=== PATIENT | female | born 1960 | race Caucasian/White ===

== ENCOUNTER 2016-03-05 06:55 | Inpatient (IN) | payer OTHER ==
[2016-03-05] VITALS (31 sets, daily range): BP systolic 61–123; BP diastolic 41–71; BMI 26.0
[~2016-03-05] VITALS: Ht 167.6 cm; Wt 90.5 kg
--- NOTE | ~2016-03-05 | HEMODYNAMI ---
PATIENT:SARAH GARY MEDICAL RECORD: [id number] : 56 LOCATION:[facility] D230 ADMISSION DATE: 03/05/16 Generatedon:03/24/201610:00 Patient name: SARAH GARY Patient #: [id number] SSN: : 1960 Date of study: 03/24/2016 Page: Of Hemodynamic Procedure Report Patient Data Patient Demographics Procedure consent was obtained First Name: SARAH Gender: Female Last Name: COOKIE : 1960 [facility] Initial: L Age: 56 year(s) Patient #: [id number] Race: Unknown Additional ID: [id number] Contact details Address: [address] [place] [address] State: [place] City: [facility] Zip code: [address] Admission Admission Data Admission Date: 03/05/2016 Admission Time: 6:55 Room #: D2309 Height (in.): 66 BSA: 1.96 (m2) Height (cm.): 167.64 BMI: 30.83 (kg/m2) Weight (lbs.): 191 Weight (kg.): 86.64 Procedure Procedure Types Cath Procedure Peripheral Cath Diagnostic Procedure Cath Peripheral Abscess Abscess Drain Injection Procedure Description Procedure Date Procedure Date: 03/24/2016 Procedure Start Time: 9:40 Procedure Staff Name Function Diallo Avila MD Performing Physician Yaya Castro RT Scrub Carissa Chapman RN Nurse Jessy Jeronimo RT Cage Loader Jessy Jeronimo RT Monitor Procedure Data Cath Procedure Fluoroscopy Diagnostic fluoroscopy Total fluoroscopy Time: 0.6 time: 0.6 min min Diagnostic fluoroscopy Total fluoroscopy dose: dose: 13.67 mGy 13.67 mGy Contrast Material Contrast Material Type Amount (ml) Isovue 300 5 Procedure Medications Medication Administration Route Dosage Lidocaine 1% added to field 20 Heparin Flush Bag added to field 1 bags (1000units/500ml NS) Fentanyl I.V. 50 mcg Fentanyl I.V. 50 mcg Fentanyl I.V. 50 mcg Hemodynamics Rest BSA: 1.96 (m2) O2 Consumption: Estimated: 208.78 (ml/min) O2 Consumption indexed : Estimated:106.52 (ml/min/m) Heart Rate: 100 (bpm) Snapshots Pre Cath Intra NCS Post Cath Vital Signs Time Heart Resp SPO2 NIBP (mmHg) Rhythm Pain Sedation Rate (ipm) (%) Status Level (bpm) 9:36:00 96 19 98 162/88(123) NSR 0 (11) 10(A) , No pain 9:40:13 95 16 98 154/84(123) NSR 0 (11) 10(A) , No pain 9:44:42 94 16 98 156/71(124) NSR 0 (11) 10(A) , No pain 9:48:56 94 16 98 146/82(113) NSR 0 (11) 10(A) , No pain 9:53:12 93 16 97 146/77(119) NSR 0 (11) 10(A) , No pain 9:57:28 89 17 98 148/82(114) NSR 0 (11) 10(A) , No pain Medications Time Medication Route Dose Verified Delivered Reason Notes Effec tiveness by by 9:38:37 Lidocaine 1% added 20ml Carissa Carissa used for to vial Ari Ari procedure field RN RN 9:38:45 Heparin Flush added 1 Carissa Carissa used for Bag to bags Ari Ari procedure (1000units/500ml field RN RN NS) 9:39:54 Fentanyl I.V. 50 Carissa Carissa for mcg Ari Ari sedation RN RN 9:45:36 Fentanyl I.V. 50 Carissa Carissa for mcg Ari Ari sedation RN RN 9:50:29 Fentanyl I.V. 50 Carissa Carissa for mcg Ari Ari sedation RN bottle labeler Log Time Note 8:41:19 Patient Height : 66 inches 8:41:24 Patient Weight : 191 lbs 8:41:59 Use device set IR Diagnostic 8:42:01 Sterile Angiographic Pack opened to sterile field. 8:42:02 Bag Decanter opened to sterile field. 9:25:08 Time tracking: Regular hours 9:25:50 Plan of Care:Hemodynamics will remain stable., Cardiac rhythm will remain stable., Comfort level will be maintained., Respiratory function will remain adequate., Patient/ family verbilizes understanding of procedure., Procedure tolerated without complication., Recovers from procedure without complications.. 9:26:09 Signed procedure consent form obtained from spouse. 9:28:14 Patient received from ICU to CCL 3 On ventilator. Tansferred to table i n Supine position. 9:28:19 ECG and BP/O2 sat monitors applied to patient. 9:28:20 Vital chart was started 9:28:21 Baseline sample Acquired. 9:28:23 Full Disclosure recording started 9:28:24 - 9:28:28 H&P Date Dictated: 03/24/2016 Within 30 days and on chart.. 9:28:35 Family unavailable. 9:28:39 Patient NPO since Breakfast. 9:29:24 ----Pre-sedation anethsthesia assessment.---- 9:29:29 Previous problem with sedation/anesthesia? No ? 9:30:22 Snore? No 9:30:25 Deviated septum? No 9:30:27 Opens mouth fully? Yes 9:30:28 Sticks out tongue? Yes 9:30:49 patient is on ventilator 9:30:59 IV patent on arrival in left forearm with 0.9% NaCl at O. 9:31:13 Right abdomen area was prepped with chlora-prep and draped in sterile fashion 9:31:15 Alarms reviewed by R. N. 9:31:15 Sharps counted by scrub and verified by R.N. 9:31:16 - 9:35:17 STOPCOCK 3-WAY LARGE BORE opened to sterile field. 9:35:33 YUCH needle opened to sterile field. 9:38:37 Lidocaine 1% 20ml vial added to field was given by Carissa Chapman RN; used for procedure; 9:38:45 Heparin Flush Bag (1000units/500ml NS) 1 bags added to field was given by Carissa Chapman RN; used for procedure; 9:38:49 Physician arrived 9:38:49 Physician arrived 9:39:05 --------ALL STOP TIME OUT------ 9:39:10 Final Timeout: patient, procedure, and site verified with staff and physician. All members of the team are in agreement. 9:39:16 Right abdomen site verified by team. 9:39:22 Physical assessment completed. ASA score P 3 - A patient with severe systemic disease as per Diallo Avila MD. 9:39:28 Sedation plan: IV Moderate Sedation Fentanyl 9:39:54 Fentanyl 50 mcg I.V. was given by Carissa Chapman RN; for sedation; 9:40:02 Procedure started. 9:40:09 Local anesthetic to Abdominal area with Lidocaine 1% by Diallo Avila MD.INITIAL ACCESS ONLY 9:45:36 Fentanyl 50 mcg I.V. was given by Carissa Chapman RN; for sedation; 9:50:29 Fentanyl 50 mcg I.V. was given by Carissa Chapman RN; for sedation; 9:51:07 drain checked and pulled 9:51:28 Procedure ended.(Physican Out) 9:51:35 Fluoroscopy time 00.60 minutes. 9:54:33 Fluoroscopy dose: 13.67 mGy 9:54:33 Flurop Dose total: 13.67 9:56:32 Contrast amount:Isovue 300 5ml. 9:59:46 Procedure and supply charges have been captured, reviewed, submitted an d are correct. 9:59:47 End room use (Document Last) 10:00:02 Vital chart was stopped Device Usage Item Name Manufacture Quantity Catalog Hospital Part Current Minimal Lot# / Number Charge Number Stock Stock Serial# Code Sterile Cardinal 1 [id number] 5 Angiographic Health Pack Bag Decanter Microtek 1 [id number] 5 [employer] STOPCOCK [employer] Medical 1 [id number] 5 3-WAY LARGE BORE YUCH needle [place] [address] [id number] 5 Signature Audit [place] Stage Time Signature Unsigned Intra-Procedure 03/24/2016 Jessy Jeronimo 9:59:59 AM RT(R) Signatures Monitor : Jessy Jeronimo RT Signature : Date : Time : [facility] [address] [place] [place] [address]
[~2016-03-05 06:55] MED LIST: BREO ELLIPTA 11 EACH INH; DUTOPROL 50-121 EACH PO; LASIX40 MG PO; METOPROLOL TART50 MG PO; PROTONIX40 MG PO; PULMICORT180 MCG/AE INH; SINGULAIR10 MG PO; VENTOLIN HFA18 GM INH
[2016-03-05 08:25] LABS: HEMATOCRIT 45.4 % (36.0-48.0); HEMOGLOBIN 15.8 g/dL (12-16); MCH 33.2 pg (26.0-34.0); MCHC 34.8 g/dL (31.0-37.0); MCV 95.4 fL (80.0-100.0); MEAN PLATELET VOLUME 10.4 fL (7.4-10.4); RBC 4.76 10x6/uL (4.00-5.40); RDW 12.9 % (11.5-14.5); WBC 8.6 10x3/uL (4.8-10.8)
[2016-03-05 08:34] LABS: CALC OSMOLALITY 270 mosm/kg (275-300); CALCIUM 9.1 mg/dL (8.5-10.1); CARBON DIOXIDE 28.6 mmol/L (21.0-32.0); CHLORIDE - SERUM 99 mmol/L (98-107); CREATININE - SERUM 0.8 mg/dL (0.6-1.3); GLUCOSE 110 mg/dL (74-106); POTASSIUM - SERUM 4.1 mmol/L (3.5-5.1); SODIUM 135 mmol/L (136-145); UREA NITROGEN 12 mg/dL (7-18); eGFR NON AFRICAN AMERICAN 78 mL/min (90-120)
--- NOTE | 2016-03-05 13:23 | NUR ---
[address] SOLANO PLACED ART LINE AND ABGS DRAWN
--- NOTE | 2016-03-05 16:50 | NUR ---
DR SANDOVAL CALLED AND CONSULTED.
[2016-03-05 17:21] LABS: BASOPHILS 0 % (0.0-2.0); EOSINOPHILS 0.1 % (0-7); IMMATURE GRANULOCYTES 1.1 % (0-5); LYMPHOCYTES 7.9 % (15-50); MCH 32.4 pg (26.0-34.0); MCHC 33.5 g/dL (31.0-37.0); MCV 96.7 fL (80.0-100.0); MEAN PLATELET VOLUME 10.3 fL (7.4-10.4); MONOCYTES 7.2 % (2-11); NEUTROPHILS 83.7 % (40-80); PLATELET COUNT 150 10x3/uL (130-400); RDW 13.2 % (11.5-14.5)
[2016-03-05 17:24] LABS: RBC 3.64 10x6/uL (4.00-5.40); WBC 12.2 10x3/uL (4.8-10.8)
[2016-03-05 17:25] LABS: HEMATOCRIT 35.2 % (36.0-48.0); HEMOGLOBIN 11.8 g/dL (12-16)
[2016-03-05 17:57] LABS: ALBUMIN 1.8 g/dL (3.4-5.0); ALKALINE PHOSPHATASE 51 U/L (46-116); ALT (SGPT) 193 U/L (10-68); BILIRUBIN - TOTAL 0.48 mg/dL (0.2-1.3); CALC OSMOLALITY 276 mosm/kg (275-300); CALCIUM 7.3 mg/dL (8.5-10.1); CARBON DIOXIDE 27.3 mmol/L (21.0-32.0); CHLORIDE - SERUM 105 mmol/L (98-107); POTASSIUM - SERUM 3.7 mmol/L (3.5-5.1); PROTEIN - SERUM 4.4 g/dL (6.4-8.2); SODIUM 136 mmol/L (136-145); UREA NITROGEN 12 mg/dL (7-18); eGFR NON AFRICAN AMERICAN 60 mL/min (90-120)
[2016-03-05 18:06] LABS: GLUCOSE 187 mg/dL (74-106)
[2016-03-05 18:13] LABS: CKMB 4.4 U/L (0.0-3.6); CREATINE KINASE 101 UL (21-215)
[2016-03-05 18:16] LABS: TROPONIN-I 1.248 ng/mL (0.000-0.060)
--- NOTE | 2016-03-05 18:54 | NUR ---
PATIENT ARRIVED TO THE FLOOR VIA BED AT 1618 SHE WAS BAGGED BY CELL OPERATION SUPERVISOR UNTIL VENT SET UP BY THEO. SETTINGS A/C 14, TV 500, PEEP 5, 100%. PER DR THOMPSON, PATIENT WILL REMAIN ON VENT AT LEAST THROUGHT THE NIGHT. CXR OBTAINED. SEDATION ORDERS OBTAINED AND STARTED. TEMP 97.5, B/P 95/62 HR 96 RR 14 SATS 100%. REPORT RECEIVED FROM 4 DIFFERENT CELL OPERATION SUPERVISOR'S AND AGAIN FROM BIANCA HERNANDEZ AT BEDSIDE. CHECKED TO ENSURE ANA LAURA DRAIN COMPRESSED. CHECKED ALL LINES ON WOUND VAC. PORTABLE WOUND VAC SYSTEM PLACED ON TOP OF BEDSIDE TABLE. B/P OF PATIENT STARTED FALLING 58/43. PER DR THOMPSON, FLUID BOLUSES STARTED TO BOTH IV'S, ONE TO LEFT HAND WAS GIVEN UNDER PRESSURE BAG AND THE ONE TO RIGHT HAND AT 999 VIA PUMP. BLOOD PRESSURE SLOWLY CAME UP WITH BOLUSES. CENTRAL LINE WAS PLACED TO LEFT SUBCLAVICULAR AREA BY DR THOMPSON AFTER BLOOD PRESSURE STABLE (APPROX 1505) SPOUSE SIGNED CONSENTS. OG TUBE WAS DROPPED BY MARY SHETTY RN AFTER CENTRAL LINE PLACED PRIOR TO CHEST X-RAY. A CVP LINE WAS PLACE AROUND 1800 WITH IT RUNNING 10-12. AROUND THE SAME TIME, LEVOPHED DRIP WAS STARTED SECONDARY TO SBP FALLING AGAIN INTO 70'S WITH MAP 53. TITRATED DRIP WAS LEFT AT 2.5 MCG. PATIENTS PROPOFOL WAS ALSO DC'D AND CHANGED TO VERSAID, TITRATE STOPPED AT THIS TIME ON 3 MG AND FENTYLE DRIP, TITRATE STOPPED AT 300 MCG. PATIENT IS CURRENTLLY RESTING COMFORTABLY. WILL CONTINUE TO MONITOR.
--- NOTE | 2016-03-05 19:14 | NUR ---
REPORT RECIEVED. ASSESSMENT COMPLETE PER FLOW SHEET. REFER FOR COMPLETE FINDINGS. ART PATENT BP 87/52 LEVOPHED AT 4MCG/MIN. INSPIRATORY WHEEZING HEARD BILAT ALL LOBES. ABD DRSG PATENT TO WOUND VAC. R ANA LAURA X1 NOTED 20 CC BLOODY DRAINAGE NOTED. VSS WILL CONTINUE TO MONITOR.
--- NOTE | 2016-03-05 21:45 | NUR ---
PT FAMIYL AT BED SIDE. GIVEN UPDATE. VSS NO NEW CHANGES WILL CONTINUE TO MONITOR.
--- NOTE | 2016-03-05 23:21 | NUR ---
REASSESSMENT COMPLETE PER FLOW SHEET. REPOSITIONED UP IN BED. VSS. DENIES FURTHER NEEDS. WILL CONTINUE TO MONITOR.
[2016-03-06] VITALS (90 sets, daily range): BP systolic 73–145; BP diastolic 51–88; Ht 167.6 cm; Wt 90.5 kg
[2016-03-06 00:06] LABS: HEMATOCRIT 38.2 % (36.0-48.0); HEMOGLOBIN 12.9 g/dL (12-16)
[2016-03-06 00:27] LABS: CREATINE KINASE 177 UL (21-215)
[2016-03-06 00:29] LABS: TROPONIN-I 1.178 ng/mL (0.000-0.060)
--- NOTE | 2016-03-06 01:12 | NUR ---
ASSISTED ONTO BEDPAN NO BM NOTED. PT STATES PASSING GAS.
--- NOTE | 2016-03-06 01:20 | NUR ---
COMPLETE BB LINEN CHANGE ADM. VSS WILL CONTINUE TO MONITOR.
--- NOTE | 2016-03-06 03:16 | NUR ---
REASSESSMENT COMPELTEPER FLOW SHEET VSS NO NEW CHNAGES AT THIS TIME. WILLCONTINUE TO MONITOR.
[2016-03-06 04:45] LABS: HEMATOCRIT 37.6 % (36.0-48.0); HEMOGLOBIN 12.5 g/dL (12-16); MCH 32.5 pg (26.0-34.0); MCHC 33.2 g/dL (31.0-37.0); MCV 97.7 fL (80.0-100.0); MEAN PLATELET VOLUME 11.4 fL (7.4-10.4); PLATELET COUNT 209 10x3/uL (130-400); RBC 3.85 10x6/uL (4.00-5.40); RDW 13.3 % (11.5-14.5); WBC 22.7 10x3/uL (4.8-10.8)
[2016-03-06 05:00] LABS: CALCIUM 7.5 mg/dL (8.5-10.1); CARBON DIOXIDE 24.4 mmol/L (21.0-32.0); CHLORIDE - SERUM 104 mmol/L (98-107); CKMB 6.6 U/L (0.0-3.6); CREATININE - SERUM 1.1 mg/dL (0.6-1.3); MAGNESIUM - SERUM 1.4 mg/dL (1.8-2.4); SODIUM 139 mmol/L (136-145); UREA NITROGEN 14 mg/dL (7-18); eGFR NON AFRICAN AMERICAN 54 mL/min (90-120)
[2016-03-06 05:05] LABS: CALC OSMOLALITY 286 mosm/kg (275-300); CREATINE KINASE 242 UL (21-215); GLUCOSE 241 mg/dL (74-106); POTASSIUM - SERUM 4.5 mmol/L (3.5-5.1); TROPONIN-I 0.834 ng/mL (0.000-0.060)
[2016-03-06 05:16] LABS: LYMPHOCYTES 7 % (15-50); MONOCYTES 1 % (2-11); NEUTROPHILS 72 % (40-80); PLATELET ESTIMATE NORMAL
--- NOTE | 2016-03-06 07:00 | NUR ---
REPORT RECEIVED. ASSESSMENT COMPLETED. LEVOPHED INCREASED SECONDARY TO 69/59 B/P. WILL MONITOR.
--- NOTE | 2016-03-06 07:56 | OP ---
PATIENT NAME: SARAH GARY MEDICAL RECORD: [id number] :56 LOCATION:.[facility] D.2309 ADMISSION DATE:03/05/16 SURGEON: BRICE BEASLEY MD DATE OF OPERATION: 03/05/2016 SURGEON: Brice Beasley MD PREOPERATIVE DIAGNOSIS: 1. The patient with history of perforated diverticulitis with Chris's procedure. 2. Postoperative incisional hernia. 3. Chronic obstructive pulmonary disease. 4. History of post-procedural respiratory failure. 5. Nicotine dependence. POSTOPERATIVE DIAGNOSIS: 1. The patient with history of perforated diverticulitis with Chirs's procedure. 2. Postoperative incisional hernia. 3. Chronic obstructive pulmonary disease. 4. History of post-procedural respiratory failure. 5. Nicotine dependence. 6. CO2 embolus. SURGEON: Dr. Brice Beasley. PROCEDURES: 1. Diagnostic laparoscopy. 2. Exploratory laparotomy with takedown of colostomy with colorectal anastomosis. 3. Lysis of adhesions. 4. Incisional hernia repair with 6 x 8 inch Phasix mesh. SPECIMENS: Case was contaminated. ESTIMATED BLOOD LOSS: 500 cc. COMPLICATIONS: CO2 embolus with subsequent respiratory arrest requiring CPR. OPERATIVE COURSE: After consent was obtained, the patient was taken to the operating room and placed in the supine position on the operating table. Next, general anesthesia was given via endotracheal intubation. After a timeout was performed confirming the correct patient and procedure, Ioban dressing was placed. Local anesthetic was injected into the right upper quadrant. Using a stab incision, made with 11-blade scalpel. Using a 5-mm bladeless optical trocar, the abdomen was entered under direct laparoscopic vision. Adequate pneumoperitoneum was achieved. Shortly thereafter, the patient had a dramatic drop in blood pressure as well as a loss of end-tidal CO2. The abdomen was desufflated. Pneumoperitoneum was halted. Shortly thereafter, the patient lost pulses and CPR ensued for approximately 1 minute. The patient was placed in the steep Trendelenburg position. At this time, we diagnosed the patient with a CO2 embolus. ACLS was initiated. The patient had spontaneous return of pulses within 2 minutes and arterial line was placed. At this time, the patient was hemodynamically stable with a blood pressure of 120s/60s, heart rate around 100 and adequate end-tidal CO2 of 35 time. The patient had resumed normal OPERATIVE REPORT [id number] SARAH GARY hemodynamic parameters. It was decided at this time to proceed with the operation. A midline abdominal incision was made and Chaz retractor was placed. Lysis of adhesions was performed. The small bowel was retracted towards the left upper quadrant. The pelvis was exposed. The marking suture from the rectum was identified. The rectum was dissected and freed. The colostomy was taken down to the skin level. The skin was excised along the colostomy with Harmonic scalpel. Dissection was performed using electrocautery and sharp Metzenbaum scissor. Dissection until the colostomy was freed. Before placing it into the abdomen, the 29-mm EEA anvil was placed and the colostomy single firing of the EMILY linear cutting stapler with the setting of 5 green load was then taken across the colostomy. Colostomy specimen was sent for pathology. Using cautery, a small colotomy was made at the staple line. The anvil was delivered through the colotomy and the colon and anvil were placed to the colostomy opening and into the abdomen to the pelvis. At this time, the rectum was irrigated. Rectal sizers were placed, a 23, 25 and 29. At this time, the 29-mm EEA stapler was passed through the rectum. The spike was delivered into the rectum. A colorectal anastomosis was then performed using a 29-mm EEA stapler. There were 2 complete donuts. The donuts were sent with the colostomy specimen for permanent pathology. The staple line was then reinforced with a 2.0 Stratafix suture imbricating the staple line. Lesia was placed into the posterior along the presacral fascia for advanced hemostasis. The anastomosis was reinforced with Tisseel. At this time, the hernia sac was excised in its entirety. The subcutaneous tissue was dissected off the external oblique fascia circumferentially allowing for 5 cm of overlap in all directions. The fascia was reapproximated using #1 looped PDS. A 6 x 8 inches Phasix mesh was placed over the incisional hernia. It was secured to the external oblique fascia using 3-0 Vicryl suture. Prior to closure of the abdomen, a ANA LAURA drain was placed in the pelvis at the colorectal anastomosis. The skin was loosely reapproximated with anju. The colostomy site was closed with an 0 Prolene suture. The colostomy site was again loosely approximated with anju. A Prevena incisional VAC system was placed. At the end of the case, all needle counts were correct. The patient was transferred to the ICU in stable condition. TRANSINT:[id number] Voice Confirmation ID: [id number] DOCUMENT ID: [id number] BRICE BEASLEY MD at 0756 CC: [id number] DICTATION DATE: 03/05/16 162 VEHICLE MAINTENANCE TECHNICIAN: 03/05/162038 ADM IN [place] [id number] [place] [address]
--- NOTE | 2016-03-06 08:23 | NUR ---
DR THOMPSON HERE. 500 ML BOLUS OF NORMAL SALINE GIVEN PER HIS VERBAL ORDER.
--- NOTE | 2016-03-06 09:50 | NUR ---
DR MARCH WITH ANESTHESIA HERE. WORKED ON A LINE, WAS ABLE TO GET IT TO DRAW. YAMILETH AND NIBP STILL NOT MATCHING UP, BUT WAVEFORM IS A BIT BETTER.
--- NOTE | 2016-03-06 10:30 | NUR ---
DR SANDOVAL HERE SEEING PATIENT. ADJUSTMENTS MADE ON THE VENT. PEEP NOW 8, OXYGEN NOW 50%.
--- NOTE | 2016-03-06 11:37 | NUR ---
PATIENT IS ON THE VENT AND NOT ABLE TO RESPOND TO QUESTIONS. THERE HAS NOT BEEN ANY FAMILY HER TO INTERVIEW. CM TO FOLLOW.
--- NOTE | 2016-03-06 12:12 | NUR ---
SPOUSE HERE, PASSWORD SET UP. QUESTIONS ANSWERED. HE WAS GIVEN THE NUMBER TO THE NURSES STATION SO HE CAN CALL AND CHECK ON HER WHEN HE IS UNABLE TO MAKE VISITATIONS.
--- NOTE | 2016-03-06 12:53 | NUR ---
PATIENTS B/P FELL TO 70/51 (58). DR THOMPSON HERE. ORDERED FLUID BOLUS. SATS ALSO DECREASED TO 88% ON 40% OXYGEN. PATIENT WAS GIVEN 2 MIN AT 100% AND HER OXYGEN INCERASED TO 60% AFTER UNABLE TO COME UP ON 50%. SATS HOLDING AT 95% AT THIS TIME.
--- NOTE | 2016-03-06 14:23 | NUR ---
DR SOLANO HERE WITH ANESTHESIA TO TRY TO OPEN UP THE PATIENTS ART LINE.
--- NOTE | 2016-03-06 14:33 | NUR ---
LEVOPHED DRIP DECREASED TO 28 MCG. CVP RESET TO SEE IF TRUE READING. RESET READING WAS 12, PREVIOUSALLY READING 15. WILL CONTINUE TO MONITOR.
--- NOTE | 2016-03-06 14:40 | NUR ---
DR SOLANO REPLACED THE ARTLINE TO RIGHT WRIST WITH A LONGER LINE. RECEIVING GOOD READINGS WITH GREAT WAVEFORM. PER THEO WITH RESPIRATORY, ROBERTO GREAT FOR ABG'S THAT WERE REQUESTED BY DR SOLANO.
--- NOTE | 2016-03-06 15:25 | NUR ---
Is the patient Alert and Oriented? No 0 * How many steps to enter\exit or inside your home? 1 0 * PCP DR. RAMIREZ 0 * [facility] [address] [place] [facility] * Preadmission Environment Home with Family 0 * ADLs Independent 0 * Equipment Nebulizer 0 * Other Equipment DOES NOT KNOW WHO PROVIDES NEBS 0 * List name and contact numbers for known caregivers / representatives who currently or will assist patient after discharge: SPOUSE: RAMON PROCTOR [phone] 0 * Community resources currently utilized None 0 * Additional services required to return to the preadmission environment? No 0 * Can the patient safely return to the preadmission environment? Yes 0 * Has this patient been hospitalized within the prior 30 days at any hospital? No PATIENT IS ON THE VENT AND SEDATED. HER SPOUSE, RAMON PROCTOR, IS AT THE BEDSIDE AND ANSWERS MY QUESTIONS. HE STATES THEY WERE LAST THURSDAY. HE STATES THAT PATIENT WAS LIVING AT HOME PRIOR TO COMING TO THE HOSPITAL. HER PCP IS DR. RAMIREZ. SHE GETS HER MEDS FROM [facility] [address] [facility]. PATIENT HAS A NEBULIZER SHE SOMETIMES USES BUT HE DOES NOT KNOW WHO PROVIDES IT. HE STATES HE HAS NEVER HAD HOME HEALTH CARE. THERE IS ONLY 1 STEP TO ENTER THEIR HOME. DISCHARGE NEEDS ARE UNKNOWN AT THIS TIME. CM TO FOLLOW.
--- NOTE | 2016-03-06 15:41 | NUR ---
LEVOPHED DECREASED TO 24 MCG. MAP REMAINS IN 70'S. CVP READING 24. ZEROED FOR THE 3RD TIME. READING AFTER ZEROING IS 22. WILL MONITOR.
--- NOTE | 2016-03-06 17:18 | NUR ---
DR THOMPSON HERE. DISCUSSED THE PATIENTS PROGRESS THROUGHT THE DAY. VERSAID DECREASED TO 2.5 AT THIS TIME. IV FLUIDS DECREASED TO 55 ML/HR. PER DR THOMPSON, HE DOES NOT WANT THE PATIENT GETTING MORE THAN 200 ML/HR AT ANY TIME. WILL CONTINUE TO MONITOR.
--- NOTE | 2016-03-06 17:23 | NUR ---
CVP ZEROED FOR THE 4TH TIME TODAY. CURRENT READING IS 6.
--- NOTE | 2016-03-06 17:48 | NUR ---
LEVOPHED DRIP DECREASED TO 25 MCG. SBP 116, MAP 77. CVP READING 18. ZEROED IT AGAIN. READING 11 AFTER ZEROING. WILL CONTINUE TO MONITOR.
--- NOTE | 2016-03-06 18:14 | NUR ---
SPOKE WITH SPOUSE AND EXPLAINED THAT DR THOMPSON SAID HE WOULD LIKE TO BE CALLED TOMORROW WHEN HE WAS HERE SO THAT HE COULD COME OVER AND TALK TO HIM. HE STATED HE WOULD BE SURE THAT HE WOULD BE ABLE TO STAY.
--- NOTE | 2016-03-06 19:33 | NUR ---
REPORT RECIEVED ASSESSMENT COMPLETE PER FLOW SHEET. VSS. REPOSTIIONED ON R SIDE. ORAL ENDOTRACH CARE ADM. WILL CONTINUE TO MONITOR.
--- NOTE | 2016-03-06 21:28 | NUR ---
FAMILY GIVEN UPDATE VIA T. NO NEW CHANGES AT THIS TIME.
--- NOTE | 2016-03-06 23:28 | NUR ---
REASSESSMENT COMPLETEP ER FLOW SHEET. VSS.NO NEW CHANGES AT THIS TIME. WILL CONTINUE TO MONITOR.
[2016-03-07] VITALS (95 sets, daily range): BP systolic 80–145; BP diastolic 47–78
--- NOTE | 2016-03-07 01:30 | NUR ---
REPOSITIONED FOR COMFORT, WILL CON'T TO MONITOR
--- NOTE | 2016-03-07 03:21 | NUR ---
REASSESSMENT COMPLETE PER LFOW SHEET. VSS NO ENW CHANGES AT THIS TIME. WILL CONTINUE TO MONITOR.
[2016-03-07 04:29] LABS: BASOPHILS 0.2 % (0.0-2.0); EOSINOPHILS 0.8 % (0-7); HEMATOCRIT 30.4 % (36.0-48.0); IMMATURE GRANULOCYTES 0.2 % (0-5); MCH 32.5 pg (26.0-34.0); MCHC 32.2 g/dL (31.0-37.0); MEAN PLATELET VOLUME 10.5 fL (7.4-10.4); MONOCYTES 7.4 % (2-11); NEUTROPHILS 85.4 % (40-80); RDW 13.8 % (11.5-14.5)
[2016-03-07 04:36] LABS: ANION GAP 10.4 mmol/L (8-16); CALCIUM 7.4 mg/dL (8.5-10.1); CARBON DIOXIDE 26.2 mmol/L (21.0-32.0); CREATININE - SERUM 0.9 mg/dL (0.6-1.3); HEMOGLOBIN 9.8 g/dL (12-16); MCV 100.7 fL (80.0-100.0); PLATELET COUNT 150 10x3/uL (130-400); POTASSIUM - SERUM 4.6 mmol/L (3.5-5.1); RBC 3.02 10x6/uL (4.00-5.40); WBC 14.6 10x3/uL (4.8-10.8)
--- NOTE | 2016-03-07 05:20 | NUR ---
A LINE ALARMING BAD WAVEFORM ZEROED REPOSITIONED WITH GOOD WAVE FORM BP 106/64
--- NOTE | 2016-03-07 07:00 | NUR ---
ASSUMED CARE OF PT. SHIFT ASSESSMENT COMPLETE. SEE FLOWSHEET FOR FINDINGS. PT IS SEDATED AND VENTILATED. SOFT WRIST RESTRAINTS IN PLACE. MARK CATHETER WITH CONCENTRATED URINE. ART LINE AND CVP LINES ZERO'D. WOUND VAC FUNCTIONING PROPERLY. WITH NO LEAKS.
--- NOTE | 2016-03-07 10:30 | NUR ---
AT BEDSIDE TO SPEAK WITH DR THOMPSON. DONNA PAGED TO LET KNOW HE IS HERE.
--- NOTE | 2016-03-07 15:08 | NUR ---
DR THOMPSON IN TO SEE PATIENT. 100ML OUT OF ANA LAURA DRAIN. ASKED FOR MAINTENANCE FLUIDS TO BE TURNED DOWN TO 75ML/HR. WANTS FENTANYL DOWN TO 200MCG/HR.
--- NOTE | 2016-03-07 16:01 | NUR ---
WOUND CARE CONSULT: WOUND VAC DRESSING CHANGE WOUND TYPE: SURGICAL WOUND LOCATION: LEFT ABDOMEN WOUND AGE IN MONTHS: DAYS DEBRIDEMENT ATTEMPTED IN LAST 10 DAYS? DATE/TYPE: SERIAL DEBRIDEMENTS REQUIRED? UNKNOWN MEASUREMENT DATE: 03/07/16 2CM X 3CM X 5CM FULL THICKNESS? YES MUSCLE, TENDON OR BONE EXPOSED? NO UNDERMINING?NO TUNNELING/SINUS?NO APPEARANCE OF WOUND BED : RED EXUDATE (AMOUNT, COLOR, ODOR): SMALL BLOODY NO ODOR FOAM TYPE: BLACK # OF PIECES USED: 2 PIECES EDUCATION: PURPOSE OF VAC AND PREVENA TO PREVENA DRESSING IS INTACT TO RIGHT ABDOMEN
--- NOTE | 2016-03-07 17:00 | NUR ---
PT SEDATED. NO DISTRESS NOTED. REPOSITIONED. BED LOW. SIDE RAILS X2
--- NOTE | 2016-03-07 20:00 | NUR ---
2000: Pt opens eyes to verbal and nods head to questions, but quickly returns to resting with eyes closed. Continue to titrate levophed gtt to keep pt MAP >60 as per MD orders.
--- NOTE | 2016-03-07 20:45 | NUR ---
2044: Pt ABD with large midline wound vac dressing in place to 125 mmHg sx with small amount of drainage. (Dried in container with solidifier <30cc) RLQ with ANA LAURA drain with bulb sx intact. LLQ with approx 5-6cm wound vac dressing to 125 mmHg sx as above. Pt with no BS. OGT to LIS with green liquid return.
--- NOTE | 2016-03-07 21:00 | NUR ---
2100: Pt family here. Update provided.
[2016-03-08] VITALS (91 sets, daily range): BP systolic 96–152; BP diastolic 43–70
--- NOTE | 2016-03-08 | NUR ---
0000: No change in pt RESP/CV/NV status. Pt remains with levophed gtt titrate to keep MAP>60.
--- NOTE | 2016-03-08 02:30 | NUR ---
0230: Pt repositioned for comfort at this time. Oral care done per RT. Hedrick care done per RN. Pt remains on Vent with RR16x. Pt opens eyes briefly to verbal. ST on CM 100-110 bpm with SBP >100 and MAP >60 mmHG. Continue to titrate Levophed down. No change in pt ABD wound/dressings or drainage.
[2016-03-08 03:54] LABS: BASOPHILS 0.3 % (0.0-2.0); EOSINOPHILS 2.5 % (0-7); HEMATOCRIT 25.5 % (36.0-48.0); HEMOGLOBIN 8.1 g/dL (12-16); IMMATURE GRANULOCYTES 0.2 % (0-5); LYMPHOCYTES 7.3 % (15-50); MCH 32.5 pg (26.0-34.0); MCHC 31.8 g/dL (31.0-37.0); MCV 102.4 fL (80.0-100.0); MEAN PLATELET VOLUME 9.7 fL (7.4-10.4); NEUTROPHILS 83.7 % (40-80); PLATELET COUNT 139 10x3/uL (130-400); RBC 2.49 10x6/uL (4.00-5.40); RDW 14.2 % (11.5-14.5); WBC 11.5 10x3/uL (4.8-10.8)
[2016-03-08 04:02] LABS: CALC OSMOLALITY 292 mosm/kg (275-300); CALCIUM 7.6 mg/dL (8.5-10.1); CARBON DIOXIDE 26.7 mmol/L (21.0-32.0); CHLORIDE - SERUM 114 mmol/L (98-107); CREATININE - SERUM 0.7 mg/dL (0.6-1.3); GLUCOSE 136 mg/dL (74-106); MAGNESIUM - SERUM 2.3 mg/dL (1.8-2.4); PHOSPHOROUS 1.9 mg/dL (2.5-4.9); POTASSIUM - SERUM 4.2 mmol/L (3.5-5.1); SODIUM 146 mmol/L (136-145); UREA NITROGEN 13 mg/dL (7-18); eGFR NON AFRICAN AMERICAN > 90 mL/min (90-120)
--- NOTE | 2016-03-08 06:00 | NUR ---
0600: Labs returned and results called to Dr. Beasley at this time. New orders rec'd and enterred.
[2016-03-08 10:15] LABS: LDL-HDL RATIO 3.1 ratio (1.5-3.5)
--- NOTE | 2016-03-08 10:54 | NUR ---
Nutrition Consult: Consult received to start TPN. Chart reviewed. Pt continues sedated and intubated. Wound vac in place. OGT to LIS. Per MD IV fluids not to exceed 150 ml/hr. Meds noted: Lasix, Levo, Versed, Zofran, D5LR @ 75 ml/hr Labs noted Will put order in to start TPN @ 40 ml/hr. Will decrease IV fluids to 20 ml/hr. Thank you for the consult. RD will continue to monitor pt progress.
[2016-03-08 14:15] LABS: HEMATOCRIT 31.8 % (36.0-48.0)
--- NOTE | 2016-03-08 18:14 | NUR ---
0715-DR THOMPSON AT BEDSIDE-STATUS REPORT GIVEN-INFORMED OF TEMP 101.2-ORDERS RECIEVED AND NOTED-URINE CULTURE RQDI-DEKT-VCFCAGE-BENADRYL-12.5MG IVP GIVEN-NOTED ST 112-R RADIAL YAMILETH WITH GOOD IHOF-KFAM-VPEQY-- 0830-VERSED STOPPED FOR CPAP TRIAL-FENTANYL DECREASED TO 25MCG-LEVOPHED DECREASED TO 2 MCG-WOUND VAC INTACT- 1030-PRBC INFUSED-LASIX IV GIVEN ORDERED-FENTANYL INCREASED TO 100MCG-FORM PT AGITATION AND NODDED YES WHEN ASKED IF IN PAIN-VERSED REMAINS OFF-HR 124 ST-VENT CHANGE SIMV AT 6-PRBC STARTED 1200-LEVOPHED OFF-DIETITION AT BEDSIDE- 1330-TPN STARTED AT 40ML/H-NOTED HR 136-ST -VERSED CONT STARTED AT 1MG/H-FENTANYL INCREASED TO 150MCG FOR POSSIBLE PAIN- 1345-PRBC INFUSED 1410-STAT HEMOGRAM DRAWN-ST 136-ON MONITOR 1450-DR THOMPSON NOTIFIED OF CONT HR -H AND H RESULTS-VERSED TITRATED TO 2MG/H-LEVOPHED REMAINS OFF-
--- NOTE | 2016-03-08 18:25 | NUR ---
1515- AT BEDSIDE AND STATUS REPORT GIVEN 1815- AT [facility]-HR 122 SR -REMAINS OFF LEVOPHED-FENT AT 150MCG-D5LR 20KCL AT 20M/H- VERSED AT 2MG/H-INFORMED PLAN TO LEAVE ON SEDATION AND PAIN MEDICINE OVERNIGHT AND TURN OFF IN EARLY HOURS TO ATTEMPT CPAP TRIAL
--- NOTE | 2016-03-08 20:30 | NUR ---
2030: Dr. Beasley called and updated provided.
[2016-03-09] VITALS (65 sets, daily range): BP systolic 100–171; BP diastolic 43–74
--- NOTE | 2016-03-09 | NUR ---
0000: Complete bath and linen change done. SCDs removed at this time. Removed bracelets from arm related to tightness/swelling. Oral care done. OGT position confirmed with 30 cc air bolus and returned to LIS with green liquid return. All IV lines including CVP changed at this time. CVP leveled and transduced to CM with reading 14-15 mmHG. Versed gtt stopped at this time and Fentanyl increased to 200 mcg/hr. NS TKVO also DC'D at this time. No change in RESP/NV/CV status. Remains ST 100's on CM with SBP 100's with Levophed off. No change in UOP remains >30 cc/hr.
[2016-03-09 04:13] LABS: BASOPHILS 0.2 % (0.0-2.0); EOSINOPHILS 5.9 % (0-7); HEMATOCRIT 30.5 % (36.0-48.0); HEMOGLOBIN 9.5 g/dL (12-16); IMMATURE GRANULOCYTES 0.5 % (0-5); LYMPHOCYTES 6.8 % (15-50); MCH 31.1 pg (26.0-34.0); MCHC 31.1 g/dL (31.0-37.0); MEAN PLATELET VOLUME 10.1 fL (7.4-10.4); MONOCYTES 6.4 % (2-11); NEUTROPHILS 80.2 % (40-80); PLATELET COUNT 136 10x3/uL (130-400); RDW 17.8 % (11.5-14.5); WBC 11.1 10x3/uL (4.8-10.8)
[2016-03-09 04:27] LABS: RBC 3.05 10x6/uL (4.00-5.40)
[2016-03-09 04:37] LABS: CALC OSMOLALITY 293 mosm/kg (275-300); CALCIUM 7.9 mg/dL (8.5-10.1); CARBON DIOXIDE 26.5 mmol/L (21.0-32.0); CHLORIDE - SERUM 115 mmol/L (98-107); CREATININE - SERUM 0.6 mg/dL (0.6-1.3); GLUCOSE 137 mg/dL (74-106); MAGNESIUM - SERUM 2.4 mg/dL (1.8-2.4); PHOSPHOROUS 2.3 mg/dL (2.5-4.9); POTASSIUM - SERUM 4.1 mmol/L (3.5-5.1); SODIUM 147 mmol/L (136-145); UREA NITROGEN 12 mg/dL (7-18); eGFR NON AFRICAN AMERICAN > 90 mL/min (90-120)
--- NOTE | 2016-03-09 04:43 | NUR ---
0440: Pt repositioned for comfort at this time.
--- NOTE | 2016-03-09 19:00 | NUR ---
RECEIVED PATIENT IN BED WITH EYES CLOSED ON VENT, ASSESSMENT COMPLETE PER FLOWSHEET. UNABLE TO ASSESS LOC DUE TO SEDATION, PATIENT OPENS EYES TO VOICE AND MOVES EXTREMITIES. EYES PERRLA @ 3MM WITH BRISK RESPONSE, SCLERA IS WHITE. OGT/ETT 7.0 @ 23CM MILINE LIPLINE, ORAL MUCOSA IS DRY AND INTACT. NG TUBE CONNECTED TO LIS, WITH THICK WHITE SECRETIONS NOTED. S1/S2 NOTED WITH PATIENT SINUS TACH ON TELEMETRY, REGULAR AND RYTHMIC. RHONCHI NOTED THROUGHOUT UPPER LOBES WITH SLIGHTLY DIMINISHED LOWER LOBES. INCISION X2 ABDOMEN, MIDLINE & R ABD WITH WOUND VAC ATTATCHED AND SCANT DRAINAGE NOTED. ANA LAURA DRAIN LOWER ABDOMEN WITH 11ML SEROUS DRAINAGE NOTED, EMPTIED AND COMPRESSED. MARK SECURED IN PLACE VIA STATLOCK, ROB URINE NOTED IN COLLECTION BAG. WEAKNESS NOTED ALL EXTREMITIES, ALL PULSES PALPABLE. A-LINE NOTED R RADIAL, ZEROED WITH GOOD WAVEFORM. CVL NOTED L SUBCLAVIAN, PATENT WITH FLUIDS INFUSING. ORAL CARE/SUCTIONING PROVIDED, PATIENT REPOSITIONED FOR COMFORT. ALL VSS AND WILL CONTNUE TO MONITOR.
--- NOTE | 2016-03-09 19:35 | NUR ---
1430-DR THOMPSON NOTIFIED OF ORAL TEMP 103.4-ORDER RECIEVED AND NOTED 1700-DR SANDOVAL IN UNIT AND MADE AWARE OF SAME-NO CHANGE IN ANTIBIOTIC
--- NOTE | 2016-03-09 21:00 | NUR ---
PATIENT RESTING IN BED WITH EYES CLOSED ON VENT, AT BEDSIDE. FAMILY STATES "NO QUESTIONS" AT THIS TIME, "JUST CAME TO SEE HER". INFORMED TO CONTACT US AT ANY TIME IF QUESTIONS ARISE, STATED UNDERSTANDING. ALL VSS AND WILL CONTINUE TO MONITOR.
--- NOTE | 2016-03-09 23:00 | NUR ---
REASSESSMENT COMPLETE PER FLOWSHEET, PATIENT RESTING IN BED WITH EYES CLOSED ON VENT. ALL VSS WITH NO BLEEDING OR DRAINAGE NOTED FROM INCISION SITES. BOWEL SOUNDS ABSENT X4, ABDOMEN IS SOFT AND ROUND. PATIENT IS SIUNS TACH ON TELEMETRY, RYTHMIC AND REGULAR. VENT SETTINGS REMAIN UNCHANGED FROM PREVIOUS ASSESSMENT, OXYGEN SAT 99%. PATIENT OPENS EYES SPONTANEOUSLY AND MOVES EXTREMITIES SLOWLY. PATIENT DENIES PAIN OR OTHER NEEDS AT THIS TIME, WILL CONTINUE TO MONITOR.
[2016-03-10] VITALS (25 sets, daily range): BP systolic 101–174; BP diastolic 42–95
--- NOTE | 2016-03-10 01:00 | NUR ---
PATIENT RESTING IN BED WITH EYES CLOSED ON VENT, SETTINGS UNCHANGED. ORAL CARE/REPOSITIONED FOR COMFORT, BED BATH/LINEN CHANGE PERFORMED. NO OTHER NEEDS AT THIS TIME, ALL VSS AND WILL CONTINUE TO MONITOR.
--- NOTE | 2016-03-10 03:00 | NUR ---
REASSESSMENT COMPLETE PER FLOWSHEET, PATIENT RESTING IN BED WITH EYES CLOSED ON VENT. VENT SETTINGS UNCHANGED FROM PREVIOUS ASSESSMENT, PATIENT O2 SAT IS 99% ON 40% VENT. NO ERYTHEMA OR SWELLING NOTED AT INCISION SITES, NO DRAINAGE IN HEMOVAC CANISTER FROM LAST ASSESSMENT. S1/S2 NOTED WITH PATIENT SINUS TACH ON TELEMETRY. NO FURTHER NEEDS AT THIS TIME, ALL VSS AND WILL CONTINUE TO MONITOR.
--- NOTE | 2016-03-10 05:00 | NUR ---
SEDATION TURNED OFF FOR CPAP TRIAL IN AM. PATIENT RESTING ON VENT WITH EYES CLOSED. ALL VSS AND WILL CONTINUE TO MONITOR.
[2016-03-10 05:20] LABS: BASOPHILS 0.2 % (0.0-2.0); EOSINOPHILS 7.5 % (0-7); HEMATOCRIT 28.8 % (36.0-48.0); HEMOGLOBIN 8.9 g/dL (12-16); IMMATURE GRANULOCYTES 0.9 % (0-5); LYMPHOCYTES 8.5 % (15-50); MCH 31.4 pg (26.0-34.0); MCHC 30.9 g/dL (31.0-37.0); MCV 101.8 fL (80.0-100.0); MEAN PLATELET VOLUME 10.5 fL (7.4-10.4); MONOCYTES 8.2 % (2-11); NEUTROPHILS 74.7 % (40-80); PLATELET COUNT 159 10x3/uL (130-400); RBC 2.83 10x6/uL (4.00-5.40); RDW 16.5 % (11.5-14.5); WBC 10.1 10x3/uL (4.8-10.8)
[2016-03-10 05:33] LABS: CALC OSMOLALITY 297 mosm/kg (275-300); CALCIUM 8.3 mg/dL (8.5-10.1); CARBON DIOXIDE 28.7 mmol/L (21.0-32.0); CREATININE - SERUM 0.6 mg/dL (0.6-1.3); GLUCOSE 154 mg/dL (74-106); MAGNESIUM - SERUM 2.4 mg/dL (1.8-2.4); PHOSPHOROUS 2.7 mg/dL (2.5-4.9); POTASSIUM - SERUM 3.8 mmol/L (3.5-5.1); SODIUM 149 mmol/L (136-145); UREA NITROGEN 11 mg/dL (7-18); eGFR NON AFRICAN AMERICAN > 90 mL/min (90-120)
[2016-03-10 05:46] LABS: CHLORIDE - SERUM 116 mmol/L (98-107)
--- NOTE | 2016-03-10 09:05 | NUR ---
PT SEDATED AND VENTILATED. TURNED DIPRIVAN DOWN TO 10MCG/HR FOR RESPIRATORY TO ATTEMPT CPAP TRIAL AGAIN THIS MORNING.
--- NOTE | 2016-03-10 09:28 | NUR ---
CALLED. PASSWORD PROVIDED. UPDATE GIVEN. PT IS ON CPAP TRIAL AT THIS MOMENT AND DOING WELL.
--- NOTE | 2016-03-10 10:12 | NUR ---
NUTRITION MONITORING & EVAL CHART REVIEWED. RENEWED TPN, AM LABS PREVIOUSLY ORDERED. RD FOLLOWING
--- NOTE | 2016-03-10 11:10 | NUR ---
WOUND CARE NURSE IN ROOM TO CHANGE OUT WOUND VAC DRESSING.
--- NOTE | 2016-03-10 11:16 | NUR ---
WENT TO TAKE VITALS FOR PRE-ADMIN OF BLOOD. PT HAS TEMPERATURE OF 101.5 BLOOD RETURNED TO BLOOD BANK AND DR DONNA CHI.
--- NOTE | 2016-03-10 11:39 | NUR ---
WOUND VAC DRESSING CHANGE WOUND TYPE:SURGICAL WOUND LOCATION: LEFT ABDOMEN WOUND AGE IN MONTHS: WEEK DEBRIDEMENT ATTEMPTED IN LAST 10 DAYS? DATE/TYPE: SERIAL DEBRIDEMENTS REQUIRED? MEASUREMENT DATE: 03/10/16 1CM X 3.5CM X 3CM X 3CM @ 3 OCLOCK FULL THICKNESS? YES MUSCLE, TENDON OR BONE EXPOSED? NO UNDERMINING? NO TUNNELING/SINUS? YES SEE ABOVE APPEARANCE OF WOUND BED : RED/BEEFY EXUDATE (AMOUNT, COLOR, ODOR): MODERATE/SANGUINOUS/NO ODOR FOAM TYPE: BLACK # OF PIECES USED: 1 PIECE IN WOUND BED/1 ON TOP (2TOTAL)
--- NOTE | 2016-03-10 12:52 | NUR ---
SPOKE WITH DR THOMPSON WHILE HE WAS ON THE UNIT. ASKED FOR MOTRIN TO BE GIVEN AND THEN 25MG OF BENADRYL FOR PRE-MED. THEN WANTS THE UNIT OF PRBC ADMINISTERED.
--- NOTE | 2016-03-10 14:30 | NUR ---
PRBC RUNNING. PT TEMPERATURE NOW 100.0 DEGREES. WILL CONTINUE TO MONITOR
--- NOTE | 2016-03-10 17:30 | NUR ---
PT PRBC HAVE BEEN COMPLETED. PT TEMP NOW 98.7.
--- NOTE | 2016-03-10 18:27 | NUR ---
/SIGNIFICANT OTHER AT BEDSIDE AT THIS TIME. FENTANYL REPLACED AND PIPERCILLIN STARTED AT 4HR ADMINISTRATION.
--- NOTE | 2016-03-10 20:34 | NUR ---
RECEIVED PATIENT IN BED WITH EYES CLOSED ON VENT, AT BEDSIDE. PATIENT HAD LIQUID BM IN BED AT SHIFT CHANGE, MARLEY RN ASSITED IN BED BATH/LINEN CHANGE. ASSESSMENT COMPLETED PER FLOWSHEET. PATIENT SEDATED ON VENT, OPENS EYES SPONTANEOUSLY AND RESPONDS TO COMMANDS. EYES PERRLA AT 3MM WITH BRISK RESPONSE, SCLERA IS WHITE. ETT 7.0 @ 23CM NOTED LIPLINE R, OGT SECURED IN PLACE. VENT R-10, V-600, 40%, PEEP-8, SUPP-10 WITH BREATHING RYTHMIC AND REGULAR. S1/S2 NOTED WITH PATIENT SINUS TACH ON TELEMETRY. ABDOMEN IS DISTENDED AND SOFT, MIDLINE/L MID/R UPPER INCISIONS NOTED WITH HEMOVAC AND ANA LAURA DRAIN. SCANT DRAINAGE, NO SWELLING OR ERYTHEMA NOTED. MARK SECURED IN PLACE WITH DARK URINE NOTED WITH SEDIMENT PRESENT IN COLLECTION BAG. FULL ROM ALL EXTREMITIES WITH WEAKNESS NOTED ALL EXTREMITIES. CVL NOTED L SUBCLAVIAN, PATENT WITH FLUIDS INFUSING. 20G PIV R WRIST, PATENT WITH FLUIDS INFUSING. ORAL CARE/SUCTIONING PROVIDED, PATIENT REPOSITIONED FOR COMFORT. ALL VSS AND WILL CONTINUE TO MONITOR.
--- NOTE | 2016-03-10 23:00 | NUR ---
REASSESSMENT COMPLETE PER FLOWSHEET, PATIENT RESTING IN BED WITH EYES CLOSED ON VENT. PATIENT TEMP INCREASED TO 101.5, ACETAMINOPHEN GIVEN TO REDUCE FEVER WITH MOTRIN PRN IN 3 HRS. LUNG SOUNDS ARE DIMINISHED ALL LOBES, VENT SETTINGS ARE UNCHANGED. ORAL CARE/SUCTIONING PROVIDED, PATIENT REPOSITIONED FOR COMFORT. ALL VSS AND WILL CONTINUE TO MONITOR.
[2016-03-11] VITALS (24 sets, daily range): BP systolic 85–170; BP diastolic 40–57
--- NOTE | 2016-03-11 01:00 | NUR ---
RECHECKED PATIENT TEMPERATURE, 100.3 AXILLARY. PATIENT SKIN FEELS COOLER TO TOUCH, WILL CONTINUE WITH MOTRIN @ 0300. SUCTIONING AND ORAL CARE PROVIDED, PATIENT REPOSITIONED FOR COMFORT. ALL VSS AND WILL CONTINUE TO MONITOR.
--- NOTE | 2016-03-11 03:00 | NUR ---
REASSESSMENT COMPLETE PER FLOWSHEET, PATIENT RESTING IN BED WITH EYES CLOSED ON VENT. PEEP DECREASED TO 7.0, NO OTHER CHANGES IN VENT SETTINGS. IV LINES AND TUBING CHANGED, ORAL CARE/SUCTIONING PROVIDED. PATIENT REPOSITIONED FOR COMFORT, NO OTHER NEEDS AT THIS TIME. ALL VSS AND WILL CONTINUE TO MONITOR.
[2016-03-11 04:32] LABS: BASOPHILS 0.3 % (0.0-2.0); EOSINOPHILS 7.1 % (0-7); HEMOGLOBIN 9.6 g/dL (12-16); IMMATURE GRANULOCYTES 2.3 % (0-5); LYMPHOCYTES 9.6 % (15-50); MCH 30.5 pg (26.0-34.0); MEAN PLATELET VOLUME 10.4 fL (7.4-10.4); MONOCYTES 6.9 % (2-11); NEUTROPHILS 73.8 % (40-80); PLATELET COUNT 180 10x3/uL (130-400); RBC 3.15 10x6/uL (4.00-5.40); RDW 17.1 % (11.5-14.5); WBC 11.7 10x3/uL (4.8-10.8)
[2016-03-11 04:35] LABS: MCV 98.4 fL (80.0-100.0)
[2016-03-11 04:55] LABS: CALC OSMOLALITY 293 mosm/kg (275-300); CALCIUM 8.4 mg/dL (8.5-10.1); CARBON DIOXIDE 24.9 mmol/L (21.0-32.0); CHLORIDE - SERUM 114 mmol/L (98-107); CREATININE - SERUM 0.6 mg/dL (0.6-1.3); GLUCOSE 156 mg/dL (74-106); MAGNESIUM - SERUM 2.4 mg/dL (1.8-2.4); PHOSPHOROUS 2.9 mg/dL (2.5-4.9); POTASSIUM - SERUM 3.7 mmol/L (3.5-5.1); SODIUM 147 mmol/L (136-145); UREA NITROGEN 9 mg/dL (7-18); eGFR NON AFRICAN AMERICAN > 90 mL/min (90-120)
--- NOTE | 2016-03-11 06:00 | NUR ---
PATIENT FOR VISITATION, REQUESTED UPDATE ON CURRENT CONDITION. DISCUSSED WITH , NO FURTHER QUESTIONS. LEFT STATING HE WOULD "RETURN LATER", ORAL CARE/SUCTIONING PROVIDED. ALL VSS AND WILL CONTINUE TO MONITOR.
--- NOTE | 2016-03-11 07:20 | NUR ---
MORNING ASSESSMENT COMPLETE. SEE FLOWSHEET FOR FINDINGS. DIPRIVAN BEING TURNED DOWN TO PREPARE FOR CPAP TRIAL. PT EYES OPEN. EXHIBITS RASH ON BILATERAL ARMS AND TRUNK. PT IS PASSING GAS. FOLLOWS COMMANDS.
--- NOTE | 2016-03-11 08:32 | NUR ---
DR THOMPSON HAS BEEN IN TO SEE PT. LET HIM KNOW SHE HAS BEEN PASSING GAS THIS MORNING AND HAD A LARGE BOWEL MOVEMENT AT SHIFT CHANGE LAST NIGHT. WANTS ANA LAURA DRAIN D/C'D. IF PT IS NOT EXTUBATED TODAY WANTS PULMOCARE TUBE FEEDINGS STARTED AT 30ML/HR. GET WITH DIETARY TO ADJUST TPN ACCORDINGLY. IF IS EXTUBATED, WANTS TO START ON CLEAR LIQUID DIET. DR THOMPSON WAS ALSO ALERTED TO THE RASH THE PATIENT HAS DEVELOPED AND RETURNED ELEVATED TEMPERATURE
--- NOTE | 2016-03-11 09:03 | NUR ---
PT HAS HAD BOWEL MOVEMENT. CLEANED UP AND REPOSITIONED TO THE LEFT. CPAP STILL IN USE.
--- NOTE | 2016-03-11 11:04 | NUR ---
DR BAGLEY WANTS TO PERFORM BRONCHOSCOPY TODAY. CALLED NUMBER LISTED FOR SPOUSE AND LEFT MESSAGE TO RETURN A CALL TO THE ICU.
--- NOTE | 2016-03-11 11:29 | NUR ---
SPOKE WITH RAMON PROCTOR. EXPLAINED BRONCHOSCOPY. GIVES CONSENT FOR PROCEDURE. VERIFIED BY BIANCA GARCIA.
--- NOTE | 2016-03-11 12:28 | NUR ---
CAME TO SEE PT WHILE IN [facility]. ASKED HIM TO WAIT IN WAITING ROOM. JUST BROUGHT HIM BACK TO SEE PT. LET HIM KNOW THAT MUCUS PLUGS WERE REMOVED. PT BACK ON SEDATION AND RESTING. VITALS ARE STABLE. WILL RETRY CPAP TRIALS TOMORROW. WILL START SLOW TUBE FEEDINGS TODAY.
--- NOTE | 2016-03-11 12:34 | NUR ---
NUTRITION MONITORING & EVAL PER CONSULT PULMOCARE TUBE FEEDS STARTED AT 10 CC/HR WITH GOAL RATE 45 CC/HR. WILL TAPER AND DC TPN WHEN TUBE FEEDS REACH 30 CC/HR. RD FOLLOWING
--- NOTE | 2016-03-11 18:30 | NUR ---
DR THOMPSON ASKED FOR TUBE FEEDINGS TO BE INCREASED Q4 HOURS INSTEAD OF Q8
--- NOTE | 2016-03-11 18:41 | NUR ---
AT BEDSIDE. WAS ABLE TO SPEAK TO BOTH DR CISNEROS AND DR THOMPSON THIS EVENING. PT IS RUNNING 102.2 TEMP AND HAS BEEN GIVEN MOTRIN. WILL CONTINUE TO MONITOR.
--- NOTE | 2016-03-11 19:00 | NUR ---
REPORT RECIEVED, INITIAL ASSESSMENT COMPLETE, PLEASE SEE FLOW SHEETS FOR DETAILS. ORAL CARE AND TURNING PROVIDED. PT AWAKE AND RESPONDING APPROPRIATELY TO YES AND NO QUESTIONS. VISUALIZED ABD WOUND VAC, DRESSING CDI. ART LINE IN RIGHT RADIAL. DENIES PAIN/NEEDS AT THIS TIME. VSS, WILL CONTINUE TO MONITOR.
--- NOTE | 2016-03-11 21:00 | NUR ---
ORAL CARE AND TURNING PROVIDED. GAVE TYLENOL FOR FEVER. PT DENIES PAIN/ NEEDS AT THIS TIME. VSS, WILL CONTINUE TO MONITOR.
--- NOTE | 2016-03-11 21:24 | NUR ---
INCREASED TUBE FEED TO 20ML/HR.
--- NOTE | 2016-03-11 21:26 | NUR ---
PT SBP 83-93, MAP BELOW 60 LAST HOUR, PAGED DR MARTINES - BULK FILLER FOR DR THOMPSON.
--- NOTE | 2016-03-11 21:45 | NUR ---
NO RETURN CALL FROM [facility], PAGED DR BAGLEY.
--- NOTE | 2016-03-11 21:48 | NUR ---
SPOKE WITH DR BAGLEY, NEW ORDERS RECIEVED. GIVE 500 BOLUS NS, INCREASE BASIC INFUSION NS TO 60 (KEEP FLUIDS AT A TOTAL OF 100ML/HR) AND ORDER TRIPONIN AND LACTIC ACID FOR MORNING LABS.
--- NOTE | 2016-03-11 22:22 | NUR ---
BOLUS FINNISHED, REPOSITIONED PT IN BED, ZEROD ART LINE, BP IMPROVED, WILL CONTINUE TO MONITOR.
--- NOTE | 2016-03-11 23:00 | NUR ---
REASSESSMENT COMPLETE, PLEASE SEE FLOW SHEETS FOR DETAILS. ORAL CARE AND TURNING PROVIDED. WILL CONTINUE TO MONITOR.
--- NOTE | 2016-03-11 23:25 | NUR ---
SPOKE WITH DR MARTINES AND RECIVED NEW ORDERS.
[2016-03-12] VITALS (25 sets, daily range): BP systolic 91–164; BP diastolic 43–90
--- NOTE | 2016-03-12 00:09 | NUR ---
1000 BOLUS NS STARTED.
--- NOTE | 2016-03-12 01:00 | NUR ---
ORAL CARE AND TURNING PROVIDED. AFEBRILE AT THIS TIME, VSS, WILL CONTINUE TO MONITOR.
--- NOTE | 2016-03-12 01:00 | NUR ---
STERILE CVL DRESSING CHANGE PERFORMED. DATED AND INITIALED.
--- NOTE | 2016-03-12 02:50 | NUR ---
BLOOD STARTED. PRBC UNIT 1 OF 2. SEE ADMINISTRATION SHEET FOR VITALS.
--- NOTE | 2016-03-12 03:00 | NUR ---
REASSESSMENT COMPLETE, PLEASE SEE FLOW SHEETS FOR DETAILS. ORAL CARE AND TURNING PROVIDED. BM CLEANED UP, FULL BED BATH AND LINEN CHANGE PROVIDED. MARK CARE PROVIDED. BED LOW AND LOCKED. VSS, WILL CONTINUE TO MONITOR.
[2016-03-12 04:31] LABS: BASOPHILS 0.8 % (0.0-2.0); EOSINOPHILS 6.9 % (0-7); HEMATOCRIT 31.3 % (36.0-48.0); HEMOGLOBIN 9.7 g/dL (12-16); IMMATURE GRANULOCYTES 3.7 % (0-5); LYMPHOCYTES 10.3 % (15-50); MCH 30.2 pg (26.0-34.0); MCV 97.5 fL (80.0-100.0); MEAN PLATELET VOLUME 10.5 fL (7.4-10.4); NEUTROPHILS 72.3 % (40-80); PLATELET COUNT 202 10x3/uL (130-400); RBC 3.21 10x6/uL (4.00-5.40); RDW 16.4 % (11.5-14.5); WBC 10.7 10x3/uL (4.8-10.8)
--- NOTE | 2016-03-12 05:00 | NUR ---
UNIT 1 PRBC COMPLETE.
--- NOTE | 2016-03-12 05:00 | NUR ---
ORAL CARE AND TURNING PROVIDED. STERILE CVL DRESSING CHANGE TO RIGHT RADIAL LINE AND TO LEFT SUBCLAVIAN CVL. VSS AT THIS TIME, WILL CONTINUE TO MONITOR.
--- NOTE | 2016-03-12 05:15 | NUR ---
UNIT 2 PRBC STARTED.
[2016-03-12 06:16] LABS: ALKALINE PHOSPHATASE 56 U/L (46-116); ALT (SGPT) 46 U/L (10-68); BILIRUBIN - TOTAL 0.89 mg/dL (0.2-1.3); CALC OSMOLALITY 291 mosm/kg (275-300); CALCIUM 7.8 mg/dL (8.5-10.1); CARBON DIOXIDE 22.8 mmol/L (21.0-32.0); CHLORIDE - SERUM 112 mmol/L (98-107); CREATININE - SERUM 0.7 mg/dL (0.6-1.3); GLUCOSE 178 mg/dL (74-106); MAGNESIUM - SERUM 2.3 mg/dL (1.8-2.4); PHOSPHOROUS 3.4 mg/dL (2.5-4.9); POTASSIUM - SERUM 3.6 mmol/L (3.5-5.1); PROTEIN - SERUM 5.8 g/dL (6.4-8.2); SODIUM 145 mmol/L (136-145); TROPONIN-I < 0.017 ng/mL (0.000-0.060); UREA NITROGEN 10 mg/dL (7-18); eGFR NON AFRICAN AMERICAN > 90 mL/min (90-120)
--- NOTE | 2016-03-12 09:25 | NUR ---
NUTRITION MONITORING & EVAL CHART REVIEWED, NURSING REPORTS PULMOCARE NOW @ 30 CC/HR, TPN DECREASED TO 10 CC/HR. WILL NOT RENEW TPN PT TOLERATING CURRENT TUBE FEEDS. RECOMMEND GOAL RATE 45 CC/HR. RD FOLLOWING
--- NOTE | 2016-03-12 10:57 | NUR ---
WOUND CARE NURSE IN TO CHANGE WOUND VAC
--- NOTE | 2016-03-12 11:25 | NUR ---
WOUND VAC DRESSING CHANGE WOUND TYPE: surgical WOUND LOCATION: left abd WOUND AGE IN MONTHS: week DEBRIDEMENT ATTEMPTED IN LAST 10 DAYS? DATE/TYPE: SERIAL DEBRIDEMENTS REQUIRED? MEASUREMENT DATE: 03/12/16 1cm x 2.5cm x 3.3cm x 3.8cm from 12 to 12 oclock FULL THICKNESS? yes MUSCLE, TENDON OR BONE EXPOSED? no UNDERMINING? yes TUNNELING/SINUS? no APPEARANCE OF WOUND BED : red/beefy EXUDATE (AMOUNT, COLOR, ODOR): mod/sanguinous/no odor FOAM TYPE: black # OF PIECES USED: 2 pieces (1 in wound/1for track pad) EDUCATION: pt sedated
--- NOTE | 2016-03-12 11:26 | NUR ---
DR BAGLEY HAS BEEN IN TO SEE PATIENT. ASKED FOR NO MORE CPAP TRIALS TODAY. KEEP SEDATION AT LEVEL ENOUGH TO KEEP PATIENT SLEEPY
[2016-03-12 14:24] LABS: FUNGUS STAIN Final report (())
[2016-03-12 15:23] LABS: AFB SPECIMEN PROCESSING Concentration (())
--- NOTE | 2016-03-12 17:13 | NUR ---
TUBE FEEDINGS NOW AT 45ML/HR. ONCE CURRENT BAG OF D5W FINISHES, DR THOMPSON WANTS 1/2NS RUNNING AT KVO CARRIER FLUID. TOTAL OF ALL FLUIDS ADMINISTERED SHOULD NOT EXCEED 100ML/HR.
--- NOTE | 2016-03-12 17:51 | NUR ---
XRAY OF ABDOMEN PERFORMED. DR THOMPSON REMOVED WOUND VAC FROM MIDLINE INCISION. WANTS COVERED WITH GAUZE FOR DRAINAGE. LEFT INCISION STILL HAS WOUND VAC ATTACHED.
--- NOTE | 2016-03-12 18:05 | NUR ---
AT BEDSIDE. UPDATED ABOUT TUBE FEEDING AND IV FLUIDS.
--- NOTE | 2016-03-12 19:00 | NUR ---
RECEIVED PATIENT IN BED RESTING WITH EYES CLOSED ON VENT, ASSESSMENT COMPLETED PER FLOWSHEET. PATIENT SEDATED ON VENT, EYES OPEN SPONTANEOUSLY WITH WEAK MOVEMENTS OF EXTREMITIES. EYES PERRLA @ 3MM WITH BRISK RESPONSE, SCLERA IS WHITE WITH CLEAR DRAINAGE NOTED. ETT 7.0 @ 23CM, OGT TUBE SECURED WITH PULMOCARE INFUSING AT 45ML/HR. VENT SETTINGS A/C R-20, V-500, O2-40%, P-5, OXYGEN SAT 98%. S1/S2 NOTED WITH PATIENT NSR ON TELEMETRY, RATE RYTHMIC AND REGULAR. BREATHING IS SHALLOW AND IRREGULAR ON VENT, WHEEZE NOTED INSPIRATORY/EXPIRATORY BILATERAL UPPER WITH DIMINISHED LOWER. ABDOMEN IS DISTENDED AND SOFT, INCISION MIDLINE/R LOWER DRESSING CDI WITH L UPPER CONNECTED TO HEMOVAC. MARK SECURED IN PLACE WITH CLEAR YELLOW URINE NOTED IN COLLECTION BAG. ALL PULSES PALPABLE, SLIGHT WEAKNESS NOTED ALL EXTREMITIES. WRIST RESTRAINTS IN USE, A-LINE NOTED R RADIAL ZEROED WITH WRIST PROTECTOR IN USE. CVL NOTED L SUBCLAVIAN, PATENT WITH FLUIDS INFUSING. PATIENT AT BEDSIDE, UPFDATED ON STATUS STATES NO FURTHER QUESTIONS. ORAL CARE PROVIDED, PATIENT REPSITIONED FOR COMFORT. ALL VSS AND WILL CONTINUE TO MONITOR.
--- NOTE | 2016-03-12 21:00 | NUR ---
DR DONNA SCHWARTZD IN ON PATIENT, VERIFIED CURRENT TREATMENT GOALS AND CONTINUING PLAN OF CARE. ORAL CARE/SUCTIONING PROVIDED, REPOSITIONED FOR COMFORT. ALL VSS AND WILL CONTINUE TO MONITOR.
--- NOTE | 2016-03-12 23:00 | NUR ---
REASSESSMENT COMPLETE PER FLOWSHEET, PATIENT RESTING IN BED WITH EYES CLOSED ON VENT. SETTINGS UNCHANGED FROM PREVIOUS ASSESSMENT, OXYGEN SAT 98%. BED BATH/LINEN CHANGE PERFORMED, PATIENT HAD LIQUID BM IN BED. ORAL CARE/SUCTIONING PROVIDED, THICK WHITE SECRETIONS WITH PINK TINGE NOTED. REPOSITIONED FOR COMFORT, PROPOFOL DECREASED TO 35MCG/KG AND WILL TITRATE DOWN TOLERATED. ALL VSS AND WILL CONTINUE TO MONITOR.
[2016-03-13] VITALS (24 sets, daily range): BP systolic 75–123; BP diastolic 48–96
--- NOTE | 2016-03-13 03:03 | NUR ---
REASSESSMENT COMPLETE, PATIENT RESTING IN BED WITH EYES CLOSED ON VENT. VENT SETTINGS ARE UNCHANGED FROM PREVIOUS ASSESSMENT, OXYGEN SAT 98% ON 40% A/C. ABDOMINAL INCISION DRESSINGS CDI, NO DRAINAGE OR SWELLING NOTED AT SITE. ORAL CARE/SUCTIONING PROVIDED, PATIENT REPOSITIONED FOR COMFORT. PROPOFOL DECREASED TO 30MCG/KG, PATIENT RESTING COMFORTABLY WITH VSS. NO FURTHER NEEDS AT THIS TIME, WILL CONTINUE TO MONITOR.
[2016-03-13 04:43] LABS: BASOPHILS 1.4 % (0.0-2.0); EOSINOPHILS 5.8 % (0-7); HEMATOCRIT 33.8 % (36.0-48.0); HEMOGLOBIN 10.8 g/dL (12-16); IMMATURE GRANULOCYTES 5.6 % (0-5); LYMPHOCYTES 13.9 % (15-50); MCH 30.5 pg (26.0-34.0); MEAN PLATELET VOLUME 11.3 fL (7.4-10.4); MONOCYTES 5.4 % (2-11); NEUTROPHILS 67.9 % (40-80); RBC 3.54 10x6/uL (4.00-5.40); RDW 16.8 % (11.5-14.5)
[2016-03-13 04:44] LABS: MCV 95.5 fL (80.0-100.0); PLATELET COUNT 249 10x3/uL (130-400)
[2016-03-13 04:59] LABS: ALBUMIN 2.7 g/dL (3.4-5.0); ALKALINE PHOSPHATASE 94 U/L (46-116); BILIRUBIN - TOTAL 0.98 mg/dL (0.2-1.3); CALCIUM 8.1 mg/dL (8.5-10.1); CARBON DIOXIDE 24.3 mmol/L (21.0-32.0); CHLORIDE - SERUM 111 mmol/L (98-107); CREATININE - SERUM 0.8 mg/dL (0.6-1.3); MAGNESIUM - SERUM 2.1 mg/dL (1.8-2.4); PHOSPHOROUS 2.9 mg/dL (2.5-4.9); POTASSIUM - SERUM 3.8 mmol/L (3.5-5.1); PROTEIN - SERUM 5.8 g/dL (6.4-8.2); SODIUM 143 mmol/L (136-145); eGFR NON AFRICAN AMERICAN 78 mL/min (90-120)
--- NOTE | 2016-03-13 05:00 | NUR ---
PATIENT RESTING INBED WITH EYES CLOSED ON VENT. ORAL CARE/SUCTIONING PROVIDED, THICK WHITE SECRETIONS REMOVED. PATIENT REPOSITIONED FOR COMFORT, ALL VSS AND WILL CONTINUE TO MONITOR.
[2016-03-13 05:05] LABS: ALT (SGPT) 58 U/L (10-68); CALC OSMOLALITY 285 mosm/kg (275-300); GLUCOSE 116 mg/dL (74-106); TROPONIN-I < 0.017 ng/mL (0.000-0.060); UREA NITROGEN 13 mg/dL (7-18)
--- NOTE | 2016-03-13 09:34 | NUR ---
NUTRITION MONITORING & EVAL CHART REVIEWED. PT REMAINS IN ISOLATION. ON VENT. TOLERATING PULMOCARE AT GOAL RATE 45 CC/HR. TPN AND LIPIDS DC'D. RD FOLLOWING
--- NOTE | 2016-03-13 13:31 | NUR ---
0900- PT INC OF BOWEL, LOOSE GREEN STOOL. CLEANED AND TURNED. VSS. REC'D ORDERD TO HOLD VANCOMYCIN AND REDRAW LEVEL.
--- NOTE | 2016-03-13 19:00 | NUR ---
REPORT RECEIVED. ASSUMED PATIENT CARE. ASSESSMENT COMPLETED PER FLOW SHEETS. PT SEDATED ON VENT OPENS EYES WITH VOICES. SR ON CM WITH HR TO 94. LUNG SOUDS CRACKLES TO ULB WITH DIMINISHED TO LLB, O2 SAT 96% ON FIO2 AT 40% ABD MIDLINE INSICION INTACT, DRESSING CLEAN AND DRY. LEFT UQ WOUND VAC INTACT TO SUCTION. MARK INTACT TO GRAVITY WITH CLEAR/ YELLOW DRAINAGE TO BAG. PPP. SCD'S OFF FOR SKIN INTEGRITY. WILL CONT TO MONITOR.
--- NOTE | 2016-03-13 21:00 | NUR ---
NO VISITORS AT THIS TIME. P[T INCONTINENT OF STOOL, STANLEY AND MARK CARE PROVIDED. LINEN CHANGED. SKIN CARE PROVIDED. REPOSITONED FOR COMFORT. PILLOWS IN USE FOR SUPPORT. HOB UP, SIDE RAILS UP. WILL CONT TO MONITOR.
--- NOTE | 2016-03-13 23:00 | NUR ---
REASSESSMENT COMPLETED PER FLOW SHEETS. NO ACUTE CHANGES NOTED ON PT'S CONDITION. VSS. WILL CONT TO MONITOR.
[2016-03-14] VITALS (25 sets, daily range): BP systolic 102–139; BP diastolic 53–78
--- NOTE | 2016-03-14 01:00 | NUR ---
PT SEDATED ON VENT WITHOUT DISTRESS NOTED. VSS. REPOSITONED AND MOUTH CARE PROVIDED. PILLOWS FOR SUPPORT. CPOC.
--- NOTE | 2016-03-14 03:00 | NUR ---
REASSESSMENT COMPLETED. SEE FLOW SHEETS FOR ALL FINDINGS. PT SEDATED ON VENT OPENS EYES WITH VOICES. NO SIGNS OF DISTRESS NOTED. VSS, MOUTH CARE PROVIDED PER VAP. REPOSITIONED FOR COMFORT. PILLOWS IN USE FOR SUPPORT. CPOC.
[2016-03-14 03:18] LABS: BASOPHILS 0.6 % (0.0-2.0); EOSINOPHILS 4.8 % (0-7); HEMATOCRIT 32.5 % (36.0-48.0); HEMOGLOBIN 10.4 g/dL (12-16); IMMATURE GRANULOCYTES 6.9 % (0-5); LYMPHOCYTES 13.1 % (15-50); MCH 30.7 pg (26.0-34.0); MCV 95.9 fL (80.0-100.0); MONOCYTES 4.9 % (2-11); NEUTROPHILS 69.7 % (40-80); PLATELET COUNT 269 10x3/uL (130-400); RBC 3.39 10x6/uL (4.00-5.40); RDW 16.4 % (11.5-14.5); WBC 15.4 10x3/uL (4.8-10.8)
[2016-03-14 03:30] LABS: ALBUMIN 2.4 g/dL (3.4-5.0); ALKALINE PHOSPHATASE 111 U/L (46-116); ALT (SGPT) 60 U/L (10-68); BILIRUBIN - TOTAL 0.93 mg/dL (0.2-1.3); CALC OSMOLALITY 286 mosm/kg (275-300); CALCIUM 8.4 mg/dL (8.5-10.1); CARBON DIOXIDE 23.3 mmol/L (21.0-32.0); CHLORIDE - SERUM 109 mmol/L (98-107); CREATININE - SERUM 0.8 mg/dL (0.6-1.3); GLUCOSE 122 mg/dL (74-106); MAGNESIUM - SERUM 2.1 mg/dL (1.8-2.4); PHOSPHOROUS 3.3 mg/dL (2.5-4.9); POTASSIUM - SERUM 3.7 mmol/L (3.5-5.1); PROTEIN - SERUM 6.4 g/dL (6.4-8.2); SODIUM 143 mmol/L (136-145); UREA NITROGEN 15 mg/dL (7-18); eGFR NON AFRICAN AMERICAN 78 mL/min (90-120)
--- NOTE | 2016-03-14 10:28 | NUR ---
WOUND VAC DRESSING CHANGE WOUND TYPE:SURGICAL WOUND LOCATION: LEFT ABD WOUND AGE IN MONTHSWEEK: DEBRIDEMENT ATTEMPTED IN LAST 10 DAYS? DATE/TYPE: SERIAL DEBRIDEMENTS REQUIRED? MEASUREMENT DATE: 03/14/16 1CM X 2.5CM X 2.8CM X 3CM FROM 12-12 OCLOCK FULL THICKNESS? YES MUSCLE, TENDON OR BONE EXPOSED? NO UNDERMINING? YES TUNNELING/SINUS? NO APPEARANCE OF WOUND BED : RED/BEEFY EXUDATE (AMOUNT, COLOR, ODOR): BLOODY/MOD/NO ODOR NOTED FOAM TYPE: BLACK # OF PIECES USED:1 INSIDE WOUND BED/1 OUTSIDE 2 TOTAL PIECES OF BLACK FOAM EDUCATION: SEDATED -125MMHG MOD/CONT
--- NOTE | 2016-03-14 11:51 | NUR ---
[facility]ONCH AT BEDSIDE PER DR. BAGLEY.
--- NOTE | 2016-03-14 14:41 | NUR ---
COMPLETE BED BATH INCLUDING SHAMPOO CAP AND PARTIAL LINEN CHANGE DONE.
--- NOTE | 2016-03-14 15:25 | NUR ---
UPDATE GIVEN TO PT'S . NO CURRENT QUESTIONS.
--- NOTE | 2016-03-14 19:00 | NUR ---
Assessment complete. See flowsheet. Pt sedated to grey 2 with Propofol sedation infusing @ 50mcg/kg/min with Fentanyl @ 100mcg/hr. Pt does not open eyes or follow commands. Pt does not move extremities to stimulation. 7.0FR OET tube secure 23cm @ lip to ventilator set SIMV Rate 15 TV 500 FiO2 @ 40% PEEP 8 PS 20. Lung sounds present coarse crackles to all alvarado. Pt OET inline suctioned with thin, clear sputum retrieved and cough triggered. HR SR with S1S2 auscultated. All peripheral pulses +2 with capillary refill <3 seconds. Right radial YAMILETH site CDI NO s/s infection showing good waveform with appropriate dichrotic notch. Left TLSC CVL site CDI no s/s infection with 1/2NS @ 10cc/hr KVO rate with Propofol and fentanyl sedation. OGT secure with TF Pulmocare infusing @ 45cc/hr. Gastric residual check yields 0CC content. BS present to all quadrants. Midline abdominal incision dressing CDI. Wound vac secure to umbilical incision site set 125mmHg suction with small amt bloody exudate retrieved and no leak noted. Hedrick catheter secure retrieving clear/yellow urine. SCDs secure bilaterally. Pt incontinent of small, green liquid BM approx 100cc. Incontinence care completed. Pt pulled up in bed and positioned to left side with HOB @ 30 degrees. Arms and heels bridged. Bilat soft wrist restraints resecured after ROM completed to all extremities. CPOC.
--- NOTE | 2016-03-14 21:00 | NUR ---
Pt repositioned to right side. HOB @ 30 degrees. Oral care completed with mouth moistuizer applied. CPOC.
--- NOTE | 2016-03-14 23:00 | NUR ---
Reassessment complete. See flowsheet. Pt remains sedated to grey 2 with NO IVF changes to note. OET tube remains secure to ventilator with no setting changes to note from previous assessment. Lung sounds continue to present coarse crackles to all alvarado. Pt OET inline suctioned with strong, productive cough triggered and thick, white sputum retrieved. Oral care completed with mouth moisturizer applied. HR SR with S1S2 auscultated. YAMILETH site CDI and continues to show good waveform with appropriate dichrotic notch. All peripheral pulses remain +2 with capillary refill <3 seconds. CVL site CDI with NO IVF changes. BS hypoactive to all quadrants. OGT secure to TF Pulmocare @ 45cc/hr with no residual aspirated. Hedrick secure. Pt repositioned to back with HOB @ 30 degrees. Arms and heels bridged. Incision sites to abdomen CDI with dressings secure. Wound vac site unchanged with no leak noted. Bilat soft wrist restraints secure. No s/s pain or distress. Linens clean and dry. No other changes to note from previous assessment. CPOC.
[2016-03-15] VITALS (24 sets, daily range): BP systolic 102–150; BP diastolic 55–81
--- NOTE | 2016-03-15 01:00 | NUR ---
Pt repositioned to left side. HOB @ 30 degrees. Oral care completed per Nirali TAVARES.
--- NOTE | 2016-03-15 03:00 | NUR ---
Reassessment complete. See flowsheet. Pt remains sedated to grey 2 with Propofol sedation infusing. NO IVF changes to note. CVL site CDI. OET tube remains secure to vent with NO SETTING CHANGES TO NOTE. Lung sounds continue to present coarse crackles to all alvarado. Pt lavaged and OET inline suctioned with copius, thick, yellow secretions retrieved and strong productive cough triggered. HR SR. YAMILETH site unchanged. Pt incontinent of small, green liquid BM approx 200cc. Incontinence care completed. Pt pulled up in bed and positioned to back with HOB @ 30 degrees for AM CXR. Arms and heels rebridged. Bilat soft wrist restraints secured. no other changes to note. CPOC.
--- NOTE | 2016-03-15 03:32 | NUR ---
Ventilator settings changed to A/C Rate 18 TV 500 FiO2 40% PEEP 8 per Nirali RT after ABG results this AM.
[2016-03-15 04:50] LABS: BASOPHILS 0.6 % (0.0-2.0); EOSINOPHILS 4.3 % (0-7); HEMATOCRIT 33.9 % (36.0-48.0); HEMOGLOBIN 10.6 g/dL (12-16); IMMATURE GRANULOCYTES 5.9 % (0-5); MCH 30.6 pg (26.0-34.0); MCHC 31.3 g/dL (31.0-37.0); MEAN PLATELET VOLUME 12.3 fL (7.4-10.4); MONOCYTES 5.3 % (2-11); NEUTROPHILS 69.9 % (40-80); PLATELET COUNT 295 10x3/uL (130-400); RBC 3.46 10x6/uL (4.00-5.40); RDW 16.5 % (11.5-14.5); WBC 16.7 10x3/uL (4.8-10.8)
--- NOTE | 2016-03-15 05:00 | NUR ---
Pt repositioned to right side. HOB @ 30 degrees. Oral care completed. VSS. NO s/s pain or distress. CPOC.
[2016-03-15 05:04] LABS: CALC OSMOLALITY 284 mosm/kg (275-300); CALCIUM 8.6 mg/dL (8.5-10.1); CARBON DIOXIDE 24.5 mmol/L (21.0-32.0); CHLORIDE - SERUM 109 mmol/L (98-107); CREATININE - SERUM 0.8 mg/dL (0.6-1.3); GLUCOSE 118 mg/dL (74-106); MAGNESIUM - SERUM 2.3 mg/dL (1.8-2.4); SODIUM 142 mmol/L (136-145); UREA NITROGEN 16 mg/dL (7-18); VANCOMYCIN - TROUGH 24.4 ug/mL (10.0-20.0); eGFR NON AFRICAN AMERICAN 78 mL/min (90-120)
[2016-03-15 05:10] LABS: PHOSPHOROUS 4.2 mg/dL (2.5-4.9); POTASSIUM - SERUM 4.5 mmol/L (3.5-5.1)
--- NOTE | 2016-03-15 19:00 | NUR ---
Assessment complete. See flowsheet. Pt sedated to grey 2 with Propofol sedation infusing @ 50mcg/kg/min and Fentanyl infusing @ 100mg/hr (2cc/hr). Pt does open eyes to stimulation and grimaces to ROM but does not follow any commands or attempt to track with eyes. Pupils size 3 bilaterally ERRL. Pt with 7.0FR OET tube secure 23cm @ lip to ventilator set A/C Rate 20 TV 500 FiO2 @ 45% PEEP 8.0. Lung sounds present rhonchi to all alvarado. Pt OET inline suctioned with cough triggered and yellow sputum retrieved. Oral care complete with mouth moisturizer applied. Pt HR ST 106BPM with S1S2 auscultated. All peripheral pulses +2 with capillary refill <3 seconds. Left TLSC CVL site CDI no s/s infection with 1/2NS infusing @ 10cc/hr with previously mentioned sedation. OGt secure to TF Pulmocare infusing @ 45cc/hr. Gastric residual check yields 0cc aspirated. BS present to all quadrants. Hedrick catheter secure retrieving clear/yellow urine. SCDs secure bilaterally. Incision to abdomen CDI with dressing secure. Wound vac secure to abdominal umbilical incision to 125mmHg suction with no exudate at this time. Pt pulled up in bed and repositioned to left side. HOB @ 30 degrees. Pt incontinent of liquid, brown stool. Bed bath with gown and linen changes completed. Rectal tube placed and secured and retrieving liquid stools. Bilat soft wrist restraints secure. No s/s pain or distress. CPOC.
--- NOTE | 2016-03-15 21:00 | NUR ---
Pt repositioned to right side. HOB @ 30 degrees. Oral care completed.
--- NOTE | 2016-03-15 23:00 | NUR ---
Reassessment complete. See flowsheet. Pt remains sedated to grey 2 with Propofol and Fentanyl sedation. NO neuro changes to note. OET tube remains secure to ventilator with no setting changes to note. Lung sounds continue to present rhonchi to all alvarado. Oral care completed. OET inline suction completed with yellow sputum retrieved. HR SR with S1S2 auscultated. CVl site CDI with NO IVF Changes to note. All peripheral pulses remain +2 with capillary refill <3 seconds. YAMILETH site to right radial CDI with good waveform; appropriate dichrotic notch. OGT secure to Pulmocare @ 45cc/hr. Gastric residual check yields -CC content aspirated. BS +. Rectal tube secure retrieving liquid, brown stools. Hedrick secure. Pt pulled up in bed and positioned to back with HOB @ 30 degrees. Arms and heels bridged. Bilat soft wrist restraints secure. CPOC.
[2016-03-16] VITALS (24 sets, daily range): BP systolic 99–150; BP diastolic 50–66
--- NOTE | 2016-03-16 01:00 | NUR ---
Pt pulled up in bed and repositioned to left side. HOB @ 30 degrees. Oral care completed per Nirali RT. VSS. Arms and heels bridged. CPOC.
[2016-03-16 03:39] LABS: BASOPHILS 0.3 % (0.0-2.0); EOSINOPHILS 4.5 % (0-7); HEMATOCRIT 31.2 % (36.0-48.0); HEMOGLOBIN 9.8 g/dL (12-16); IMMATURE GRANULOCYTES 5.7 % (0-5); LYMPHOCYTES 9.7 % (15-50); MCH 30.5 pg (26.0-34.0); MCHC 31.4 g/dL (31.0-37.0); MCV 97.2 fL (80.0-100.0); MEAN PLATELET VOLUME 11.2 fL (7.4-10.4); NEUTROPHILS 73.8 % (40-80); PLATELET COUNT 308 10x3/uL (130-400); RBC 3.21 10x6/uL (4.00-5.40); RDW 15.9 % (11.5-14.5); WBC 14.5 10x3/uL (4.8-10.8)
[2016-03-16 04:02] LABS: ALBUMIN 2.4 g/dL (3.4-5.0); ANION GAP 13.8 mmol/L (8-16); BILIRUBIN - TOTAL 0.9 mg/dL (0.2-1.3); CALCIUM 8.3 mg/dL (8.5-10.1); CARBON DIOXIDE 23.4 mmol/L (21.0-32.0); CREATININE - SERUM 0.9 mg/dL (0.6-1.3); MAGNESIUM - SERUM 2.2 mg/dL (1.8-2.4); PHOSPHOROUS 4.6 mg/dL (2.5-4.9); POTASSIUM - SERUM 4.2 mmol/L (3.5-5.1); PROTEIN - SERUM 7.2 g/dL (6.4-8.2); THYROID STIMULATING HORMONE 4.8 uIU/mL (0.36-3.74)
--- NOTE | 2016-03-16 05:00 | NUR ---
Pt repositioned to right side. HOB @ 30 degrees. Oral care completed. VSS.
--- NOTE | 2016-03-16 19:00 | NUR ---
REPORT RECIEVED, INITIAL ASSESSMENT COMPLETE, PLEASE SEE FLOW SHEETS FOR DETAILS. ORAL CARE AND TURNING PROVIDED. RECTAL TUBE IN PLACE AND DRAINING WELL. SCD'S ON AND RUNNING, TAKEN OF AND SKIN INSPECTED AND WNL. PT SEDATED BUT RESPONDS TO YES AND NO QUESTIONS. DENIES PAIN. CRACKLES AUSCULTATED THROUGHOUT LUNG JOHNSON. BOWEL SOUNDS VERY HYPOACTIVE X4. TUBE FEED INFUSING AT ORDERED RATE. RASH ON TRUNK AND EXTREMEMTIES X4. BACK RED WITH SOME EXCORIATION PRESENT. BUTTOCKS RED. VSS AT THIS TIME, WILL CONTINUE TO MONITOR.
--- NOTE | 2016-03-16 20:59 | NUR ---
ORAL CARE AND TURNING PROVIDED. BED LOW AND LOCKED, DENIES PAIN AT THIS TIME. VSS, WILL CONTINUE TO MONITOR.
--- NOTE | 2016-03-16 22:50 | NUR ---
REASSESSMENT COMPLETE, PLEASE SEE FLOW SHEETS FOR DETAILS. ORAL CARE AND TURNING PROVIDED. VSS AT THIS TIME, WILL CONTINUE TO MONITOR.
[2016-03-17] VITALS (24 sets, daily range): BP systolic 100–161; BP diastolic 50–109
--- NOTE | 2016-03-17 01:00 | NUR ---
ORAL CARE AND TURNING PROVIDED. BED LOW AND LOCKED. VSS AT THIS TIME, WILL CONTINUE TO MONITOR.
--- NOTE | 2016-03-17 03:00 | NUR ---
REASSESSMENT COMPLETE, PLEASE SEE FLOW SHEETS FOR DETAILS. ORAL CARE AND TURNING PROVIDED. DID NOT WAKE UP TO STIMULI FROM ORAL CARE OR TURNING, THOUGH DID GRIMMACE IN RESPONSE TO STIMULI. VSS AT THIS TIME, BED LOW AND LOCKED, WILL CONTINUE TO MONITOR.
[2016-03-17 03:41] LABS: BASOPHILS 0.4 % (0.0-2.0); EOSINOPHILS 3.9 % (0-7); HEMOGLOBIN 9.6 g/dL (12-16); IMMATURE GRANULOCYTES 3.9 % (0-5); LYMPHOCYTES 7.7 % (15-50); MCH 30.5 pg (26.0-34.0); MCV 98.4 fL (80.0-100.0); MEAN PLATELET VOLUME 11.1 fL (7.4-10.4); MONOCYTES 6.4 % (2-11); NEUTROPHILS 77.7 % (40-80); PLATELET COUNT 315 10x3/uL (130-400); RBC 3.15 10x6/uL (4.00-5.40); RDW 15.8 % (11.5-14.5); WBC 15.8 10x3/uL (4.8-10.8)
[2016-03-17 04:04] LABS: ALBUMIN 2.4 g/dL (3.4-5.0); ANION GAP 13.6 mmol/L (8-16); BILIRUBIN - TOTAL 0.8 mg/dL (0.2-1.3); CALCIUM 8.3 mg/dL (8.5-10.1); CARBON DIOXIDE 22.9 mmol/L (21.0-32.0); CREATININE - SERUM 0.9 mg/dL (0.6-1.3); MAGNESIUM - SERUM 2.4 mg/dL (1.8-2.4); PHOSPHOROUS 4.9 mg/dL (2.5-4.9); POTASSIUM - SERUM 4.5 mmol/L (3.5-5.1); PROTEIN - SERUM 7.4 g/dL (6.4-8.2)
--- NOTE | 2016-03-17 05:00 | NUR ---
NO S&S OF ACUTE DISTRESS NOTED, VSS AT THIS TIME, WILL CONTINUE TO MONITOR.
--- NOTE | 2016-03-17 05:16 | NUR ---
ORAL CARE AND TURNING PROVIDED. UPON GIVING ORAL SUCTIONING, NOTICED TUBE FEED IN MOUTH, CHECKED FOR A RESIDUAL FROM OGT, SCANT AMOUNT RETURNED SO TUBE FEEDING HELD.
--- NOTE | 2016-03-17 08:00 | NUR ---
SHIFT ASSESSMENT VIA FLOWSHEET, SEE FOR DETAILS.
--- NOTE | 2016-03-17 09:01 | NUR ---
NUTRITION MONITORING & EVAL CHART REVIEWED. PT REMAINS ON VENT. PULMOCARE CURRENTLY OFF AWAITING VERIFICATION OF APPROPRIATE FEEDING TUBE PLACEMENT. RD FOLLOWING
--- NOTE | 2016-03-17 09:45 | NUR ---
SPOKE WITH PT'S VIA PHONE, PASSWORD VERIFIED AND UPDATE PROVIDED. OBSENT CONTAINED FOR TRACH AND BRONCH, APPROVAL VERIFIED BY SECOND NURSE, KIRAN MORALES RN.
--- NOTE | 2016-03-17 10:16 | NUR ---
WOUND CARE: WOUND VAC DRESSING CHANGE WOUND TYPE: SURGICAL WOUND LOCATION: LEFT ABD WOUND AGE IN MONTHS:WEEKS DEBRIDEMENT ATTEMPTED IN LAST 10 DAYS? DATE/TYPE: SERIAL DEBRIDEMENTS REQUIRED? UNKNOWN MEASUREMENT DATE: 03/17/16 1.4CM X 4.5CM X 2.5CM X 3.5CM FROM 12-12 OCLOCK ON INNER ASPECT OF INCISION A STAPLE HAS COME OUT WHICH MADE WOUND WIDER FULL THICKNESS? YES MUSCLE, TENDON OR BONE EXPOSED? NO UNDERMINING? YES TUNNELING/SINUS? NO APPEARANCE OF WOUND BED : RED/BEEFY EXUDATE (AMOUNT, COLOR, ODOR): SANGUINOUS, MODERATE, NO ODOR FOAM TYPE: BLACK # OF PIECES USED: 2 TOTAL PIECES (1 IN WOUND BED, 1 FOR TRAC PAD) EDUCATION:N/A PT SEDATED
--- NOTE | 2016-03-17 10:32 | NUR ---
RECTAL TUBE D/C'D PER DR THOMPSON.
--- NOTE | 2016-03-17 11:45 | NUR ---
PT BATHED WITH CHLORHEXIDINE WIPES AND PRE OP MEDS GIVEN. BM, STANLEY CARE PROVIDED. MARK CARE PER PROTOCOL.
--- NOTE | 2016-03-17 16:35 | NUR ---
PT TO OR
--- NOTE | 2016-03-17 17:25 | NUR ---
PT RETURNED FROM OR VIA BED, AIR OVERLAY IN PLACE, ICU MONITORS CONNECTED. RT AT BEDSIDE FOR VENT CONNECTION.
--- NOTE | 2016-03-17 18:15 | NUR ---
PT AT BEDSIDE, UPDATE PROVIDED. CONFIRMS HE WAS UPDATED BY DR THOMPSON FOLLOWING PT'S PROCEDURE.
--- NOTE | 2016-03-17 19:00 | NUR ---
RECEIVED PATIENT IN BED WITH EYES CLOSED, ASSESSMENT COMPLETED PER FLOWSHEET. PATIENT HAS TRACH SECURED IN PLACE ON SEDATION, UNABLE TO ASSESS LOC. EYES PERRLA @ 3MM WITH BRISK RESPONSE, CLEAR DRAINAGE NOTED BILATERALLY. NG TUBE PRESENT, TUBE FEEDING CURRENTLY HELD TO RESTART IN AM. ORAL MUCOSA IS DRY AND INTACT, TONGUE IS MIDLINE. TRACH 7.0 @ 23CM SECURED IN PLACE, SUCTIONING PERFORMED WITH DELILAH RT PRESENT. S1/S2 NOTED WITH PATIENT SINUS TACHYCARDIA ON TELEMETRY, RATE IS RHYTHMIC AND ELEVATED. CRACKLES NOTED BILATERAL UPPER WITH DIMINISHED LOWER, VENT SETTINGS SIMV R-16 V-500 P-8 PS-15 40%. ABDOMEN IS DISTENDED AND FIRM, BOWEL SOUNDS HYPOACTIVE X4. MIDLINE INCISION/L LOWER WITH NO SWELLING OR DRAINAGE NOTED, PREVIOUS OSOTOMY SITE HAS WOUND VAC ATTATCHED WITH SLIGHT SEROUS DRAINAGE NOTED IN CANNISTER. MARK SECURED IN PLACE WITH ROB CONCENTRATED URINE NOTED IN COLLECTION. PASSIVE ROM PERFORMED ALL EXTREMITIES, WEAKNESS NOTED IN ALL EXTREMITIES. ALL PULSES PALPABLE, CAP REFILL <3 SEC. L SUBCLAVIAN CVL NOTED, PATENT AND SEE FLOW SHEET FOR FLUIDS. ALL VSS WITH NO FURTHER NEEDS AT THIS TIME, WILL CONTINUE TO MONITOR.
--- NOTE | 2016-03-17 23:00 | NUR ---
REASSESSMENT COMPLETE PER FLOWSHEET, PATIENT RESTING IN BED WITH EYES CLOSED ON VENT. SETTINGS UNCHANGED FROM PREVIOUS ASSESSMENT, OXYGEN SAT 98%. CRACKLES NOTED BILATERAL UPPER WITH DIMINISHED LOWER. TRACH SECURED IN PLACE, DRESSING AROUND TRACH IS CDI. PATIENT REPOSITIONED FOR COMFORT, ORAL CARE PROVIDED FOR DRY MOUTH. NO FURTHER NEEDS AT THIS TIME, WILL CONTINUE TO MONITOR.
[2016-03-18] VITALS (24 sets, daily range): BP systolic 92–147; BP diastolic 64–91
--- NOTE | 2016-03-18 01:00 | NUR ---
PATIENT RESTING IN BED WITH EYES CLOSED ON VENT, SETTINGS UNCHANGED. PATIENT OPENS EYES SPONTANEOUSLY AND CAN RESPOND TO DIRECTIONS, DENIES PAIN OR OTHER NEEDS AT THIS TIME. ALL VSS AND WILL CONTINUE TO MONITOR.
--- NOTE | 2016-03-18 03:00 | NUR ---
REASSESSMENT COMPLETE PER FLOWSHEET, PATIENT RESTING IN BED WITH EYES OPEN ON VENT. SETTINGS UNCHANGED FROM PREVIOUS ASSESSMENT, OXYGEN SAT 97% ON VENT @ 40%. PROPOFOL TUBING CHANGED, PATIENT REPOSITIONED FOR COMFORT. UNABLE TO ASSESS PAIN DUE TO SEDATION, [employer] INSURANCE CLAIM EXAMINER PROVIDING CONTINUOUS MEDICATION. NO FURTHER NEEDS AT THIS TIME, ALL VSS AND WILL CONTINUE TO MONITOR.
[2016-03-18 03:44] LABS: BASOPHILS 0.2 % (0.0-2.0); EOSINOPHILS 1.7 % (0-7); HEMATOCRIT 30.5 % (36.0-48.0); HEMOGLOBIN 9.4 g/dL (12-16); IMMATURE GRANULOCYTES 3.1 % (0-5); LYMPHOCYTES 8.5 % (15-50); MCH 30.1 pg (26.0-34.0); MCHC 30.8 g/dL (31.0-37.0); MCV 97.8 fL (80.0-100.0); MEAN PLATELET VOLUME 10.4 fL (7.4-10.4); MONOCYTES 8.8 % (2-11); NEUTROPHILS 77.7 % (40-80); PLATELET COUNT 322 10x3/uL (130-400); RBC 3.12 10x6/uL (4.00-5.40); RDW 15.5 % (11.5-14.5); WBC 13.1 10x3/uL (4.8-10.8)
[2016-03-18 03:58] LABS: ALBUMIN 2.5 g/dL (3.4-5.0); ANION GAP 14.2 mmol/L (8-16); BILIRUBIN - TOTAL 0.9 mg/dL (0.2-1.3); CALCIUM 8.3 mg/dL (8.5-10.1); CARBON DIOXIDE 22.1 mmol/L (21.0-32.0); CREATININE - SERUM 1.1 mg/dL (0.6-1.3); MAGNESIUM - SERUM 2.1 mg/dL (1.8-2.4); POTASSIUM - SERUM 4.3 mmol/L (3.5-5.1); PROTEIN - SERUM 7.6 g/dL (6.4-8.2)
--- NOTE | 2016-03-18 05:00 | NUR ---
PATIENT RESTING IN BED WITH EYES CLOSED. CRACKLES NOTED BILATERAL UPPER WITH DIMINISHED LOWER, OXYGEN SAT IS 97% ON 40% O2. ORAL CARE/ REPOSITIONING PROVIDED FOR COMFORT, NO FURTHER NEEDS AT THIS TIME. ALL VSS AND WILL CONTINUE TO MONITOR.
--- NOTE | 2016-03-18 07:20 | NUR ---
REPORT RECEIVED. PATIENT IN SEMIFOWLERS POSITION WITH EYES OPEN. FOLLOWS NURSE THROUGHTOUT ROOM. ASSESSMENT COMPLETED AT THIS TIME. SHAKES HEAD NO TO PAIN.
--- NOTE | 2016-03-18 08:03 | OP ---
PATIENT NAME: SARAH GARY MEDICAL RECORD: [id number] :56 LOCATION:[facility] D.[id number] ADMISSION DATE:03/05/16 SURGEON: BRICE BEASLEY MD DATE OF OPERATION: 03/17/2016 SURGEON: Brice Beasley MD. PREOPERATIVE DIAGNOSIS: Vent-dependent respiratory failure. POSTOPERATIVE DIAGNOSIS: Vent-dependent respiratory failure. PROCEDURE PERFORMED: 1. Percutaneous tracheostomy. 2. Bronchoscopy. ANESTHESIA: General. COMPLICATIONS: None. SPECIMENS: None. Case was contaminated. ESTIMATED BLOOD LOSS: 5 cc. OPERATIVE COURSE: After consent was obtained, the patient was taken to the operating room and placed in supine position on the operating table. A timeout was taken to confirm the correct patient, procedure and neck was prepped and draped in typical sterile fashion. Local anesthetic was injected in the anterior neck. Previous tracheotomy scar was excised. Once the tracheotomy scar was excised, the bronchoscope was inserted. The ET tube was pulled back under direct bronchoscopic vision. The needle and Angiocath were passed by palpation into the trachea. The Angiocath and needle were identified with bronchoscope, the needle was removed. The wire was placed through the Angiocath. The Angiocath was removed. The dilators were then passed over the wire in a standard Seldinger fashion. A 7 Shiley and tracheostomy tube was then slid over the wire and the standard Seldinger fashion under direct bronchoscopic vision with the [address], the ventilator circuit was switched over and there was adequate end tidal CO2. The balloon was inflated. The tracheostomy was secured to the skin using 2-0 Prolene suture. The ET tube was removed. At the end of the case, the patient was transferred back to the ICU on the ventilator in stable condition. At the end of the case, all needle and instrument counts were correct. No complications occurred. TRANSINT:[id number] Voice Confirmation ID: [id number] DOCUMENT ID: [id number] BRICE BEASLEY MD at 0803 CC: [id number] DICTATION DATE: 03/17/16 171 JUNIOR SYSTEMS ANALYST: 03/17/16 2111 [place] [address]
--- NOTE | 2016-03-18 09:29 | NUR ---
NUTRITION MONITORING & EVAL S/P TRACH PLACEMENT. PULMOCARE AT 30 CC/HR VIA NG TUBE WITH GOAL RATE 45 CC/HR. RD FOLLOWING
--- NOTE | 2016-03-18 09:57 | NUR ---
PER DR WAN ORDERS, THIS MORNING THE PATIENTS TUBE FEEDING WAS RESTARTED AT 30CC/HR. GOAL WILL TO HAVE INCREASED BY 10CC EVERY 4 HOURS UNTIL GOAL RATE OF 45CC REACHED. 1/2 NS WAS ALSO INCREASED TO 25CC/HR. DR THOMPSON WANTS TOTAL VOLUME OF ALL FLUIDS TO NOT EXCEED 75 CC/HR. PATIENT HAS BEEN BATHED, COMPLETE LINEN CHANGE, AND REPOSITIONED FOR COMFORT WITH LISBET FROM RESPIRATORY AT BEDSIDE TO SECURE TRACH WITH MOVEMENTS. PATIENT SHOOK HEAD YES TO COMFORT PRIOR TO THIS NURSE LEAVING THE ROOM. ALL WAS STARTED JUST A COUPLE MINUTES PRIOR TO 0800.
--- NOTE | 2016-03-18 10:29 | NUR ---
DR SANDOVAL HERE, PER HIS VERBAL ORDER, PROPOFOL COMPLETELY TURNED OFF. THIS WAS EXPLAINED TO THE PATIENT. HE ALSO CHANGED SETTINGS ON THE VENT. THIS WAS RELAYED TO LISBET IN RESPIRATORY.
--- NOTE | 2016-03-18 12:03 | NUR ---
SPOKE WITH DR SANDOVAL ABOUT PATIENT EXPRESSING NOT WANTING TO BE AWAKE. HE SAID TO GO AHEAD AND PUT HER BACK ON [facility] SEDATION. WILL RESTART PROPOFOL AT 10 MCG.
--- NOTE | 2016-03-18 13:52 | NUR ---
PATIENT WITH A RESIDUAL OF 20. FEEDINGS INCREASED TO 40 ML/HR.
--- NOTE | 2016-03-18 14:23 | NUR ---
PATIENTS RR INCREASING. HANGING AROUND 27 TO 32. HAVE TRIED TO ENCOURAGE HER TO SLOW DOWN HER RESPIRATIONS SOME. PATIENT SEEMED TO BECOME MORE WORKED UP WHILE TRYING TO CALM HER. PROPOFOL INCREASED TO 15 MCG/KG/MIN. WILL CONTINUE TO MONITOR. HAVE DISCUSSED WITH DR SANDOVAL.
--- NOTE | 2016-03-18 15:11 | NUR ---
RECEIVED ORDER FOR LTACH EVAL. I HAVE CONTACTED STERLING AND SHE WILL COME BY TOMORROW TO TELEVISION ANNOUNCER CLINICAL INFORMATION. PATIENT IS STILL ON FRESH TRACH PRECAUTIONS AND IS NOT READY YET BY DR. SANDOVAL ASKED THAT WE GET THE EVAL AND START THE PROCESS. CM TO FOLLOW.
--- NOTE | 2016-03-18 15:40 | NUR ---
CONTRAST GIVEN PER NGT ORDERED FOR CT OF CHEST AND ABD.
--- NOTE | 2016-03-18 17:31 | NUR ---
BACK FROM CT. PATIENT CLEANED AND REPOSITIONED FOR COMFORT.
--- NOTE | 2016-03-18 18:51 | NUR ---
PATIENTS WOUND VAC CONTINOUSLY ALARMING OBSTRUCTED. BROKE DOWN WOUND VAC DRESSING TO TOP SPONGE. REPLACED EVERYTHING EXCEPT THE INNER SPONGE. HOOKED UP AND FLOWING WITHOUT DIFFICULTY. PATIENT TOLERATED WELL.
--- NOTE | 2016-03-18 19:15 | NUR ---
ASSESSMENT COMPLETE PER FLOWSHEET, PATIENT RESTING IN BED WITH EYES CLOSED ON VENT. PATIENT IS UNABLE TO SPEAK BUT NODS HEAD APPROPRIATELY, APPEARS AWARE OF PLACE AND SITUATION. EYES PERRLA @ 3MM WITH BRISK RESPONSE, SCLERA IS WHITE. ORAL/NASAL MUCOSA APPEARS DRY, MOISTURIZER PROVIDED FOR COMFORT. NG TUBE PRESENT WITH PULMOCARE INFUSING @ 40ML/HR WITH GOAL OF 45ML/HR. RESIDUAL CHECKED AND 16ML ASPIRATED AND RETURNED. PER DR THOMPSON, CONTINUE TUBE FEEDINGS UNLESS RESIDUAL >300ML. 7.0 TRACH PRESENT, COLLAR AND TUBE SECURED AND STABLE. VENT SETTINGS R-10, V-600, 40%, P-8, PS-15. PER DR SANDOVAL, MAINTAIN RESPIRATIONS <30/MIN. S1/S2 NOTED WITH PATIENT NSR ON TELEMETRY, RATE IS RHYTHMIC AND REGULAR. CRACKLES NOTED BILATERAL UPPER WITH DIMINISHED LOWER, OXYGEN SAT 98%. ABDOMEN IS DISTENDED AND FIRM, BOWEL SOUNDS HYPOACTIVE X4. MIDLINE INCISION CLOSED WITH 10 ALICIA, WOUND CDI WITH SCABBING PRESENT. L UPPER ABDOMEN WOUND VAC PRESENT OVER OLD OSTOMY SITE, SCANT SEROUS DRAINAGE NOTED. MARK SECURED IN PLACE WITH CONCENTRATED URINE NOTED AND YELLOW SEDIMENT PRESENT IN COLLECTION BAG. CVL NOTED L SUBCLAVIAN, PATENT WITH FLUIDS INFUSING. A-LINE NOTED IN R RADIAL, ZEROED WITH GOOD WAVEFORM ON MONITOR. FEED PUMP AND AIR OVERLAY IN USE, PATIENT REPOSITIONED FOR COMFORT. DENIES PAIN OR OTHER NEEDS AT THIS TIME, ALL VSS AND WILL CONTNINUE TO MONITOR.
--- NOTE | 2016-03-18 19:50 | NUR ---
SPOKE TO DR THOMPSON, PATIENT TO BE PLACED NPO AT MIDNIGHT FOR IR PROCEDURE. PATIENT FLUID INTAKE NOT TO EXCEED 75ML/HR COMBINED, ORDERS READ BACK AND VERIFIED.
--- NOTE | 2016-03-18 20:45 | NUR ---
SPOKE TO [facility] REGARDING PROCEDURE IN AM, VERIFIED REQUIREMENTS. CT GUIDED NEEDLE BIOPSY PROTOCOL VIEWED AND PRINTED TO BE COMPLETED PRIOR TO PROCEDURE.
--- NOTE | 2016-03-18 23:00 | NUR ---
REASSESSMENT COMPLETE PER FLOWSHEET, PATIENT RESTING IN BED WITH EYES CLOSED ON VENT. SETTINGS UNCHANGED FROM PREVIOUS ASSESSMENT, PATIENT OXYGEN SAT 95%. ABDOMINAL INCISION APPROXIMATED WELL, 10 ALICIA PRESENT WITH SOME SCABBING NOTED. WOUND VAC DRESSING CDI WITH SCANT SEROUS DRAINAGE NOTED IN CANNISTER. TRACH COLLAR/TUBE SECURED AND STABLE, NO ERYTHEMA NOTED AROUND SUTURES. PATIENT DENIES PAIN OR OTHER NEEDS AT THIS TIME, ALL VSS AND WILL CONTINUE TO MONITOR.
[2016-03-19] VITALS (27 sets, daily range): BP systolic 114–168; BP diastolic 62–95
--- NOTE | 2016-03-19 00:30 | NUR ---
PATIENT WAS INCONTINENT OF BOWEL, LIQUID BROWN STOOL NOTED ON COLLECTION PAD AND SHEET. FULL BED BATH/LINEN CHANGE PERFORMED, PATIENT REPOSITIONED FOR COMFORT. CVL DRESSING CHANGE PERFORMED, NO DIFFICULTIES. PATIENT B/P SLIGHTLY ELEVATED AFTER ACTIVITY, ALL VSS AND WILL CONTINUE TO MONITOR.
--- NOTE | 2016-03-19 01:00 | NUR ---
PATIENT RESTING IN BED WITH EYES CLOSED. PATIENT REPOSITIONED FOR COMFORT WITH AMRIK RT PRESENT, ORAL CARE SUCTIONING PROVIDED. ALL VSS AND WILL CONTINUE TO MONITOR.
--- NOTE | 2016-03-19 03:00 | NUR ---
REASSESSMENT COMPLETE PER FLOWSHEET, PATIENT RESTING IN BED WITH EYES CLOSED ON VENT. RADIOLOGY AT BEDSIDE FOR CXR, PATIENT TOLERATED WELL. CRACKLES NOTED BILATERAL UPPER WITH DIMINISHED LOWER, VENT SETTINGS UNCHANGED FROM PREVIOUS. INCISION IS CDI WITH 10 ALICIA AND SCABBING NOTED, EDGES ARE WELL APPROXIMATED. NO FURTHER NEEDS AT THIS TIME, PATIENT DENIES PAIN. ALL VSS AND WILL CONTINUE TO MONITOR.
--- NOTE | 2016-03-19 05:00 | NUR ---
PATIENT REPOSITIONED FOR COMFORT WITH AMRIK RT PRESENT, ORAL CARE/SUCTIONING PROVIDED. CONSENT FORMS PREPARED FOR TO SIGN, WILL PRESENT TO HIM AT NEXT OPPORTUNITY. NO FURTHER NEEDS AT THIS TIME, ALL VSS AND WILL CONTINUE TO MONITOR.
[2016-03-19 05:27] LABS: APTT 33.7 SECONDS (22.8-39.4); INR 1.34 (0.85-1.17); PROTIME 16.5 SECONDS (11.6-15.0)
[2016-03-19 05:28] LABS: BASOPHILS 0.5 % (0.0-2.0); EOSINOPHILS 3.3 % (0-7); HEMATOCRIT 30.3 % (36.0-48.0); HEMOGLOBIN 9.4 g/dL (12-16); IMMATURE GRANULOCYTES 3.2 % (0-5); LYMPHOCYTES 10.2 % (15-50); MCH 30.3 pg (26.0-34.0); MCV 97.7 fL (80.0-100.0); MEAN PLATELET VOLUME 11.7 fL (7.4-10.4); MONOCYTES 9.9 % (2-11); NEUTROPHILS 72.9 % (40-80); PLATELET COUNT 317 10x3/uL (130-400); RDW 15.5 % (11.5-14.5); WBC 10.8 10x3/uL (4.8-10.8)
[2016-03-19 05:39] LABS: ALBUMIN 2.3 g/dL (3.4-5.0); ALKALINE PHOSPHATASE 124 U/L (46-116); ALT (SGPT) 35 U/L (10-68); BILIRUBIN - TOTAL 0.64 mg/dL (0.2-1.3); CALC OSMOLALITY 279 mosm/kg (275-300); CALCIUM 8.2 mg/dL (8.5-10.1); CARBON DIOXIDE 24.3 mmol/L (21.0-32.0); CHLORIDE - SERUM 107 mmol/L (98-107); GLUCOSE 103 mg/dL (74-106); POTASSIUM - SERUM 4.1 mmol/L (3.5-5.1); PROTEIN - SERUM 7.2 g/dL (6.4-8.2); SODIUM 140 mmol/L (136-145); UREA NITROGEN 16 mg/dL (7-18); eGFR NON AFRICAN AMERICAN 78 mL/min (90-120)
[2016-03-19 05:53] LABS: CREATININE - SERUM 0.8 mg/dL (0.6-1.3)
--- NOTE | 2016-03-19 08:14 | NUR ---
REPORT WAS RECEIVED AT 0700. ASSESSMENT COMPLETED AND PATIENT CLEANED AND REPOSITIONED FOR COMFORT.
--- NOTE | 2016-03-19 10:07 | NUR ---
THI WITH WOUND CARE HERE, CHANGED WOUND VAC DRESSING, AND NOTICED HER NGT LAYING ON THE FLOOR WHEN SHE FINISHED. DROPPED A 16FR SALEM SUMP TO RIGHT NARE WITH MINIMAL DIFFICULTY. TUBE SECURED WITH STAT LOCK. CLAMPED AT THIS TIME SECONDARY TO SCHEDULED PROCEDURE IN [facility]ION[facility] RADIOLOGY.
--- NOTE | 2016-03-19 10:24 | NUR ---
WOUND VAC DRESSING CHANGE WOUND TYPE:SURGICAL WOUND LOCATION:LEFT ABD WOUND AGE IN MONTHS: WEEKS DEBRIDEMENT ATTEMPTED IN LAST 10 DAYS? DATE/TYPE:NO SERIAL DEBRIDEMENTS REQUIRED? UNKNOWN MEASUREMENT DATE: 03/19/16 1.5CM X 4.2CM X 2.8CM X 1.6CM FROM 9-12 OCLOCK FULL THICKNESS? YES MUSCLE, TENDON OR BONE EXPOSED? NO UNDERMINING? YES TUNNELING/SINUS? NO APPEARANCE OF WOUND BED : RED/BEEFY EXUDATE (AMOUNT, COLOR, ODOR): SMALL BLOODY NO ODOR FOAM TYPE: BLACK # OF PIECES USED:1PIECE IN WOUND BED 1 PIECE TO CUSHION TRAC PAD PT TOLERATED WELL
--- NOTE | 2016-03-19 10:56 | NUR ---
PATIENT TO INTERVENTIONAL RADIOLOGY FOR PROCEDURE.
--- NOTE | 2016-03-19 12:06 | NUR ---
PATIENT BACK FROM INTERVENTIONAL RADIOLOGY. RESET UP FOR COMFORT. FEEDINGS RESTARTED.
--- NOTE | 2016-03-19 13:15 | EC ---
PATIENT:SARAH GARY DATE OF SERVICE: 03/05/16 SEX: F MEDICAL RECORD: [id number] DATE OF : 56 LOCATION:[facility] D230 AGE OF PATIENT: 56 ADMISSION DATE: 03/05/16 REFERRING PHYSICIAN: INTERPRETING PHYSICIAN: SCOTT HERNANDEZ M.D. ECHOCARDIOGRAM REPORT ECHO CHARGES 4 ECHO COMPLETE CLINICAL DIAGNOSIS: ISCHEMIA ECHOCARDIOGRAPHIC MEASUREMENTS (adult normal given) AC root (d.<3.7cm) 3.3 LV Septum d (<1.2 cm> 1.7 Valve Excursion 1.7 LV Septum (systole) 2.5 Left Atria (s.<4.0cm> 4.1 LVPW d(<1.2cm) 1.7 RV (d.<2.3cm) 2.0 LVPW (sytole) 2.0 LV diastole(<5.6CM) 3.7 MV E-F(>70mm/sec) LV systole 2.3 LVOT Diameter 2.3 MV exc.(>10mm) Est.ejection fraction (50-75%) Pericardial Effusion N DOPPLER: LVIT A 116.0 E 77.0 LA RVSP 41.4 LVOT 79.0 AOP1/2T Asc. Ao 165 RVOT 89.0 RA PA 120 AV Gradient Peak 11.0 AV Mean 5.2 AV Area 1.7 MV Gradient Peak 5.9 MV Mean 1.8 MV Area COMMENTS: Silverware Cleaner: Lyndsey GANNOE Big Machine Consultant:Jackson Hernandez TAPE# PACS DATE OF SERVICE: 03/05/2016 REFERRING PHYSICIAN: Diallo Beasley MD INDICATION: Status post arrest. DESCRIPTION: Left ventricle demonstrates left ventricular hypertrophy. There is global hypokinesis noted. Estimated ejection fraction is in the order of 40% to 45%. It appears 45% in the apical views. Mitral valve is structurally normal. I do not see any regurgitation or prolapse. Left atrium is mildly ECHOCARDIOGRAM REPORT [id number] SARAH GARY dilated. The aortic valve leaflets are thickened. There is no stenosis or regurgitation seen. Right ventricle is mildly to the right ventricle is normal in size and function. Tricuspid valve is structurally normal. There is mild regurgitation noted. Right ventricular systolic pressure is elevated at 41 mmHg. There is no pericardial effusion seen. IMPRESSION: 1. Left ventricular hypertrophy with mild left ventricular dysfunction with ejection fraction of 40% to 45% with global hypokinesis. 2. Mild tricuspid regurgitation with elevated pulmonary pressures. TRANSINT:[id number] Voice Confirmation ID: [id number] DOCUMENT ID: [id number] SCOTT HERNANDEZ M.D. at 1315 CC: [id number] DICTATION DATE: 03/05/161836 [facility] SPECIALIST: 03/05/16 2216 ADM IN [place] [id number] [place] [id number]
[2016-03-19 14:49] LABS: EOS BF 2 %; LYMPH - BF 2 %; MACROPHAGES BF 2 %; MESOTHELIALS BF 1 %; NEUT - BF 93 %
--- NOTE | 2016-03-19 16:27 | NUR ---
A-LINE DC'D PER ORDERS. PT TOLERATED WELL.
--- NOTE | 2016-03-19 19:00 | NUR ---
REPORT RECEIVED AND ASSESSMENT COMPLETED. SEE FLOWSHEET FOR DETAILS. VSS. WILL CONTINUE TO MONITOR.
--- NOTE | 2016-03-19 21:00 | NUR ---
2100 MEDS GIVEN. NO CHANGES IN STATUS AT THIS TIME. VSS. WILL MONITOR
--- NOTE | 2016-03-19 23:00 | NUR ---
REASSESSMENT COMPLETED. SEE FLOWSHEET. FLUSHED BILI DRAIN DURING 2200 HOUR. ONLY SALINE RETURNED. VSS. WILL CONTINUE TO MONITOR.
[2016-03-20] VITALS (24 sets, daily range): BP systolic 114–159; BP diastolic 61–89
--- NOTE | 2016-03-20 01:00 | NUR ---
NO CHANGES IN STATUS AT THIS TIME VSS WILL MONITOR.
--- NOTE | 2016-03-20 03:00 | NUR ---
ASSESSMENT COMPLETED SEE FLOWSHEET. VSS. WILL MNITOR.
[2016-03-20 04:40] LABS: BASOPHILS 0.5 % (0.0-2.0); EOSINOPHILS 4.9 % (0-7); HEMATOCRIT 29.9 % (36.0-48.0); HEMOGLOBIN 9.3 g/dL (12-16); IMMATURE GRANULOCYTES 2.4 % (0-5); MCH 30.6 pg (26.0-34.0); MCHC 31.1 g/dL (31.0-37.0); MCV 98.4 fL (80.0-100.0); MEAN PLATELET VOLUME 10.7 fL (7.4-10.4); MONOCYTES 10.9 % (2-11); NEUTROPHILS 69.3 % (40-80); PLATELET COUNT 342 10x3/uL (130-400); RBC 3.04 10x6/uL (4.00-5.40); WBC 9.6 10x3/uL (4.8-10.8)
[2016-03-20 04:51] LABS: ALBUMIN 2.2 g/dL (3.4-5.0); ALKALINE PHOSPHATASE 149 U/L (46-116); ALT (SGPT) 38 U/L (10-68); BILIRUBIN - TOTAL 0.55 mg/dL (0.2-1.3); CALC OSMOLALITY 280 mosm/kg (275-300); CALCIUM 8.3 mg/dL (8.5-10.1); CARBON DIOXIDE 25.8 mmol/L (21.0-32.0); CHLORIDE - SERUM 107 mmol/L (98-107); CREATININE - SERUM 0.8 mg/dL (0.6-1.3); GLUCOSE 119 mg/dL (74-106); MAGNESIUM - SERUM 1.7 mg/dL (1.8-2.4); POTASSIUM - SERUM 3.8 mmol/L (3.5-5.1); PROTEIN - SERUM 7.1 g/dL (6.4-8.2); SODIUM 140 mmol/L (136-145); UREA NITROGEN 15 mg/dL (7-18); eGFR NON AFRICAN AMERICAN 78 mL/min (90-120)
--- NOTE | 2016-03-20 05:00 | NUR ---
NO CHANGES IN STATUS AT THIS TIME. VSS. WILL MONITOR
--- NOTE | 2016-03-20 09:20 | NUR ---
NUTRITION MONITORING & EVAL CHART REVIEWED. PT REMAINS IN ISOLATION ON VENT. TOLERATING PULMOCARE @ GOAL RATE 45 CC/HR. RD FOLLOWING
--- NOTE | 2016-03-20 13:54 | NUR ---
1400- PT'S FAMILY NOT HERE THIS DAY YET. CALLED PT'S SON AND LEFT MESSAGE TO CALL THIS RN. DSNG TO RUE CHANGED. PT JS WELL. PT CONFUSED AND NOT FOLLOWING COMMAND, NOT HYPERACTIVE REPORTED. ABG'S DRAWN. ALL WNL.
--- NOTE | 2016-03-20 15:55 | NUR ---
PT HAD BM, LOOSE WATTERY BROWN STOOL. CLEANED AND LINENS CHANGED.
[2016-03-20 16:12] LABS: AFB SPECIMEN PROCESSING Concentration (())
--- NOTE | 2016-03-20 19:00 | NUR ---
REPORT REC'D, ASSUMED PATIENT CARE. ASSESSMENT COMPLETED PER FLOW SHEETS. PT SEDATED ON VENT, AROUSES WITH VOICES, FOLLOWS COMMANDS. SR ON CM WITH HR AT 96. LUNG SOUNDS CRACKLES TO ULB, DIMINISHED TO LLB, UNLABORED. LEFT SC CVL INTACT, CLEAN AND DRY, INFUSING IV FLUIDS PER ORDER VIA PUMP, MIDABD INCISON INTACT, SCANT DRAINGE NOTED. LLQ WOUND VAC INTACT TO SUCTION. RLQ T-TUBE TO GRAVITY WITH SCAN YELLOW DRAINGE, MARK INTACT TO GRAVITY WITH CL/Y DRAINGE TO BAG. PPP. SCD'S OFF FOR SKIN INTEGRITY. OVERLAY BED IN USE. PT INCONTINENT OF STOOL. STANLEY AND MARK CARE PROVIDED. LINEN CHANGED, REPOSITIONED FOR COMFORT. HOB UP. SIDE RAILS UP. CONT TO MONITOR.
--- NOTE | 2016-03-20 21:00 | NUR ---
NO VISITORS AT THIS TIME. SCHEDULED MEDS GIVEN PER ORDER. MOUTH CARE PROVIDED. REPOSITIONED FOR COMFORT. PILLOWS IN USE FOR SUPPORT. CPOC.
--- NOTE | 2016-03-20 23:00 | NUR ---
REASSESSMENT COMPLETED, SEE FLOW SHEETS FOR ALL FINDINGS. PT SEDATED ON VENT, OPENS EYES WITH VOICES. NO SIGNS OF DISTRESS NOTED AT THIS TIME. SR ON CM. CPOC.
[2016-03-21] VITALS (22 sets, daily range): BP systolic 116–146; BP diastolic 54–93
--- NOTE | 2016-03-21 00:10 | NUR ---
LARGE BM NOTED. PARTIAL LINEN CHANGE BB ADM. NEEDS MET
--- NOTE | 2016-03-21 01:18 | NUR ---
PT ATTEMPT TO GET OOB, REPSOSITIONED UP IN BED ON L SIDE. NEEDS. MET. WILL CONTINUE TO MONITOR.
--- NOTE | 2016-03-21 03:22 | NUR ---
REASSESSMENT COMPELTE PER FLOW SHEET. NO NEW CHANGES VSS WILL CONITNUE TO MONITOR.
[2016-03-21 03:44] LABS: BASOPHILS 0.7 % (0.0-2.0); EOSINOPHILS 4.7 % (0-7); HEMATOCRIT 31.2 % (36.0-48.0); HEMOGLOBIN 9.7 g/dL (12-16); IMMATURE GRANULOCYTES 2.4 % (0-5); LYMPHOCYTES 13.7 % (15-50); MCH 30.2 pg (26.0-34.0); MCHC 31.1 g/dL (31.0-37.0); MCV 97.2 fL (80.0-100.0); MEAN PLATELET VOLUME 10.1 fL (7.4-10.4); MONOCYTES 10.7 % (2-11); NEUTROPHILS 67.8 % (40-80); PLATELET COUNT 335 10x3/uL (130-400); RBC 3.21 10x6/uL (4.00-5.40); RDW 14.7 % (11.5-14.5); WBC 10.1 10x3/uL (4.8-10.8)
[2016-03-21 04:03] LABS: ALBUMIN 2.3 g/dL (3.4-5.0); ALKALINE PHOSPHATASE 133 U/L (46-116); ALT (SGPT) 38 U/L (10-68); BILIRUBIN - TOTAL 0.51 mg/dL (0.2-1.3); CALC OSMOLALITY 279 mosm/kg (275-300); CALCIUM 8.6 mg/dL (8.5-10.1); CARBON DIOXIDE 27.7 mmol/L (21.0-32.0); CHLORIDE - SERUM 105 mmol/L (98-107); CREATININE - SERUM 0.7 mg/dL (0.6-1.3); GLUCOSE 97 mg/dL (74-106); MAGNESIUM - SERUM 1.7 mg/dL (1.8-2.4); POTASSIUM - SERUM 3.9 mmol/L (3.5-5.1); PROTEIN - SERUM 7.2 g/dL (6.4-8.2); SODIUM 140 mmol/L (136-145); UREA NITROGEN 14 mg/dL (7-18); eGFR NON AFRICAN AMERICAN > 90 mL/min (90-120)
--- NOTE | 2016-03-21 05:16 | NUR ---
COMPLETE BB LINEN CHANGE ADM. MODERATE LOOSE STOOL NOTED. NEEDS MET.
[2016-03-21 11:17] LABS: FUNGUS STAIN Final report (())
--- NOTE | 2016-03-21 11:32 | NUR ---
WOUND VAC DRESSING CHANGE WOUND TYPE: surgical WOUND LOCATION: left abd WOUND AGE IN MONTHS: weeks DEBRIDEMENT ATTEMPTED IN LAST 10 DAYS? DATE/TYPE: SERIAL DEBRIDEMENTS REQUIRED? MEASUREMENT DATE: 03/21/16 1.5cm x 4.2cm x 3.7cm x 1.2cm from 9-12 oclock FULL THICKNESS? yes MUSCLE, TENDON OR BONE EXPOSED? no UNDERMINING? yes see above (improved) TUNNELING/SINUS? no APPEARANCE OF WOUND BED : red/beefy EXUDATE (AMOUNT, COLOR, ODOR): mod/sanguinous/no odor FOAM TYPE: black # OF PIECES USED: 1 in wound bed/1 for trac pad Pt tolerated well.
--- NOTE | 2016-03-21 12:38 | NUR ---
OT NOTE: ATTEMPTED TO SEE PT ON THIS DATE, HOWEVER, ROOM WAS FULL OF NURSING STAFF AND UNABLE TO PERFORM EVAL AT THIS TIME. WILL ATTEMPT LATER
--- NOTE | 2016-03-21 12:39 | CN ---
PATIENT NAME:SARAH GARY MEDICAL RECORD: [id number] : 56 LOCATION:[facility].[id number] ADMIT DATE: 03/05/16 ACCOUNT: [id number] CONSULTING PHYSICIAN: JAMIE SANDOVAL MD REFERRING PHYSICIAN: BRICE THOMPSON MD DATE OF CONSULTATION: 03/05/2016 CONSULT REQUESTING PHYSICIAN: Dr. MARIELOS Thompson. REASON FOR CONSULTATION: Vent management status post cardiopulmonary arrest. HISTORY OF PRESENT ILLNESS: Ms. Gary is a 56-year-old female who underwent colostomy reversal today while preparing for the laparoscopic procedure and the patient has CO2 embolization and the patient coded. The patient was resuscitated and then open laparotomy was done and the procedure was completed. Post procedure, the patient was hypotensive and the patient was brought in to the ICU on the ventilator. Now, the patient is orally intubated and sedated. The history was taken mainly by reviewing the patient's chart. PAST MEDICAL HISTORY: 1. Pneumonia in the past. 2. Diverticular disease status post laparostomy and colostomy. 3. History of abdominal abscesses. PAST SURGICAL HISTORY: She has a colostomy and laparotomy. ALLERGIES: SHE IS ALLERGIC TO HYDROCODONE. PRESENT MEDICATIONS: [employer] was reviewed. PERSONAL AND SOCIAL HISTORY: The patient was a smoker until a few months ago. She was a drinker in the past. FAMILY HISTORY: Unknown. PHYSICAL EXAMINATION: GENERAL: Now, the patient is orally intubated and sedated. VITAL SIGNS: The blood pressure is 95 to 107/58, pulse is 96, respiration is 18, temperature 97.8, SpO2 is 100%. She is on the mechanical ventilation assist control. HEENT: Conjunctivae pink. Sclerae are nonicteric. Pupils are equal, round, reactive to light. NECK: Supple. No JVD. CHEST: There are bilateral crackles. No wheezing. HEART: Rate and rhythm regular, normal sound, no murmur. ABDOMEN: Soft. Bowel sounds present. No hepatosplenomegaly. RECTAL: Deferred. EXTREMITIES: No cyanosis, no clubbing, no pedal edema. ABDOMEN: She has a laparotomy incision there. Bowel sounds were absent. CENTRAL NERVOUS SYSTEM: The patient is orally intubated and sedated. LABORATORY DATA: ABG: The pH is 7.26, pCO2 of 52, and pO2 is 139, bicarbonate is 23.8. The lactic acid level on the ABG was 2.48. OTHER LABORATORY DATA: CBC: The WBC is 12.2, hemoglobin is 11.8, hematocrit CONSULT REPORT [id number] SARAH GARY 35.2, the platelet count is 166. IMAGING: Chest radiograph, there is hyperinflation with acute interstitial markings, possibly aspiration pneumonia, possible pulmonary edema. IMPRESSION: 1. Acute hypoxic-hypercapnic respiratory failure post-procedure status post code blue, possible secondary to CO2 embolization. 2. Status post colostomy reversal. 3. Hypotension, possible sepsis, possible hypovolemia. 4. Lactic acidosis. 5. Possible aspiration pneumonia. 6. Congestive heart failure with systolic dysfunction with ejection fraction of 40%. RECOMMENDATION: 1. We will continue mechanical ventilation, IV fluid bolus, Levophed to keep the systolic blood pressure above 90. Continue Zosyn. Check the sputum for culture and sensitivity. 2. Deep venous thrombosis and stress ulcer prevention. 3. Central line placement and CVP monitoring. Check the cardiac enzyme, if elevated Consult cardiology. Dr. Thompson, once again, thanks for involving me in the care of Ms. Gary. TRANSINT:[id number] Voice Confirmation ID: [id number] DOCUMENT ID: [id number] JAMIE SANDOVAL MD at 1239 CC: BRICE THOMPSON MD [id number] DICTATION DATE: 03/05/161818 SPREADER: 03/05/162127 ADM IN [facility] [address] [place] [address]
--- NOTE | 2016-03-21 12:56 | NUR ---
1250-PT TO OR FOR PROCEDURE. CONCENTS ON CHART.
--- NOTE | 2016-03-21 13:30 | NUR ---
1315: BOTTOM AND STANLEY AREA RED AND IRRITATED WITH EDEMA NOTED
--- NOTE | 2016-03-21 19:00 | NUR ---
Assessment complete. See flowsheet. Pt eyes open upon entrance into room with VSS. Pt watching television with no s/s pain or distress. Pt tracking with eyes and nodding head to questioning and following commands to move all extremities with 2/5 strength noted to all extremities. Pt denies pain at this time. Pupils size 3 bilaterally ERRLA. Pt with 7.0FR Trach secure to ventilator set SIMV Rate 10 TV 600 FiO2 @ 40% PEEP 8 PS 10. Lung sounds present crackles to all alvarado with expiratory wheezing to RLL. HR SR with S1S2 auscultated. All peripheral pulses +2 with capillary refill <3 seconds. Left IJTL CVL Site CDI; no s/s infection with 1/2 NS infusing @ 15cc/hr KVO with Fentanyl COST AND SALES RECORD SUPERVISOR continuous infusing @ 75mcg/hr. NGT secure to TF Pulmocare infusing @ 45cc/hr. Abdomen soft with BS present to all quadrants. Resid check yields 0cc aspirated. Midline abdominal incision site CDI, no s/s infection, open to air with wound edges well-approximated. Wound vac secure to old colostomy site secure to 125mmHg suction with no exudate at this time. Right abdominal IR drain secure to gravity drainage with no output. Hedrick catheter secure retrieving clear/yellow urine. SCDs secure. Pt repositioned to left side. HOB @ 30 degrees. Arms and heels bridged. Temp 98.4F temporally. Pt on air overlay mattress. Droplet precautions abided. CPOC.
--- NOTE | 2016-03-21 19:17 | NUR ---
0800-PT INC OF STOOL, LINENS CHANGED, PT CLEANED. 1100- ASSESSMENT COMPLETE, INC OF STOOL, CLEANED AND LINENS CHANGEED. 1500-INC OF STOOL, LINENS CHANGED , PT CLEANED.
--- NOTE | 2016-03-21 21:00 | NUR ---
Pt pulled up in bed and repositioned to right side. Linens remain clean/dry. Pt HOB elevated to 30 degrees. Arms and heels bridged. Oral care completed. Pt denies pain at this time and remains cooperative. VSS. Call light within pt reach. No other changes to note. CPOC.
--- NOTE | 2016-03-21 23:00 | NUR ---
Reassessment complete. See flowsheet. Pt remains awake with no neuro changes to note from previous assessment. Trach remains secure to vent with no setting changes to note. Lung sounds currently present fine crackles to all alvarado. Pt encouraged to deep breathe and cough with no sputum produced. Oral care completed with mouth moisturizer applied. HR remains SR with S1S2 auscultated. All peripheral pulses +2 with capillary refill <3 seconds. CVL site CDI with NO IVF changes to note from previous assessment. NGT remains secure to pulflcare TF infusing @ 45cc/hr. 0cc gastric residual aspirated. BS remain present to all quadrants. Abdominal drains and incision sites secure with no changes to note. Hedrick remains secure retrieving clear/yellow urine. Pt repositioned to back with HOB elevated to 30 degrees. Arms and heels remain bridged. Pt denies pain. No s/s distress. Bilat soft wrist restraints secure. Linens clean and dry. CPOC.
--- NOTE | 2016-03-21 23:04 | OP ---
PATIENT NAME: SARAH GARY MEDICAL RECORD: [id number] :56 LOCATION:.[facility] D.2309 ADMISSION DATE:03/05/16 SURGEON: BRICE BEASLEY MD DATE OF OPERATION: 03/20/2016 SURGEON: Brice Beasley MD PREOPERATIVE DIAGNOSES: 1. Colostomy reversal. 2. Pelvic fluid collection. POSTOPERATIVE DIAGNOSES: 1. Colostomy reversal. 2. Pelvic fluid collection. PROCEDURE PERFORMED: Colonoscopy with endoscopic stent placement 12 cm x 1.8 cm fully covered stent. Immediate interpretation of fluoroscopy with the anastomotic site marked. ANESTHESIA: General. COMPLICATIONS: None. SPECIMENS: None. Case was contaminated. ESTIMATED BLOOD LOSS: Minimal. SPECIMENS: None. OPERATIVE COURSE: After consent was obtained, the patient was taken to the operating room and placed in supine position on the operating table. Next, she was placed into stirrups. The perineum was prepped and draped in typical sterile fashion. A timeout was taken to confirm the correct patient and procedure. The colonoscope was inserted without insufflation into the rectum. The lumen was dilated with irrigation. The scope was advanced under endoscopic vision to the colorectal anastomosis. The colorectal anastomosis was intact. There was a small opening noted and had a proximally a very small opening was noted along the staple line, likely too narrow that covered less than 2-4% of the entire ringed anastomosis. The scope was then inserted beyond the anastomosis up into the sigmoid and descending colon. A 400 ____ cm Jagwire was then placed through the colonoscope into the colon. The scope was then withdrawn to the anastomotic staple line. The site was marked with fluoroscopy. The colonoscope was withdrawn. The [employer] fully covered 12 cm x 1.8 cm stent was inserted over the Jagwire under fluoroscopic guidance. It was deployed covering the anastomosis. The scope was then reinserted. The scope was inserted through within the stent to the proximal margin at which time, 2 resolution clips were placed to hold the stent in place. At this time, the colonoscope was again removed and the procedure was terminated. At the end of the case, all needle counts were correct. No complications occurred. The patient tolerated the procedure well and was transferred to the ICU in stable condition. TRANSINT:[id number] Voice Confirmation ID: [id number] DOCUMENT ID: [id number] OPERATIVE REPORT [id number] SARAH GARY,BRICE Martinez MD at 2304 CC: [id number] DICTATION DATE: 03/21/16 1400 CONSTRUCTION CODE ADMINISTRATOR: 03/21/16 1937 ADM IN [facility] [address] [place] [place] [id number]
[2016-03-22] VITALS (23 sets, daily range): BP systolic 100–186; BP diastolic 54–100
--- NOTE | 2016-03-22 01:00 | NUR ---
Pt repositioned to left side. HOB @ 30 degrees. Arms and heels rebridged. Linens remain clean and dry. Oral care completed with water swabs. Mouth moisturizer applied. Pt denies pain. CROWN POUNCER changed to Morphin CROWN POUNCER 2mg Q10min with 30mg/4hr lockout per order after Fentanyl CROWN POUNCER syringe complete. NO other changes to note. Call light and CROWN POUNCER button placed within pt reach. CPOC.
--- NOTE | 2016-03-22 03:00 | NUR ---
Reassessment complete. See flowsheet. Pt remains awake with no neuro changes to note from previous assessment. Trach remains secure to vent with no setting changes to note. Lung sounds currently present fine crackles to all alvarado. Pt suctioned with cough triggered and frothy, white sputum produced. Oral care completed with mouth moisturizer applied. HR remains SR with S1S2 auscultated. All peripheral pulses +2 with capillary refill <3 seconds. CVL site CDI with NO IVF changes to note from previous assessment. NGT remains secure to pulmocare TF infusing @ 45cc/hr. 0cc gastric residual aspirated. BS remain present to all quadrants. Abdominal drains and incision sites secure with no changes to note. Hedrick remains secure retrieving clear/yellow urine. Pt repositioned to back with HOB elevated to 30 degrees for AM CXR. Arms and heels rebridged. NO c/o pain. Morphine PROCESS CONTROLLER button and call light remain within pt reach. CPOC
[2016-03-22 04:49] LABS: BASOPHILS 0.5 % (0.0-2.0); EOSINOPHILS 2.7 % (0-7); HEMATOCRIT 31.7 % (36.0-48.0); HEMOGLOBIN 10.1 g/dL (12-16); IMMATURE GRANULOCYTES 1.3 % (0-5); LYMPHOCYTES 11.3 % (15-50); MCH 30.8 pg (26.0-34.0); MCHC 31.9 g/dL (31.0-37.0); MCV 96.6 fL (80.0-100.0); MEAN PLATELET VOLUME 9.9 fL (7.4-10.4); MONOCYTES 11.7 % (2-11); NEUTROPHILS 72.5 % (40-80); PLATELET COUNT 352 10x3/uL (130-400); RBC 3.28 10x6/uL (4.00-5.40); RDW 14.8 % (11.5-14.5); WBC 11.6 10x3/uL (4.8-10.8)
--- NOTE | 2016-03-22 05:00 | NUR ---
Pt repositioned to right side. HOB @ 30 degrees. Oral care completed with mouth moisturizer applied.
[2016-03-22 05:13] LABS: ALBUMIN 2.4 g/dL (3.4-5.0); ALKALINE PHOSPHATASE 127 U/L (46-116); ALT (SGPT) 33 U/L (10-68); CALC OSMOLALITY 280 mosm/kg (275-300); CALCIUM 8.2 mg/dL (8.5-10.1); CARBON DIOXIDE 27.5 mmol/L (21.0-32.0); CHLORIDE - SERUM 103 mmol/L (98-107); CREATININE - SERUM 0.7 mg/dL (0.6-1.3); GLUCOSE 126 mg/dL (74-106); PROTEIN - SERUM 7.7 g/dL (6.4-8.2); SODIUM 140 mmol/L (136-145); UREA NITROGEN 12 mg/dL (7-18); eGFR NON AFRICAN AMERICAN > 90 mL/min (90-120)
--- NOTE | 2016-03-22 11:00 | NUR ---
NO CHANGE IN PRIMARY ASSESSMENT.
--- NOTE | 2016-03-22 15:00 | NUR ---
NO CHANGES NOTED TO PRIMARY ASSESSMENT.
--- NOTE | 2016-03-22 19:00 | NUR ---
Assessment complete. See flowsheet. Pt awake receiving inline UDTX upon entrance into room with VSS. Pt tracking with eyes and attempting to converse with lip movements. Unable to understand everything but pt does say "I want to go home." Pt seems to be in a poor mood and withdrawn from conversation, however she does follow commands to move all extremities with 2-3/5 strength noted and generalized edema to all extremities. Pupils size 3 bilaterally ERRLA. 7.0FR Trach site CDI and secure to vent set SIMV R 4 TV 600 FiO2 @ 40% PEEP 8 PS 10. Lung sounds present fine crackles to all alvarado. Pt trach inline suctioned with thin, frothy sputum produced and retrieved with several whitehead mucous plugs retrieved afterwards. Oral care completed by Michelle TAVARES. HR SR with S1S2 auscultated. All peripheral pulses +2 with capillary refill <3 seconds. Left TLSC CVL site CDI no s/s infection with 1/2NS infusing @ 15cc/hr KVO rate. Morphine PLATFORM STAPLER setup 2mg Q10min with 30mg/4hr lockout. History showing no usage. Pt denies pain. PLATFORM STAPLER button within pt reach. Abdomen distended with BS present to all quadrants. Previous colostomy site secure to wound vac set 125mmHg suction with no exudate at this time. Right sided lateral abdominal incision site CDI and open to air with wound edges well-approximated. NGT secure to TF Pulmocare infusing @ 45cc/hr. Gastric residual check yields 0cc content aspirated. Hedrick catheter secure retrieving concentrated, yellow urine. Pt pulled up in bed and positioned to left side. HOB @ 30 degrees from 35 degrees. Arms and heels bridged. SCDs secure bilaterally. Pt on air overlay mattress. Droplet precautions for isolation abided. Pt denies further needs at this time. Call light and PLATFORM STAPLER button within pt reach. CPOC.
--- NOTE | 2016-03-22 21:00 | NUR ---
Pt incontinent of liquid, brown stool. Chlorhexidine bed bath with gown and linen changes completed. Pt pulled up in bed and positioned to right side. HOB @ 30 degrees. Arms and heels rebridged. VSS. Pt denies pain at this time. Call light and CHIEF GREEN OFFICER button remain within pt reach. Fan off for pt c/o cold. TF set change completed. Abdominal abcess saline flushed per order. CPOC.
--- NOTE | 2016-03-22 23:00 | NUR ---
Reassessment complete. See flowsheet. Pt resting with VSS and awakens to verbal stimulation with no neuro changes to note. SIMV 12 TV 600 FiO2 @ 40% PEEP 8 PS 10. Trach site secure to vent. HR SR with S1S2 auscultated. All peripheral pulses +2 with capillary refill <3 seconds. CVL site CDI with NO IVF changes to note. Abdomen soft and distended with BS present to all quadrants. Abdominal abcess site to gravity drainage retrieving clear fluid. Abdominal incision site unchanged. Wound vac remains secure to abdominal site with no setting changes to note. NGT secure to Pulmocare TF infusing @ 45cc/hr. Gastric residual check yields 0cc content aspirated. Hedrick secure retrieving concentrated, yellow urine. Linens clean/dry. Pt pulled up in bed and positioned to back with arms and heels bridged and HOB elevated to 30 degrees. Bilat soft wrist restraints secured. SCDs secure. NO other changes to note. Pt denies pain. CRUISE COORDINATOR button and call light remain within pt reach. CPOC.
[2016-03-23] VITALS (25 sets, daily range): BP systolic 109–164; BP diastolic 59–108
--- NOTE | 2016-03-23 01:00 | NUR ---
Pt resting quietly with VSS. Pt repositioned to left side and continues to rest. Oral care completed per Michelle TAVARES.
--- NOTE | 2016-03-23 02:00 | NUR ---
Pt incontinent of very large, liquid brown stool. Incontinence care with partial linen change, la and anthony care completed. Pt denies pain or further needs at this time. CPOC.
--- NOTE | 2016-03-23 03:00 | NUR ---
Reassessment complete. See flowsheet. Pt awake after AM ABG draw and helped to position for comfort to back after pulling up in bed. Linens remain clean and dry at this time. No neuro changes to note. Pt helped with mouth moisturizer and oral water swabs for c/o dry mouth. Trach remains secure to vent with no setting changes to note. Pt lung sounds present fine crackles to all alvarado. Pt trach inline suctioned with small amt whitehead mucous plugs retrieved and strong, productive cough triggered. HR SR. CVL site CDI with NO IVF changes to note. BS +. NGT secure with Pulmocare infusing @ 45cc/hr. Resid 0cc. Hedrick remains secure retrieving concentrated, yellow urine. Pt arms and heels bridged. SCDs remain secure. Pt denies pain or further needs at this time. Call light and PRODUCT DEVELOPER button remain within reach. NO other changes to note. CPOC.
[2016-03-23 04:50] LABS: BASOPHILS 0.5 % (0.0-2.0); EOSINOPHILS 1.6 % (0-7); HEMATOCRIT 30.3 % (36.0-48.0); HEMOGLOBIN 9.6 g/dL (12-16); IMMATURE GRANULOCYTES 1.5 % (0-5); MCH 30.1 pg (26.0-34.0); MCHC 31.7 g/dL (31.0-37.0); MEAN PLATELET VOLUME 9.9 fL (7.4-10.4); MONOCYTES 11.7 % (2-11); NEUTROPHILS 70.7 % (40-80); PLATELET COUNT 324 10x3/uL (130-400); RBC 3.19 10x6/uL (4.00-5.40); RDW 14.6 % (11.5-14.5); WBC 10.1 10x3/uL (4.8-10.8)
--- NOTE | 2016-03-23 05:00 | NUR ---
Pt repositioned to right side. HOB @ 30 degrees. Oral care completed.
[2016-03-23 05:04] LABS: CALC OSMOLALITY 282 mosm/kg (275-300); CALCIUM 8.7 mg/dL (8.5-10.1); CARBON DIOXIDE 28.7 mmol/L (21.0-32.0); CHLORIDE - SERUM 104 mmol/L (98-107); CREATININE - SERUM 0.7 mg/dL (0.6-1.3); GLUCOSE 129 mg/dL (74-106); MAGNESIUM - SERUM 1.9 mg/dL (1.8-2.4); POTASSIUM - SERUM 3.7 mmol/L (3.5-5.1); SODIUM 141 mmol/L (136-145); UREA NITROGEN 13 mg/dL (7-18); eGFR NON AFRICAN AMERICAN > 90 mL/min (90-120)
--- NOTE | 2016-03-23 19:00 | NUR ---
RECEIVED PATIENT IN BED WITH EYES CLOSED RESTING ON VENT, ASSESSMENT COMPLETE PER FLOWSHEET. PATIENT IS AO X4, TRACH PREVENTS SPEAKING BUT PATIENT NODS HEAD AND RESPONDS APPROPRIATELY TO QUESTIONS. EYES PERRLA @ 3MM WITH BRISK RESPONSE, SCLERA IS WHITE. NGT NOTED R NARE WITH PULMOCARE @ 45ML/HR WITH GOAL OF 45ML, ORAL MUCOSA IS DRY. S1/S2 NOTED WITH PATIENT NSR ON TELEMETRY, RATE IS RHYTHMIC AND REGULAR. CRACKLES NOTED BILATERAL UPPER WITH DIMINISHED LOWER, VENT SETTINGS R-6, V-600, 40%, P-8, PS-10. ABDOMEN IS DISTENDED AND SOFT, BOWEL SOUNDS ACTIVE X4. ABDOMEN MIDLINE INCISION IS WELL APPROXIMATED, NO DRAINAGE NOTED/ ABDOMEN RLQ OLD OSTOMY SITE ATTATCHED TO WOUND VAC/ABDOMEN L T TUBE TO GRAVITY. MARK SECURED IN PLACE VAI STATLOCK, CLEAR YELLOW URINE NOTED IN COLLECTION BAG. WEAKNESS NOTED IN ALL EXTREMITIES WITH ALL PULSES PALPABLE. CVL NOTED L SUBCLAVIAN, PATENT WITH FLUIDS INFUSING. SCANT SEROUS DRAINAGE NOTED IN WOUND VAC, SCD IN USE BILATERAL. REPOSITIONED FOR COMFORT AND ORAL CARE PROVIDED. PATIENT DENIES PAIN OR OTHER NEEDS AT THIS TIME, ALL VSS AND WILL CONTINUE TO MONITOR.
--- NOTE | 2016-03-23 21:00 | NUR ---
NO VISITORS AT THIS TIME, PATIENT REWSTING IN BED WITH EYES OPEN WATCHING TV. REPOSITIONING AND ORAL CARE PROVIDED, NO FURTHER NEEDS AT THIS TIME. ALL VSS AND WILL CONTINUE TO MONITOR.
--- NOTE | 2016-03-23 23:00 | NUR ---
REASSESSMENT COMPLETE, PATIENT RESTING IN BED WITH EYES CLOSED ON VENT. VENT SETTINGS UNCHANGED FROM PREVIOUS ASSESSMENT, PATIENT OXYGEN SAT 97%. CRACKLES NOTED BILATERAL UPPER WITH DIMINISHED LOWER. NO S/S OF INFECTION AROUND INCISION SITES, NO DRAINAGE NOTED. REPOSITIONED FOR COMFORT AND ORAL CARE PROVIDED. NO OTHER NEEDS AT THIS TIME, ALL VSS AND ESTELITA CONTINUE TO MONITOR.
[2016-03-24] VITALS (26 sets, daily range): BP systolic 117–176; BP diastolic 60–98
--- NOTE | 2016-03-24 01:00 | NUR ---
COMPLETE BED BATH AND LINEN CHANGE PERFORMED, PATIENT TOLERATED WELL. PATIENT DENIES PAIN OR OTHER NEEDS AT THIS TIME, ALL VSS AND WILL CONTINUE TO MONITOR.
--- NOTE | 2016-03-24 03:00 | NUR ---
REASSESSMENT COMPLETE, PATIENT RESTING IN BED WITH EYES CLOSED. RADIOLOGY AT BEDSIDE, PATIENT TOLERATED WELL. REPOSITIONING AND ORAL CARE PROVIDED FOR COMFORT, NO ERYTHEMA OR SWELLING AROUND TRACH INCISION. VENT SETTINGS UNCHANGED FROM PREVIOUS ASSESSMENT, PATIENT OXYGEN SAT 98%. DENIES PAIN OR OTHER NEEDS AT THIS TIME, ALL VSS AND WILL CONTINUE TO MONITOR.
[2016-03-24 05:41] LABS: CALC OSMOLALITY 279 mosm/kg (275-300); CALCIUM 8.4 mg/dL (8.5-10.1); CHLORIDE - SERUM 103 mmol/L (98-107); CREATININE - SERUM 0.8 mg/dL (0.6-1.3); GLUCOSE 121 mg/dL (74-106); MAGNESIUM - SERUM 1.7 mg/dL (1.8-2.4); POTASSIUM - SERUM 3.7 mmol/L (3.5-5.1); SODIUM 139 mmol/L (136-145); UREA NITROGEN 14 mg/dL (7-18); eGFR NON AFRICAN AMERICAN 78 mL/min (90-120)
[2016-03-24 06:08] LABS: BASOPHILS 0.6 % (0.0-2.0); HEMATOCRIT 30.9 % (36.0-48.0); HEMOGLOBIN 9.7 g/dL (12-16); IMMATURE GRANULOCYTES 1.8 % (0-5); LYMPHOCYTES 16.4 % (15-50); MCH 30.2 pg (26.0-34.0); MCHC 31.4 g/dL (31.0-37.0); MCV 96.3 fL (80.0-100.0); MEAN PLATELET VOLUME 10.6 fL (7.4-10.4); MONOCYTES 13.3 % (2-11); NEUTROPHILS 63.9 % (40-80); PLATELET COUNT 352 10x3/uL (130-400); RBC 3.21 10x6/uL (4.00-5.40); RDW 14.7 % (11.5-14.5); WBC 9.7 10x3/uL (4.8-10.8)
--- NOTE | 2016-03-24 09:30 | NUR ---
NUTRITION MONITORING & EVAL CHART REVIEWED. PT CURRENTLY OOR. WILL CONTINUE TO PROVIDE PULMOCARE, MONITOR PT PROGRESS. RD FOLLOWING
--- NOTE | 2016-03-24 10:26 | NUR ---
PATIENT BACK FROM INTERVENTIONAL RADIOLOGY. NO LONGER HAS DRAIN TO RIGHT LOWER QUAD. DRESSING IN PLACE WITH MINIMAL BLEEDING NOTED ON DRESSING. CVL WAS DC'D PER ORDERS. DC'D 7FR 16CM LINE. PATIENT SAID THAT SHE WANTED WATER. STATED THAT SHE COULD NOT HAVE WATER. PATIENT IS SAYING THAT THEY HAVE BEEN GIVING HER WATER. EXPLAINED I WOULD CONFIRM THIS WITH A DOCTOR AND IF THEY SAY YES, WE WOULD GO FROM THERE.
--- NOTE | 2016-03-24 11:48 | NUR ---
WOUND VAC DRESSING CHANGE WOUND TYPE: surgical WOUND LOCATION: WOUND AGE IN MONTHS: weeks DEBRIDEMENT ATTEMPTED IN LAST 10 DAYS? DATE/TYPE: SERIAL DEBRIDEMENTS REQUIRED? MEASUREMENT DATE: 03/24/16 1.5cm x 4.3cm x 2.7cm x 1cm from 9-12 oclock FULL THICKNESS?yes MUSCLE, TENDON OR BONE EXPOSED? no UNDERMINING? yes TUNNELING/SINUS? no APPEARANCE OF WOUND BED : red EXUDATE (AMOUNT, COLOR, ODOR): small sanguinous no odor FOAM TYPE: black # OF PIECES USED: 1 to wound bed/1 for trac pad (2 total) Pt tolerated well/no s/s pain/discomfort
--- NOTE | 2016-03-24 12:07 | NUR ---
SPOUSE HERE, UPDATE GIVEN. NO QUESTIONS VOICED. PATIENT REPOSITIONED FOR COMFORT. SHE DENIES NEEDS AT THIS TIME.
--- NOTE | 2016-03-24 17:36 | NUR ---
OT NOTE: PT COMPLETED BUE PROM TO DECREASE SKIN BREAKDOWN AND PROMOTE JOINT INTEGRITY. THANK YOU, TIERRA BROWNE/Leroy
--- NOTE | 2016-03-24 21:42 | NUR ---
1900 REPORT RECIEVED, INITIAL ASSESSMENT COMPLETE, PLEASE SEE FLOW SHEETS FOR DETAILS. PT WITH TRACH AND ON VENT, NO SEDATION AND NO RESTRAINTS. A&O X4, DENIES PAIN/NEEDS. ABLE TO COMMUNICATE THROUGH MOUTHING WORDS AND USING HANDS. BED LOW AND LOCKED, CALL LIGHT IN REACH. ORAL CARE PROVIDED AND PT TURNED. VSS, WILL CONTINUE TO MONITOR. 2100 PT HAD BOWEL MOVEMENT, THIS WAS CLEANED UP AND PT REFUSED ORAL CARE. CRAM PUT IN STANLEY AREA DUE TO REDNESS. PT CONFIRMS SHE IS COMFORTABLE WITH A NOD. TOAL LINEN AND GOWN CHANGE. BED LOW AND LOCKED, CALL LIGHT IN REACH, VSS, WILL CONTINUE TO MONITOR.
--- NOTE | 2016-03-24 22:32 | NUR ---
LEFT HAND PIV OBSTRUCTING CONSTANTLY, NEW PIV INSERTED INTO LEFT FOREARM 20 GUAGE.
--- NOTE | 2016-03-24 23:00 | NUR ---
REASSESSMENT COMPLETE, PLEASE SEE FLOW SHEETS FOR DETAILS. VSS ATT, DENIES PAIN/NEEDS ATT, BED LOW AND LOCKED, ORAL CARE AND TURNING PROVIDED. CALL LIGHT IN REACH. WILL CONTINUE TO MONITOR.
[2016-03-25] VITALS (24 sets, daily range): BP systolic 122–170; BP diastolic 61–823
--- NOTE | 2016-03-25 01:00 | NUR ---
PT RESTING. NO S&S OF ACUTE DISTRESS NOTED. BED LOW AND LOCKED, CALL LIGHT IN REACH. ORAL CARE AND TURNING PROVIDED. VSS ATT, WILL CONTINUE TO MONITOR.
--- NOTE | 2016-03-25 03:00 | NUR ---
REASSESSMENT COMPLETE, PLEASE SEE FLOW SHEETS FOR DETAILS. DENIES PAIN/NEEDS ATT, VSS. BED LOW AND LOCKED, CALL LIGHT IN REACH. ORAL CARE AND TURNING PROVIDED. WILL CONTINUE TO MONITOR.
[2016-03-25 04:30] LABS: BASOPHILS 0.4 % (0.0-2.0); EOSINOPHILS 3.8 % (0-7); HEMATOCRIT 30.2 % (36.0-48.0); HEMOGLOBIN 9.4 g/dL (12-16); IMMATURE GRANULOCYTES 1.8 % (0-5); LYMPHOCYTES 15.9 % (15-50); MCH 29.8 pg (26.0-34.0); MCHC 31.1 g/dL (31.0-37.0); MCV 95.9 fL (80.0-100.0); MONOCYTES 11.5 % (2-11); NEUTROPHILS 66.6 % (40-80); PLATELET COUNT 284 10x3/uL (130-400); RBC 3.15 10x6/uL (4.00-5.40); RDW 14.7 % (11.5-14.5); WBC 9.9 10x3/uL (4.8-10.8)
[2016-03-25 04:46] LABS: CALC OSMOLALITY 275 mosm/kg (275-300); CALCIUM 8.7 mg/dL (8.5-10.1); CARBON DIOXIDE 31.8 mmol/L (21.0-32.0); CHLORIDE - SERUM 101 mmol/L (98-107); CREATININE - SERUM 0.8 mg/dL (0.6-1.3); GLUCOSE 117 mg/dL (74-106); MAGNESIUM - SERUM 1.8 mg/dL (1.8-2.4); PHOSPHOROUS 4.2 mg/dL (2.5-4.9); POTASSIUM - SERUM 4.1 mmol/L (3.5-5.1); SODIUM 137 mmol/L (136-145); UREA NITROGEN 14 mg/dL (7-18); eGFR NON AFRICAN AMERICAN 78 mL/min (90-120)
--- NOTE | 2016-03-25 05:09 | NUR ---
RESTING, ON VENT. NO S&S OF ACUTE DISTRESS ATT. VSS, BED LOW AND LOCKED, CALL LIGHT IN REACH. WILL CONTINUE TO MONITOR.
--- NOTE | 2016-03-25 07:00 | NUR ---
REPORT RECEIVED, ASSESSMENT COMPLETED. PATIENT CLEANED AND REPOSITIONED FOR COMFORT. DENIES NEEDS.
--- NOTE | 2016-03-25 09:19 | NUR ---
NUTRITION MONITORING & EVAL CHART REVIEWED, PT REMAINS IN ISOLATION ON VENT/TRACH. TOLERATING PULMOCARE AT CURRENT GOAL RATE 45 CC/HR. MAY REQUIRE PEG TUBE IN NEAR FUTURE IF UNABLE TO WEAN FROM VENT. RD FOLLOWING
--- NOTE | 2016-03-25 12:00 | NUR ---
SPOUSE HERE FOR VISITATION. HE ASSISTED THIS NURSE WITH CLEANING PATIENT AND REPOSITIONING FOR COMFORT.
--- NOTE | 2016-03-25 17:57 | NUR ---
PATIENT CHECKED TO ENSURE SHE WAS CLEAN AND THEN REPOSITIONED FOR COMFORT. SHE WAS PLACED ON HER LEFT SIDE WITH 2 PILLOWS SECONDARY TO CONSTANTLY PLACING BOTH LEGS OFF THE RIGHT SIDE OF THE BED TODAY. WILL MONITOR.
--- NOTE | 2016-03-25 19:45 | NUR ---
ASSESSMENT COMPLETE. S1S2. NSR SHOWING ON MONITOR. RR RHONCHI THROUGHTOUT ALL LOBES; DIMINISHED BILATERALLY IN LOWER LOBES. PATENT AWAKE AND ALERT. CAN ANSWER QUESTIONS APPROPRIATELY BY KNODDING HEAD; TAKES A MINUTE TO RESPOND. DISORIENTED TO SITUATION. KNOWS IN [facility]; UNAWARE OF SELF CONDITION. RADIAL AND PEDAL PULSES PALPATED. INCISION ON ABD; MIDLINE; 1 STAPLE INTACT; APPROXIMATED. WOUND VAC TO LEFT ABD; DRESSING INTACT. BUTTOCKS REDDENED. SCD IN PLACE. MARK IN PLACE. NGT IN PLACE. TRACH APPLIED; SECURED; ON VENT.
--- NOTE | 2016-03-25 22:15 | NUR ---
PT HAD SMALL LIQUID BROWN STOOL. PT CLEANED. COMPLETE LINEN CHANGE; POSITION READJUSTED.
--- NOTE | 2016-03-25 23:00 | NUR ---
REASSESSMENT COMPLETE. NO CHANGES FROM PREVIOUS ASSESSMENT OTHER THAN INCREASED CONFUSION; WAS ABLE TO REORIENT; PT STILL CONFUSED TO SITUATION.
[2016-03-26] VITALS (22 sets, daily range): BP systolic 102–158; BP diastolic 53–92
--- NOTE | 2016-03-26 02:10 | NUR ---
PT AWAKE. DENIES PAIN. PT INCREASED IN ANXIETY AND RESTLESSNESS. WILL CONTINUE TO MONITOR.
--- NOTE | 2016-03-26 03:15 | NUR ---
REASSESSMENT COMPLETE. NO CHANGES FROM PREVIOUS ASSESSMENT. SEE FLOW SHEET FROM PREVIOUS ASSESSMENT.
[2016-03-26 05:49] LABS: BASOPHILS 0.7 % (0.0-2.0); EOSINOPHILS 4.8 % (0-7); HEMATOCRIT 29.5 % (36.0-48.0); HEMOGLOBIN 9.1 g/dL (12-16); IMMATURE GRANULOCYTES 2.2 % (0-5); LYMPHOCYTES 16.7 % (15-50); MCH 29.7 pg (26.0-34.0); MCHC 30.8 g/dL (31.0-37.0); MCV 96.4 fL (80.0-100.0); MEAN PLATELET VOLUME 10.3 fL (7.4-10.4); MONOCYTES 15.3 % (2-11); NEUTROPHILS 60.3 % (40-80); PLATELET COUNT 298 10x3/uL (130-400); RBC 3.06 10x6/uL (4.00-5.40); RDW 14.7 % (11.5-14.5); WBC 9.2 10x3/uL (4.8-10.8)
[2016-03-26 05:57] LABS: CALC OSMOLALITY 271 mosm/kg (275-300); CALCIUM 8.4 mg/dL (8.5-10.1); CARBON DIOXIDE 31.7 mmol/L (21.0-32.0); CHLORIDE - SERUM 99 mmol/L (98-107); CREATININE - SERUM 0.7 mg/dL (0.6-1.3); GLUCOSE 107 mg/dL (74-106); MAGNESIUM - SERUM 1.7 mg/dL (1.8-2.4); POTASSIUM - SERUM 4.4 mmol/L (3.5-5.1); SODIUM 136 mmol/L (136-145); UREA NITROGEN 12 mg/dL (7-18); eGFR NON AFRICAN AMERICAN > 90 mL/min (90-120)
--- NOTE | 2016-03-26 07:00 | NUR ---
REPORT RECEIVED. ASSESSMENT COMPLETED. PATIENT RESTING COMORTABLE AT THIS TIME.
--- NOTE | 2016-03-26 09:15 | NUR ---
BATH BEING GIVEN BY MARY SHETTY RN AND DIRECTOR LONG TERM CARE.
--- NOTE | 2016-03-26 10:25 | NUR ---
NUTRITION MONITORING & EVAL CHART REVIEWED, PT REMAINS ON VENT/TRACH. TOLERATING PULMOCARE AT 45 CC/HR. RD FOLLOWING
--- NOTE | 2016-03-26 10:48 | NUR ---
WOUND VAC DRESSING CHANGE WOUND TYPE: SURGICAL WOUND LOCATION: LEFT ABD WOUND AGE IN MONTHS: WEEKS DEBRIDEMENT ATTEMPTED IN LAST 10 DAYS? DATE/TYPE: SERIAL DEBRIDEMENTS REQUIRED? MEASUREMENT DATE: 03/26/16 1.5CM X 4.3CM X 2.7CM FULL THICKNESS?YES MUSCLE, TENDON OR BONE EXPOSED? NO UNDERMINING? NO TUNNELING/SINUS?NO APPEARANCE OF WOUND BED : RED EXUDATE (AMOUNT, COLOR, ODOR): SMALL SANGUINOUS NO ODOR FOAM TYPE: BLACK # OF PIECES USED: 1PIECE IN WOUND BED/1PIECE FOR TRAC PAD PT TOLERATED WELL.
--- NOTE | 2016-03-26 11:30 | NUR ---
PATIENT CLEANED AND REPOSITIONED FOR COMFORT.
--- NOTE | 2016-03-26 12:20 | NUR ---
SPOUSE HERE. HE WAS QUESTIONING TO WHEN THE PATIENT WOULD BE MOVED TO [facility] TOMORROW. IT WAS EXPLAINED THAT LONG TONMARILEE GOES WELL, DR THOMPSON WOULD PUT THE ORDER IN WHEN HE GOT HERE IN THE MORNING AND THE CASEMANAGER WAS WORKING ON HAVING EVERYTHING READY. THAT THE NURSE WOULD HAVE TO CALL REPORT AND THEN WE WOULD HAVE TO WAIT FOR THE AMBULANCE SERVICE TO HAVE AVAILABLE TRANSPORT TO MOVE HER OVER THERE. HE QUESTIONED TO WHETHER OR NOT HE SHOULD TAKE OFF WORK THEN TOMORROW. IT WAS EXPLAINED THAT THAT DECISION WAS UP TO HIM. DENIES ANY OTHER QUESTIONS.
--- NOTE | 2016-03-26 15:20 | NUR ---
PT WITH TEMP OF 100.4 AX. MOTRIN GIVEN PER PRN ORDERS.
--- NOTE | 2016-03-26 17:47 | NUR ---
PATIENT CLEANED AND REPOSITIONED FOR COMFORT.
--- NOTE | 2016-03-26 18:34 | NUR ---
OT NOTE : PT COMPLETED BUE PROM TO DECREASE RISK OF SKIN BREAKDOWN. THANK YOU, TIERRA BROWNE/Leroy
--- NOTE | 2016-03-26 19:45 | NUR ---
ASSESSMENT COMPLETE. S1S2. RHONCHI NOTED BILATERALLY IN UPPER LOBES; DIMINISHED BILATERALLY IN LOWER LOBES. PT MECHANICALLY VENTED ON TRACH. OPENS EYES SPONTANEOUSLY; SLIGHT LETHARGIC. FOLLOWS COMMANDS. RADIAL AND PEDAL PULSES PALP.
--- NOTE | 2016-03-26 21:15 | NUR ---
PT HAD MODERATE BM; PT CLEANED. COMPLETE. LINEN CHANGE.
--- NOTE | 2016-03-26 23:15 | NUR ---
REASSESSMENT COMPLETE. NO CHANGES FROM PREVIOUS ASSESSMENT. PLEASE SEE FLOW SHEET FOR DETAILS.
[2016-03-27] VITALS (15 sets, daily range): BP systolic 121–170; BP diastolic 63–98
--- NOTE | 2016-03-27 02:10 | NUR ---
PT HAD SMALL BM; PT CLEANED. PARTIAL LINEN CHANGE.
--- NOTE | 2016-03-27 03:20 | NUR ---
REASSESSMENT COMPLETE. NO CHANGES FROM PREVIOUS ASSESSMENT.
[2016-03-27 04:48] LABS: BASOPHILS 0.3 % (0.0-2.0); HEMATOCRIT 31.3 % (36.0-48.0); IMMATURE GRANULOCYTES 1.9 % (0-5); LYMPHOCYTES 11.4 % (15-50); MCH 30.3 pg (26.0-34.0); MCHC 31.9 g/dL (31.0-37.0); MCV 94.8 fL (80.0-100.0); MEAN PLATELET VOLUME 10.1 fL (7.4-10.4); MONOCYTES 11.8 % (2-11); NEUTROPHILS 71.6 % (40-80); PLATELET COUNT 277 10x3/uL (130-400); RDW 14.4 % (11.5-14.5)
[2016-03-27 04:54] LABS: WBC 11.8 10x3/uL (4.8-10.8)
[2016-03-27 05:09] LABS: CALC OSMOLALITY 271 mosm/kg (275-300); CALCIUM 8.5 mg/dL (8.5-10.1); CARBON DIOXIDE 33.3 mmol/L (21.0-32.0); CHLORIDE - SERUM 97 mmol/L (98-107); CREATININE - SERUM 0.7 mg/dL (0.6-1.3); GLUCOSE 109 mg/dL (74-106); MAGNESIUM - SERUM 2.1 mg/dL (1.8-2.4); PHOSPHOROUS 4.6 mg/dL (2.5-4.9); POTASSIUM - SERUM 4.4 mmol/L (3.5-5.1); SODIUM 135 mmol/L (136-145); T4 THYROXINE 7.5 ug/dL (4.7-13.3); UREA NITROGEN 14 mg/dL (7-18); eGFR NON AFRICAN AMERICAN > 90 mL/min (90-120)
--- NOTE | 2016-03-27 06:00 | NUR ---
HEARD A LOUD NOISE COME FROM PT ROOM. UPON ENTERING THE ROOM PT WAS FOUND ON FLOOR. TRACH WAS DISCONNECTED FROM MECHANICAL VENT; BUT WAS STILL IN PLACE. CODE CALLED FOR SAFETY; AMBU BAG STARTED TO CONTINUE OXYGENATION. BLOOD WAS NOTED ON THE FLOOR. PIV TO LEFT FOREARM BROKE; D/C'D WITH CATH INTACT. PT HAS HEMATOMA, BRUISING, AND SWELLING TO RIGHT EYE/EYEBROW. PT HAS LACERATION TO RIGHT LOWER LIP. PT TRANSFERED FROM FLOOR TO BED BY 4 PERSONNEL; NECK STABLIZED. PT SUCTIONED AND RECONNECTED TO MECHANICAL VENT. PT CLEANED; LINENS CHANGED. WOUND VAC CONTINUES TO BE IN PLACE. MARK CONTINUES TO BE INTACT. AIR OVERLAY. RESTRAINTS PUT INTO PLACE. PT ABLE TO FOLLOW COMMANDS. BREN.
--- NOTE | 2016-03-27 06:15 | NUR ---
DR. PLASCENCIA AT BEDSIDE. SUTURES APPLIED TO RIGHT LOWER LIP.
--- NOTE | 2016-03-27 06:30 | NUR ---
PT SENT TO CT.
--- NOTE | 2016-03-27 07:10 | NUR ---
DR. THOMPSON NOTIFIED.
--- NOTE | 2016-03-27 07:15 | NUR ---
FAMILY NOTIFIED OF INCIDENT.
--- NOTE | 2016-03-27 08:30 | NUR ---
0830- PT'S AT AND SPOKE TO DR THOMPSON THIS AM. PT WITH SWOLLEN RT FOREHEAD AT BROW LEVEL, FOLLOWS COMMAND AND NODS YES AND NO APPROPRIATLY TO QUESTIONS ASKED.
--- NOTE | 2016-03-27 09:24 | NUR ---
NUTRITION MONITORING & EVAL CHART REVIEWED. SPOKE WITH NURSING. TUBE FEEDS OFF, NG TUBE CURRENTLY OUT. WILL AWAIT NG TUBE PLACEMENT OR ??. RD FOLLOWING
--- NOTE | 2016-03-27 12:02 | NUR ---
1200- 12FR DOBHOFF TUBE PLACED L NARE, CXR FOR VERIFICATION ORDERED. PT JS WELL.
[2016-03-27] MEDS ORDERED: MAXIPIME 1 GM/D51 G1 IV (13:12)
[2016-03-27] MEDS ORDERED: LOVENOX40 MG/0.4 SC (13:12)
[2016-03-27] MEDS ORDERED: LASIX40 MG PO (13:14)
--- NOTE | 2016-03-27 13:51 | NUR ---
1400- DOBHOFF PLACEMENT VERIFIED BY XR AND DR THOMPSON REPORTS THAT PLACEMENT VERIFIED. UNABLE TO FLUSH DOBHOFF. DOBHOFF TAKEN OUT AND PLACED ANOTHER 12 FR L VANDANA PELAYO ORDERED.
--- NOTE | 2016-03-27 14:20 | NUR ---
KUB DONE TO ABD TO VERIFY DOBHOFF PLACEMENT. REPORT CALLED TO BASIA AT L-TACH.
--- NOTE | 2016-03-27 15:12 | NUR ---
KUB VERIFIED PLACEMENT OF DOBHOFF. ADVANCED 3CM AND DCD STYLETTE.
--- NOTE | 2016-03-27 16:23 | NUR ---
1623-EMS HERE, VENT SETTINGS BY EMS AND RT COMPLE WITH OUT PROBLEMS. L [facility] STAFF ZOYA RUBY CALLED AND REPORTED TO HER THAT PT IS PRESENTLY IN ROUTE.
[2016-04-09 09:17] LABS: FUNGUS MYCOLOGY CULTURE Final report (())
[2016-04-16 08:25] LABS: FUNGUS MYCOLOGY CULTURE Final report (())
[2016-05-01 12:17] LABS: ACID FAST CULTURE Negative (()); ACID FAST SMEAR Negative (())
[2016-05-07 13:20] LABS: ACID FAST CULTURE Negative (()); ACID FAST SMEAR Negative (())
== END 2016-03-27 16:30 | disposition short-term general hospital (02) | DRG 3 ==
LOC: D.ICU 06:55 → D.SDCHOLD 06:55 → D.ICU 16:26
PROVIDERS: Anesthesiology; Internal Medicine Cardiovascular Disease; Internal Medicine Pulmonary Disease; Radiology Vascular & Interventional Radiology; Student in an Organized Health Care Education/Training Program; ADMIT Surgery
PROC: 0WUF0JZ Supplement Abdominal Wall with Synthetic Substitute, Open Approach (ICD-10-PCS; 2016-03-05)
PROC: 4A133B1 Monitoring of Arterial Pressure, Peripheral, Percutaneous Approach (ICD-10-PCS; 2016-03-05)
PROC: 4A133J1 Monitoring of Arterial Pulse, Peripheral, Percutaneous Approach (ICD-10-PCS; 2016-03-05)
PROC: 05H633Z Insertion of Infusion Device into Left Subclavian Vein, Percutaneous Approach (ICD-10-PCS; 2016-03-05)
PROC: 0DBP0ZZ Excision of Rectum, Open Approach (ICD-10-PCS; principal; 2016-03-05 10:00)
PROC: 5A1955Z Respiratory Ventilation, Greater than 96 Consecutive Hours (ICD-10-PCS; 2016-03-05 10:00)
PROC: 0BBB8ZX Excision of Left Lower Lobe Bronchus, Via Natural or Artificial Opening Endoscopic, Diagnostic (ICD-10-PCS; 2016-03-11)
PROC: 0BB48ZX Excision of Right Upper Lobe Bronchus, Via Natural or Artificial Opening Endoscopic, Diagnostic (ICD-10-PCS; 2016-03-11)
PROC: 0B113F4 Bypass Trachea to Cutaneous with Tracheostomy Device, Percutaneous Approach (ICD-10-PCS; 2016-03-17)
PROC: 0W9G30Z Drainage of Peritoneal Cavity with Drainage Device, Percutaneous Approach (ICD-10-PCS; 2016-03-19)
PROC: 0W9G3ZZ Drainage of Peritoneal Cavity, Percutaneous Approach (ICD-10-PCS; 2016-03-24)
DX: Z43.3 Encounter for attention to colostomy (principal); J96.02 Acute respiratory failure with hypercapnia; J96.01 Acute respiratory failure with hypoxia; I50.21 Acute systolic (congestive) heart failure; T79.0XXA Air embolism (traumatic), initial encounter; J15.212 Pneumonia due to Methicillin resistant Staphylococcus aureus; J15.1 Pneumonia due to Pseudomonas; E87.2 Acidosis; J98.11 Atelectasis; I97.711 Intraoperative cardiac arrest during other surgery; J44.1 Chronic obstructive pulmonary disease with (acute) exacerbation; E87.0 Hyperosmolality and hypernatremia; D62 Acute posthemorrhagic anemia; W06.XXXA Fall from bed, initial encounter; Y92.230 Patient room in hospital as the place of occurrence of the external cause; S00.03XA Contusion of scalp, initial encounter; S01.511A Laceration without foreign body of lip, initial encounter; I11.0 Hypertensive heart disease with heart failure; I95.81 Postprocedural hypotension; F17.200 Nicotine dependence, unspecified, uncomplicated; Y95 Nosocomial condition; L27.0 Generalized skin eruption due to drugs and medicaments taken internally; T36.0X5A Adverse effect of penicillins, initial encounter; I27.2 Other secondary pulmonary hypertension

== ENCOUNTER 2016-04-02 15:42 | Inpatient (IN) | payer OTHER ==
[2016-04-02] VITALS (9 sets, daily range): BP systolic 123–145; BP diastolic 63–87; BMI 26.5
[~2016-04-02] VITALS: Ht 167.6 cm; Wt 76.0 kg
--- NOTE | 2016-04-02 15:15 | NUR ---
RECIEVED PT FROM [facility]. ATTACHED TO ICU MONITORS. VSS ON CM. WILL ADMIT PT. REFER TO FLOWSHEET.
--- NOTE | 2016-04-02 15:30 | NUR ---
WOUND VAC ATTACHED TO SUCTION. MIN LEAK NOTED. WILL ASSESS FOR CHANGES.
[~2016-04-02 15:42] MED LIST changes: +LOVENOX40 MG/0.4 SC; +MAXIPIME 1 GM/D51 G1 IV
--- NOTE | 2016-04-02 15:45 | NUR ---
DR. THOMPSON CALLED TO NOTIFY OF PT ARRIVAL.
[2016-04-02 17:10] LABS: BASOPHILS 0.2 % (0.0-2.0); EOSINOPHILS 2.9 % (0-7); HEMATOCRIT 34.7 % (36.0-48.0); HEMOGLOBIN 10.8 g/dL (12-16); IMMATURE GRANULOCYTES 0.7 % (0-5); MCH 30.4 pg (26.0-34.0); MCHC 31.1 g/dL (31.0-37.0); MCV 97.7 fL (80.0-100.0); MEAN PLATELET VOLUME 10.3 fL (7.4-10.4); NEUTROPHILS 72.2 % (40-80); PLATELET COUNT 243 10x3/uL (130-400); RBC 3.55 10x6/uL (4.00-5.40); RDW 14.6 % (11.5-14.5); WBC 12.9 10x3/uL (4.8-10.8)
[2016-04-02 17:26] LABS: APTT 29.9 SECONDS (22.8-39.4); INR 1.88 (0.85-1.17); PROTIME 21.6 SECONDS (11.6-15.0)
[2016-04-02 17:33] LABS: ALKALINE PHOSPHATASE 74 U/L (46-116); ALT (SGPT) 19 U/L (10-68); BILIRUBIN - TOTAL 0.53 mg/dL (0.2-1.3); CALC OSMOLALITY 303 mosm/kg (275-300); CALCIUM 8.6 mg/dL (8.5-10.1); CARBON DIOXIDE 32.1 mmol/L (21.0-32.0); CHLORIDE - SERUM 111 mmol/L (98-107); CREATININE - SERUM 0.6 mg/dL (0.6-1.3); GLUCOSE 91 mg/dL (74-106); POTASSIUM - SERUM 3.1 mmol/L (3.5-5.1); PROTEIN - SERUM 8.3 g/dL (6.4-8.2); SODIUM 152 mmol/L (136-145); UREA NITROGEN 18 mg/dL (7-18); eGFR NON AFRICAN AMERICAN > 90 mL/min (90-120)
[2016-04-02] MEDS ORDERED: GUAIFENESI100 MG/5 M PO (17:53)
[2016-04-02] MEDS ORDERED: AYR SALINE50 ML NS (17:54)
[2016-04-02] MEDS ORDERED: MUCOMYST 20200 MG/M2 INH (17:54)
[2016-04-02] MEDS ORDERED: IPRAT-ALBUT 0.5-3 ML UPD (17:55)
[2016-04-02] MEDS ORDERED: PULMICORT0.5 MG/21 INH (17:55)
[2016-04-02] MEDS ORDERED: PERIDEX480 ML MM (17:56)
[2016-04-02] MEDS ORDERED: PERFOROMIS20 MCG/21 INH (17:56)
[2016-04-02] MEDS ORDERED: LOVENOX40 MG/0.4 SC (17:57)
[2016-04-02] MEDS ORDERED: MAXIPIME1 GM IV (17:57)
[2016-04-02] MEDS ORDERED: PEPCID INJ20 MG/2 ML IV (17:58)
[2016-04-02] MEDS ORDERED: LASIX INJ40 MG/4 ML IV (18:00)
--- NOTE | 2016-04-02 18:00 | NUR ---
AT BEDSIDE. UPDATE PROVIDED.
[2016-04-02] MEDS ORDERED: LACTINEX C1 TAB.CHEW PO (18:01)
[2016-04-02] MEDS ORDERED: ATIVAN2 MG/ML IM (18:02)
[2016-04-02] MEDS ORDERED: ZYPREXA5 MG PO (18:03)
[2016-04-02] MEDS ORDERED: MIRALAX17 GM PO (18:04)
--- NOTE | 2016-04-02 19:00 | NUR ---
REPORT RECIEVED, INITIAL ASSESSMENT COMPLETE, PLEASE SEE FLOW SHEETS FOR DETAILS. ON VENT. RESTRAINTED FOR PULLING AT TUBES. VSS ATT, BED LOW AND LOCKED, CALL LIGHT IN REACH. SCD'S ON AND RUNNING. WILL CONTINUE TO MONITOR.
--- NOTE | 2016-04-02 20:30 | NUR ---
TALKED WITH PT ABOUT NOT PULLING AT TUBES AND LINES AND SHE AGREED THAT SHE WOULD NOT DO THIS. TOOK RESTRAINTS OFF. WILL CONTINUE TO MONITOR.
--- NOTE | 2016-04-02 21:00 | NUR ---
ORAL CARE PROVIDED, LOTION FOR HAND PROVIDED. VSS, NO S&S OF DISTRESS NOTED. BED LOW AND LOCKED, CALL LIGHT IN REACH. WILL CONTINUE TO MONITOR.
--- NOTE | 2016-04-02 22:43 | HP ---
PATIENT: SARAH GARY MEDICAL RECORD: [id number] ACCOUNT: [id number] LOCATION:[facility] D.[id number] : 56 ADMISSION DATE: 04/02/16 HISTORY AND PHYSICAL EXAMINATION DATE OF ADMISSION: 04/02/2016 ADMITTING PHYSICIAN: Brice Thompson MD CHIEF COMPLAINT: Respiratory failure and abdominal distention. HISTORY OF PRESENT ILLNESS: Mrs. Gary is a 56-year-old female, who is well known to my service. She was discharged a week ago to [facility]. The patient had an elective Chris's reversal. She suffered a CO2 embolism during the operation requiring CPR as she also had an incisional hernia repair at that time. Her postoperative course, she developed postoperative respiratory failure requiring long-term intubation and subsequently tracheostomy. The patient had a loculated collection of air adjacent to the colorectal anastomosis. An IR drain was placed, as well as a fully covered colonic stent. The patient was on tube feedings for approximately 10-12 days prior to her discharge and tolerating well. At the LT[facility], she was continuing her vent weaning when she developed feeding tube intolerance and abdominal distention over the weekend. The NG tube was placed to suction was some coffee-ground debride noted. A CT scan was performed Thursday night, which showed ileus and gaseous distention of the cecum. The patient went for repeat abdominal CT today. She became hypotensive. She was, at their request, requested to be transferred back to the hospital for further evaluation. I will gladly accept the patient. PAST MEDICAL HISTORY: Respiratory failure, chronic obstructive pulmonary disease, emphysema, nicotine dependence, acid reflux and perforated diverticulitis. PAST MEDICAL HISTORY: 1. Chris's procedure. 2. Colostomy reversal. 3. Incisional hernia repair. ALLERGIES: HYDROCODONE. HOME MEDICATIONS: She is on Protonix, Pulmicort, metoprolol, Lasix, albuterol, fluticasone, and montelukast. SOCIAL HISTORY: She is a current everyday smoker. She is heavy alcohol use for 20 years. FAMILY HISTORY: Unknown. REVIEW OF SYSTEMS: A 12-point review of systems unobtainable at this time, the patient is sedated on the ventilator. PHYSICAL EXAMINATION: VITAL SIGNS: Stable. Her heart rate is 107, saturating 98%. Her blood pressure is 126/83. GENERAL: Well-developed, well-nourished female, in moderate distress. EYES: Extraocular muscles are intact. HISTORY AND PHYSICAL [id number] SARAH GARY EAR, NOSE AND THROAT: Mucous membranes are dry. Poor dentition. She has some ecchymosis around the right eye. CARDIOVASCULAR: Normal sinus rhythm. PULMONARY: She has decreased breath sounds bilaterally with bilateral rales. ABDOMEN: Firm, nontender, mildly distended. Midline incisions well healed. There is a VAC in place to colostomy site. EXTREMITIES: Capillary refill is normal. She has mild peripheral edema. SKIN: Warm and dry. NEUROLOGIC: She is intubated and sedated at this time. LABORATORY DATA: Pending. DIAGNOSTIC DATA: CT of the abdomen and pelvis images from Thursday reviewed with the radiologist, I believe the patient has, upon further review of the CT scan, that looks like a loculated pocket of air, independent of the cecum, likely from microperforation at the colorectal anastomosis. IMPRESSION: A 56-year-old female admitted with vent-dependent respiratory failure and abdominal pain with intraabdominal contained free air. PLAN: Admit to ICU. Dr. Thompson was next consulted on pulmonary critical care for vent management, start broad-spectrum IV antibiotics, bonilla culture, IV fluids. Images reviewed with IR, IR consultation for drain placement in a.m. Follow up lab results. Respiratory therapy consults. Continue wound care with VAC dressing. I have updated the at this time. TRANSINT:[id number] Voice Confirmation ID: [id number] DOCUMENT ID: [id number] BRICE THOMPSON MD at 2243 CC: [id number] DICTATION DATE: 04/02/16 1631 [place]: 04/02/162002 ADM IN [facility] [address] [place] [address]
--- NOTE | 2016-04-02 22:45 | NUR ---
BM CLEANED UP, NEW DRAW SHEET PROVIDED AND PT MOVED UP IN BED. PROVIDED MOUTH MOISTURIZOR TO PT AND OFFERED TO PUT IT ON HER LIPS, SHE ACCEPTED THIS. DENIES ANY OTHER NEEDS AT THIS TIME. NO S&S OF ACUTE DISTRESS NOTED. VSS, WILL CONTINUE TO MONITOR.
--- NOTE | 2016-04-02 23:29 | NUR ---
REASSESSMENT COMPLETE, PLEASE SEE FLOW SHEETS FOR DETAILS. ORAL CARE OFFERED. PT DENIES PAIN/NEEDS ATT. BED LOW AND LOCKED, CALL LIGHT IN REACH. VSS ATT, WILL CONTINUE TO MONITOR.
[2016-04-03] VITALS (27 sets, daily range): BP systolic 115–169; BP diastolic 61–108; Ht 167.6 cm; Wt 76.0 kg
--- NOTE | 2016-04-03 00:11 | NUR ---
PT PULLING VENT AWAY FROM TRACH AND TRYING TO PUT IN HER MOUTH. PULLING AT LINES. REAPPLIED RESTRAINTS. GIVING ATIVAN PER ORDERS. WILL OBTAIN ORDER.
--- NOTE | 2016-04-03 01:33 | NUR ---
ORAL CARE OFFERED. PT TURNS SELF. BED LOW AND LOCKED. CALL LIGHT IN REACH. VSS ATT, WILL CONTINUE TO MONITOR.
--- NOTE | 2016-04-03 01:50 | NUR ---
MODERSATE SIZED BM CLEANED UP. DIARRHEA. VSS, BED LOW AND LOCKED, CALL LIGHT IN REACH. RESTRAINTS SECURE WITH QUICK RELEASE KNOTS. WILL CONTINUE TO MONITOR.
--- NOTE | 2016-04-03 02:30 | NUR ---
PT PULLED PUT NGT. NEW NGT 18F PLACED, VERIFIED POSISION VIA AIR INSTILATION. PUT TO LOW INTERMITENT SUCTION.
--- NOTE | 2016-04-03 03:00 | NUR ---
REASSESSMENT COMPLETE, PLEASE SEE FLOW SHEETS FOR DETAILS. VSS ATT. NO S&S OF ACUTE DISTRESS NOTED. BED LOW AND LOCKED, WILL CONTINUE TO MONITOR.
--- NOTE | 2016-04-03 04:15 | NUR ---
FULL BED BATH AND LINEN CHANGE PROVIDED. PT HAD BM, THIS WAS CLEANED UP. MULTIPLE EPISODES OF DIARRHEA PRODICING REDNESS AROUND RECTUM. SKIN BARRIOR CREAM APPLIED. PT TOLERATED WELL. RESTRAINTS SECURED WITH QUICK RELEASE KNOTS. VSS, WILL CONTINUE TO MONITOR.
[2016-04-03 04:16] LABS: BASOPHILS 0.3 % (0.0-2.0); EOSINOPHILS 4.8 % (0-7); HEMATOCRIT 31.7 % (36.0-48.0); HEMOGLOBIN 9.5 g/dL (12-16); IMMATURE GRANULOCYTES 0.8 % (0-5); LYMPHOCYTES 14.9 % (15-50); MCH 29.2 pg (26.0-34.0); MCV 97.5 fL (80.0-100.0); MEAN PLATELET VOLUME 10.3 fL (7.4-10.4); MONOCYTES 10.1 % (2-11); NEUTROPHILS 69.1 % (40-80); PLATELET COUNT 242 10x3/uL (130-400); RBC 3.25 10x6/uL (4.00-5.40); RDW 14.4 % (11.5-14.5); WBC 11.4 10x3/uL (4.8-10.8)
[2016-04-03 04:26] LABS: CALC OSMOLALITY 304 mosm/kg (275-300); CALCIUM 8.7 mg/dL (8.5-10.1); CARBON DIOXIDE 33.2 mmol/L (21.0-32.0); CHLORIDE - SERUM 112 mmol/L (98-107); GLUCOSE 109 mg/dL (74-106); POTASSIUM - SERUM 3.2 mmol/L (3.5-5.1); SODIUM 152 mmol/L (136-145); UREA NITROGEN 19 mg/dL (7-18); eGFR NON AFRICAN AMERICAN 78 mL/min (90-120)
[2016-04-03 04:27] LABS: CREATININE - SERUM 0.8 mg/dL (0.6-1.3); PROTIME 22.7 SECONDS (11.6-15.0)
[2016-04-03 04:28] LABS: APTT 37.1 SECONDS (22.8-39.4)
--- NOTE | 2016-04-03 05:00 | NUR ---
NO S&S OF ACUTE DISTRESS NOTED. VSS, WILL CONTINUE TO MONITOR.
--- NOTE | 2016-04-03 06:00 | NUR ---
PT PULLED OUT HER NGT AGAIN, LEFT OUT TO SEE WHAT DOC WANTS WHEN HE MAKES ROUNDS.
--- NOTE | 2016-04-03 09:40 | CN ---
PATIENT NAME:SARAH GARY MEDICAL RECORD: [id number] : 56 LOCATION:[id number] ADMIT DATE: 04/02/16 ACCOUNT: [id number] CONSULTING PHYSICIAN: JAMIE SANDOVAL MD REFERRING PHYSICIAN: BRICE THOMPSON MD DATE OF CONSULTATION: 04/02/2016 CONSULT REQUESTING PHYSICIAN: Brice Thompson MD. REASON FOR CONSULTATION: Vent management. HISTORY OF PRESENT ILLNESS: Ms. Gary is a 56-year-old female who underwent colostomy reversal a few weeks ago. Her course was complicated at that time by the CO2 gas embolism. She made a good recovery. The patient on mechanical ventilation and she underwent tracheostomy. She was transferred to [facility] and then they called Dr. Thompson that the patient has ileus and in reviewing the CT scan, felt like to be air pocket in the stomach. Now, she is on tracheostomy and on mechanical ventilation. History was taken mainly by talking to Dr. Thompson and reviewing the patient's note PAST MEDICAL HISTORY: 1. COPD. 2. History of pneumonia. 3. History of diverticular disease status post laparotomy and colostomy and now she is status post colostomy reversal. 4. History of gas embolism and cardiopulmonary arrest and made a good recovery. 5. History of abdominal abscess. PAST SURGICAL HISTORY: 1. Laparotomy. 2. Colostomy, now colostomy reversal. ALLERGIES: SHE IS ALLERGIC TO HYDROCODONE. PRESENT MEDICATIONS: On [employer] was reviewed. PERSONAL AND SOCIAL HISTORY: The patient is a smoker until this hospitalization. She is a nondrinker. FAMILY HISTORY: Noncontributory. PHYSICAL EXAMINATION: GENERAL: Now, the patient is lying comfortably. She is not in acute distress. VITAL SIGNS: Blood pressure 126/63, pulse is 114, respiration is 27, SpO2 is 97% on 40% mechanical ventilation. HEENT: Conjunctivae are pink, sclerae nonicteric. She has a blue right eye after a fall. NECK: Supple. No JVD. The tracheostomy tube is in place. CHEST: There is no wheeze, no rales. HEART: Rhythm regular, normal sound, no murmur. ABDOMEN: Soft, bowel sounds present. No hepatosplenomegaly. RECTAL: Deferred. EXTREMITIES: No cyanosis, no clubbing and no pedal edema. SKIN: Warm, normal turgor. CENTRAL NERVOUS SYSTEM: The patient is awake and alert, but she is not very CONSULT REPORT [id number] SARAH GARY communicative. LABORATORY DATA: CBC: WBC 12.9, hemoglobin 10.8, hematocrit 34.7 and the platelet count is 243. IMPRESSION: 1. Chronic respiratory failure. 2. Status post tracheostomy. 3. Status post colostomy reversal. 4. History of CO2 embolism and cardiopulmonary arrest. 5. Congestive heart failure with systolic dysfunction, EF of 40%. 6. Mild pulmonary hypertension secondary to left heart failure, possibly associated chronic obstructive pulmonary disease, right ventricular pressure of 41. 7. Chronic obstructive pulmonary disease without exacerbation. RECOMMENDATION: We will continue mechanical ventilation, albuterol/ipratropium nebulizer. Follow labs and chest radiograph. DVT and stress ulcer prevention. The patient undergoing drainage of the air pocket by the interventional radiologist in the a.m. Discussed with Dr. Thompson. Dr. Thompson thank you for involving me in the care of Ms. Gary. The critical care time was 45 minutes. TRANSINT:[id number] Voice Confirmation ID: [id number] DOCUMENT ID: [id number] JAMIE SANDOVAL MD at 0940 CC: BRICE THOMPSON MD [id number] DICTATION DATE: 04/02/161730 HOME HEALTH PHYSICAL THERAPIST: 04/02/162044 ADM IN [facility] [address] [place] [address]
--- NOTE | 2016-04-03 11:58 | NUR ---
Nutrition Note: When medically feasible, rec start TF of Pulmocare @ 20 ml/hr. Advance 10 ml every 12 hours to goal rate of 45 ml/hr. Water flushes 25 ml/hr. RD will continue to monitor pt progress.
--- NOTE | 2016-04-03 17:26 | NUR ---
OT NOTE: PT COMPLETED GROOMING TASK WITH BEHZAD Ruelas THANK YOU, TIERRA BROWNE/Leroy
--- NOTE | 2016-04-03 19:30 | NUR ---
RECEIVED PATIENT LAYING IN BED WITH EYES OPEN, ASSESSMENT COMPLETED PER FLOWSHEET. PATIENT IS ALERT AND ORIENTED BUT DIFFICULTY COMMUNICATING DUE TO TRACH, PATIENT IS STUBBORN AND WILL SOMETIMES FOLLOW INSTRUCITONS. EYES PERRLA @ 3MM WITH BRISK RESPONSE, SCLERA IS CLEAR. ORAL/NASAL MUCOSA IS DRY AND INTACT, TONGUE IS MIDLINE. TRACH COLLAR 7.[address], NO SWELLING OR DRAINAGE NOTED AROUND SUTURES. S1/S2 NOTED WITH PATIENT SINUS TACH ON TELMETRY WITH HR OF 122, RHYTHMIC AND RAPID. FINE CRACKLES NOTED BILATERAL UPPER WITH DIMINISHED LOWER, BREATHING IS IRREGULAR. ABDOMEN IS DISTENDED AND SOFT, BOWEL SOUNDS HYPOACTIVE X4. ABDOMINAL DRAIN TO GRAVITY R LOWER, SLIGHTLY BLOODY DRAINIAGE NOTED IN BAG. MIDLINE INCISION NOTED, WELL APPROXIMATED WITH NO ERYTHEMA OR DRAINAGE NOTED. MARK SECURED IN PLACE, CONCENTRATED YELLOW URINE NOTED IN COLLECTION BAG. FULL ROM ALL EXTREMITIES, ALL PULSES PALPABLE. PATIENT DENIES PAIN OR OTHER NEEDS AT THIS TIME, WILL CONTINUE TO MONITOR.
--- NOTE | 2016-04-03 21:00 | NUR ---
NO VISITORS AT THIS TIME, PATIENT SITTING UP IN BED WITH EYES OPEN. TRACH SUCTIONING PERFORMED, MODERATE AMOUNT OF THICK PINK MUCOUS REMOVED. PATIENT REMOVES TRACH OXYGEN TUBE AND PLACES IN MOUTH TO BREATHE, REPLACED AND EXPLAINED TO PATIENT TO LEAVE OXYGEN ATTATCHED. PATIENT NODDED HEAD IN UNDERSTANDING. NO FURTHER NEEDS AT THIS TIME, ALL VSS AND WILL CONTINUE TO MONITOR.
--- NOTE | 2016-04-03 23:00 | NUR ---
REASSESSMENT COMPLETE PER FLOWSHEET, PATIENT RESTING IN BED WITH EYES CLOSED. PATIENT SINUS TACH ON TELEMETRY WITH HR OF 120, S1/S2 NOTED. FINE CRACKLES BILATERAL UPPER WITH DIMINISHED LOWER, BREATHING IS REGULAR WITH OXYGEN SAT 91% VIA TRACH. PATIENT DENIES PAIN OR OTHER NEEDS AT THIS TIME, ALL VSS AND WILL CONTINUE TO MONITOR.
[2016-04-04] VITALS (25 sets, daily range): BP systolic 114–163; BP diastolic 54–98
--- NOTE | 2016-04-04 01:00 | NUR ---
PATIENT SITTING UP ON BEDSIDE, DISCONNECTED SELF FROM IV AND REMOVED B/P CUFF. REPLACED MONITORING EQUIPMENT AND REPOSITIONED IN BED. ALL VSS AND WILL CONTINUE TO MONITOR.
--- NOTE | 2016-04-04 01:45 | NUR ---
PATIENT RESTRAINTS D/C, ALL VSS AND WILL CONTINUE TO MONITOR.
--- NOTE | 2016-04-04 03:10 | NUR ---
REASSESSMENT COMPLETE PER FLOWSHEET, PATIENT RESTING IN BED WITH EYES CLOSED BREATHING IS DEEP AND IRREGULAR. OXYGEN SAT 95% ON 10L VIA TRACH COLLAR, SUCTIONING AND ORAL CARE PROVIDED WITH BIN TAVARES PRESENT. S1/S2 NOTED WITH PATIENT SINUS TACH ON TELEMETRY WITH HR OF 110, ALL PULSES PALPABLE. PATIENT DENIES PAIN OR OTHER NEEDS AT THIS TIME, WILL CONTINUE TO MONITOR.
[2016-04-04 03:51] LABS: BASOPHILS 0.2 % (0.0-2.0); EOSINOPHILS 5.1 % (0-7); HEMATOCRIT 33.2 % (36.0-48.0); HEMOGLOBIN 10.1 g/dL (12-16); IMMATURE GRANULOCYTES 0.7 % (0-5); LYMPHOCYTES 16.4 % (15-50); MCH 29.5 pg (26.0-34.0); MCHC 30.4 g/dL (31.0-37.0); MCV 97.1 fL (80.0-100.0); MEAN PLATELET VOLUME 10.3 fL (7.4-10.4); MONOCYTES 7.2 % (2-11); NEUTROPHILS 70.4 % (40-80); PLATELET COUNT 225 10x3/uL (130-400); RBC 3.42 10x6/uL (4.00-5.40); RDW 14.6 % (11.5-14.5); WBC 10.3 10x3/uL (4.8-10.8)
[2016-04-04 03:58] LABS: CALC OSMOLALITY 297 mosm/kg (275-300); CALCIUM 8.7 mg/dL (8.5-10.1); CARBON DIOXIDE 27.9 mmol/L (21.0-32.0); CHLORIDE - SERUM 112 mmol/L (98-107); CREATININE - SERUM 0.8 mg/dL (0.6-1.3); GLUCOSE 114 mg/dL (74-106); SODIUM 149 mmol/L (136-145); eGFR NON AFRICAN AMERICAN 78 mL/min (90-120)
[2016-04-04 04:04] LABS: UREA NITROGEN 14 mg/dL (7-18)
--- NOTE | 2016-04-04 05:00 | NUR ---
PATIENT RESTING IN BED WITH EYES OPEN WATCHING TV, SUCTIONING PROVIDED AT THE REQUEST OF PATIENT. NO FURTHER NEEDS AT THIS TIME, ALL VSS AND WILL CONTINUE TO MONITOR.
--- NOTE | 2016-04-04 10:31 | NUR ---
1030- PT PULLING AT O2 TUBING AND HER SPO2 DROPS, BUE RESTRAINTS ON AND FIXED TUBING FOR SAFETY. CONCENT FOR FLEX SIG OBTAINED BY TELEPHONE FROM AND 2 RN'S. RT INFORMED, EKG ORDERED.
--- NOTE | 2016-04-04 11:01 | NUR ---
1100- DR THOMPSON PERFORMING FLEX SIG AT BS, ANESTHESIA PERSONAL ALSO HERE.
--- NOTE | 2016-04-04 11:14 | NUR ---
Patient Name: SARAH GARY Admission Status: Elective Accout number: [id number] Admission Date: 04-02-2016 : 1960 Admission Diagnosis:ABDOMINAL DISTENSION (GASEOUS) Attending: MARIA ISABEL Current LOS: 2 Anticipated DC Date: 04-10-2016 Planned Disposition: Home Primary Insurance: ERNESTINA Discharge Planning Comments: CM SPOKE WITH PATIENTS SPOUSE (RAMON PROCTOR) REGARDING D/C NEEDS AND PLANS. SPOUSE STATED THEY HAVE NO STEPS OR STAIRS AT THERE HOME. PATIENT IS USUALLY INDEPENDENT WITH HER CARE AND HAS A NEBULIZER. PATIENTS PCP IS DR. RAMIREZ AND PH[facility]ACY IS [facility]. PATIENT WAS AT [facility] AND RETURNED HERE. SPOUSE STATED IF SHE NEEDS HOME HEALTH AT DISCHARGE THAT WILL BE FINE. CM WILL CONTINUE TO FOLLOW PATIENT WITH D/C NEEDS AND PLANS. PCP [facility]- [phone] RAMON PROCTOR (SPOUSE) [phone] Materials Planner/Production Planner: Cindy Bergeron How many steps to enter\exit or inside your home? 0 0 * PCP DR. RAMIREZ 0 * [facility]acy [facility] 0 * Preadmission Environment Home with Family 0 * ADLs Independent 0 * Equipment Nebulizer 0 * List name and contact numbers for known caregivers / representatives who currently or will assist patient after discharge: RAMON PROCTOR (SPOUSE) [phone] * Community resources currently utilized None 0 * Additional services required to return to the preadmission environment? Yes 0 * Can the patient safely return to the preadmission environment? Yes 0 * Has this patient been hospitalized within the prior 30 days at any hospital? Yes 0 Grand Total: 0
--- NOTE | 2016-04-04 11:39 | NUR ---
flex sig complete, pt cleaned and linens changed, pt awake and alert, resp easy,vss.
--- NOTE | 2016-04-04 13:56 | NUR ---
OT NOTE: PT SEEN WITH ST TODAY WHILE PROVIDING FOOD ATTEMPTS. PT STILL VERY IMPULSIVE; REMOVED RESTRAINT ON ONE HAND TO ALLOW HER TO ASSIST WITH FEEDING; STILL HAVING DIFFICULTY VERBALIZING; CONT TO TX FOR STRENGTHENING AND ADL INDEP
--- NOTE | 2016-04-04 14:21 | NUR ---
WOUND CARE CONSULT: PT WAS ADMITTED WITH WOUND VAC DRESSING. UPON WOUND CARE ASSESSMENT NOTED THE WOUND ON LEFT LOWER ABDOMEN MEASURES 1.5CM X 3.8CM X 2CM. IT HAS IMPROVED SINCE THE LAST WC SAW HER (LAST MEASUREMENTS WERE 1.5CM X 4.3CM X 2.7CM). WOUND BED IS PINK WITH A SMALL AMOUNT OF BROWN/REZA TISSUE AT BASE OF WOUND BED. SMALL SEROUS DRAINAGE NOTED. APPLIED NEW WOUND VAC DRESSING AND RESUMED VAC AT -100MMHG WILL CONTINUE TO MONITOR.
--- NOTE | 2016-04-04 19:05 | NUR ---
ASSESSMENT COMPLETE. PATIENT HAS AT BEDSIDE. PT CONFUSED TO SITUATION. CURRENTLY HAS RESTRAINTS DUE TO PULLING AND LINES/TUBES. WILL CONTINUE TO EVAULUATE NEED. PATIENT HAS TRACH, VSS, BOWEL SOUNDS ACTIVE, JUST HAD SMALL LIQUID BM. ABD DRAIN ON RIGHT SIDE DRAINING SMALL AMOUNTS OF BLOODY DRAINAGE. FLUSHED PER ORDER. MIDLINE INCISION ON ABDOMEN IS C/D/I. HEMOVAC CONNECTED WITH MINIMAL DRAINAGE. MARK CATHETER DRAINING CONCENTRATED DARK YELLOW URINE. PERIPHERAL PULSES +2. SCD'S REMOVED FOR SKIN INTEGRITY ASSESSMENT. SEE SHIFT ASSESSMENT FLOWSHEET FOR MORE DETAILS.
--- NOTE | 2016-04-04 19:12 | NUR ---
OT NOTE: PT COMPLETED ORAL CARE WITH BEHZAD Ruelas THANK YOU, TIERRA BROWNE/Leroy
--- NOTE | 2016-04-04 21:00 | NUR ---
NO VISITORS AT THIS TIME, ORAL CARE GIVEN TO PATIENT.
--- NOTE | 2016-04-04 23:00 | NUR ---
REASSESSMENT COMPLETE. NO CHANGES AT THIS TIME. VSS.
[2016-04-05] VITALS (21 sets, daily range): BP systolic 120–159; BP diastolic 57–99
--- NOTE | 2016-04-05 01:05 | NUR ---
ORAL CARE GIVEN, PATIENT SUCTIONED. VSS, WILL MONITOR.
--- NOTE | 2016-04-05 03:05 | NUR ---
REASSESSMENT COMPLETE, NO CHANGES FROM PREVIOUS. SUCTIONED PATIENT, SMALL AMOUNTS OF BLOOD NOTED ALONG WITH YELLOW SPUTUM. PATIENT HAD SMALL BOWEL MOVEMENT, CLEANED UP AND LINENS CHANGED.
[2016-04-05 04:55] LABS: BASOPHILS 0.1 % (0.0-2.0); EOSINOPHILS 10.2 % (0-7); HEMATOCRIT 29.1 % (36.0-48.0); HEMOGLOBIN 8.9 g/dL (12-16); IMMATURE GRANULOCYTES 0.8 % (0-5); LYMPHOCYTES 19.7 % (15-50); MCH 29.7 pg (26.0-34.0); MCHC 30.6 g/dL (31.0-37.0); MEAN PLATELET VOLUME 10.1 fL (7.4-10.4); MONOCYTES 7.9 % (2-11); NEUTROPHILS 61.3 % (40-80); PLATELET COUNT 182 10x3/uL (130-400); RDW 14.4 % (11.5-14.5); WBC 7.9 10x3/uL (4.8-10.8)
--- NOTE | 2016-04-05 05:00 | NUR ---
RESTING WITH EYES CLOSED AT THIS TIME. VSS, WILL CONTINUE TO MONITOR.
[2016-04-05 05:16] LABS: CALC OSMOLALITY 287 mosm/kg (275-300); CALCIUM 7.8 mg/dL (8.5-10.1); CARBON DIOXIDE 26.9 mmol/L (21.0-32.0); CHLORIDE - SERUM 111 mmol/L (98-107); CREATININE - SERUM 0.7 mg/dL (0.6-1.3); GLUCOSE 106 mg/dL (74-106); POTASSIUM - SERUM 3.4 mmol/L (3.5-5.1); SODIUM 145 mmol/L (136-145); UREA NITROGEN 11 mg/dL (7-18); VANCOMYCIN - TROUGH 19.9 ug/mL (10.0-20.0); eGFR NON AFRICAN AMERICAN > 90 mL/min (90-120)
--- NOTE | 2016-04-05 08:19 | NUR ---
UP IN BED AT THIS TIME. NO ACUTE DISTRESS NOTED. EATING BREAKFAST WITH SET UP ASSIST. PMV IN PLACE. PT ALERT AND ORIENTED. ALSO NOTED AT THIS TIME INCONTINENT BOWEL MOVEMENT, CLEANED UP VIA TOTAL ASSIST WITH PT TURN ASSIST MAX ASSIST. PT TO NOTED TO TELL STAFF THAT SHE FEELS LIKE SHE "CANNOT BREATHE" WITH PMV IN PLACE ALTHOUGH OXYGEN SATURATION IS ABOVE 95%. WILL CONTINUE PLAN OF CARE.
--- NOTE | 2016-04-05 11:14 | NUR ---
UP IN CHAIR BESIDE BED WITH TRANSFER ASSIST FROM PHYSICAL THERAPY. NO ACUTE DISTRESS NOTED. WILL CONTINUE PLAN OF CARE.
--- NOTE | 2016-04-05 12:31 | NUR ---
UP IN CHAIR BESIDE BED EATING LUNCH AT THIS TIME. DENEIS ANY NEEDS. NO ACUTE DISTRESS NOTED. WILL CONTINUE PLAN OF CARE.
--- NOTE | 2016-04-05 14:24 | NUR ---
IN BED AT THIS TIME WITH ASSIST FROM PHYSICAL THERAPY. NO ACUTE DISTRESS NOTED. HAVING SHORTNESS OF BREATH WITH TRANSFER, OXYGEN SATURATION AT 97% VIA 10L TRACH COLLAR. WILL CONTINUE PLAN OF CARE.
--- NOTE | 2016-04-05 14:57 | NUR ---
POTASSIUM REDRAW LEVEL NOTED WNL.
--- NOTE | 2016-04-05 15:44 | OP ---
PATIENT NAME: SARAH GARY MEDICAL RECORD: [id number] :56 LOCATION:[facility] [id number] ADMISSION DATE:04/02/16 SURGEON: BRICE BEASLEY MD DATE OF OPERATION: 04/04/2016 SURGEON: Brice Beasley MD. 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 POSTOPERATIVE DIAGNOSIS: Microperforation of colorectal anastomosis. PROCEDURES PERFORMED: Flexible sigmoidoscopy with retrieval and placement of fully covered stent. ANESTHESIA: Total intravenous anesthesia. COMPLICATIONS: None. SPECIMENS: None. Case was contaminated. PROCEDURE IN DETAIL: After consent was obtained, total intravenous anesthesia was given. A timeout was taken to confirm the correct patient and procedure. The patient was rolled in the left lateral decubitus position. The colonoscope was lubricated and inserted in the rectum. The rectum was irrigated. The scope was advanced to approximately 15 cm, at which time the stent was identified. Using a grasper, the distal portion of the stent was grasped, it was moved approximately 4 cm distally to allow better coverage of the colorectal anastomosis. The scope was then passed through the scope and then to the descending colon. There were no abnormalities identified. At this time, the colon was decompressed and the scope was withdrawn. The patient tolerated procedure well. No complications occurred. TRANSINT:[id number] Voice Confirmation ID: [id number] DOCUMENT ID: [id number] BRICE BEASLEY MD at 1544 CC: [id number] DICTATION DATE: 04/04/16 1118 MECHANICAL DOOR REPAIRER: 04/04/16 1526 [place] [address]
--- NOTE | 2016-04-05 16:37 | NUR ---
RESTING IN BED AT THIS TIME. NO ACUTE DISTRESS NOTED. RESPIRATIONS AT STEADY AND UNLABORED RATE. ESTELITA. CONTINUE PLAN OF CARE.
--- NOTE | 2016-04-05 17:09 | NUR ---
WHEN EMPTYING WOUND VAC AND DRAIN, NOTED 0ML OUPUT TO CONTAINERS. DRAIN TO RIGHT ABDOMINAL REGOIN HAS THE SAME AMOUNT OF FLUIDS AT THIS TIME THERE WAS AT BEGINNING OF SHIFT WHICH WAS 50ML, THIS AMOUNT WAS NOT INCLUDED TO OUTPUT BECAUSE THIS OUTPUT WAS FROM FLUSHING SITE AND HAS NOT CHANGED SINCE BEGINNING OF SHIFT. PT DENIES ANY NEEDS AT THIS TIME. NO ACUTE DISTRESS NOTED. WILL CONTINUE PLAN OF CARE.
--- NOTE | 2016-04-05 18:06 | NUR ---
UP IN BED AT THIS TIME, VISITOR AT BEDSIDE. NOTED PT ATTEMPTED TO EAT WHILE PMV WAS IN PLACE, PT THEN BEGAN TO TELL STAFF THAT SHE COULD NOT BREATHE, OXYGEN SATURATION WAS NOTED AT 97%. PT WAS REASSURED THAT SHE WAS RECIEVING SUFFICIENT AMOUNT OF OXYGEN, PT DID NOT CALM DOWN UNTIL STAFF REMOVED PMV. PT THEN WAS ABLE TO TELL STAFF THAT SHE FELT LIKE SHE COULD BREATHE AGAIN. DENIES ANY FURTHER QUESTIONS OR CONCERNS. WILL CONTINUE PLAN OF CARE.
--- NOTE | 2016-04-05 19:00 | NUR ---
INITIAL ASSESSMETN COMPLETE, SEE SHIFT ASSESSMENT FOR DETAILS. AT BEDSIDE, PATIENT ON TRACH COLLAR AT 10L. SUCTIONED AND CLEANED AROUND TRACH. S1S2 NOTED, CRACKLES HEARD BILATERAL WITH LUNG SOUNDS. ABD DRAIN ON RLQ, SITE C/D/I. FLUSHED WITH 10MLS PER ORDER. MIDLINE ABD INCISION WITHOUT REDNESS. MARK CATHETER DRAINING TO GRAVITY AND WITHOUT KINKS. PULSES+2 BILATERAL. VSS, SEE FLOWSHEET FOR DETAILS.
--- NOTE | 2016-04-05 21:00 | NUR ---
NO VISITORS AT THIS TIME, PATIENT DENIES NEED.
--- NOTE | 2016-04-05 23:00 | NUR ---
RR EVEN AND NON LABORED, VSS, PATIENT DENIES NEEDS. TURNED FOR COMFORT.
--- NOTE | 2016-04-06 | NUR ---
PATIENT TRANSFERED [id number].
--- NOTE | 2016-04-06 00:22 | NUR ---
RECIEVED PT TO FLOOR FROM ICU, ORIENTED TO ROOM, STAFF AND CALL LIGHT, DENIES PAIN OR NEEDS AT THIS TIME, SR'S UP, CL IN REACH, WILL MONITOR
--- NOTE | 2016-04-06 02:10 | NUR ---
MORENO TALAVERA PER MAR, JS WELL, RESTING WITH EYES CLOSED, RESP WITH EASE, FALL PREACAUTIONS IN PLACE,CL IN REACH
--- NOTE | 2016-04-06 03:15 | NUR ---
SUCTIONING PROVIDED TO TRACH FOR THICK SECRETIONS, JS WELL, CL IN REACH
--- NOTE | 2016-04-06 03:24 | NUR ---
PRN ATIVAN GIVEN PER REQUEST FOR ANXIETY RELATED TO SECRETIONS IN TRACH, JS WELL, CL IN REACH
--- NOTE | 2016-04-06 03:44 | NUR ---
PT C/O "CHOKING", TRACH AND MOUTH SUCTIONED WITH NO DIFFICULTY, POX 96 %
--- NOTE | 2016-04-06 04:33 | NUR ---
BLOOD DRAWN FOR ORDERED LABS, 10CC WASTED, FLUSHED WITH 10CC NS, IV VANC HUNG, RLQ DRAIN FLUSHED WITH 10CC NS, JS WELL, HOB ELEVATED, SR'S UP, CL IN REACH
[2016-04-06 06:20] LABS: BASOPHILS 0.1 % (0.0-2.0); EOSINOPHILS 7.8 % (0-7); HEMATOCRIT 28.7 % (36.0-48.0); HEMOGLOBIN 8.8 g/dL (12-16); IMMATURE GRANULOCYTES 1.2 % (0-5); LYMPHOCYTES 15.1 % (15-50); MCH 29.1 pg (26.0-34.0); MCHC 30.7 g/dL (31.0-37.0); MEAN PLATELET VOLUME 10.9 fL (7.4-10.4); MONOCYTES 8.8 % (2-11); PLATELET COUNT 198 10x3/uL (130-400); RBC 3.02 10x6/uL (4.00-5.40); RDW 14.1 % (11.5-14.5); WBC 9.3 10x3/uL (4.8-10.8)
[2016-04-06 06:30] LABS: CALC OSMOLALITY 274 mosm/kg (275-300); CALCIUM 7.8 mg/dL (8.5-10.1); CARBON DIOXIDE 25.8 mmol/L (21.0-32.0); CHLORIDE - SERUM 105 mmol/L (98-107); CREATININE - SERUM 0.7 mg/dL (0.6-1.3); GLUCOSE 115 mg/dL (74-106); POTASSIUM - SERUM 3.3 mmol/L (3.5-5.1); SODIUM 138 mmol/L (136-145); eGFR NON AFRICAN AMERICAN > 90 mL/min (90-120)
[2016-04-06 06:31] LABS: UREA NITROGEN 7 mg/dL (7-18)
--- NOTE | 2016-04-06 07:00 | NUR ---
REPORT RECIEVED ASSUMED CARE. PATIENT IN BED WITH IV INTACT. NO COMPLAINTS AT THIS TIME. TRACH WITH TRACH COLLAR ON. NO SIGNS OF DISTRESS. CALL LIGHT WITHIN REACH.
--- NOTE | 2016-04-06 08:45 | NUR ---
PATIENT IN BED WITH IV INTACT. ASSESSMENT COMPLETE, VS STABLE. NO COMPLAINTS. CALL LIGHT WITHIN REACH.
[2016-04-06 09:01] VITALS: BP 142/72
--- NOTE | 2016-04-06 11:15 | NUR ---
PATIENT UP TO CHAIR PER PT. IV INTACT. CALL LIGHT WITHIN REACH.
--- NOTE | 2016-04-06 11:40 | NUR ---
NOTIFIED DR. MARTINES OF PATIENT HAVING BM WITH FOREIGN OBJECT IN STOOL. STATED TO SAVE AND LET HIM SEE IT ON ROUNDS.
[2016-04-06 12:06] VITALS: BP 141/68
--- NOTE | 2016-04-06 14:00 | NUR ---
PATIENT SITTING UP IN BED WITH NO COMPLAINTS. IV INTACT. DRAIN AND WOUND VAC INTACT. NO O/P AT THIS TIME FROM EITHER. MARK INTACT. CALL LIGHT WITHIN REACH.
[2016-04-06 16:26] VITALS: BP 138/62
--- NOTE | 2016-04-06 17:05 | NUR ---
PATIENT SITTING UP IN BED EATING. FINISHED PO POTASSIUM. FAMILY ASSISTING PATIENT AT THIS TIME. NO COMPLAINTS. CALL LIGHT WITHIN REACH.
--- NOTE | 2016-04-06 18:00 | NUR ---
PATIENT SUCTIONED AT THIS TIME PER REQUEST. THICK WHITE SPUTUM REMOVED. PATIENT HAS NO DISTRESS. WILL CONTINUE TO MONITOR. FAMILY AT BEDSIDE. CALL LIGHT WITHIN REACH.
--- NOTE | 2016-04-06 18:30 | NUR ---
DR. MARTINES IN TO SEE PATIENT. NEW ORDERS RECIEVED. PATIENT IN BED WITH NO COMPLAINTS AT THIS TIME. CALL LIGHT WITHIN REACH.
--- NOTE | 2016-04-06 19:13 | NUR ---
DR MARTINES ROUNDS. PATIENT REPORTS THAT SHE IS EATING AND HAS HAD BM AND THAT STENT CAME OUT. DR MARTINES INSPECTED STOOL AND AGREED THAT STENT WAS INDEED OUT. STATES THAT HE WILL INFORM DR GOODE.
--- NOTE | 2016-04-06 19:20 | NUR ---
RECIEVED SHIFT REPORT. PT IS LYING IN BED. ALERT AND ORIENTED AND ABLE TO VERBALIZE NEEDS. IV IS PATENT AND FLUIDS ARE RUNNING PER ORDER. TRACH INTACT WITH COLLAR ON. MARK IS DRAINING URINE BY GRAVITY. WOUND VAC TO ABDOMEN C/D/I. BILI DRAIN TO RIGHT SIDE PATENT WITH SITE C/D/I. PT DENIES ANY PAIN AT THIS TIME. PT IS AMBULATORY WITH ASSISTANCE. NO NEEDS ARE VERBALIZED AT THIS TIME. WILL CONTINUE TO MONITOR. SIDE RAILS ARE UP X 2. BED IS IN LOWEST POSITION. CALL LIGHT IS WITHIN REACH.
[2016-04-06 21:00] VITALS: BP 125/61
--- NOTE | 2016-04-06 21:41 | NUR ---
SHIFT ASSESSMENT COMPLETED. NIGHT MEDS GIVEN WITH NO PROBLEMS. PT REFUSED SCHEDULED MIRALAX. NO NEEDS ARE VOICED. WILL MONITOR. SIDE RAILS X 2. BED LOW. CALL LIGHT IN REACH.
[2016-04-07 01:00] VITALS: BP 142/72
[2016-04-07 05:00] VITALS: BP 136/77
[2016-04-07 05:39] LABS: BASOPHILS 0.3 % (0.0-2.0); EOSINOPHILS 6.4 % (0-7); HEMATOCRIT 27.5 % (36.0-48.0); HEMOGLOBIN 8.7 g/dL (12-16); IMMATURE GRANULOCYTES 1.3 % (0-5); LYMPHOCYTES 15.2 % (15-50); MCH 29.8 pg (26.0-34.0); MCHC 31.6 g/dL (31.0-37.0); MCV 94.2 fL (80.0-100.0); MEAN PLATELET VOLUME 10.9 fL (7.4-10.4); MONOCYTES 10.1 % (2-11); NEUTROPHILS 66.7 % (40-80); PLATELET COUNT 171 10x3/uL (130-400); RBC 2.92 10x6/uL (4.00-5.40); WBC 7.6 10x3/uL (4.8-10.8)
[2016-04-07 05:59] LABS: CALC OSMOLALITY 276 mosm/kg (275-300); CALCIUM 8.1 mg/dL (8.5-10.1); CARBON DIOXIDE 25.1 mmol/L (21.0-32.0); CHLORIDE - SERUM 106 mmol/L (98-107); CREATININE - SERUM 0.6 mg/dL (0.6-1.3); GLUCOSE 111 mg/dL (74-106); POTASSIUM - SERUM 3.2 mmol/L (3.5-5.1); SODIUM 140 mmol/L (136-145); UREA NITROGEN 4 mg/dL (7-18); eGFR NON AFRICAN AMERICAN > 90 mL/min (90-120)
--- NOTE | 2016-04-07 07:00 | NUR ---
REPORT RECIEVED ASSUMED CARE. PATIENT IN BED WITH IV INTACT. NO COMPLAINTS AT THIS TIME. CALL LIGHT WITHIN REACH.
[2016-04-07 08:18] VITALS: BP 141/77
--- NOTE | 2016-04-07 10:00 | NUR ---
PATIENT SUCTIONED AT THIS TIME. HAS THICK WHITE/YELLOW SECRETIONS. IV INTACT. BSCDS ON. CALL LIGHT WITHIN REACH.
--- NOTE | 2016-04-07 11:30 | NUR ---
WOUND VAC DRESSING CHANGE WOUND TYPE: SURGICAL WOUND LOCATION: LEFT LOWER ABD WOUND AGE IN MONTHS: WEEKS DEBRIDEMENT ATTEMPTED IN LAST 10 DAYS? DATE/TYPE: SERIAL DEBRIDEMENTS REQUIRED? MEASUREMENT DATE: 04/07/16 1CM X 3.5CM X 1.7CM (IMPROVED) FULL THICKNESS?YES MUSCLE, TENDON OR BONE EXPOSED? NO UNDERMINING? NO TUNNELING/SINUS? NO APPEARANCE OF WOUND BED : RED EXUDATE (AMOUNT, COLOR, ODOR): SMALL SEROUS NO ODOR FOAM TYPE: BLACK # OF PIECES USED: 2SMALL PIECES IN WOUND BED 1PIECE FOR TRAC PAD (3 TOTAL) PT TOLERATED WELL.
--- NOTE | 2016-04-07 11:45 | NUR ---
PATIENT PREOPED FOR SURGERY ORDERED. IV INTACT. NO COMPLAINTS. FAMILY AT BEDSIDE. CALL LIGHT WITHIN REACH.
[2016-04-07 12:27] VITALS: BP 152/68
--- NOTE | 2016-04-07 13:40 | NUR ---
NUTRITION MONITORING & EVAL CHART REVIEWED. PT REMAINS NPO, D5 NS @ 50 CC/HR. WILL MONITOR DIET ADVANCEMENT, PT PROGRESS. RD FOLLOWING
--- NOTE | 2016-04-07 13:51 | NUR ---
PATIENT ARRIED TH HOLDING/OR WITH A TRACH, BRUSED RIGHT EYE, WOUND VAC TO LLQ, ILIOSTOMY BAG ON RQ, SCAB ON ABDOMINAL SCAR/INCISION. STANLEY/ANIAL AREA RED,FECAL OZZING.
[2016-04-07 14:50] VITALS: BP 124/84
--- NOTE | 2016-04-07 15:00 | NUR ---
PATIENT IN BED RESTING QUIETLY AT THIS TIME. IV INTACT. VS STABLE. NO COMPLAINTS AT THIS TIME. CALL LIGHT WITHIN REACH.
--- NOTE | 2016-04-07 15:45 | NUR ---
NEW MARK PLACED PER DR. MERCEDES REQUEST. PATIENT TOLERATED WITH SMALL AMOUNT OF PAIN. CALL LIGHT WITHIN REACH.
--- NOTE | 2016-04-07 16:15 | NUR ---
SPOKE WITH DR. THOMPSON ABOUT MEDS FOR DIARRHEA. STATED NO MEDS BUT MAY INSERT RECTAL TUBE IF NEEDED. PATIENT REFUSED. NO COMPLAINTS IV INTACT. CALL LIGHT WITHIN REACH.
--- NOTE | 2016-04-07 16:59 | NUR ---
Rehab Note- Rehab Prescreen Order received. The patient has [employer]I insurance, will check on the patient's benefits for IRF. Thank you for this referral! Karla Ortez RN Clinical Liaison, [facility]
--- NOTE | 2016-04-07 18:45 | NUR ---
PATIENT IN BED WITH IV INTACT. NO COMPLAINTS AT THIS TIME. CALL LIGHT WITHIN REACH.
--- NOTE | 2016-04-07 19:25 | NUR ---
RECIEVED SHIFT REPORT. PT IS LYING IN BED. ALERT AND ORIENTED AND ABLE TO VERBALIZE NEEDS. IV IS PATENT AND FLUIDS ARE RUNNING PER ORDER. MARK IS DRAINING URINE BY GRAVITY. SCD'S ON. WOUND VAC TO LEFT ABDOMEN INTACT AND CLEAN. BILI DRAIN TO RIGHT ABDOMEN PATENT WITH SITE C/D. PT STATES SHE HAS A HEADACHE OF 8/10. TRACH INTACT WITH COLLAR ON AND O2 @ 10L. NO NEEDS ARE VERBALIZED AT THIS TIME. WILL CONTINUE TO MONITOR. SIDE RAILS ARE UP X 2. BED IS IN LOWEST POSITION. CALL LIGHT IS WITHIN REACH.
--- NOTE | 2016-04-07 20:34 | NUR ---
SHIFT ASSESSMENT COMPLETED. STUDENT TO GIVE NIGHT TIME MEDS WITH INSTRUCTOR. PT C/O PAIN 09/18 AND IS REQUESTING PRN ATIVAN. PRN TYLENOL AND ATIVAN ADMINISTERED PER ORDER. DENIES FURTHER NEEDS. WILL MONITOR. SIDE RAILS X 2. BED LOW. CALL LIGHT IN REACH.
[2016-04-07 21:00] VITALS: BP 156/83
[2016-04-08 01:00] VITALS: BP 148/88
[2016-04-08 05:00] VITALS: BP 155/75
[2016-04-08 05:38] LABS: BASOPHILS 0.1 % (0.0-2.0); EOSINOPHILS 3.2 % (0-7); HEMATOCRIT 28.1 % (36.0-48.0); HEMOGLOBIN 8.8 g/dL (12-16); LYMPHOCYTES 14.3 % (15-50); MCH 29.5 pg (26.0-34.0); MCHC 31.3 g/dL (31.0-37.0); MCV 94.3 fL (80.0-100.0); MEAN PLATELET VOLUME 10.4 fL (7.4-10.4); MONOCYTES 12.5 % (2-11); NEUTROPHILS 68.9 % (40-80); PLATELET COUNT 181 10x3/uL (130-400); RBC 2.98 10x6/uL (4.00-5.40); RDW 14.5 % (11.5-14.5); WBC 8.7 10x3/uL (4.8-10.8)
[2016-04-08 06:25] LABS: CALC OSMOLALITY 276 mosm/kg (275-300); CALCIUM 8.4 mg/dL (8.5-10.1); CARBON DIOXIDE 25.3 mmol/L (21.0-32.0); CHLORIDE - SERUM 105 mmol/L (98-107); CREATININE - SERUM 0.6 mg/dL (0.6-1.3); GLUCOSE 113 mg/dL (74-106); MAGNESIUM - SERUM 1.4 mg/dL (1.8-2.4); PHOSPHOROUS 3.2 mg/dL (2.5-4.9); POTASSIUM - SERUM 3.3 mmol/L (3.5-5.1); SODIUM 140 mmol/L (136-145); UREA NITROGEN 5 mg/dL (7-18); VANCOMYCIN - TROUGH 22.3 ug/mL (10.0-20.0); eGFR NON AFRICAN AMERICAN > 90 mL/min (90-120)
--- NOTE | 2016-04-08 06:30 | NUR ---
PT VANC HELD AT THIS TIME DUE TO VANC TROUGH=22.3. PHARMACY CALLED AND ADVISED ABOUT THE LAB.
[2016-04-08 07:59] VITALS: BP 144/69
--- NOTE | 2016-04-08 08:14 | OP ---
PATIENT NAME: SARAH GARY MEDICAL RECORD: [id number] :56 LOCATION:[id number] ADMISSION DATE:04/02/16 SURGEON: BRICE BEASLEY MD DATE OF OPERATION: 04/07/2016 SURGEON: Brice Beasley MD PREOPERATIVE DIAGNOSIS: Colorectal anastomotic fistula. POSTOPERATIVE DIAGNOSIS: Colorectal anastomotic fistula. PROCEDURE PERFORMED: Flexible sigmoidoscopy with placement of a 23 mm x 105 mm partially covered stent. ANESTHESIA: Total intravenous anesthesia. COMPLICATIONS: None. SPECIMENS: None. Case was contaminated. OPERATIVE COURSE: After consent was obtained, the patient was taken to the operating room and placed in the supine position on the operating table. Next, a timeout was taken to confirm the correct patient and procedure. The patient was placed in stirrups, total intravenous anesthesia was given. The colonoscope was inserted and the colorectal anastomosis was identified at the 15 cm area. The area was copiously irrigated and suctioned, the scope was advanced to approximately 35-40 cm. A 450 cm Jagwire was inserted through the scope under fluoroscopy. The scope was then withdrawn to the anastomosis. The site was marked on the screen. The scope was removed. The [employer] 23 x 105 mm stent was passed over the Jagwire, it was deployed covering the area of the anastomosis under direct fluoroscopy. At this time, the wire and the deployment device were removed. The scope was reinserted, it was advanced through the scope. Two quick clips were placed in the proximal portion on the covered portion of the stent. The remaining portion of the colon was decompressed. The scope was withdrawn. The patient tolerated the procedure well. At the end of the case, all needle and instrument counts were correct. No complications occurred. The patient was transferred to the recovery room in satisfactory condition. TRANSINT:[id number] Voice Confirmation ID: [id number] DOCUMENT ID: [id number] BRICE BEASLEY MD at 0814 CC: [id number] DICTATION DATE: 04/07/16 1423 EMPLOYMENT PROGRAMS ANALYST: 04/07/162033 [place] [address]
--- NOTE | 2016-04-08 08:24 | NUR ---
AWAKE AND ALERT. ORIENTED X3. NO C/O AT THIS TIME. LUNGS HAVE CRACKLES AND WHEEZES THROUGHOUT LUNG JOHNSON. REPORTS OCCASSIONAL COUGH WELL. REQUIRES INTERMITTANT SUCTION TO REMOVE PHLEM. SKIN IS INTACT WITHOUT REDNESS EXCEPT MIDLINE INCISION WHICH IS OLDER AND HEALING WITHOUT SIGNS OF INFECTION. WOUND TO RIGHT LOWER ABDOMEN WITH WOUND VAC IN PLACE SCANT SEROUS DRAINAGE NOTED. BILILARY DRAIN IN PLACE TO RIGHT LOWER ABDOMEN WITHOUT DISCHARGE. RIGHT PICC PATENT WITHOUT REDNESS AT INSERTION SITE. MARK PATENT WITH CLEAR YELLOW URINE. SSCD'S IN PLACE. BREAKFAST SERVED IN ROOM.
--- NOTE | 2016-04-08 10:30 | NUR ---
SUCTIONED PER NURSING STILL C/O "CANT BREATHE" RESPIRATORY DID A DEEP SUCTION WITH GOOD RESULTS. SPUTUM SENT TO LAB FOR CULTURE.
[2016-04-08 12:06] VITALS: BP 139/66
--- NOTE | 2016-04-08 12:30 | NUR ---
RESTING QUIETLY WITH EYES CLOSED. NO NEEDS NOTED.
--- NOTE | 2016-04-08 15:06 | NUR ---
NUTRITION MONITORING & EVAL CHART REVIEWED. MOST RECENT DIET ORDER FROM SPEECH THERAPY NOTED. CHANGED DIET ORDER TO PREVIOUS. RD FOLLOWING
--- NOTE | 2016-04-08 15:37 | NUR ---
SITTING UP IN BED WITH UD IN PROGRESS. NO C/O AT THIS TIME.
[2016-04-08 16:17] VITALS: BP 153/70
--- NOTE | 2016-04-08 19:09 | NUR ---
INCONTINENT OF STOOL PRIOR TO SUPPER. SKIN CARE PER STAFF. RIGHT BUTTOCK HAS AN AREA OF EXCORIATION NOTED. BUTT BALM APPLIED TO SAME. ATE ABOUT 25% OF SUPPER. NO CHANGES NOTED. DENIES NEEDS. AT BEDSIDE.
--- NOTE | 2016-04-08 19:35 | NUR ---
RECIEVED SHIFT REPORT. PT IS LYING IN BED. ALERT AND ORIENTED AND ABLE TO VERBALIZE NEEDS. IV IS PATENT AND FLUIDS ARE RUNNING PER ORDER. MARK IS DRAINING URINE BY GRAVITY. SCD'S ON. TRACH INTACT WITH COLLAR ON AND WITH O2 @ 10L. WOUND VAC TO LEFT ABDOMEN INTACT WITH SITE C/D. BILI DRAIN TO RIGHT SIDE INTACT WITH SITE C/D. PT DENIES ANY PAIN AT THIS TIME. NO NEEDS ARE VERBALIZED AT THIS TIME. WILL CONTINUE TO MONITOR. SIDE RAILS ARE UP X 2. BED IS IN LOWEST POSITION. CALL LIGHT IS WITHIN REACH.
[2016-04-08 21:00] VITALS: BP 134/76
--- NOTE | 2016-04-08 21:21 | NUR ---
SHIFT ASSESSMENT COMPLETED. NIGHT MEDS GIVEN WITH NO PROBLEMS. SCHEDULED MIRALAX REFUSED DUE TO MULTIPLE BOWEL MOVEMENTS. NO NEEDS VOICED AT THIS TIME. WILL MONITOR. SIDE RAILS X 2. BED LOW. CALL LIGHT IN REACH.
[2016-04-09] VITALS (12 sets, daily range): BP systolic 124–140; BP diastolic 63–87
[2016-04-09 05:54] LABS: BASOPHILS 0.2 % (0.0-2.0); EOSINOPHILS 5.2 % (0-7); HEMATOCRIT 26.4 % (36.0-48.0); HEMOGLOBIN 8.2 g/dL (12-16); IMMATURE GRANULOCYTES 1.1 % (0-5); LYMPHOCYTES 15.5 % (15-50); MCH 29.1 pg (26.0-34.0); MCHC 31.1 g/dL (31.0-37.0); MCV 93.6 fL (80.0-100.0); MEAN PLATELET VOLUME 10.7 fL (7.4-10.4); MONOCYTES 11.9 % (2-11); NEUTROPHILS 66.1 % (40-80); PLATELET COUNT 189 10x3/uL (130-400); RBC 2.82 10x6/uL (4.00-5.40); RDW 14.5 % (11.5-14.5); WBC 8.5 10x3/uL (4.8-10.8)
[2016-04-09 06:30] LABS: CALC OSMOLALITY 269 mosm/kg (275-300); CALCIUM 8.3 mg/dL (8.5-10.1); CARBON DIOXIDE 28.3 mmol/L (21.0-32.0); CHLORIDE - SERUM 102 mmol/L (98-107); CREATININE - SERUM 0.5 mg/dL (0.6-1.3); GLUCOSE 114 mg/dL (74-106); POTASSIUM - SERUM 3.4 mmol/L (3.5-5.1); SODIUM 136 mmol/L (136-145); UREA NITROGEN 3 mg/dL (7-18); VANCOMYCIN - TROUGH 7.1 ug/mL (10.0-20.0); eGFR NON AFRICAN AMERICAN > 90 mL/min (90-120)
--- NOTE | 2016-04-09 07:54 | NUR ---
AWAKE AND ALERT. ORIENTED X3. NO C/O AT THIS TIME. LUNGS HAVE CRACKLES AND WHEEZES THROUGHOUT LUNG JOHNSON. PRODUCTIVE COUGH NOTED. TRACH COLLAR IN PLACE AT THIS TIME. SKIN IS INTACT EXCEPT OLD INCISION TO ABDOMEN WHICH IS HEALING WITHOUT SIGNS OF INFECTION. WOUND VAC IN PLACE TO LEFT SIDE OF ABDOMEN WITH SCANT SEROUS DRAINAGE. BILIARY DRAIN IN PLACE TO RIGHT LOWER QUAD WITH NO DRAINAGE NOTED. STANLEY AREA IS VERY REDDENED AND EXCORIATED. INCONTINENT OF STOOL, SKIN CARE AND LINENS CHANGED PER STAFF. PICC TO RIGHT UPPER ARM PATENT WITHOUT REDNESS AT INSERTION SITE. MARK PATENT WITH CLEAR YELLOW URINE. DENIES NEEDS.
--- NOTE | 2016-04-09 09:00 | NUR ---
OFF UNIT VIA BED FOR BRONCHOSCOOPY,
--- NOTE | 2016-04-09 10:30 | NUR ---
RETURNED FROM PROCEDURE. A/O X3. VSS.
--- NOTE | 2016-04-09 13:00 | NUR ---
PUREED TRAY SERVED TO PATIENT. ATE ABOUT HALF OF MEAL.
--- NOTE | 2016-04-09 14:13 | NUR ---
MARK D/C WITH TIP INTACT WITHOUT DIFFICULTY. NO C/O PAIN OR DISCOMFORT. UP ON BSC AT THIS TIME.
--- NOTE | 2016-04-09 14:45 | NUR ---
WOUND VAC DRESSING CHANGE WOUND TYPE: SURGICAL WOUND LOCATION: ABDOMEN WOUND AGE IN MONTHS: DEBRIDEMENT ATTEMPTED IN LAST 10 DAYS? DATE/TYPE: SERIAL DEBRIDEMENTS REQUIRED? MEASUREMENT DATE: 04/09/16 0.7CM X 3.2CM X 1.6CM (IMPROVED) FULL THICKNESS? YES MUSCLE, TENDON OR BONE EXPOSED? NO UNDERMINING? NO TUNNELING/SINUS? NO APPEARANCE OF WOUND BED : PALE RED EXUDATE (AMOUNT, COLOR, ODOR):SMALL NO ODOR FOAM TYPE: BLACK # OF PIECES USED: 1 IN WOUND BED 1 FOR TRAC PAD TOLERATED WELL
--- NOTE | 2016-04-09 16:41 | NUR ---
UP TO BSC WITH ONE PERSON ASSIST. VOIDED 200cc CLEAR YELLOW URINE. SKIN CARE PER STAFF.
--- NOTE | 2016-04-09 16:59 | NUR ---
CVL DRESSING CHANGE DONE WITH STERILE TECHNIQUE
--- NOTE | 2016-04-09 17:03 | NUR ---
DRESSING TO LEFT UPPER ARM PICC CHANGED USING STERILE TECHNIQUE. ALSO SUCTIONED AND TRACH CARE PERFORMED USING STERILE TECHNIQUE. TOLERATED WITHOUT C/O DISCOMFORT.
--- NOTE | 2016-04-09 19:00 | NUR ---
PATIENT SUPINE IN BED WATCHING TV. HOB 40 DEGREES. AAOX4. TRACH COLLAR ON. 0 S/S OF DISTRESS. DENIES PAIN AT THIS TIME. RIGHT PICC PATENT WITH NO REDNESS OR SWELLING. WOUNDVAC TO LLQ OF ABD. BILI DRAIN TO RLQ OF ABD. SCD'S ON. B/A ON. SRX3. BED LOW. CALL LIGHT WITHIN REACH.
--- NOTE | 2016-04-09 19:15 | NUR ---
ATE LESS THAN HALF OF SUPPER TRAY. FAMILY AT BEDSIDE. SUCTIONED AT THIS TIME. LARGE PLUG REMOVED FROM TRACH. UP TO BSC HAD SMALL AMOUNT OF BM AND APPROXIMATELY 150 CC OF URINE. DENIES NEEDS.
--- NOTE | 2016-04-09 23:00 | NUR ---
ASSESSMENT COMPLETE. NIGHTTIME MEDS GIVEN. BILI DRAIN FLUSHED. CHANGED LINENS AND GOWN. NO OTHER NEEDS AT THIS TIME.
[2016-04-10 01:48] VITALS: BP 131/72
--- NOTE | 2016-04-10 03:00 | NUR ---
ASSISTED PATIENT TO USE BEDPAN. CLEANED BUTTOCKS AND STANLEY AREA AND APPLIED BUTTPASTE. PUT DRY BUBBA UNDER PATIENT.
[2016-04-10 06:00] LABS: BASOPHILS 0.1 % (0.0-2.0); EOSINOPHILS 3.9 % (0-7); HEMATOCRIT 26.2 % (36.0-48.0); HEMOGLOBIN 8.3 g/dL (12-16); IMMATURE GRANULOCYTES 0.8 % (0-5); LYMPHOCYTES 16.6 % (15-50); MCH 29.6 pg (26.0-34.0); MCHC 31.7 g/dL (31.0-37.0); MCV 93.6 fL (80.0-100.0); MEAN PLATELET VOLUME 10.7 fL (7.4-10.4); MONOCYTES 12.8 % (2-11); NEUTROPHILS 65.8 % (40-80); PLATELET COUNT 218 10x3/uL (130-400); RDW 14.8 % (11.5-14.5); WBC 8.4 10x3/uL (4.8-10.8)
[2016-04-10 06:18] LABS: CALC OSMOLALITY 272 mosm/kg (275-300); CALCIUM 8.6 mg/dL (8.5-10.1); CARBON DIOXIDE 27.2 mmol/L (21.0-32.0); CHLORIDE - SERUM 103 mmol/L (98-107); GLUCOSE 142 mg/dL (74-106); POTASSIUM - SERUM 3.9 mmol/L (3.5-5.1); SODIUM 137 mmol/L (136-145); UREA NITROGEN 3 mg/dL (7-18)
[2016-04-10 06:19] LABS: CREATININE - SERUM 0.7 mg/dL (0.6-1.3); eGFR NON AFRICAN AMERICAN > 90 mL/min (90-120)
--- NOTE | 2016-04-10 07:40 | NUR ---
TRACH SUCTIONED AT THIS TIME. PT HAD THICK, BROWN SPUTUM. AWAKE AND ALERT AT THIS TIME. REMAINS IN CONTACT ISOLATION. CALL LIGHT IN REACH, WILL CONTINUE WITH PLAN OF CARE.
[2016-04-10 08:28] VITALS: BP 122/74
--- NOTE | 2016-04-10 09:44 | NUR ---
SCHEDULED MEDICATIONS ADMINISTERED AT THIS TIME. TAKEN WITHOUT DIFFICULTY. ASSESSMENT PERFORMED PER FLOWSHEET. VISITOR AT BEDSIDE. BED ALARM AND SCD'S ON. CALL LIGHT IN REACH, WILL CONTINUE WITH PLAN OF CARE.
--- NOTE | 2016-04-10 11:20 | NUR ---
REMAINS IN ISOLATION AT THIS TIME. TRACH CARE PERFORMED AND PT HAS SMALL AMOUNT OF THICK, BROWN/CLEAR SPUTUM. INNER CANULA CLEANSED IN STERILE FASHION. CALL LIGHT IN REACH, WILL CONTINUE WITH PLAN OF CARE.
[2016-04-10 12:04] VITALS: BP 142/74
--- NOTE | 2016-04-10 13:47 | NUR ---
SPEECH THERAPY AND PHSYICAL THERAPY AT BEDSIDE. PT HAVING SWALLOW TEST. SUCTIOND AT THIS TIME AND SMALL HARD REZA SPUTUM RETRIEVED FROM TRACH, BUT NO S/S OF THE FOOD COLORING USED DURING TEST. PHYSICAL THERAPY ASSISTING PT TO BEDSIDE COMMODE. WILL CLEAN TRACH. CALL LIGHT IN REACH, WILL CONTINUE WITH PLAN OF CARE.
--- NOTE | 2016-04-10 15:12 | NUR ---
Faxed all information to Lillian with [employer] [phone] ext [phone] to initiate authorization for IRF. Notified Cindy Hall RN CM of status. Ruba Garcia RN Clinical Liaison, Rehab
--- NOTE | 2016-04-10 15:30 | NUR ---
TRACH SUCTIONED PER PT REQUEST AT THIS TIME D/T THICK SPUTUM. DENIES FURTHER NEEDS. IN BED WITH BED ALARM ON. CALL LIGHT IN REACH, WILL CONTINUE WITH PLAN OF CARE.
[2016-04-10 15:48] VITALS: BP 126/70
[2016-04-10 16:15] LABS: AFB SPECIMEN PROCESSING Concentration (())
--- NOTE | 2016-04-10 17:00 | NUR ---
EATING AT THIS TIME. DENIES NEEDS, CALL LIGHT IN REACH. WILL CONTINUE WITH PLAN OF CARE. REMAINS IN CONTACT ISOLATION.
--- NOTE | 2016-04-10 18:53 | NUR ---
OT NOTE: PT COMPLETED BUE AROM FOR INCREASED ACTIVITY TOLERANCE. PT COMPLETED BED POSITIONING WITH SBA. PT COMPLETED ORAL HYGIENE WITH TOOTHETTE WITH SET UP. THANK YOU, TIERRA BROWNE/Leroy
--- NOTE | 2016-04-10 19:00 | NUR ---
PATIENT RESTING WITH EYES CLOSED. AROUSES TO VOICE. DENIES PAIN AT THIS TIME. TRACH COLLAR AT 12. WOUND VAC AND BILI DRAIN TO ABD. RIGHT PICC PATENT WITH DRESSING CDI. SCD'S ON. SRX2. BED LOW. CALL LIGHT WITHIN REACH.
[2016-04-11 00:45] VITALS: BP 132/73
[2016-04-11 05:25] LABS: BASOPHILS 0.1 % (0.0-2.0); EOSINOPHILS 5.6 % (0-7); HEMATOCRIT 27.3 % (36.0-48.0); HEMOGLOBIN 8.6 g/dL (12-16); LYMPHOCYTES 19.6 % (15-50); MCH 29.6 pg (26.0-34.0); MCHC 31.5 g/dL (31.0-37.0); MCV 93.8 fL (80.0-100.0); MEAN PLATELET VOLUME 9.9 fL (7.4-10.4); NEUTROPHILS 59.7 % (40-80); PLATELET COUNT 213 10x3/uL (130-400); RBC 2.91 10x6/uL (4.00-5.40); RDW 15.2 % (11.5-14.5); WBC 6.8 10x3/uL (4.8-10.8)
[2016-04-11 05:59] LABS: CALC OSMOLALITY 273 mosm/kg (275-300); CALCIUM 8.2 mg/dL (8.5-10.1); CARBON DIOXIDE 25.7 mmol/L (21.0-32.0); CHLORIDE - SERUM 102 mmol/L (98-107); CREATININE - SERUM 0.8 mg/dL (0.6-1.3); GLUCOSE 153 mg/dL (74-106); MAGNESIUM - SERUM 1.5 mg/dL (1.8-2.4); PHOSPHOROUS 4.1 mg/dL (2.5-4.9); POTASSIUM - SERUM 3.4 mmol/L (3.5-5.1); PRO BNP 1435 pg/mL (0-125); SODIUM 137 mmol/L (136-145); UREA NITROGEN 3 mg/dL (7-18); eGFR NON AFRICAN AMERICAN 78 mL/min (90-120)
--- NOTE | 2016-04-11 07:15 | NUR ---
AWAKE ALERT COLOR ADQ SKIN WARM AND DRY RESP EVEN AND UNLABORED AT PRESENT.
[2016-04-11 08:03] VITALS: BP 118/58
--- NOTE | 2016-04-11 09:00 | NUR ---
VOIDING ON BEDPAN AT PRESENT JS WELL AT THIS TIME.
--- NOTE | 2016-04-11 10:15 | NUR ---
AT BEDSIDE AT PRESENT.
[2016-04-11 11:18] LABS: FUNGUS STAIN Final report (())
--- NOTE | 2016-04-11 12:00 | NUR ---
REPOSITIONED FOR COMFORT AT PRESENT JS WELL AT PRESENT.
--- NOTE | 2016-04-11 12:28 | NUR ---
NUTRITION MONITORING & EVAL CHART REVIEWED. DIET ADVANCED TO [facility] SOFT WITH REG LIQUIDS. WILL PROVIDE DIET, MONITOR PT PROGRESS. RD FOLLOWING
[2016-04-11 12:45] VITALS: BP 140/74
--- NOTE | 2016-04-11 14:52 | NUR ---
LAYINGQUIETLY IN BED AT PRESENT RESP EVEN AND UNLABORED TRACH CARE DONE JS WELL CLEAN INNER CANNULA AND PLACED BACK SUCTIONED.
[2016-04-11 15:40] VITALS: BP 140/71
--- NOTE | 2016-04-11 16:00 | NUR ---
RET FROM C-T SCAN VIA BED AT PRESENT.
--- NOTE | 2016-04-11 16:24 | NUR ---
Spoke to Lillian with [facility] insurance today. Verbal as well as faxed updated PT, OT and ST notes. Ruba Garcia RN Clinical Liaison, Rehab
--- NOTE | 2016-04-11 16:47 | NUR ---
STATUS REMAINS UNCHGD AT PRESENT.
[2016-04-11 19:00] VITALS: BP 151/76
[2016-04-12 01:49] VITALS: BP 123/67
--- NOTE | 2016-04-12 07:30 | NUR ---
RECIEVED PT DURING WALKING ROUNDS. PT RESTING IN BED WITH NO COMPLAINTS OF PAIN AT THIS TIME. PT REQUESTED TO BE SUCTIONED AT THIS TIME. SPOKE TO PT ABOUT THE NEED TO NOT IRRITATE HER TRACH ANYMORE AND THAT WE WOULD SUCTION WHEN NECESSARY. ASSESSMENT DONE PER FLOWSHEET. BED IN LOW POSITION AND CALL LIGHT WITHIN REACH. WILL CONTINUE TO MONITOR.
[2016-04-12 09:08] VITALS: BP 149/68
--- NOTE | 2016-04-12 09:50 | NUR ---
ASSISTED PT TO THE BEDSIDE COMMODE AT THIS TIME. AFTER FINISHING I HELPED PT INTO THE CHAIR. PT TOLERATED WELL. BED IN LOW POSITION AND CALL LIGHT WITHIN REACH. [facility]
--- NOTE | 2016-04-12 11:58 | NUR ---
AWAKE AND ALERT. ORIENTED X3. UP ON BSC. VOIDED CLEAR YELLOW URINE WITHOUT DIFFICULTY. SKIN TO STANLEY AREA STILL REDDENED BUT MUCH IMPROVED FROM 2 DAYS AGO. LUNGS CONTINUE WITH CRACKLES AND WHEEZES THROUGHOUT. TRACK PATENT. DENIES NEEDS AT THIS TIME.
[2016-04-12 12:41] VITALS: BP 184/70
--- NOTE | 2016-04-12 13:05 | NUR ---
REQUESTED AND GIVEN 650MG TYLENOL PO FOR C/O BACK PAIN AND HEADACHE LEVEL 8. WILL MONITOR.
[2016-04-12 19:05] VITALS: BP 145/89
--- NOTE | 2016-04-12 19:50 | NUR ---
ANSWERED CALL LIGHT: PT APPEARS TO BE GASPING FOR AIR, POINTING TO TRACH. RT COMPLETED TRACH CARE AND SUCTIONED TRACH APPROX 5-10 PRIOR. PT COVERED TRACH AND SAID" IT'S CLOGGED." I ENCOURAGED PT TO COUGH AND DEEP BREATH SINCE I COULD OBSERVE NO S/S OF MUCOUS PLUGGIN CANNULA. PT BEGAN TO COUGH UP BROWN AND WHITE SPUTUM. I CLEANED THE AREA SURROUNDING THE TRACH. LUNG SOUNDS PRESENT VIA AUSCULTATION. PT REQUESTED SUCCTION. I EXPLAINED THAT THE CANNULA WAS CLEAR AND TAUGHT ABOUT COUGHING AND DEEP BREATHING. PT VERBALIZED UNDERSTANDING. WILL CONTINUE TO MONITOR. AND SUCCTION NEEDED.
[2016-04-12 20:00] VITALS: BP 123/59
--- NOTE | 2016-04-12 21:53 | NUR ---
PT RESTING QUIETLY, BREATHING EVEN AND UNLABORED ON 12L TRACH COLLAR. NO S/S OF DISTRESS AT THIS TIME. BED IN LOWEST POSITION, CALL LIGHT IN REACH, ASSESSMENT PER FLOWSHEET. WILL CONITNUE TO MONITOR.
--- NOTE | 2016-04-12 22:59 | NUR ---
LARGE BM, INCONTINENT. TOTAL LINEN CHANGE AND BED BATH AT THIS TIME. CALL LIGHT IN REACH, WILL CONTINUE TO MONITOR.
--- NOTE | 2016-04-13 03:24 | NUR ---
PT CURRENTLY USING BED STEWART, BATCH FREEZER ASSISTING. LEGAL MEDIATOR TO RESUME CARE.
[2016-04-13 05:24] LABS: BASOPHILS 0.1 % (0.0-2.0); EOSINOPHILS 4.6 % (0-7); HEMATOCRIT 27.5 % (36.0-48.0); HEMOGLOBIN 8.7 g/dL (12-16); IMMATURE GRANULOCYTES 0.9 % (0-5); LYMPHOCYTES 16.8 % (15-50); MCH 29.6 pg (26.0-34.0); MCHC 31.6 g/dL (31.0-37.0); MCV 93.5 fL (80.0-100.0); MEAN PLATELET VOLUME 10.3 fL (7.4-10.4); MONOCYTES 14.3 % (2-11); NEUTROPHILS 63.3 % (40-80); RBC 2.94 10x6/uL (4.00-5.40); RDW 15.5 % (11.5-14.5); WBC 6.7 10x3/uL (4.8-10.8)
[2016-04-13 05:30] LABS: PLATELET COUNT 262 10x3/uL (130-400)
[2016-04-13 05:46] LABS: CALC OSMOLALITY 272 mosm/kg (275-300); CALCIUM 8.5 mg/dL (8.5-10.1); CARBON DIOXIDE 27.2 mmol/L (21.0-32.0); CHLORIDE - SERUM 103 mmol/L (98-107); CREATININE - SERUM 0.7 mg/dL (0.6-1.3); GLUCOSE 119 mg/dL (74-106); POTASSIUM - SERUM 3.6 mmol/L (3.5-5.1); SODIUM 137 mmol/L (136-145); eGFR NON AFRICAN AMERICAN > 90 mL/min (90-120)
[2016-04-13 05:48] LABS: UREA NITROGEN 6 mg/dL (7-18)
--- NOTE | 2016-04-13 07:21 | NUR ---
RESPIRATORY IN ROOM WITH PT AT THIS TIME. REMAINS IN CONTACT ISOLATION. TRACH COLLAR IN PLACE. BED ALARM ON WITH SRX2 AND IN LOWEST POSITION WITH WHEELS LOCKED. DENIES NEEDS AT PRESENT TIME. CALL LIGHT IN REACH, WILL CONTINUE WITH PLAN OF CARE.
[2016-04-13 08:14] VITALS: BP 127/66
--- NOTE | 2016-04-13 08:30 | NUR ---
REFUSING TO GET UP TO CHAIR FOR BREAKFAST. EXPLAINED IMPORTANCE OF GETTING OUT OF THE BED, BUT PT CONTINUES TO REFUSE AT THIS TIME.
--- NOTE | 2016-04-13 08:36 | NUR ---
SCHEDULED MEDICATIONS ADMINISTERED AT THIS TIME. ASSESSMENT PERFORMED PER FLOWSHEET AND LOVENOX HELD IN PREPARATION FOR THORACENTESIS TOMORROW. DENIES NEEDS AT PRESENT TIME. EATING BREAKFAST. CALL LIGHT IN REACH AND BED ALARM ON. CALL LIGHT IN REACH, WILL CONTINUE WITH PLAN OF CARE.
--- NOTE | 2016-04-13 11:15 | NUR ---
ASSISTED PT UP TO THE CHAIR AT THIS TIME. BEDSIDE TABLE, CALL LIGHT AND PERSONAL BELONGINGS REMAINS WITHIN PT'S REACH. DENIES FURTHER NEEDS AT THIS TIME. CALL LIGHT IN REACH, WILL CONTINUE WITH PLAN OF CARE.
[2016-04-13 12:31] VITALS: BP 122/64
--- NOTE | 2016-04-13 14:00 | NUR ---
ASSISTED PT BACK TO BED. REMAINS IN ISOLATION. CALL LIGHT IN REACH, WILL CONTINUE WITH PLAN OF CARE.
[2016-04-13 15:33] VITALS: BP 116/60
--- NOTE | 2016-04-13 19:20 | NUR ---
RECIEVED SHIFT REPORT. PT IS LYING IN BED. ALERT AND ORIENTED AND ABLE TO VERBALIZE NEEDS. IV IS PATENT AND SALINE LOC. SCD'S ON. PT IS AMBULATORY WITH ASSISTANCE. ISOLATION PRECAUTIONS IN PLACE. WOUND VAC TO LEFT ABDOMEN WITH SITE C/D/I. BILIARY DRAIN TO RIGHT ABDOMEN WITH SITE C/D/I. PT DENIES ANY PAIN AT THIS TIME. TRACH AND COLLAR ON AT 12L. NO NEEDS ARE VERBALIZED AT THIS TIME. WILL CONTINUE TO MONITOR. SIDE RAILS ARE UP X 2. BED IS IN LOWEST POSITION. BED ALARM IS ON FOR SAFETY. CALL LIGHT IS WITHIN REACH.
--- NOTE | 2016-04-13 20:54 | NUR ---
SHIFT ASSESSMENT COMPLETED. NIGHT MEDS GIVEN WITH NO PROBLEMS. PT REFUSED SCHEDULED MIRALAX STATING SHE IS HAVING 4-5 BOWEL MOVEMENTS PER DAY. NO NEEDS ARE VOICED. WILL MONITOR. SIDE RAILS X 2. BED LOW. BED ALARM ON. CALL LIGHT IN REACH.
[2016-04-13 21:00] VITALS: BP 125/67
[2016-04-14 01:00] VITALS: BP 136/72
--- NOTE | 2016-04-14 07:15 | NUR ---
REPORT RECEIVED FROM GYM MANAGER NURSE. CALL LIGHT IN REACH.
--- NOTE | 2016-04-14 08:00 | NUR ---
ASSESSMENT COMPLETED. PLACED ON AND OFF BEDPAN. SCDs TO BLE. BLOOD DRAWN FROM RIGHT UA PICC LINE. PORTS FLUSHED WITH 10 CC NS. CONSENT FOR THORACENTESIS SIGNED AND WITNESSED. TO RADIOLOGY VIA BED. BLOOD TAKEN TO LAB. WILL CONTINUE WITH PLAN OF CARE.
--- NOTE | 2016-04-14 08:10 | NUR ---
PATIENT ALERT IN BED USING CELL PHONE. NO SIGNS OF DISTRESS NOTED. SIDE RAILS UP X2. BED IN LOW POSITION. CALL LIGHT IN REACH.
[2016-04-14 08:24] LABS: APTT 32.2 SECONDS (22.8-39.4); INR 1.28 (0.85-1.17); PROTIME 15.9 SECONDS (11.6-15.0)
[2016-04-14 08:40] VITALS: BP 141/60
--- NOTE | 2016-04-14 09:44 | NUR ---
Faxed weekend u/d'd information with therapy notes faxed to Lillian with [facility] insurance this AM. Ruba Garcia RN CL
--- NOTE | 2016-04-14 10:05 | NUR ---
AM MEDS ADMINISTERED. CALL LIGHT IN REACH.
--- NOTE | 2016-04-14 10:34 | NUR ---
04/14/2016 10:31 DCP: Discharge Planning [facility] Waiting determination.
--- NOTE | 2016-04-14 12:02 | NUR ---
ON AND OFF BEDPAN AGAIN. SON AT BEDSIDE. CALL LIGHT IN REACH.
--- NOTE | 2016-04-14 14:50 | NUR ---
PICC LINE FLUSHED WITH NS. DR. SANDOVAL IN ROOM.
[2016-04-14 15:41] LABS: PROTEIN - BODY FLUID 3.7 G/DL
--- NOTE | 2016-04-14 16:08 | NUR ---
Recieved a call from Lillian with [facility] [phone] ext [phone]. Lillian is the contact with [facility], who is working on the request for authorization for inpatient rehab for this patient. I faxed U/D'd clinicals for this patient this morning. Lillian stated she was confused because she had also recieved a request from [facility] for this patient. She stated she had two open request for rehab and could not go forward until she knew where the patient wanted to go for rehab. I spoke to Rosi Jules who said she had made a referral to [facility] also, but the patient just wanted to go to a rehab vs a SNF. I called Lillina back with this information and recieved a V/M. I left a V/M with this information. No CB at this time. Ruba Garcia RN Clinical Liaison, Rehab
[2016-04-14 16:09] VITALS: BP 107/38
--- NOTE | 2016-04-14 16:35 | NUR ---
WOUND VAC DRESSING CHANGE WOUND TYPE: SURGICAL WOUND LOCATION: ABDOMEN WOUND AGE IN MONTHS: DEBRIDEMENT ATTEMPTED IN LAST 10 DAYS? DATE/TYPE: SERIAL DEBRIDEMENTS REQUIRED? MEASUREMENT DATE: 04/14/16 1CM X 3CM X 1.1CM (IMPROVED) FULL THICKNESS?YES MUSCLE, TENDON OR BONE EXPOSED? NO UNDERMINING? NO TUNNELING/SINUS? NO APPEARANCE OF WOUND BED : 75% RED 23% YELLOW EXUDATE (AMOUNT, COLOR, ODOR): SMALL SEROSANGUINOUS NO ODOR FOAM TYPE: BLACK # OF PIECES USED:2 PIECES PT TOLERATED WELL.
--- NOTE | 2016-04-14 16:37 | NUR ---
SPOKE WITH DR. THOMPSON. STATED THAT PATIENT'S STENT WAS NO LONGER IN PLACE. DID NOT COME OUT IN BM TODAY BUT WILL TRY TO FIND OUT WHEN IT CAME OUT.
[2016-04-14 16:38] VITALS: BP 107/38
--- NOTE | 2016-04-14 16:38 | NUR ---
Recieved a call from Lillian at [facility]. This patient is authorized to admit to the IRF on 04/15/16 with U/D due on 04/18/16 to Lillian [phone] ext [phone] or . Auth # [id number]. The ANNALISA Hall RN has been made aware and will inform the patient. Ruba Garcia RN Clinical Liaison, Rehab
--- NOTE | 2016-04-14 18:38 | NUR ---
NO CHANGES IN INITIAL ASSESSMENT. SCDs TO BLE. CALL LIGHT IN REACH. WILL CONTINUE WITH PLAN OF CARE.
[2016-04-14 18:42] LABS: LYMPH - BF 52 %; MACROPHAGES BF 15 %; MESOTHELIALS BF 22 %; NEUT - BF 11 %
--- NOTE | 2016-04-14 20:00 | NUR ---
ASSESSMENT PER FLOWSHEET. IV PATENT RT UPPER ARM PICC LINE NS AT K[facility] FOR ANTIBIOTICS. WOUND VAC IN PLACE TO ABDOMEN. BILI DRAIN PATENT. PT IN CONTACT ISOLATION. TRACH IN PLACE WITH TRACH COLLAR ON. SCD'S ON. SR UP X2 CALL LIGHT WITHIN REACH. MEPAPLEX DRESSING TO BUTTOCK C/D/I.
[2016-04-14 21:00] VITALS: BP 107/48
--- NOTE | 2016-04-14 21:30 | NUR ---
MEDS GIVEN PER APR. PLACED ON BEDPAN VOIDS WELL.
--- NOTE | 2016-04-15 | NUR ---
EYES CLOSED RESPIRATIONS WITH EASE AND UNLABORED.
[2016-04-15 01:00] VITALS: BP 114/56
--- NOTE | 2016-04-15 04:00 | NUR ---
REPOSITIONED IN BED SR UP X2.CALL LIGHT WITHIN REACH.
--- NOTE | 2016-04-15 06:00 | NUR ---
MEDS GIVEN PER MAR.
--- NOTE | 2016-04-15 07:15 | NUR ---
AWAKE ALERT COLOR ADQ SKIN WARM AND DRY RESP EVEN AND UNLABORED AT PRESENT ABD INCISION AT PRESENT DENIES ANY NEEDS AT PRESENT.
[2016-04-15 07:49] LABS: BASOPHILS 0.1 % (0.0-2.0); HEMATOCRIT 27.3 % (36.0-48.0); HEMOGLOBIN 8.7 g/dL (12-16); IMMATURE GRANULOCYTES 0.3 % (0-5); LYMPHOCYTES 14.4 % (15-50); MCH 29.6 pg (26.0-34.0); MCHC 31.9 g/dL (31.0-37.0); MCV 92.9 fL (80.0-100.0); MONOCYTES 10.7 % (2-11); NEUTROPHILS 72.5 % (40-80); PLATELET COUNT 240 10x3/uL (130-400); RBC 2.94 10x6/uL (4.00-5.40); RDW 15.3 % (11.5-14.5); WBC 7.6 10x3/uL (4.8-10.8)
[2016-04-15 08:10] LABS: CALC OSMOLALITY 271 mosm/kg (275-300); CALCIUM 8.3 mg/dL (8.5-10.1); CARBON DIOXIDE 26.5 mmol/L (21.0-32.0); CHLORIDE - SERUM 100 mmol/L (98-107); CREATININE - SERUM 0.7 mg/dL (0.6-1.3); GLUCOSE 126 mg/dL (74-106); POTASSIUM - SERUM 3.8 mmol/L (3.5-5.1); SODIUM 136 mmol/L (136-145); UREA NITROGEN 7 mg/dL (7-18); eGFR NON AFRICAN AMERICAN > 90 mL/min (90-120)
[2016-04-15 08:13] VITALS: BP 132/57
--- NOTE | 2016-04-15 09:00 | NUR ---
MEDS GIVEN JS WELL AT PRESENT.
--- NOTE | 2016-04-15 09:27 | NUR ---
CM REASSESSMENT NOTE: PATIENT IS DISCHARGING TO IP REHAB TODAY. PATIENT STATED HER SPOUSE IS ON HIS WAY TO HOSPITAL AND SHE WILL LET HIM KNOW.
[2016-04-15 12:23] VITALS: BP 129/48
--- NOTE | 2016-04-15 12:42 | NUR ---
SITTING UP IN CHAIR FOR LUNCH JS WELL AT PRESENT.
--- NOTE | 2016-04-15 14:00 | NUR ---
REMAINS UP IN CHAIR FOR A WHILE AT PRESENT DENIES ANY OTHER NEEDS AT THIS TIME.
--- NOTE | 2016-04-15 14:16 | NUR ---
OT NOTE: PT OBSERVED IN BED; PERFORMED AROM EXS WITH B UES; ATTEMPTED BED MOB WITH JUST ROLLING SIDE TO SIDE WITH MOD ASSIST
[2016-04-15 15:28] VITALS: BP 132/57
--- NOTE | 2016-04-15 16:00 | NUR ---
SUCTIONED AT INTERVALS THICK BLOODY MUCOUS OBTAINED.
[2016-04-15] MEDS ORDERED: ALBUTEROL2.5 MG/3 M UPD ×2 (16:30)
[2016-04-15] MEDS ORDERED: ACETAMINOPHEN325 MG PO (16:31)
[2016-04-15] MEDS ORDERED: ELIQUIS2.5 MG PO (16:31)
[2016-04-15] MEDS ORDERED: PULMICORT0.5 MG/21 UPD (16:32)
[2016-04-15] MEDS ORDERED: MULTI-DAY VITAM1 TAB PO (16:33)
--- NOTE | 2016-04-15 17:24 | NUR ---
WAITING TO GO TO REHAB AT PRESENT.
--- NOTE | 2016-04-15 18:54 | NUR ---
REPORT CALLED TO VIOLETTA FRANCISCO ON REHAB AT PRESENT.
[2016-04-15 19:11] LABS: AFB SPECIMEN PROCESSING Not Indicated (())
--- NOTE | 2016-04-15 19:12 | NUR ---
OT NOTE: PT COMPLETED BUE AROM FOR INCREASED AX TOLERANCE. PT COMPLETED SIMPLE GROOMING TASK WITH SET UP. THANK YOU, TIERRA BROWNE/Leroy
--- NOTE | 2016-04-15 20:26 | NUR ---
PT SENT TO REHAB VIA WHEELCHAIR AT THIS TIME.
[2016-04-16] MEDS ORDERED: SALINE FLUSH10 ML IV (04:08)
[2016-04-16 11:19] LABS: FUNGUS STAIN Final report (())
[2016-05-04 08:14] LABS: FUNGUS CULTURE RESULT 1 Candida albicans (()); FUNGUS MYCOLOGY CULTURE Final report (())
--- NOTE | 2016-05-06 08:07 | DS ---
PATIENT:SARAH GARY :56 MEDICAL RECORD: [id number] DISCHARGE SUMMARY ADMISSION DATE: 04/02/16 DISCHARGE DATE: 04/15/16 DATE OF ADMISSION: 04/02/2016 DATE OF DISCHARGE: 04/15/2016 DISCHARGE PHYSICIAN: Brice Beasley MD HOSPITAL COURSE: This is a 56-year-old female who was admitted to the hospital for an elective colostomy takedown laparoscopically. The patient was taken to the operating room. The patient had a laparoscopic-assisted colostomy takedown and reversal as well as laparoscopic and open lysis of adhesions. Postoperatively, the patient was unable to be extubated and she was transferred to the ICU. The patient developed acute postoperative respiratory failure, hospital-acquired pneumonia, vent-dependent respiratory failure, which ultimately required percutaneous tracheostomy. The patient was treated with IV antibiotics. The patient was started on enteral nutrition postoperatively around day 4-5. The patient also had an incisional hernia repair with mesh at the time of the operation. Postoperatively, she developed an air collection lateral to the anastomosis. IR placed a drain for a suspected fistula. After the drain was placed, a flexible sigmoidoscopy was performed as well as placement of a colorectal and partially covered stent. This had to be revised and changed. At this time, the patient continued to tolerate tube feeds after the tracheostomy. She was seen and evaluated by speech therapy. Her diet was advanced as tolerated. Once the patient had been transferred to the floor and was stable and tolerating her regular diet, she was transferred to the acute rehabilitation center for further ongoing treatment of her postoperative state. At that time, the patient was discharged to rehab, she was tolerating 100% of trach collar. She was tolerating Passy-[place] valve and eating without difficulty. The IR placed drain had remained in place. DISCHARGE CONDITION: Stable. DISCHARGE MEDICATIONS: Please see electronic medical record for full list of discharge medications. DIET: As tolerated, no restrictions. FOLLOWUP: Dr. Brice Beasley in 2 weeks. WOUND CARE: The patient may shower, soap and water to the wound daily. IR drain to be flushed with 10 cc of saline 1-2 times daily. Continue wound VAC therapy at the previous left lower quadrant ostomy site. TRANSINT:[id number] Voice Confirmation ID: [id number] DOCUMENT ID: [id number] DISCHARGE SUMMARY REPORT [id number] COOKIEBRICE WOLFF MD at 0807 CC: [id number] DICTATION DATE: 05/05/16 1108 CERTIFIED BENCH JEWELER TECHNICIAN: 05/06/16 0124 DIS IN 04/15/[address] [id number] [id number]
[2016-05-12 07:09] LABS: FUNGUS MYCOLOGY CULTURE Final report (())
[2016-06-01 14:09] LABS: ACID FAST CULTURE Negative (()); ACID FAST SMEAR Negative (())
[2016-06-06 09:15] LABS: ACID FAST CULTURE Negative (()); ACID FAST SMEAR Negative (())
== END 2016-04-15 20:27 | DRG 344 ==
LOC: D.ICU 15:42 → D.MS 15:57
PROVIDERS: General Practice; Internal Medicine Pulmonary Disease; ADMIT Surgery
PROC: 5A1945Z Respiratory Ventilation, 24-96 Consecutive Hours (ICD-10-PCS; principal; 2016-04-02)
PROC: 0D9670Z Drainage of Stomach with Drainage Device, Via Natural or Artificial Opening (ICD-10-PCS; 2016-04-02)
PROC: 0DW Gastrointestinal System, Revision (ICD-10-PCS; 2016-04-02)
PROC: 0D7N8DZ Dilation of Sigmoid Colon with Intraluminal Device, Via Natural or Artificial Opening Endoscopic (ICD-10-PCS; 2016-04-04)
PROC: 0BBJ8ZX Excision of Left Lower Lung Lobe, Via Natural or Artificial Opening Endoscopic, Diagnostic (ICD-10-PCS; 2016-04-07)
PROC: 0D7N8DZ Dilation of Sigmoid Colon with Intraluminal Device, Via Natural or Artificial Opening Endoscopic (ICD-10-PCS; 2016-04-07)
PROC: 0T2BX0Z Change Drainage Device in Bladder, External Approach (ICD-10-PCS; 2016-04-07)
PROC: 0BB68ZX Excision of Right Lower Lobe Bronchus, Via Natural or Artificial Opening Endoscopic, Diagnostic (ICD-10-PCS; 2016-04-09)
PROC: 0W993ZZ Drainage of Right Pleural Cavity, Percutaneous Approach (ICD-10-PCS; 2016-04-14)
DX: K63.2 Fistula of intestine (principal); K63.1 Perforation of intestine (nontraumatic); J15.5 Pneumonia due to Escherichia coli; J15.1 Pneumonia due to Pseudomonas; J15.212 Pneumonia due to Methicillin resistant Staphylococcus aureus; J96.10 Chronic respiratory failure, unspecified whether with hypoxia or hypercapnia; Z99.11 Dependence on respirator [ventilator] status; E87.0 Hyperosmolality and hypernatremia; T83.518A Infection and inflammatory reaction due to other urinary catheter, initial encounter; B37.49 Other urogenital candidiasis; I50.22 Chronic systolic (congestive) heart failure; T17.590A Other foreign object in bronchus causing asphyxiation, initial encounter; J98.11 Atelectasis; J90 Pleural effusion, not elsewhere classified; Z93.0 Tracheostomy status; I27.2 Other secondary pulmonary hypertension; J44.9 Chronic obstructive pulmonary disease, unspecified; K21.9 Gastro-esophageal reflux disease without esophagitis; F17.200 Nicotine dependence, unspecified, uncomplicated; K63.89 Other specified diseases of intestine; Y95 Nosocomial condition

== ENCOUNTER 2016-04-15 20:30 | Inpatient (IN) | payer OTHER ==
[~2016-04-15] VITALS: Ht 167.6 cm; Wt 67.0 kg
--- NOTE | ~2016-04-15 | HEMODYNAMI ---
PATIENT:SARAH GARY MEDICAL RECORD: [id number] : 56 LOCATION:[place] [address] ADMISSION DATE: 04/15/16 Generatedon:04/23/20169:32 Patient name: SARAH GARY Patient #: [id number] SSN: : 1960 Date of study: 04/23/2016 Page: Of Hemodynamic Procedure Report Patient Data Patient Demographics Procedure consent was obtained First Name: SARAH Gender: Female Last Name: COOKIE : 1960 [facility] Initial: L Age: 56 year(s) Patient #: [id number] Race: Unknown Additional ID: [id number] Contact details [address]: [address] [place] [address] State: [place] City: [facility] Zip code: [address] Admission Admission Data Admission Date: 04/15/2016 Admission Time: 20:30 Room #: [facility] Procedure Procedure Types Cath Procedure Peripheral Cath Diagnostic Procedure Miscellaneous Procedure Description Procedure Date Procedure Date: 04/23/2016 Procedure Start Time: 8:23 Procedure Staff Name Function Rudy Youssef MD Performing Physician Carissa James RT Scrub Claribel Mcgowan RN Nurse Yaya Castro RT Monitor Procedure Data Cath Procedure Fluoroscopy Diagnostic fluoroscopy Total fluoroscopy Time: 0.5 time: 0.5 min min Diagnostic fluoroscopy Total fluoroscopy dose: dose: 96.15 mGy 96.15 mGy Contrast Material Contrast Material Type Amount (ml) Isovue 300 30 Procedure Medications Medication Administration Route Dosage Oxygen 10 l/min Heparin Flush Bag added to field 1 bags (1000units/500ml NS) Lidocaine 1% added to field 20 Hemodynamics Rest Heart Rate: 116 (bpm) Snapshots Pre Cath Intra NCS Post Cath Vital Signs Time Heart Resp SPO2 NIBP Rhythm Pain Sedation Rate (ipm) (%) (mmHg) Status Level (bpm) 8:58:37 116 13 113/62(85) NSR 0 (11) 10(A) , No pain 9:02:49 114 16 95 122/64(91) NSR 0 (11) 10(A) , No pain 9:06:59 117 19 96 113/64(84) NSR 0 (11) 10(A) , No pain 9:11:09 116 25 95 120/68(90) NSR 0 (11) 10(A) , No pain 9:15:15 117 20 97 95/80(90) NSR 0 (11) 10(A) , No pain 9:19:18 116 23 96 112/63(92) NSR 0 (11) 10(A) , No pain 9:23:28 120 27 96 125/66(88) NSR 0 (11) 10(A) , No pain 9:27:38 124 25 95 116/64(80) NSR 0 (11) 10(A) , No pain Medications Time Medication Route Dose Verified Delivered Reason Notes Effec tiveness by by 8:55:39 Oxygen via 10 Claribel Claribel continued trach l/min King BIANCA Mcgowan RN collar 8:56:31 Heparin Flush added 1 Claribel Claribel used for Bag to bags King BIANCA Mcgowan RN procedure (1000units/500ml field NS) 8:56:50 Lidocaine 1% added 20ml Claribel Claribel for local to vial King BIANCA Mcgowan RN anesthetic field Procedure Log Time Note 8:38:20 Yaya Castro RT (R) (CV) sent for patient. Start room use. 8:38:23 Time tracking: Regular hours 8:38:35 Plan of Care:Hemodynamics will remain stable., Cardiac rhythm will remain stable., Comfort level will be maintained., Respiratory function will remain adequate., Patient/ family verbilizes understanding of procedure., Procedure tolerated without complication., Recovers from procedure without complications.. 8:38:52 Patient received from Other to IR Alert and oriented. Tansferred to table in Supine position. 8:38:54 Correct patient and procedure confirmed by team. 8:38:56 Signed procedure consent form obtained from patient. 8:38:57 ECG and BP/O2 sat monitors applied to patient. 8:38:58 8:39:01 ECG and BP/O2 sat monitors applied to patient. 8:39:06 H&P Date Dictated: 04/23/2016 Within 30 days and on chart.. 8:39:08 Pre-procedure instructions explained to patient. 8:39:08 Pre-op teaching completed and patient verbalized understanding. 8:39:10 Family unavailable. 8:39:11 Patient NPO since Midnight. 8:39:16 Is the patient allergic to Iodine/contrast media? No. 8:39:18 Is patient on blood thinner?No 8:39:20 8:39:20 ----Pre-sedation anethsthesia assessment.---- 8:39:23 Previous problem with sedation/anesthesia? No ? 8:39:24 Snore? Yes 8:39:26 Sleep apnea? No 8:39:27 Deviated septum? No 8:39:28 Opens mouth fully? Yes 8:39:29 Sticks out tongue? Yes 8:39:32 Airway obstruction? No ? 8:39:33 Dentures? No ? 8:39:43 Patient pain scale 0/10 no pain. 8:39:55 IV patent on arrival in right antecubital with 0.9% NaCl at KVO. 8:39:56 Sharps counted by scrub and verified by R.N. 8:39:57 Alarms reviewed by R. N. 8:40:03 Right abdomen area was prepped with chlora-prep and draped in sterile fashion 8:40:06 Use device set IR Diagnostic 8:40:08 Bag Decanter opened to sterile field. 8:40:09 Sterile Angiographic Pack opened to sterile field. 8:55:39 Oxygen 10 l/min via trach collar was administered by Claribel Mcgowan RN; continued ; 8:56:31 Heparin Flush Bag (1000units/500ml NS) 1 bags added to field was administered by Claribel Mgcowan RN; used for procedure; 8:56:50 Lidocaine 1% 20ml vial added to field was administered by Claribel Mcgowan RN; for local anesthetic; 8:57:28 Vital chart was started 8:57:29 Baseline sample Acquired. 8:57:33 Rhythm: sinus tachycardia 9:06:41 Physician arrived 9:06:51 --------ALL STOP TIME OUT------ 9:06:53 Final Timeout: patient, procedure, and site verified with staff and physician. All members of the team are in agreement. 9:07:00 Physical assessment completed. ASA score P 2 - A patient with mild systemic disease as per Rudy Youssef MD. 9:07:06 Right abdomen site verified by team. 9:07:24 Sedation plan: Local Anesthetic Lidocaine 9:15:01 Dr Youssef injected contrast into existing drain. Dr Youssef spoke with Dr Beasley. Dr Beasley advised to leave in the existing drain at this time. 9:29:45 Procedure ended.(Physican Out) 9:29:53 Fluoroscopy time 00.50 minutes. 9:29:58 Flurop Dose total: 96.15 9:29:58 Fluoroscopy dose: 96.15 mGy 9:30:06 Contrast amount:Isovue 300 30ml. 9:30:08 Sharps counted by scrub and verified by R.N. 9:30:15 Procedure and supply charges have been captured, reviewed, submitted and are correct. 9:30:22 Vital chart was stopped 9:30:24 See physician's report for complete and final results. 9:30:36 Report given to Other. 9:30:43 Patient transfered to Other with Bed. 9:31:29 End room use (Document Last) Device Usage Item Name Manufacture Quantity Catalog Hospital Part Current Minimal Lot# / Number Charge Number Stock Stock Serial# Code Bag Decanter Microtek 1 [id number] [employer] Sterile Cardinal 1 [id number] Angiographic Health Pack Signature Audit [place] Stage Time Signature Unsigned Intra-Procedure 04/23/2016 Carissa James 9:32:22 AM RT(R) Signatures Monitor : Yaya Signature : Darshanield RT Date : Time : [place] [id number] [place] [address]
[~2016-04-15 20:30] MED LIST changes: +ACETAMINOPHEN325 MG PO; +ALBUTEROL2.5 MG/3 M UPD; +ATIVAN2 MG/ML IM; +AYR SALINE50 ML NS; +ELIQUIS2.5 MG PO; +GUAIFENESI100 MG/5 M PO; +IPRAT-ALBUT 0.5-3 ML UPD; +LACTINEX C1 TAB.CHEW PO; +LASIX INJ40 MG/4 ML IV; +MAXIPIME1 GM IV; +MIRALAX17 GM PO; +MUCOMYST 20200 MG/M2 INH; +MULTI-DAY VITAM1 TAB PO; +PEPCID INJ20 MG/2 ML IV; +PERFOROMIS20 MCG/21 INH; +PERIDEX480 ML MM; +PULMICORT0.5 MG/21 INH; +PULMICORT0.5 MG/21 UPD; +ZYPREXA5 MG PO
--- NOTE | 2016-04-15 20:30 | NUR ---
RECEIVED PATIENT TO UNIT VIA W/C ACCOMPANIED BY FAMIILY MEMBER AND MED 2 STAFF. PATIENT ASSIGNED TO ROOM 1109 ON CONTACT ISOLATION FOR VRE IN URINE. O2 PER TRACH COLLAR. WOUND VAC TO ABDOMEN. SPEAKS WITH USE OF PASSEY ELIZA VALVE OVER TRACH. HS MEDS WERE PREVIOUSLY GIVEN IN MED 2.
[2016-04-15 21:48] VITALS: BP 127/50; BMI 23.8
--- NOTE | 2016-04-15 22:00 | NUR ---
PATIENT IN BED. NO C/O AT THIS TIME.
--- NOTE | 2016-04-15 23:30 | NUR ---
TRISTIAN MENDEZ R/Erik IS HER TO PERFORM TRACH CARE AND SUCTIONING PER PATIENT REQUEST.
--- NOTE | 2016-04-16 00:45 | NUR ---
ADMISSION ASSESSMENT AND HISTORY COMPLETE. WILL HOLD ADMISSION DOCUMENTS FOR TO SIGN LATER IN THE MORNING.
--- NOTE | 2016-04-16 02:05 | NUR ---
RESTING QUIETLY IN BED, EYES CLOSED.
[2016-04-16] MEDS ORDERED: SALINE FLUSH10 ML IV (04:08)
--- NOTE | 2016-04-16 04:45 | NUR ---
RESTING QUIETLY IN BED, EYES CLOSED. NO DISTRESS EVIDENT.
--- NOTE | 2016-04-16 05:35 | NUR ---
RESTING IN BED, HOB UP 45 DEGREES. NO DISTRESS NOTED.
--- NOTE | 2016-04-16 07:30 | NUR ---
SITTING IN BED WITH CALLIGHT IN REACH.
[2016-04-16 07:31] LABS: BASOPHILS 0.3 % (0.0-2.0); EOSINOPHILS 3.5 % (0-7); HEMATOCRIT 28.1 % (36.0-48.0); HEMOGLOBIN 8.9 g/dL (12-16); IMMATURE GRANULOCYTES 0.3 % (0-5); MCH 29.4 pg (26.0-34.0); MCHC 31.7 g/dL (31.0-37.0); MCV 92.7 fL (80.0-100.0); MEAN PLATELET VOLUME 10.2 fL (7.4-10.4); MONOCYTES 10.8 % (2-11); NEUTROPHILS 66.1 % (40-80); PLATELET COUNT 271 10x3/uL (130-400); RBC 3.03 10x6/uL (4.00-5.40); RDW 15.4 % (11.5-14.5); WBC 7.5 10x3/uL (4.8-10.8)
[2016-04-16 07:34] LABS: CALC OSMOLALITY 266 mosm/kg (275-300); CALCIUM 8.4 mg/dL (8.5-10.1); CARBON DIOXIDE 26.6 mmol/L (21.0-32.0); CHLORIDE - SERUM 99 mmol/L (98-107); CREATININE - SERUM 0.6 mg/dL (0.6-1.3); GLUCOSE 111 mg/dL (74-106); SODIUM 134 mmol/L (136-145); UREA NITROGEN 6 mg/dL (7-18); eGFR NON AFRICAN AMERICAN > 90 mL/min (90-120)
[2016-04-16 09:30] VITALS: BP 139/59
--- NOTE | 2016-04-16 11:35 | NUR ---
SITTING IN WHEELCHAIR WORKING WITH THERAPY.
[2016-04-16 12:57] VITALS: Ht 167.6 cm; Wt 67.0 kg
--- NOTE | 2016-04-16 13:10 | NUR ---
SITTING IN BED SLEEPING WITHOUT ANY DISTRESS NOTED.
--- NOTE | 2016-04-16 14:44 | NUR ---
CARE TEAM MEETING: PATIENT NEW TO UNIT AND WILL BE RA AT NEXT MEETING. CLINICAL UPDATES ARE DUE ON 04/19/15 . WILL CONTINUE TO FOLLOW WITH PATIENT UNTIL DISCHARGED
--- NOTE | 2016-04-16 14:44 | NUR ---
RT PICC LINE DRSG CHANGED DONE.
--- NOTE | 2016-04-16 16:32 | NUR ---
WOUND VAC DRESSING CHANGE WOUND TYPE: SURGICAL WOUND LOCATION: ABDOMEN WOUND AGE IN MONTHS: DEBRIDEMENT ATTEMPTED IN LAST 10 DAYS? DATE/TYPE: SERIAL DEBRIDEMENTS REQUIRED? MEASUREMENT DATE: 04/16/16 0.8CM X 2.7CM X 0.8CM (IMPROVED) FULL THICKNESS? YES MUSCLE, TENDON OR BONE EXPOSED? NO UNDERMINING? NO TUNNELING/SINUS?NO APPEARANCE OF WOUND BED : RED EXUDATE (AMOUNT, COLOR, ODOR): SMALL SANGUINOUS NO ODOR FOAM TYPE:BLACK # OF PIECES USED:1-WOUND BED 1-TRAC PAD = 2 TOTAL PIECES EDUCATION:HEALING PROCESS
--- NOTE | 2016-04-16 17:20 | NUR ---
SITTING UP IN BED WITH IN THE ROOM.
[2016-04-16 19:00] VITALS: BP 128/72
--- NOTE | 2016-04-16 19:40 | NUR ---
USING STERILE 14FR SUCTION CATHETER AND STERILE PROCEDURE, SUCTIONED INNER TRACH CANNULA TO REMOVE SOME SOFT BLOODY MUCUS WHICH WAS PARTIALLY OBSTRUCTING IT. PATIENT SAYS IT'S BETTER NOW. JUST LEFT FOR HOME.
--- NOTE | 2016-04-16 20:40 | NUR ---
RESTING QUIETLY IN BED.
--- NOTE | 2016-04-16 22:50 | NUR ---
MAXIPIME IV STARTED TO RUN OVER 30 MINUTES PER PUMP VIA RIGHT ARM PICC RED PORT. BLUE PORT REMAINS VERY SLUGGISH TO FLUSH. FLUSHED BILIARY DRAIN WITH 10ML NS. ASSESSMENT COMPLETE. GAVE PATIENT SCHEDULED HS MEDS PO WHICH SHE TOOK WITHOUT DIFFICULTY.
--- NOTE | 2016-04-17 00:25 | NUR ---
RESTING QUIETLY IN BED, EYES CLOSED. APPEARS COMFORTABLE.
--- NOTE | 2016-04-17 01:50 | NUR ---
RESTING QUIETLY, EYES CLOSED.
--- NOTE | 2016-04-17 04:35 | NUR ---
PATIENT AWAKE. PERFORMED TRACH CARE AND SUCTIONED TRACH, REMOVING SOFT MOBILE BLOODY MUCUS. CHANGED PATIENT'S GOWN DUE TO PRIOR SOILING FROM DINNER. ASSISTED HER TO USE BEDPAN. VOIDED APPROX 700ML YELLOW URINE. ALSO CLEANSED PATIENT AND CHANGED HER PINK PAD DUE TO SMALL AMOUNT OR URINE PRIOR TO VOIDING ON BEDPAN. APPLIED BUTT PASTE TO ROUGHENED SHEARED AREAS OF BUTTOCKS AND THEN REPOSITIONED PATIENT HIGHER UP IN BED.
--- NOTE | 2016-04-17 06:35 | NUR ---
RESTING QUIETLY IN BED. IV MAXIPIME EARLIER COMPLETED AND PICC PORTS WERE FLUSHED.
[2016-04-17 08:00] VITALS: BP 132/69
--- NOTE | 2016-04-17 09:30 | NUR ---
TOOK MEDS WITH EASE. ANXIOUS ABOUT TRACH AND SUCTION. CHANGED SUCTION CANISTER AND CHECKED SUCTION TUBING.
--- NOTE | 2016-04-17 10:06 | RHP ---
PATIENT: SARAH GARY MEDICAL RECORD: [id number] ACCOUNT: [id number] LOCATION:[facility]9 : 56 ADMISSION DATE: 04/15/16 REHABILITATION HISTORY AND PHYSICAL EXAMINATION POST ADMISSION PHYSICIAN EXAMINATION Post-Admission Physical Examination and History and Physical DATE OF ADMISSION TO REHAB: 04/15/2016. ADMITTING DIAGNOSIS: Critical illness myopathy, tracheostomy and dysphagia. 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 She is a 56-year-old female patient. She was first admitted on March 05 for an elective Chris's reversal, suffered a CO2 embolism during the operation, requiring CPR. She also had incisional hernia repair at the time. Her postoperative course, she developed postoperative respiratory failure, requiring long-term intubation and subsequently tracheostomy. The patient had a loculated collection of air adjacent to the colorectal anastomosis and IR drain was placed as well as fully covered colonic stent. The patient was on tube feedings for approximately 10-12 days prior to discharge and tolerated well. She was transferred to [facility] on March 27 for vent weaning. At the LT, she continued her vent weaning. She developed a feeding tube intolerance over there and abdominal distention. NG tube was placed to suction and some coffee-ground emesis apparently came up. A CT scan was performed, which showed an ileus and gaseous distention of the cecum. The patient went for repeat abdominal CT scans. She became hypotensive. She was at their request, requested be transferred from the LTAC back to [facility] on April 02. She was transferred to the ICU on April 06 and weaned off the vent with an FIO2 of 40% via trach collar and was transferred out to the medical floor. She has had complications during her hospital stay including perforation of her intestines, status post drain placement by IR on April 03 and stent placement by surgery. History of chronic respiratory failure requiring tracheostomy. Colonized with pseudomonas, underwent bronchoscopy on April 09. Protected brush culture was negative. The pseudomonas grew from her trach cultures now more resistant than it was. She had a right lower lobe infiltrate and pleural effusion, thoracentesis done on April 14 with drain placed. She had Candiduria and bacterial light growth. Culture of the Hedrick which has now been DC's. Contact isolation because VRE indicates colonization. Recent history of peritonitis and abdominal abscesses, chronic congestive heart failure with systolic dysfunction, COPD, mild pulmonary hypertension. She was working and very independent with her ADLs and mobility prior to all this. She has been bedbound for an extended hospital stay and limited mobility and therapy causing proximal muscle weakness. She is currently at mod to max assist for ADLs and mobility. She wants to return home and get back to her prior level of functioning or as close as possible. She will definitely benefit from inpatient rehab to do the above. COMORBIDITIES: Include chronic hypoxic hypercapnic respiratory failure, hospital-acquired pneumonia with Escherichia coli and Klebsiella, Enterobacter aerogenes and MRSA and sputum cultures, ileus, COPD, chronic systolic congestive heart failure, pleural effusions, status post stent for colorectal fistula, status post cardiopulmonary arrest, status post exploratory lap with colostomy and takedown of incisional hernia repair. She definitely has nutritional problems, iron deficiency anemia, hypokalemia, hypotension, perforation of her HISTORY AND PHYSICAL [id number] GARY,SARAH L intestine, right lower lobe infiltrate, recent history of peritonitis and abdominal abscesses, history of tracheostomy, chronic abuse of alcohol and chronic nicotine dependence. PAST MEDICAL HISTORY: Significant for COPD, chronic drug use, electrolyte abnormalities, debility, congestive heart failure, pulmonary hypertension, hospital-acquired pneumonia and also ileus. She has also got a history of emphysema and diverticulitis. PAST SURGICAL HISTORY: Includes laparotomy, Chris's procedure, colostomy reversed, incisional hernia repair and surgery as above. ALLERGIES: HYDROCODONE AND ZOSYN. CURRENT MEDICATIONS: Include a sodium chloride, nasal spray, polyethylene glycol 17 grams in 8 ounce of water daily, Zyprexa 5 mg b.i.d., lorazepam 1 mg q.4 hours p.r.n., lactobacillus daily, multivitamin 1 tab daily, Robitussin liquid 15 cc q.i.d. p.r.n., Lasix 40 mg IV daily, Pepcid 20 mg IV daily, Peridex mouthwash daily, Maxipime 500 mg IV q.8 hours, Pulmicort 0.5 mg b.i.d., Eliquis 2.5 mg b.i.d., Ventolin updrafts 2.5 q.2 hours p.r.n. and q.4 hours scheduled, Tylenol 650 mg q.6 hours p.r.n., and MiraLax 17 grams in 8 ounces of water daily. HABITS: Has had a history of alcohol and tobacco use and also illicit drugs. FAMILY HISTORY: Noncontributory. SOCIAL HISTORY: The patient hopes to return back home and get back to her prior level of functioning. REVIEW OF SYSTEMS: GENERAL: She denies weakness or fatigue. HEENT: She denies cold, cough, or congestion. CARDIOVASCULAR: She denies chest pain. PHYSICAL EXAMINATION: VITAL SIGNS: Stable, afebrile. GENERAL: A well-developed female in no acute distress, alert upon exam. HEENT: Does have a tracheostomy in place. TMs appear normal. NECK: Supple. LUNGS: Clear at this time. HEART: Regular rate and rhythm. ABDOMEN: Benign, although she does have multiple areas of healing to her abdomen. EXTREMITIES: No clubbing, cyanosis or edema. NEUROLOGIC: Intact. LABORATORY DATA: Her white count was 7.5, H&H of 8.9 and 28.1, and platelet count 271. Her sodium is 134, potassium 4.0, BUN and creatinine of 6 and 0.6 and blood sugar is noted to be 111. ASSESSMENT: This is a 56-year-old female patient admitted to rehab with a working diagnosis of critical illness myopathy, status post multiple surgical procedures. The patient has potential to make improvement. We instituted the following multidisciplinary therapies including to, but not limited to physical, HISTORY AND PHYSICAL [id number] SARAH GARY occupational, respiratory, speech, nutritional services, prosthetics and orthotics. Given her complex condition and risk for more complications, rehabilitation services cannot be provided at a lower level of care such as a [facility] facility. PLAN: 1. Admit to [facility] rehab for intensive inpatient therapy to include the following disciplines: A. Physical therapy to improve gait, all transfer skills and bed mobility to a modified independent level. B. Occupational therapy to improve activities of daily living to a modified independent level.. C. Case management to assist with discharge planning and placement options. D. Nutrition to assist with nutritional needs. E. Rehabilitation nursing to assist in monitoring the patient's underlying medical conditions and to assist with any type of bowel or bladder management. 2. The patient's current medication and medical care will be continued. 3. The patient will be placed on standard fall precautions. 4. The patient's estimated length of stay is approximately 10-14 days. 5. We will go ahead and discuss this patient during care team staff meeting this week. 6. We will go ahead and monitor blood counts and electrolytes closely and treat her as needed. TRANSINT:[id number] Voice Confirmation ID: [id number] DOCUMENT ID: [id number] IDANIA SINGH MD at 1006 CC: [id number] DICTATION DATE: 04/16/16821 SPECIALIST PHYSICIAN: 04/16/16 [address] [place] [address]
--- NOTE | 2016-04-17 11:22 | NUR ---
SITTING ON SIDE OF THE BED IN ROOM.
--- NOTE | 2016-04-17 13:29 | NUR ---
SLEEPING IN BED.
--- NOTE | 2016-04-17 14:54 | NUR ---
SLEEPING IN BED.
--- NOTE | 2016-04-17 17:30 | NUR ---
SUCTIONED PT AND TRACH CARE DONE.
[2016-04-17 19:00] VITALS: BP 155/71
--- NOTE | 2016-04-17 21:30 | NUR ---
PT TOOK HS MEDS WITHOUT DIFFICULTY. PT BILI DRAIN SITE IS CDI AND DRAINING. PT WOUND VAC SITE IS CDI, NO DRAINAGE NOTED. PT HAS A TRACH AND TRACH CARE COMPLETED AT END OF DAY SHIFT. RIGHT UPPER ARM PICC FLUSHED. PT DENIES NEEDS AT THIS TIME. BED LOW. CL IN REACH.
--- NOTE | 2016-04-17 23:30 | NUR ---
PT RESTING, EYES CLOSED. BED LOW. CL IN REACH. WCTM.
--- NOTE | 2016-04-18 01:15 | NUR ---
PT RESTING, EYES CLOSED. BED LOW. CL IN [facility]. WCTM.
--- NOTE | 2016-04-18 03:48 | NUR ---
PT RESTING, EYES CLOSED. RR ARE EVEN AND UNLABORED. NO SIGNS OF DISTRESS NOTED. WCTM. BED LOW. CL IN REACH.
--- NOTE | 2016-04-18 06:49 | NUR ---
TRACH CARE PERFORMED. PT AM IV MEDS STARTED. PT DENIES NEEDS. BED LOW. CL IN REACH.
--- NOTE | 2016-04-18 07:00 | NUR ---
Pt. was received at the beginning of this shift. Stable condition observed. Vital signs: Temp. 97.9, pulse 120, resp. 17, b/p 116/56, 02 sat. 96%. 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 Alert and oriented x 3. Rt. upper arm PICC patent. Trach present. Will continue to monitor and assist. Call light in reach.
[2016-04-18 08:19] LABS: BASOPHILS 0.3 % (0.0-2.0); EOSINOPHILS 5.3 % (0-7); HEMATOCRIT 29.4 % (36.0-48.0); HEMOGLOBIN 9.4 g/dL (12-16); IMMATURE GRANULOCYTES 0.4 % (0-5); LYMPHOCYTES 19.1 % (15-50); MCH 29.5 pg (26.0-34.0); MCV 92.2 fL (80.0-100.0); MEAN PLATELET VOLUME 9.5 fL (7.4-10.4); MONOCYTES 9.8 % (2-11); NEUTROPHILS 65.1 % (40-80); PLATELET COUNT 251 10x3/uL (130-400); RBC 3.19 10x6/uL (4.00-5.40); RDW 15.3 % (11.5-14.5); WBC 7.5 10x3/uL (4.8-10.8)
[2016-04-18 08:46] LABS: CALC OSMOLALITY 267 mosm/kg (275-300); CALCIUM 8.8 mg/dL (8.5-10.1); CARBON DIOXIDE 30.1 mmol/L (21.0-32.0); CHLORIDE - SERUM 98 mmol/L (98-107); CREATININE - SERUM 0.6 mg/dL (0.6-1.3); GLUCOSE 110 mg/dL (74-106); POTASSIUM - SERUM 3.8 mmol/L (3.5-5.1); SODIUM 134 mmol/L (136-145); UREA NITROGEN 9 mg/dL (7-18); eGFR NON AFRICAN AMERICAN > 90 mL/min (90-120)
[2016-04-18 09:00] VITALS: BP 116/56
--- NOTE | 2016-04-18 11:01 | NUR ---
WOUND CARE: DISCONTINUED WOUND VAC THERAPY AT THIS TIME. NO EXUDATE, NO ODOR. WOUND BED IS RED AND BEEFY. CLEANSED AND LOOSELY PACKED WITH 1/4" IODOFORM PACKING AND COVERED WITH BORDERED GAUZE. RECOMMEND DAILY DRESSING CHANGES. WOUND CARE WILL CONTINUE TO MONITOR.
--- NOTE | 2016-04-18 12:00 | NUR ---
Pt. has had an uneventful shift today. She went to therapy and worked real hard. Continuing to observe.
--- NOTE | 2016-04-18 15:20 | NUR ---
CLINICAL FAXED TO [facility] . FAX # , AUTH # [id number] WITH CONFORMATION RECIEVED
[2016-04-18 19:00] VITALS: BP 149/76
--- NOTE | 2016-04-18 19:15 | NUR ---
PT TRACH CARE COMPLETED. PT DENIES FURTHER NEEDS. WCTM. BED LOW. CL IN REACH.
--- NOTE | 2016-04-18 21:15 | NUR ---
PT TOOK HS MEDS WITHOUT DIFFICULTY. PT DENIES NEEDS AT THIS TIME. BED LOW. CL IN REACH.
--- NOTE | 2016-04-18 23:26 | NUR ---
PT RESTING, EYES CLOSED. BED LOW. CLIN REACH.
--- NOTE | 2016-04-19 01:45 | NUR ---
PT ASSISTED TO BEDSIDE COMMODE. PT BACK IN BED AND DENIES FURTHER NEEDS. WCTM. BED LOW. CL INR EACH.
--- NOTE | 2016-04-19 03:46 | NUR ---
PT RESTING, EYES CLOSED. BED LOW. CL IN [facility].
--- NOTE | 2016-04-19 05:56 | NUR ---
PT DRESSING CHANGED TO LT ABD. SCANT AMT DRAINAGE NOTED. PT DENIES NEEDS AT THIS TIME. BED LOW. CL IN REACH.
[2016-04-19 07:00] VITALS: BP 88/70
--- NOTE | 2016-04-19 07:00 | NUR ---
Pt. is received at the beginning of this shift in bed awake and oriented x 3. Pt. is anxious with her trach. Reasurance is given to her that she is stable. Vital signs: Temp. 99.2, pulse 116, resp. 20, b/p 88/70, 02Sat. 95%. Pt. remains on contact isolation precautions due to VRE in urine. She has a bedside commode for use. Rt. upper arm PICC line patent. No signs of discomfort or distress. Call light within reach.
--- NOTE | 2016-04-19 17:09 | NUR ---
Pt. received an Ativan 1mg IM midday due to anxiety over her trach. Pt. is constantly worried that her trach needs to be either suctioned or canula pulled out and cleaned. The respiratory therapist just cleaned it and advised to not keep doing this that this will irritate it and make it bleed. NaCl lavage given to thin the secretions and instructed pt to cough the secretions out and she did. This was instructed to pt all day long with great success. The secretions have gotten clearer and clearer.
--- NOTE | 2016-04-19 19:50 | NUR ---
PT STATES SHE CAN'T BREATHE, DOES STATE SHE HAS BEEN EATING THREE MEALS A DAY, PT DEMONSTRATES ANXIETY, ENCOURAGED TO TAKE DEEP BREATHES, MOISTURIZED TRACH CANNULA, PT ABLE TO EXPEL MIN AMOUNT OF SPUTUM. RESPIRATORY THERAPY ON UNIT, WILL BE IN ROOM SOON. ENCOURAGED PT TO TAKE SLOW BREATHS.
[2016-04-19 19:52] VITALS: BP 105/69
--- NOTE | 2016-04-20 03:06 | NUR ---
UP TO BSC, MED BM. PT REQUESTS SOMETHING TO HELP HER RELAX.
[2016-04-20 07:00] VITALS: BP 132/51
--- NOTE | 2016-04-20 07:00 | NUR ---
Pt. was received at the beginning of this shift resting in bed with eyes closed. Breathing is easy and unlabored. Call light is in her reach. Suction canula is at her side as well. Vital signs: Temp. 99.2, pulse 117, resp. 18, b/p 132/51, 02sat. 95%. Will be monitoring her closely and assisting prn with her adl's and/or trach concerns. Rt upper arm PICC line secure and patent. No signs of any discomfort or distress.
--- NOTE | 2016-04-20 13:18 | NUR ---
Pt. has had anxiety this morning due to her trach concerns. Reassurance is given along with trach care provided. Her anxiety though has not been so high as to warrent prn medication to be given to alleviate it. She has been up to bs to urinate and have a moderate bowel movement in it. Fresh scrubs and covers have been provided. No distress or discomfort to report.
--- NOTE | 2016-04-20 18:55 | NUR ---
DELIVERED PATIENT'S MENU TO HER. GOWNED AND GLOVED AND VISITING AT BEDSIDE. PATIENT SHOWED ME IVÁN HER BILI DRAIN LINE DRESSING IS LOOSE. TOLD HER I WILL CHANGE IT ATER NURSING REPORT WHICH I HAVE NOT RECEIVED YET.
--- NOTE | 2016-04-20 19:50 | NUR ---
CHANGED DRAIN DRESSING TO RIGHT LATERAL MID ABDOMEN. REMOVED OLD CLAMP TYPE DRESSING. CLEANSED SITE WITH CHLORHEXIDINE AND ALLOWED IT TO DRY. APPLIED CHLORHEXIDINE DISC AND COVERED WITH TEGADERM DRESSING. PRIOR DRESSING WAS ROLLED UP AND UNSERVICEABLE.
[2016-04-20 22:35] VITALS: BP 145/74
--- NOTE | 2016-04-20 22:35 | NUR ---
ASSESSMENT AND HS MEDS COMPLETE. GAVE HER TYLENOL 650 MG PO FOR PAIN LEVEL OF 5-6/10 IN RLQ ABDOMEN. ASSISTED HER UP TO BSC TO URINATE, AND THEN BACK INTO BED. STARTED MAXIPIME 500MG IV PER PUMP TO RUN OVER 30 MINUTES VIA PURPLE PICC PORT.
--- NOTE | 2016-04-21 00:10 | NUR ---
IN BED, EYES CLOSED. NO DISTRESS NOTED.
--- NOTE | 2016-04-21 02:45 | NUR ---
RESTING IN BED, EYES CLOSED.
--- NOTE | 2016-04-21 04:45 | NUR ---
RESTING QUIETLY IN BED, APPEARS COMFORTABLE.
--- NOTE | 2016-04-21 05:40 | NUR ---
RESTING QUIETLY IN BED, AFTER LAB DRAW.
[2016-04-21 06:18] LABS: BASOPHILS 0.1 % (0.0-2.0); EOSINOPHILS 6.9 % (0-7); HEMATOCRIT 27.3 % (36.0-48.0); HEMOGLOBIN 8.7 g/dL (12-16); IMMATURE GRANULOCYTES 0.8 % (0-5); LYMPHOCYTES 17.3 % (15-50); MCH 29.8 pg (26.0-34.0); MCHC 31.9 g/dL (31.0-37.0); MCV 93.5 fL (80.0-100.0); MEAN PLATELET VOLUME 10.4 fL (7.4-10.4); MONOCYTES 9.6 % (2-11); NEUTROPHILS 65.3 % (40-80); RBC 2.92 10x6/uL (4.00-5.40); RDW 15.2 % (11.5-14.5); WBC 7.9 10x3/uL (4.8-10.8)
[2016-04-21 06:20] LABS: PLATELET COUNT 171 10x3/uL (130-400)
[2016-04-21 06:24] LABS: CALC OSMOLALITY 270 mosm/kg (275-300); CARBON DIOXIDE 29.6 mmol/L (21.0-32.0); CHLORIDE - SERUM 100 mmol/L (98-107); CREATININE - SERUM 0.6 mg/dL (0.6-1.3); GLUCOSE 107 mg/dL (74-106); POTASSIUM - SERUM 3.7 mmol/L (3.5-5.1); SODIUM 136 mmol/L (136-145); UREA NITROGEN 9 mg/dL (7-18); eGFR NON AFRICAN AMERICAN > 90 mL/min (90-120)
--- NOTE | 2016-04-21 07:55 | NUR ---
PT RESTING IN BED WITH EYES OPEN CALL LIGHT IN REACH WILL MONITER
[2016-04-21 08:55] VITALS: BP 130/67
--- NOTE | 2016-04-21 12:40 | NUR ---
PT RESTING IN BED WITH EYES OPEN EATING LUNCH TOLERATING WELL WILL MONITER
--- NOTE | 2016-04-21 16:40 | NUR ---
PT IN BED WITH HOB UP FOR COMFORT, EYES CLOSED, CHEST RISING AND FALLING, BED IN LOWEST POSITION AND CALL LIGHT WITHIN REACH.
--- NOTE | 2016-04-21 18:55 | NUR ---
PT HAD A BM. VERY LOOSE STOOL.
--- NOTE | 2016-04-21 19:10 | NUR ---
INSTILLED 3ML NS INTO TRACH TO ENCOURAGE PATIENT TO COUGH UP SECRETIONS. SUCTIONED RESULTING SECRETIONS FROM OPENING OF TRACH INNER CANNULA WITH [employer] SUCTION CATHETER. PATIENT STATES SHE CAN BREATHE EASIER NOW.
[2016-04-21 19:37] VITALS: BP 123/61
--- NOTE | 2016-04-21 20:50 | NUR ---
IN BED AWAKE. NO C/O AT THIS TIME.
--- NOTE | 2016-04-21 21:45 | NUR ---
ASSESSMENT AND HS MEDS COMPLETE. GAVE PATIENT TYLENOL 650MG PO FOR PAIN LEVEL OF 5/10 IN RLQ ABDOMEN. TEMP EARLIER WAS 101.0 ORALLY. HOPEFULLY TYLENOL WITH HELP WITH THIS ALSO.
--- NOTE | 2016-04-22 | NUR ---
RESTING QUIETLHY IN BED AFTER RECENT R/T TREATMENT. NO DISTRESS NOTED.
--- NOTE | 2016-04-22 02:40 | NUR ---
RESTING QUIETLY IN BED, EYES CLOSED.
--- NOTE | 2016-04-22 04:30 | NUR ---
INSTILLED NS PER TRACH AND SUCTIONED RESULTING SECRETIONS COUGHED UP WITH TACHO AT EXTERNAL OPENING OF INNER TRACH CANNULA. NON BLEEDING NOTED TODAY. ASSISTED PATIENT UP TO BSC WHERE SHE URINATED APPROX 700ML CLEAR MEDIUM YELLOW URINE.
--- NOTE | 2016-04-22 05:00 | NUR ---
FLUSHED PICC PORTS. RED PORT SO SLUGGISH TO FLUSH TO BE UNUSABLE. PURPLE PORT IS PATENT TO FLUSH AND BLOOD RETURN. STARTED IV MAXIPIME 500MG TO RUN PER PUMP OVER 30 MINUTES PER PURPLE PICC PORT. FLUSHED BILI DRAIN WITH 10ML IN AND CAPPED STERILE SAMPLING PORT WITH SWAB CAP. EMPTIED 50ML TURBID REZA SECRETIONS AND DE-GASSED THE DRAINAGE BAG. GAVE PATIENT TYLENOL 650MG PO FOR PAIN LEVEL OF 5/10 IN RLQ ABDOMEN. PATIENT DENIES FURTHER NEEDS. SAYS SHE DOES NOT NEED TO CHNAGE CLOTHING FOR THERAPY TODAY SHE DID SO AFTER BATHING YESTERDAY. REAPPLIED BUTT PASTE TO SHEAR ABRASIONS OF BUTTOCKS.
--- NOTE | 2016-04-22 05:40 | NUR ---
RESTING QUIETLY AFTER RECENT PORTABLE CXR BY MED IMAGING PERSONNEL.
[2016-04-22 09:03] VITALS: BP 137/76
[2016-04-22 10:52] LABS: INR 1.21 (0.85-1.17); PROTIME 15.2 SECONDS (11.6-15.0)
--- NOTE | 2016-04-22 10:53 | NUR ---
Nutrition Follow Up: Pt was asleep at the time of RD visit. Chart reviewed. Noted wound vac has been d/c. Pt is eating 61% meal avg on a regular mechanical soft diet with thin liquids. Pt is receiving Dea BID. +BM 04/22/16. No new wt to assess. I>O. Labs noted. Meds noted including Lasix. Pt with fair po intake at this time. Will d/c Dae. Rec continue current diet. RD following.
--- NOTE | 2016-04-22 12:15 | NUR ---
PT RESTING IN BED WITH EYES OPEN CALL LIGHT IN REACH WILL MONITER
--- NOTE | 2016-04-22 13:44 | NUR ---
SITTING UP IN BED,RESTING QUIETLY.
--- NOTE | 2016-04-22 19:10 | NUR ---
IN BED, AWAKE. TEMP CURRENTLY 100.5 ORALLY DEGREES ON RECHECK AFTER EARLIER TEMP OF 101.3 TOLD PATIENT I WILL GIVE HER TYLENOL SHORTLY. PATIENT ASKED FOR WARM MOIST PACK FOR CHEST DISCOMFORT. VISITING AT BEDSIDE.
[2016-04-22 19:15] VITALS: BP 142/72
--- NOTE | 2016-04-22 20:20 | NUR ---
ASSESSMENT AND HS MEDS COMPLETE. WILL RETURN TO GIVE IV MEDS AND FLUSH BILI DRAIN AT SCHEDULED TIME (2199). GAVE PATIENT TYELNOL ES 1000MG FORM ELEVATED ORAL TEMP OF 100.5 DEGREES.
--- NOTE | 2016-04-22 22:10 | NUR ---
IV MAXIPIME COMPLETE. FLUSHED PURPLE PICC PORT AND APPLIED FRESH SWAB CAP.
--- NOTE | 2016-04-23 00:10 | NUR ---
CONTINUES IN BED, HOB UP 45 DEGREES. RESTING QUIETLY.
--- NOTE | 2016-04-23 02:25 | NUR ---
IN BED, EYES CLOSED. HOB UP 45 DEGREES. CONTINUES WITH TRACH COLLAR W/ O2 @ 2L FLOW.
--- NOTE | 2016-04-23 03:50 | NUR ---
ASSISTED PATIENT UP TO BSC TO URINATE, AND THEN BACK TO BED. GAVE HER ULTRAM 100MG PO FOR PAIN LEVEL OF 6/10 IN RLQ ABDOMEN. PATIENT HAS BEEN NPO [place] FOR PROCEDURE IN INTERVENTIONAL RADIOLOGY TODAY. REINFORCED DRAIN DRESSING WITH TEGADERM THE EDGE OF THE ORIGINAL DRESSING WAS ROLLING UP. REPLACED SWAB CAP ON DRAIN STOPCOCK THE PREVIOUS ONE HAD COME OFF DURING THE NIGHT.
--- NOTE | 2016-04-23 05:45 | NUR ---
FLUSHED PICC PORTS AND STARTED MAXIPIME 500MG IV TO RUN PER PUMP OVER 30 MINUTES PER PURPLE PICC PORT. FLUSHED BILIARY DRAIN AND DE-GASSED THE COLLECTION BAG. OBTAINED 25ML TURBID REZA DRAINAGE. PATIENT DENIES NEEDS. CONTINUES NPO FOR PROCEDURE THIS AM.
[2016-04-23 06:20] LABS: BASOPHILS 0.1 % (0.0-2.0); EOSINOPHILS 6.3 % (0-7); HEMATOCRIT 29.8 % (36.0-48.0); HEMOGLOBIN 9.3 g/dL (12-16); IMMATURE GRANULOCYTES 0.3 % (0-5); LYMPHOCYTES 15.8 % (15-50); MCH 29.2 pg (26.0-34.0); MCHC 31.2 g/dL (31.0-37.0); MCV 93.7 fL (80.0-100.0); MEAN PLATELET VOLUME 9.9 fL (7.4-10.4); MONOCYTES 8.9 % (2-11); NEUTROPHILS 68.6 % (40-80); PLATELET COUNT 188 10x3/uL (130-400); RBC 3.18 10x6/uL (4.00-5.40); WBC 7.5 10x3/uL (4.8-10.8)
[2016-04-23 06:37] LABS: CALC OSMOLALITY 262 mosm/kg (275-300); CALCIUM 8.6 mg/dL (8.5-10.1); CARBON DIOXIDE 29.3 mmol/L (21.0-32.0); CHLORIDE - SERUM 98 mmol/L (98-107); CREATININE - SERUM 0.6 mg/dL (0.6-1.3); GLUCOSE 94 mg/dL (74-106); POTASSIUM - SERUM 3.8 mmol/L (3.5-5.1); SODIUM 132 mmol/L (136-145); UREA NITROGEN 8 mg/dL (7-18); eGFR NON AFRICAN AMERICAN > 90 mL/min (90-120)
[2016-04-23 07:55] VITALS: BP 117/55
--- NOTE | 2016-04-23 08:15 | NUR ---
PT RESTING IN BED NPO FOR IR PROCEDURE CALL LIGHT IN REACH NO PROBLEMS WILL MONITER
--- NOTE | 2016-04-23 09:00 | NUR ---
PT PICKED UP FROM IR FOR PROCEDURE
--- NOTE | 2016-04-23 10:40 | NUR ---
PT BACK FROM IR TOLERATED WELL CALL LIGHT IN REACH WILL MONITER
--- NOTE | 2016-04-23 11:04 | NUR ---
FOUND PATIENT WITH TRACH COLLAR ON AND NO OXYGEN. PATIENT HAD COME BACK FROM SPECIALS APPROXIMATELY 30 MINUTES AGO. TURNED OXYGEN ON. PT APPEARS TO BE FINE.
--- NOTE | 2016-04-23 12:23 | NUR ---
SUCTIONED PT WITH 14 TUNISIAN CATH STERILE TECHNIQUE TOLERATED WELL
--- NOTE | 2016-04-23 15:34 | NUR ---
CARE TEAM MEETING: PATIENT TENATIVE DISCHARGE DATE IS 04/29/16. SHE IS MANGED CARE AND CLINICALS WILL BE FAXED ON 04/25/16 PER REQUEST.WILL CONTNUE TO FOLLOW WITH PATIENT UNTIL DISCHARGED. PATIENT TOLERATING THERAPY WELL.
--- NOTE | 2016-04-23 16:00 | NUR ---
RESTING QUIETLY,WATCHING TV.
--- NOTE | 2016-04-23 18:31 | NUR ---
PT RESTING IN BED WITH EYES OPEN CALL LIGHT IN REACH WILL MONITER
--- NOTE | 2016-04-23 19:20 | NUR ---
IN BED, AWAKE. VISITING AT BEDSIDE. CONTINUES ON CONTACT ISOLATION FOR VRE IN URINE. DENIES CURRENT NEEDS.
--- NOTE | 2016-04-23 20:15 | NUR ---
ASSESSMENT AND HS MEDS COMPLETE. GAVE PATIENT TYLENOL 1000MG PO FOR PAIN LEVEL OF 4/10 IN RLQ ABDOMEN.
[2016-04-23 21:06] VITALS: BP 145/72
--- NOTE | 2016-04-23 21:35 | NUR ---
FLUSHEC BOTH PICC PORTS. STARTED IV MAXIPIME 500MG TO RUN PER PUMP OVER 30 MINUTES VIA PURPLE PICC PORT. PATIENT DENIES CURRENT NEEDS.
--- NOTE | 2016-04-23 22:15 | NUR ---
IV MAXIPIME COMPLETE. PURPLE PICC PORT FLUSHED AND SWAB CAP APPLIED. PATIENT HAS NO C/O AT THIS TIME.
--- NOTE | 2016-04-24 00:10 | NUR ---
IN BED, EYES CLOSED. RESTING QUIETLY.
--- NOTE | 2016-04-24 01:40 | NUR ---
GAVE PATIENT ULTRAM 100MG PO FOR PAIN LEVEL OF 5/10 IN RLQ ABDOMEN.
--- NOTE | 2016-04-24 04:15 | NUR ---
RESTING IN BED, EYES CLOSED. APPEARS COMFORTABLE.
--- NOTE | 2016-04-24 05:40 | NUR ---
FLUSHED PICC PORTS. STARTED SCHEDULED MAXIPIME 500MG TO RUN OVER 30 MINUTES PER PUMP VIA PURPLE PICC PORT. FLUSHED ABDOMINAL ABSCESS DRAIN WITH 10ML NS. EMPTIED 60ML LUDMILA OPAQUE REZA DRAINAGE.
--- NOTE | 2016-04-24 07:00 | NUR ---
Pt. was received at the beginning of this shift in bed awake and oriented x 3. Vital signs: Temp. 98.2, pulse 124, resp. 15, b/p 129/66, 02Sat. 92%. No complaints of anykind at this time. Will be monitoring her throughout this shift and assisting prn with adl's. Call light is in reach. Breathing is easy and unlabored.
[2016-04-24 08:18] VITALS: BP 129/66
--- NOTE | 2016-04-24 11:31 | NUR ---
Pt. asked for pain medication around 0800 and received an Ultram 100mg at that time. She asked that her trach be suctioned and the respiratory therapist did so. Pt. went to therapy and got out of her room via a wheelchair. Continuing to observe.
--- NOTE | 2016-04-24 17:08 | NUR ---
Pt. has been ambulating with the therapy dept. personnel this afternoon. No voiced complaints to staff. No signs of any discomfort or distress seen. Will continue to observe.
[2016-04-24 19:05] VITALS: BP 111/77
--- NOTE | 2016-04-24 19:40 | NUR ---
PT. SITTING UP IN BED ON FIRST STEP MATTRESS VISITING WITH SPOUSE. ASSESSMENT COMPLETED. NO VOICED NEEDS AT THIS TIME. AMRIK PHAN R.T. PRESENT AND IS PREPARING TO PROVIDE TRACH TX. CALL LIGHT WITHIN REACH. SPOUSE UNDERSTANDS CONTACT ISOLATION PRECAUTIONS AND FOLLOWS THEM.
--- NOTE | 2016-04-24 23:25 | NUR ---
PT. IN BED WITH EYES CLOSED AND RESP. DEEP AND EVEN WITH MOUTH WIDE OPEN. PT. ON FIRST STEP MATRESS AND HAS HER CALL LIGHT WITHIN REACH.
--- NOTE | 2016-04-25 01:21 | NUR ---
PT. IN BED WITH HOB UP FOR COMFORT WITH EYES CLOSED AND RESP. DEEP AND EVEN WITH MOUTH WIDE OPEN. PT. REMAINS ON FIRST MATTRESS AND HAS HER CALL LIGHT WITHIN REACH.
--- NOTE | 2016-04-25 04:05 | NUR ---
PT. IN BED WITH HOB UP FOR COMFORT WITH EYES CLOSED AND RESP. DEEP AND EVEN. PT. ON FIRST STEP MATTRESS. CALL LIGHT WITHIN REACH.
[2016-04-25 04:38] LABS: BASOPHILS 0.3 % (0.0-2.0); EOSINOPHILS 8.8 % (0-7); HEMATOCRIT 25.7 % (36.0-48.0); IMMATURE GRANULOCYTES 0.2 % (0-5); LYMPHOCYTES 22.8 % (15-50); MCH 28.9 pg (26.0-34.0); MCHC 31.1 g/dL (31.0-37.0); MCV 92.8 fL (80.0-100.0); MEAN PLATELET VOLUME 9.3 fL (7.4-10.4); MONOCYTES 11.5 % (2-11); NEUTROPHILS 56.4 % (40-80); PLATELET COUNT 196 10x3/uL (130-400); RBC 2.77 10x6/uL (4.00-5.40); WBC 6.2 10x3/uL (4.8-10.8)
[2016-04-25 04:53] LABS: CALC OSMOLALITY 269 mosm/kg (275-300); CALCIUM 8.9 mg/dL (8.5-10.1); CARBON DIOXIDE 35.1 mmol/L (21.0-32.0); CHLORIDE - SERUM 99 mmol/L (98-107); CREATININE - SERUM 0.6 mg/dL (0.6-1.3); GLUCOSE 105 mg/dL (74-106); POTASSIUM - SERUM 4.1 mmol/L (3.5-5.1); SODIUM 136 mmol/L (136-145); UREA NITROGEN 8 mg/dL (7-18); eGFR NON AFRICAN AMERICAN > 90 mL/min (90-120)
--- NOTE | 2016-04-25 07:00 | NUR ---
RECEIVED PT AT THE BEGINNING OF THIS SHIFT IN BED SITTING UP AT A 45% ANGLE AWAKE AND ORIENTED X 3. NO VERBAL COMPLAINTS OR CONCERNS. VITAL SIGNS; TEMP. 98.9, PULSE 106, RESP. 18, B/P 102/49, 02SAT. 96%. WILL BE MONITORING HER AND ASSISTING HER PRN WITH HER ADL'S. BSC RIGHT BESIDE THE BED. CALL LIGHT IS IN HER REACH. TRACH HAS MASK OVER IT DELIVERING HER 02 AT SET RATE.
[2016-04-25 08:37] VITALS: BP 102/49
[2016-04-25 14:30] LABS: APPEARANCE CLEAR (CLEAR); BILIRUBIN NEGATIVE (NEGATIVE); COLOR YELLOW (YELLOW); GLUCOSE NEGATIVE (NEGATIVE); KETONE NEGATIVE (NEGATIVE); LEUKOCYTE ESTERASE NEGATIVE (NEGATIVE); NITRITE NEGATIVE (NEGATIVE); PROTEIN NEGATIVE (NEGATIVE); UROBILINOGEN NORMAL (NORMAL)
--- NOTE | 2016-04-25 15:52 | NUR ---
CLINICALS FAXED TO [facility] AT [facility] WITH CONFORMATION RECIEVED. SPOKE WITH CRISTOBAL,CASE MANAGEMENT FOR [facility] REGARDING SPIKED TEMP AND PENDING RESULTS OF TEST. ASK IF PATIENT WAS TOLERATING 3 HOURS OF THERAPY. WILL CONTINUE TO FOLLOW WITH PATIENT
--- NOTE | 2016-04-25 15:54 | NUR ---
Pt. spiked a temp. of 103.0 orally around 1300. She was given Tylenol 1000mg. Dr. Worthy ordered chest x-ray and UA with C & S, Dr. Beasley ordered blood cultures x 2, Dr. Oviedo ordered sputum culture. Chest x-ray results indicate rt. lower lobe infiltrate. Dr. Worthy notified of chest x-ray results and new order received for Levaquin 500mg po q day x 5 days. First dose of Levaquin was administered this afternoon. Temp. was retaken at 1520 and is was down to 99.9 orally.
--- NOTE | 2016-04-25 16:22 | NUR ---
Pt's temp. was just checked and found to be 100.[address] Worthy notified and he ordered for the 2 units of PRBC's to be held and not given until pt is afebrile.
--- NOTE | 2016-04-25 18:21 | NUR ---
Pt's temp. taken and found to be 100.3 orally at this time. Tylenol 1000mg po will be given at this time. in room at her bedside watching tv with her. Pt. is in good spirits.
--- NOTE | 2016-04-25 19:15 | NUR ---
PT. IN BED WITH HOB UP FOR COMFORT AND IS VISITING WITH HER SPOUSE AND WATCHING TV. ASSESSMENT COMLETED. REQUESTING PAIN MEDICATION AT THIS TIME. CALL LIGHT WITHIN REACH.
[2016-04-25 20:06] VITALS: BP 110/62
--- NOTE | 2016-04-25 23:16 | NUR ---
PT. IN BED WITH HOB UP FOR COMFORT AND CONTINUES TO BE ON A FIRST STEP MATTRESS. SCD'S REMAIN ON BLE'S. EYES CLOSED AND RESP. DEEP AND EVEN WITH PT'S MOUTH WIDE OPEN. CALL LIGHT WITHIN REACH.
--- NOTE | 2016-04-26 02:02 | NUR ---
PT. IN BED WATCHING TV WHILE RESP. THERAPY, JANELLE WORKS ON SUCTIONING HER TRACH. PT. REQUESTING SPRITE AND IT WAS SUPPLIED. NO OTHER VOICED NEEDS AND PT. HAS HER CALL LIGHT WITHIN REACH.
[2016-04-26 07:00] VITALS: BP 103/55; BP 140/90
--- NOTE | 2016-04-26 07:32 | NUR ---
RECEIVED THIS AM RESTING QUIETLY IN BED.CL IN EASY REACH,BED IN LOW POSITION.NO SIGNS OF ACUTE DISTRESS.REMAINS IN CONTACT ISOLATION FOR VRE IN URINE.
[2016-04-26 10:29] LABS: BASOPHILS 0.1 % (0.0-2.0); EOSINOPHILS 3.7 % (0-7); HEMATOCRIT 25.4 % (36.0-48.0); IMMATURE GRANULOCYTES 0.7 % (0-5); MCH 29.2 pg (26.0-34.0); MCHC 31.5 g/dL (31.0-37.0); MCV 92.7 fL (80.0-100.0); MEAN PLATELET VOLUME 9.5 fL (7.4-10.4); MONOCYTES 11.5 % (2-11); PLATELET COUNT 227 10x3/uL (130-400); RBC 2.74 10x6/uL (4.00-5.40); RDW 15.1 % (11.5-14.5); WBC 7.5 10x3/uL (4.8-10.8)
[2016-04-26 10:37] LABS: CALC OSMOLALITY 266 mosm/kg (275-300); CALCIUM 8.7 mg/dL (8.5-10.1); CARBON DIOXIDE 31.7 mmol/L (21.0-32.0); CHLORIDE - SERUM 97 mmol/L (98-107); CREATININE - SERUM 0.6 mg/dL (0.6-1.3); GLUCOSE 149 mg/dL (74-106); POTASSIUM - SERUM 3.9 mmol/L (3.5-5.1); SODIUM 133 mmol/L (136-145); UREA NITROGEN 7 mg/dL (7-18); eGFR NON AFRICAN AMERICAN > 90 mL/min (90-120)
--- NOTE | 2016-04-26 19:50 | NUR ---
PT REQ AND REC'D PRN PAIN MEDICATION. PT TRACH CARE COMPLETED. PT DENIES NEEDS. WCTM. BED LOW. CL IN REACH.
[2016-04-26 20:00] VITALS: BP 122/62
--- NOTE | 2016-04-26 20:45 | NUR ---
PT REQ AND REC'D PRN ANXIETY MEDICATION WITH HS MEDS. PT DENEIS FURTHER NEEDS. WCTM. BED LOW. CL IN REACH.
--- NOTE | 2016-04-26 23:35 | NUR ---
PT RESTING, EYES CLOSED. BED LOW. CL IN REACH.
--- NOTE | 2016-04-27 02:05 | NUR ---
PT RESTING, EYES CLOSED. BED LOW. CL IN REACH.
--- NOTE | 2016-04-27 04:11 | NUR ---
PT RESTING, EYES CLOSED. RR ARE EVEN AND UNLABORED. WCTM. BED LOW. CL IN REACH.
[2016-04-27 07:00] VITALS: BP 102/58
--- NOTE | 2016-04-27 07:30 | NUR ---
RESTING QUIETLY IN BED. CALL LIGHT IN REACH
--- NOTE | 2016-04-27 08:01 | NUR ---
PATIENT ALERT/ROEITN X4. SITTING UP IN BED TO EAT BREAKFAST. CONTACT ISOLATION FOR VRE IN URINE PRECAUSIONS CONTINUE. TRACH COLLOR ON WITH OX AT 15L. CALL LIGHT WITHIN REACH. VOICES NO NEEDS
--- NOTE | 2016-04-27 10:20 | NUR ---
PATIENT TRACH CARE GIVEN AND PATIENT SUCTIONED
--- NOTE | 2016-04-27 12:05 | NUR ---
PRN ATIVAN GIVEN FOR ANXIEY, SOB
--- NOTE | 2016-04-27 12:30 | NUR ---
PATIENT STATES RELIEF FROM PRN ATIVAN
--- NOTE | 2016-04-27 13:53 | NUR ---
DR SAUCEDO INTO SEE PATIENT. NEW ORDERS RECEIVED FOR AN EKG AND TELEMTRY
--- NOTE | 2016-04-27 14:15 | NUR ---
TELEMTRY ATTACHED. EKG DONE.
--- NOTE | 2016-04-27 17:44 | NUR ---
THIS NURSE TALKED WITH INSIDE WIREMAN. PATIENT IN AF 131. PATIENT HAD GOTTEN UP TO USE BEDSIDE COMMODE. HELPED BACK TO BED. PATIENT REQUESTED THAT NURSE SUCTION TRACH. AFTER NURSE SUCTTIONED PATIENT SHE CALLED BACK TELEMTRY TX. HR DOWN TO 120
[2016-04-27 19:00] VITALS: BP 110/60
--- NOTE | 2016-04-27 19:35 | NUR ---
PT TRACH CARE COMPLETED. PT DENIES NEEDS. WCTM. BED LOW. CL IN REACH.
--- NOTE | 2016-04-27 21:00 | NUR ---
PT REQ AND REC'D PRN ANXIETY AND PAIN MEDICATION ALONG WITH HS MEDS. PT DENIES FURTHER NEEDS. WCTM. BED LOW. CL IN REACH.
--- NOTE | 2016-04-27 23:35 | NUR ---
PT RESTING, EYES CLOSED. BED LOW. CL IN REACH.
[2016-04-28] VITALS (15 sets, daily range): BP systolic 118–168; BP diastolic 58–85
--- NOTE | 2016-04-28 01:40 | NUR ---
PT RESTING, EYES CLOSED. BED LOW. CL IN REACH.
--- NOTE | 2016-04-28 03:45 | NUR ---
PT RESTING, EYES CLOSED. BED LOW. CL IN REACH.
--- NOTE | 2016-04-28 05:54 | NUR ---
PT RESTING, EYES CLOSED. BED LOW. CL IN [facility].
--- NOTE | 2016-04-28 07:30 | NUR ---
PT IS RESTING IN BED WITH EYES OPEN. ALERT AND ORIENTED X 3. REQUESTED TRACH TO BE SUCTIONED AT THIS TIME. SCAN AMOUNT OF CLEAR MUCOUS NOTED. PT ASSISTED UP ONTO BEDSIDE COMMODE. LARGE BM NOTED. DROPLETT PRECAUTIONS OBSERVED WITH PT. BILI DRAIN IS INTACT. NO DRAINAGE NOTED. DRESSING TO LEFT ABD IS CDI. MEPILEX TO RIGHT BUTTOCK IS CDI. TELEMETRY UNIT IS ON AND INTACT. RIGHT ARM PICC LINE NOTED. SR'S ARE UP X 2 IN BED. CALL LIGHT AND BEDSIDE TABLE ARE WITHIN EASY REACH.
[2016-04-28 08:03] LABS: BASOPHILS 0.5 % (0.0-2.0); HEMATOCRIT 27.3 % (36.0-48.0); HEMOGLOBIN 8.5 g/dL (12-16); IMMATURE GRANULOCYTES 1.9 % (0-5); LYMPHOCYTES 21.8 % (15-50); MCH 28.9 pg (26.0-34.0); MCHC 31.1 g/dL (31.0-37.0); MCV 92.9 fL (80.0-100.0); MEAN PLATELET VOLUME 9.3 fL (7.4-10.4); MONOCYTES 10.6 % (2-11); NEUTROPHILS 54.2 % (40-80); RBC 2.94 10x6/uL (4.00-5.40); RDW 15.3 % (11.5-14.5); WBC 6.2 10x3/uL (4.8-10.8)
[2016-04-28 08:05] LABS: PLATELET COUNT 275 10x3/uL (130-400)
[2016-04-28 08:14] LABS: CALC OSMOLALITY 273 mosm/kg (275-300); CALCIUM 8.7 mg/dL (8.5-10.1); CARBON DIOXIDE 32.2 mmol/L (21.0-32.0); CHLORIDE - SERUM 102 mmol/L (98-107); CREATININE - SERUM 0.6 mg/dL (0.6-1.3); GLUCOSE 106 mg/dL (74-106); POTASSIUM - SERUM 3.9 mmol/L (3.5-5.1); SODIUM 138 mmol/L (136-145); UREA NITROGEN 6 mg/dL (7-18); eGFR NON AFRICAN AMERICAN > 90 mL/min (90-120)
--- NOTE | 2016-04-28 11:00 | NUR ---
PT IS PARTICIPATING IN THERAPY AT THIS TIME.
--- NOTE | 2016-04-28 11:04 | NUR ---
NUTRITION MONITORING & EVAL CHART REVIEWED. REG DIET. PT NOW WITH 100% INTAKE RECENT MEALS. RD FOLLOWING
--- NOTE | 2016-04-28 12:45 | NUR ---
PT IS IN HER ROOM EATING LUNCH. NO SWALLOWING PROBLEMS NOTED.
--- NOTE | 2016-04-28 15:00 | NUR ---
PT ASSISTED INTO BED AFTER THERAPY FINISHED. NO NEEDS VOICED.
--- NOTE | 2016-04-28 16:00 | NUR ---
1ST UNIT OF PRBC'S STARTED AT THIS TIME. VSS. TEMP IS 99.1 PRIOR TO STARTING. MEDICATED WITH TYLENOL PRE INFUSION. NO ADVERSE REACTIONS NOTED.
--- NOTE | 2016-04-28 17:41 | NUR ---
BLOOD CONTINUES TO INFUSE. VSS. NO ADVERSE REACTIONS NOTED.
--- NOTE | 2016-04-28 18:12 | NUR ---
SITTING ON SIDE OF BED EATING SUPPER. IN ROOM WITH PT
--- NOTE | 2016-04-28 19:40 | NUR ---
STARTED IV MERREM 1GM TO RUN OVER 30 MINUTES PER PUMP VIA PICC PORT.
--- NOTE | 2016-04-28 20:50 | NUR ---
ASSESSMENT AND HS MEDS COMPLETE. STARTED IV VANCOMYCIN 1 GM TO RUN OVER 1 HOUR PER PUMP VIA PICC PORT. WILL START 2ND UNIT OF PRBC'S WHEN VANC IS COMPLETE PICC PORTS ARE SOMEWHAT SLUGGISH TO FLUSH. PATIENT DENIES CURRENT NEEDS.
--- NOTE | 2016-04-28 21:45 | NUR ---
IV VANC COMPLETE. FLUSHED PICC PORT. ASSISTED PATIENT UP TO BSC TO URINATE.
--- NOTE | 2016-04-28 22:35 | NUR ---
REPOSITIONED PATIENT UP IN BED. FLUSHED RED PICC PORT AGAIN. CHANGED SUCTION LINE AND CLEARED SLUGGISH YANKAUER SUCTION FOR PATIENT. USING STERILE 14FR SUCTION CATH, SUCTIONED PATIENT'S INNER TRACH CANNULA SHE WAS CLAIMING IS WAS PARTIALLY CLOGGED. INNER CANNULA CLEARED EASILY OF MODEST AMOUNT OF YELLOW/GREEN SECRETIONS. TOOK PRE-TRANSFUSION VS AND STARTED 2ND UNIT OF PRBC'S TO RUN @ 167ML/HR PER PUMP VIA RED PICC PORT. PATIENT INITIALLY ASKED FOR ATIVAN, BUT WHEN I REMINDED HER I WILL BE IN FREQUENTLY TAKING HER VS DURING HER TRANSFUSION, DECIDED TO WAIT UNTIL IT COMPLETES IN A FEW HOURS.
--- NOTE | 2016-04-28 23:15 | NUR ---
PATIENT DECIDED SHE WANTED TO TAKE HER ATIVAN NOW. GAVE HER ATIVAN 1MG PO FOR ANXIETY/RESTLESSNESS. BLOOD TRANSFUSING NORMALLY BEFORE DESCRIBED. SUCTIONED HER INNER TRACH CANNULA AFTER INSTILLING 3ML NS. GOT BACK VERY LITTLE ACTUAL SECRETIONS, MOSTLY NS. HOWEVER PATIENT STATES HER CANNULA IS CLEARER NOW. SAYS SHE WILL TRY TO CALM DOWN AND REST.
[2016-04-29] VITALS: BP 148/63
[2016-04-29 00:30] VITALS: BP 143/89
--- NOTE | 2016-04-29 00:30 | NUR ---
ASSISTED PATIENT UP TO BSC TO URINATE, AND BACK TO BED. PREPARED A WARM MOIST PACK SHE SAYS COUGHING IS MAKING HER CHEST SORE. RE-TAPED LOWER EDGE OF RIGHT ABD DRAIN DRESSING IT WAS COMING LOOSE. DRESSING IS C/D/I.
[2016-04-29 00:45] VITALS: BP 138/89
--- NOTE | 2016-04-29 00:45 | NUR ---
PATIENT CALLED ME BACK TO REPORT SHE IS HAVING DIFFICULTY BREATHING DUE TO CONGESTION IN TRACH THAT SHE IS UNABLE TO COUGH UP AND USE YANKAUER SUCTION TO REMOVE. USINGE 14 [place] STERILE SUCTION CATH, SUCTIONED OUT TRACH.
[2016-04-29 01:45] VITALS: BP 125/67
--- NOTE | 2016-04-29 01:50 | NUR ---
RESTING QUIETLY, EYES CLOSED.
--- NOTE | 2016-04-29 02:30 | NUR ---
ASSISTED PATIENT UP TO BSC WHERE SHE URINATE 400ML CLEAR LIGHT YELLOW URINE. TRACH AGAIN FEELS CONGESTED TO PATIENT. PERFORMED TRACH CARE WITH TRACH CARE KIT AND STERILE PROCEDURE. NOW BREATHING MORE COMFORTABLY.
--- NOTE | 2016-04-29 04:20 | NUR ---
STARTED IV MERREM TO RUN PER PUMP VIA RED PICC PORT OVER 30 MINUTES. WILL BE FOLLOWED BY VANCOMYCIN IV WHEN MERREM COMPLETES. PATIENT WAS JUST SUCTIONED AGAIN BY R/T, AFTER I EARLIER PERFORMED TRACH CARE. R/T REPORTS PATIENT DID REQUIRE SUCTION SHE BROUGHT UP A SIGNIFICANT MUCUS PLUD THAT LODGED IN LOWER END OF INNER TRACH CANNULA. HAS REQUIRED SUCTIONING MUCH MORE FREQUENTLY TONIGHT THAN ON PAST NIGHTS.
--- NOTE | 2016-04-29 04:50 | NUR ---
SUCTIONED PATIENT'S TRACH USING 14FR STERILE SUCTION CATH. PATIENT IS REQUIRING SUCTION ABOUT EVERY 30 MINUTES TONIGHT. EMPTIED 40ML OF CLOUDY CORAL COLORED DRAINAGE FROM RIGHT ABDOMEN GRAVITY DRAIN. COLOR HAS TURNED REDDER THE NIGHT HAS PROGRESSED. NOTED SEVERAL STRINGY CLOTS IN DRAINAGE. STARTED VANCOMYCIN 1GM IN 250 ML TO RUN OVER 1 HOUR PER PUMP VIA RED PICC PORT.
--- NOTE | 2016-04-29 05:55 | NUR ---
IV VANCOMYCIN COMPLETE. FLUSHED PICC PORT WITH 10ML NS. ABDOMINAL DRAIN FLUSHED WITH 10ML NS AND ALLOWED TO DRAIN BY GRAVITY TO BEDSIDE DRAINAGE BAG.
--- NOTE | 2016-04-29 07:00 | NUR ---
PT WAS RECEIVED AT THE BEGINNING OF THIS SHIFT. IN BED AWAKE AND ORIENTED X 3. STABLE CONDITION OBSERVED. VITAL SIGNS WNL. WILL BE MONITORING THROUGHOUT THIS SHIFT. CALL LIGHT IS IN REACH. NO SIGNS OF DISCOMFORT OR DISTRESS SEEN.
--- NOTE | 2016-04-29 09:28 | NUR ---
[place] [facility] [place]UE [place]16.
[2016-04-29 09:31] VITALS: BP 158/87
[2016-04-29 19:14] VITALS: BP 159/84
--- NOTE | 2016-04-29 19:30 | NUR ---
IN BED, RESTING QUIETLY. HOB UP 45 DEGREES.
--- NOTE | 2016-04-29 19:45 | NUR ---
Pt had an uneventful shift today. She continued to be stable. She had her trach suctioned and cleaned throughout this shift. Her antibiotics were given per IV via pump. Assist with adl's were given all through the shift. Her came and went several times today. No voiced complaints or concerns this shift.
--- NOTE | 2016-04-30 02:15 | NUR ---
REMAINS IN BED, EYES CLOSED. NO APPARENT DISTRESS. HAS BEEN RESTING MUCH BETTER TONIGHT THAN LAST NIGHT. ERQUESTS FOR SUCTIONING HAVE BEEN MINIMAL AND SO FAR HAVE BEEN HANDLED BY R/T ONLY.
--- NOTE | 2016-04-30 04:40 | NUR ---
DREEW BLOOD FOR LABS FROM RED PICC PORT. PURPLE PORT VERY SLUGGISH TO FLUSH. STARTED IV MERREM 1GM IN 100ML TO RUN OVER 30 MINUTES PER PUMP VIA RED PICC PORT (WHICH IS MODERATELY SLUGGISH TO FLUSH AND BLOOD DRAW MUST BE DONE VERY SLOWLY DUE TO RESISTANCE TO FLOW). MERREM WILL BE IMMEDIATELY FOLLOWED BY IV VANCOMYCIN 1GM IN 250ML NS TO RUN OVER AN HOUR. SUCTIONED PATIENT'S TRACH INNER CANNULA FOR THE FIRST TIME THIS SHIFT.
[2016-04-30 05:15] LABS: BASOPHILS 0.3 % (0.0-2.0); EOSINOPHILS 7.8 % (0-7); MCH 29.9 pg (26.0-34.0); MCHC 32.7 g/dL (31.0-37.0); MCV 91.6 fL (80.0-100.0); MONOCYTES 9.6 % (2-11); NEUTROPHILS 61.3 % (40-80); PLATELET COUNT 249 10x3/uL (130-400); RDW 15.3 % (11.5-14.5)
[2016-04-30 05:16] LABS: HEMATOCRIT 34.9 % (36.0-48.0); HEMOGLOBIN 11.4 g/dL (12-16); RBC 3.81 10x6/uL (4.00-5.40); WBC 7.9 10x3/uL (4.8-10.8)
[2016-04-30 05:27] LABS: CALC OSMOLALITY 274 mosm/kg (275-300); CARBON DIOXIDE 31.7 mmol/L (21.0-32.0); CHLORIDE - SERUM 100 mmol/L (98-107); CREATININE - SERUM 0.5 mg/dL (0.6-1.3); GLUCOSE 88 mg/dL (74-106); POTASSIUM - SERUM 3.8 mmol/L (3.5-5.1); SODIUM 139 mmol/L (136-145); UREA NITROGEN 6 mg/dL (7-18); eGFR NON AFRICAN AMERICAN > 90 mL/min (90-120)
--- NOTE | 2016-04-30 06:00 | NUR ---
MERREM ALREADY COMPLETED. IV VANC NOW RUNNING OVER 1.25 HRS DUE TO BAG OVERFILL AND PROGRAMMED PUMP LIMITS. SUCTIONED PATIENT'S INNER TRACH FOR THE 3RD TIME SINCE 0430. DENIES FURTHER NEEDS.
[2016-04-30 07:00] VITALS: BP 135/85
--- NOTE | 2016-04-30 08:20 | NUR ---
PT SITTING ON SIDE OF BED WITH EYES OPEN CALL LIGHT IN REACH NO PROBLEMS WILL MONITER
--- NOTE | 2016-04-30 14:00 | NUR ---
IN THERAPY AT THIS TIME.
--- NOTE | 2016-04-30 16:39 | NUR ---
CARE TEAM MEETING: PATIENT PROGRESSING WELL IN THERAPY. CLINICAL UPDATES HAVE BEEN FAXED TO ROD AT [facility] [place] . FAXED TO , AUTH # [id number] WITH CONFORMATION RECIEVED. PENDING SURGERY FOR 05/05/16. WILL CONTINUE TO FOLLOW WITH PATIENT.
--- NOTE | 2016-04-30 17:15 | NUR ---
PT RESTING IN BED WATCHING TV NO COMPLAINTS WILL MONITER
--- NOTE | 2016-04-30 19:30 | NUR ---
IN BED, AWAKE. VISITNG AT BEDSIDE.
[2016-04-30 21:10] VITALS: BP 136/82
--- NOTE | 2016-04-30 21:10 | NUR ---
ASSESSMENT AND HS MEDS COMPLETE STARTED IV MERREM 1 GM IN 100ML TO RUN OVER 30 MINUTES PER PUMP VIA RED PICC PORT. BOTH PORTS ARE QUITE SLUGGISH TONIGHT AND CURRENTLY WILL NOT ALLOW BLOOD W/D. WILL CHECK IN AM WHEN PATIENT IS TO HAVE LAB DRAW TO SEE IF EITHER WILL DRAW BLOOD.
--- NOTE | 2016-04-30 22:45 | NUR ---
RESTING IN BED, EYES CLOSED.
--- NOTE | 2016-05-01 00:05 | NUR ---
RESTING QUIETLY AFTER ASSIST UP TO COMMODE TO URINATE @ 2325. ALSO SUCTIONED HER TRACH INNER CANNULA AT THAT TIME.
--- NOTE | 2016-05-01 02:05 | NUR ---
IN BED, EYES CLOSED. NO DISTRESS NOTED.
--- NOTE | 2016-05-01 04:00 | NUR ---
RESTING QUIETLY IN BED, EYES CLOSED.
--- NOTE | 2016-05-01 05:30 | NUR ---
PERFORMED TRACH CARE AFTER HAVING TO SUCTION PATIENT'S TRACH X3 SINCE 0. MERREM IV WAS EARLIER COMPLETED. VANCOMYCIN 1GM NOW INFUSING PER PUMP VIA RED PICC PORT. NEITHER PICC PORT WILL ALLOW BLOOD DRAW THIS AM, AND BOTH ARE SLUGGISH TO FLUSH, ESPECIALLY THE PURPLE PORT.
[2016-05-01 06:46] LABS: BASOPHILS 0.4 % (0.0-2.0); EOSINOPHILS 8.4 % (0-7); HEMATOCRIT 35.1 % (36.0-48.0); HEMOGLOBIN 11.2 g/dL (12-16); LYMPHOCYTES 21.3 % (15-50); MCH 29.4 pg (26.0-34.0); MCHC 31.9 g/dL (31.0-37.0); MCV 92.1 fL (80.0-100.0); MEAN PLATELET VOLUME 9.4 fL (7.4-10.4); MONOCYTES 11.5 % (2-11); NEUTROPHILS 55.4 % (40-80); PLATELET COUNT 296 10x3/uL (130-400); RBC 3.81 10x6/uL (4.00-5.40); RDW 14.8 % (11.5-14.5)
[2016-05-01 08:15] VITALS: BP 132/67
--- NOTE | 2016-05-01 08:15 | NUR ---
PT RESTING IN BED WITH EYES OPEN CALL LIGHT IN REACH WILL MONITER
--- NOTE | 2016-05-01 13:06 | NUR ---
PT RESTING IN BED CALL LIGHT IN REACH WILL MONITER
--- NOTE | 2016-05-01 15:50 | NUR ---
1500 Order received for cathflo on PICC line that is sluggish" and with no blood return. On arrival, patient with right upper arm PICC line, intact. as noted prior, flushes sluggish. Cathflo instilled 2 ml in purple lumen per policy. 1537-attempted to withdraw blood, still no blood return. Graciela Pittman RN
--- NOTE | 2016-05-01 18:42 | NUR ---
REMOVED 2 ALICIA INTACT FROM RIGHT SIDE ABDOMINAL INCISION PER DR SALVADOR
[2016-05-01 19:45] VITALS: BP 131/64
--- NOTE | 2016-05-01 20:40 | NUR ---
PT HS MEDS ADMINISTERED WITH REQ ATIVAN. PT DENIES FURTHER NEEDS. WCTM. BED LOW. CL IN REACH.
--- NOTE | 2016-05-02 00:15 | NUR ---
PT RESTING, EYES CLOSED. BED LOW. CL IN REACH.
--- NOTE | 2016-05-02 02:11 | NUR ---
PT RESTING, EYES CLOSED. BED LOW. CL IN REACH.
--- NOTE | 2016-05-02 06:28 | NUR ---
PT RESTING EYES CLOSED. BED LOW. C SIMA BOB
--- NOTE | 2016-05-02 08:15 | NUR ---
PT RESTING IN BED SUCTIONED PT WITH 14 BAH[place] CATH STERILE TECHNIQUE TOLERATED WELL
[2016-05-02 14:34] LABS: BASOPHILS 0.2 % (0.0-2.0); EOSINOPHILS 3.8 % (0-7); HEMATOCRIT 34.6 % (36.0-48.0); HEMOGLOBIN 11.1 g/dL (12-16); IMMATURE GRANULOCYTES 0.8 % (0-5); LYMPHOCYTES 18.5 % (15-50); MCH 29.5 pg (26.0-34.0); MCHC 32.1 g/dL (31.0-37.0); MONOCYTES 6.8 % (2-11); NEUTROPHILS 69.9 % (40-80); PLATELET COUNT 272 10x3/uL (130-400); RBC 3.76 10x6/uL (4.00-5.40); RDW 14.7 % (11.5-14.5)
[2016-05-02 14:45] LABS: WBC 10.5 10x3/uL (4.8-10.8)
--- NOTE | 2016-05-02 18:26 | NUR ---
PT RESTING IN BED WITH EYES OPEN CALL LIGHT IN REACH NO PROBLEMS WILL MONITER
--- NOTE | 2016-05-02 19:30 | NUR ---
PT RECEIVED IN BED WITH EYES OPEN WITH FAMILY AT BEDSIDE. REQUEST TO CALL RESPIRATORY WITH FURTHER ASSESSMENT PT WANTED TO BE SUCTIONED. STERILE SALINE DROPS USED TO THIN SECRETIONS. STERILE SUCTION CATHETER USED WITH SMALL AMOUNT OF RETURN OF SECRETIONS X3 PER PT REQUEST. ASSISTED TO BEDSIDE COMMODE WITH YELLOW URINE ONLY. NO OTHER NEEDS OR REQUEST. CALL LIGHT IN REACH.
--- NOTE | 2016-05-03 00:21 | NUR ---
PT IN BED WITH EYES CLOSED AND CHEST RISING. NO SIGN/SYMPTOMS OF DISTRESS NOTED. MEDICATIONS GIVEN PER MAR WITHOUT DIFFICULTY. CALL LIGHT IN REACH.
[2016-05-03 05:20] VITALS: BP 128/69
--- NOTE | 2016-05-03 05:33 | NUR ---
PT IN BED WITH EYES OPEN WATCHING TV. PT SUCTIONED WITH SMALL AMOUNT THICK SECRETIONS A DARK YELLOW. ASSISTED TO BEDSIDE COMMODE WITHOUT DIFFICULTY. NO OTHER CONCERNS MADE KNOWN AT THIS TIME. CALL LIGHT IN REACH
--- NOTE | 2016-05-03 07:00 | NUR ---
PT. WAS RECEIVED AT THE BEGINNING OF THIS SHIFT IN BED AWAKE AND ORIENTED X 3. DENIES ANY PAIN OR NEEDS AT THIS TIME. VITAL SIGNS; WNL. WILL BE MONITORING HER AND ASSISTING PRN WITH ADL'S. CALL LIGHT IS IN REACH. STABLE CONDITION AT THIS TIME.
[2016-05-03 12:27] VITALS: BP 130/60
--- NOTE | 2016-05-03 15:45 | NUR ---
PT HAS BEEN RESTING THIS AFTERNOON AND HAS HAD COMPANY TOO. SHE WAS BEEN GIVEN ULTRAM 100MG FOR COMPLAINT OF GENERALIZED DISCOMFORT AT 3:05PM. CALL LIGHT IS IN REACH. SHE IS WATCHING TV WITH HER .
--- NOTE | 2016-05-03 18:18 | NUR ---
IN ROOM WITH PT. NO VOICED COMPLAINTS OR NEEDS AT THIS TIME. SHE HAS GOTTEN UP TO THE BEDSIDE COMMODE APPROXIMATELY 4 TIMES TODAY. SHE HAD A LARGE BM THIS MORNING. TRACH HAS BEEN CLEANED BY RESPIRATORY AND SUCTIONED BY THEM AND THIS NURSE WRITING THIS NOTE.
--- NOTE | 2016-05-03 19:50 | NUR ---
LINEN CHANGED AND MATTRESS OVERLAY FLIPPED TO RIGHT SIDE UP... SPOUSE PRESENT, THEY ARE WATCHING TV. PT SMILES BRIEFLY AND OCCASIONALLY.
[2016-05-03 19:51] VITALS: BP 118/65
--- NOTE | 2016-05-04 02:00 | NUR ---
UP TO TOILET WITH MIN ASSIST, DENIES ANY OTHER NEEDS.
--- NOTE | 2016-05-04 07:28 | NUR ---
PT RESTING QUIETLY, NO S/S OF ACUTE DISTRESS. STATED SLEPT WELL DURING THE NIGHT, REQUESTED ICE CUBES. NO OTHER NEEDS REQUESTED.
--- NOTE | 2016-05-04 07:54 | NUR ---
PATIENT REMAINS IN CONTACT/DROPLET ISOLATION. PATIENT IS ALERT/ORIENT X4. TRACH COLLAR ON 4L PATIENT IS ON A FIRST STEP MATTRESS. CALL LIGHT WITHIN REACH. PATIENT VOICES NO NEEDS AT THIS TIME
--- NOTE | 2016-05-04 10:00 | NUR ---
PATIENT USING BEDSIDE COMMODE. PATIENTS IN ROOM. VISITING. ISOLATION PRECAUSIONS MAINTAINED
[2016-05-04] MEDS ORDERED: LASIX40 MG PO (12:07)
--- NOTE | 2016-05-04 12:55 | NUR ---
DR Jaiden SINGH INTO SEE PATIENT. NEW ORDER TO DISCHARGE PATIENT TO MED SURG FOR DIVERTING LOOP ILEOSTOMY
--- NOTE | 2016-05-04 14:10 | NUR ---
REPORT GIVEN TO ABIGAIL VALENZUELA ON MED SURG. PATIENT TO BE TRANSFERED UP TO MED SURG FOR SURGERY SCHEDULED TOMORROW MORNING.
--- NOTE | 2016-05-04 14:51 | NUR ---
RESTING QUIETLY,DENIES NEEDS.
--- NOTE | 2016-05-04 15:00 | NUR ---
PATIENT TRANSFERED TO ROOM 2229 BY STAFF, ISOLATION PRECAUSIONS MAINTAINED
--- NOTE | 2016-05-05 09:26 | NUR ---
PATIENT DISCHRGED TO ACUTE FLOOR DUE A PENDING SURGERY WITH DR. THOMPSON. DISCHARGED CLINICALS FAXED NATE VELASCO AT [facility] AT , AUTH. # [id number]. WITH CONFORMATION RECIEVED.
== END 2016-05-04 15:50 | disposition short-term general hospital (02) | DRG 91 ==
LOC: D.REHAB 20:30
PROVIDERS: Family Medicine; Internal Medicine Pulmonary Disease; Radiology Vascular & Interventional Radiology; ADMIT Emergency Medicine
DX: G72.81 Critical illness myopathy (principal); J15.5 Pneumonia due to Escherichia coli; J15.0 Pneumonia due to Klebsiella pneumoniae; J15.212 Pneumonia due to Methicillin resistant Staphylococcus aureus; J96.12 Chronic respiratory failure with hypercapnia; J96.11 Chronic respiratory failure with hypoxia; I50.22 Chronic systolic (congestive) heart failure; J90 Pleural effusion, not elsewhere classified; K63.2 Fistula of intestine; Z93.0 Tracheostomy status; R13.10 Dysphagia, unspecified; Y95 Nosocomial condition; J44.9 Chronic obstructive pulmonary disease, unspecified; D50.9 Iron deficiency anemia, unspecified; E87.6 Hypokalemia; I95.9 Hypotension, unspecified; F10.10 Alcohol abuse, uncomplicated; F17.200 Nicotine dependence, unspecified, uncomplicated

== ENCOUNTER 2016-05-04 13:50 | Inpatient (IN) | payer OTHER ==
[~2016-05-04] VITALS: Ht 167.6 cm; Wt 84.1 kg
--- NOTE | ~2016-05-04 | PN ---
PATIENT:SARAH GARY MEDICAL RECORD: [id number] LOCATION:D.ICU D.230 ADMISSION DATE: 05/04/16 PROGRESS NOTE DATE OF SERVICE: 05/10/2016 Really has not been much change in Mrs. Gary. We are waiting LTAC placement. I am rounding for Dr. Beasley today. The family is at the bedside. TRANSINT:[id number] Voice Confirmation ID: [id number] DOCUMENT ID: [id number] TORIN MARTINES MD CC: [id number] DICTATION DATE: 05/11/161901 SUPPLY AIDE: 05/11/161954 ADM IN [facility] [address] [id number]
[~2016-05-04 13:50] MED LIST changes: +SALINE FLUSH10 ML IV
[2016-05-04 19:00] VITALS: BP 129/61
--- NOTE | 2016-05-04 19:34 | NUR ---
PT LYING IN BED TALKING WITH VISITOR, ASSESSMENT COMPLETED, NO ACUTE DISTRESS NOTED, DENIES PAIN OR NEEDS AT THIS TIME, FALL AND ISOLATION PRECAUTIONS IN PLACE, CL IN REACH, WILL MONITOR
--- NOTE | 2016-05-04 21:15 | NUR ---
PRN ATIVAN GIVEN PER ORDERS FOR ANXIETY ALONG WITH ROUTINE MEDS, JS WELL, DENIES FURTHER NEEDS, CL IN REACH
--- NOTE | 2016-05-04 23:15 | NUR ---
LYING IN BED WATCHING TV, NO DISTRESS NOTED, DENIES NEEDS, CL IN REACH
[2016-05-05] VITALS (12 sets, daily range): BP systolic 111–152; BP diastolic 55–82; BMI 23.9
--- NOTE | 2016-05-05 01:12 | NUR ---
RESTING WITH EYES CLOSED, TRACH COLLAR IN PLACE, NO DISTRESS NOTED, FALL AND ISOLATION PRECAUTIONS IN PLACE, CL IN REACH
[2016-05-05 04:39] LABS: BASOPHILS 0.3 % (0.0-2.0); EOSINOPHILS 3.6 % (0-7); HEMATOCRIT 35.6 % (36.0-48.0); HEMOGLOBIN 11.5 g/dL (12-16); IMMATURE GRANULOCYTES 0.5 % (0-5); LYMPHOCYTES 23.6 % (15-50); MCH 29.6 pg (26.0-34.0); MCHC 32.3 g/dL (31.0-37.0); MCV 91.8 fL (80.0-100.0); MEAN PLATELET VOLUME 9.6 fL (7.4-10.4); MONOCYTES 10.3 % (2-11); NEUTROPHILS 61.7 % (40-80); PLATELET COUNT 263 10x3/uL (130-400); RBC 3.88 10x6/uL (4.00-5.40); RDW 14.5 % (11.5-14.5)
[2016-05-05 05:01] LABS: ALBUMIN 2.6 g/dL (3.4-5.0); ALKALINE PHOSPHATASE 83 U/L (46-116); ALT (SGPT) 40 U/L (10-68); CALC OSMOLALITY 274 mosm/kg (275-300); CALCIUM 9.7 mg/dL (8.5-10.1); CARBON DIOXIDE 33.5 mmol/L (21.0-32.0); CHLORIDE - SERUM 100 mmol/L (98-107); CREATININE - SERUM 0.5 mg/dL (0.6-1.3); GLUCOSE 99 mg/dL (74-106); PROTEIN - SERUM 8.1 g/dL (6.4-8.2); SODIUM 138 mmol/L (136-145); UREA NITROGEN 9 mg/dL (7-18); eGFR NON AFRICAN AMERICAN > 90 mL/min (90-120)
--- NOTE | 2016-05-05 07:50 | NUR ---
SITTING IN BED WATCHING TV, DENIES NEEDS, CONSENTS SIGNED FOR ILEOSTOMY SUREGERY TODAY, CALL LIGHT IN REACH, BED LOWEST POIITON, WILL CONTINUE TO MONIIOR
--- NOTE | 2016-05-05 09:00 | NUR ---
WITHOUT DISTRESS AT PRESENT.NPO FOR PROCEDURE TODAY.ISOLATION MAINTAINED.CALL LIGHT IN REACH
--- NOTE | 2016-05-05 14:20 | NUR ---
COLOSTOMY BAG IN PLACE RIGHT SIDE ABD
--- NOTE | 2016-05-05 15:06 | NUR ---
ANESTHSIA DR SOLANO ADVISED OF THE PATIENTS BP AND OREDERED NN OTHER TREATMENT IN THE RR.
--- NOTE | 2016-05-05 15:07 | NUR ---
PRE OPERATIVE O2 SAT WAS 93%
--- NOTE | 2016-05-05 15:43 | NUR ---
Rehab Prescreening Consult recieved. This patient is well known to rehab, she admitted to the IRF on 04/15/16 and discharged on 05/04/16 back to the acute so she could undergo a surgical procedure that had been planned for 05/05/16. According to the PT/OT and ST she had done well while in the rehab and had reached her goals. She is private insurance and would require another authorization to return. She does not meet criteria for acute inpatient rehab at this time. Recommend home with HH to continue working with therapy 2-3 days a week. Ruba Garcia RN Clinical Liaison, Rehab
--- NOTE | 2016-05-05 16:39 | HP ---
PATIENT: SARAH GARY MEDICAL RECORD: [id number] ACCOUNT: [id number] LOCATION:D.MS [id number] : 56 ADMISSION DATE: 05/04/16 HISTORY AND PHYSICAL EXAMINATION DATE OF ADMISSION: 05/04/2016 SURGEON: Brice Thompson MD ADMISSION DIAGNOSIS: Colorectal anastomotic fistula. HISTORY OF PRESENT ILLNESS: A 56-year-old female who underwent an elective colostomy reversal 8 weeks ago. She developed postoperative vent-dependent respiratory failure requiring tracheostomy. She also developed a colorectal anastomotic fistula. It failed conservative treatment, which included IR external drainage as well as a partially covered colorectal stent. The patient has been admitted to the hospital for an elective diverting loop ileostomy. The patient has no complaints at this time. She has been on trach collar for the last several weeks. She is tolerating Passy-[place] valve. She is tolerating a regular diet. PAST MEDICAL HISTORY: Include chronic hypoxic hypercapnic respiratory failure, multidrug resistant pneumonia, COPD, systolic heart failure, diverticulitis. PAST SURGICAL HISTORY: History of Chris's procedure for perforated diverticulitis, history of colostomy reversal, history of incisional hernia repair, history of tracheostomy times 2. ALLERGIES: HYDROCODONE AND ZOSYN. MEDICATIONS: Please see electronic medical record for medications. SOCIAL HISTORY: She smokes cigarettes daily greater than 40 years. Social alcohol. FAMILY HISTORY: No family history of cancer or diabetes. REVIEW OF SYSTEMS: A 12-point review of systems was obtained pertinent positive and negative as per the HPI. PHYSICAL EXAMINATION: VITAL SIGNS: Stable. Afebrile. GENERAL: Well-developed, well-nourished female in mild distress. EYES: Extraocular muscles is intact. EAR, NOSE AND THROAT: Tracheostomy in place. NECK: Appears otherwise normal. LUNGS: Clear to auscultation bilaterally, decreased breath sounds. HEART: Normal sinus rhythm. ABDOMEN: Soft, nontender, and nondistended. She has a well-healed midline incision, well-healed left lower quadrant ostomy site. She has a drain in the right lower quadrant. SKIN: Warm and dry. Normal turgor. EXTREMITIES: She is neurovascularly intact with no edema. NEUROLOGIC: She has a GCS of 15 with no focal deficits. HISTORY AND PHYSICAL [id number] GARYSARAH Harper LABORATORY DATA: Please import lab data from the electronic medical record. IMPRESSION: A 56-year-old female with colorectal anastomotic fistula status post colostomy takedown which has failed to heal with conservative measures. PLAN: 1. Admit to hospital, IV fluids. 2. IV antibiotics. 3. OR for diverting loop ileostomy. Risks and benefits of the procedure were explained with the patient and her spouse. TRANSINT:[id number] Voice Confirmation ID: [id number] DOCUMENT ID: [id number] BRICE THOMPSON MD at 1639 CC: [id number] DICTATION DATE: 05/05/16 1237 CERTIFIED MEDICAL TECHNICIAN: 05/05/16 1546 ADM IN [facility] [address] [id number]
--- NOTE | 2016-05-05 19:47 | NUR ---
ASSESSMENT COMPLETED, NO ACUTE DISTRESS NOTED, SPOUSE AT BEDSIDE, FALL AND ISOLATION PRECAUTIONS IN PLACE, CL IN REACH, WILL MONITOR
--- NOTE | 2016-05-05 21:15 | NUR ---
RESTING WITH EYES CLOSED, NO ACUTE DISTRESS NOTED, CL IN REACH
--- NOTE | 2016-05-05 23:03 | NUR ---
PRN PAIN MED GIVEN FOR C/O PAIN 09/18 ALONG WITH ROUTINE MEDS, ASSISTED ON BEDPAN, JS WELL, CL IN REACH
[2016-05-06] VITALS: BP 149/71
--- NOTE | 2016-05-06 01:36 | NUR ---
PRN ATIVAN GIVEN PER PT REQUEST, JS WELL, CL IN REACH
--- NOTE | 2016-05-06 03:17 | NUR ---
RESTING WITH EYES CLOSED, NO DISTRESS NOTED, CL IN REACH
[2016-05-06 04:00] VITALS: BP 140/60
--- NOTE | 2016-05-06 07:30 | NUR ---
COMPLAINTS OF SLIGHT PAIN, PAIN MEDS GIVEN, ILEOSTOMY BAG CHANGED, TRACH SUCTIONED AND CLEANED, ASSESSMENT COMPLETE, DENIES OTHER NEEDS, CALL LIGHTIN REACH
--- NOTE | 2016-05-06 08:08 | OP ---
PATIENT NAME: SARAH GARY MEDICAL RECORD: [id number] :56 LOCATION:[id number] ADMISSION DATE:05/04/16 SURGEON: BRICE THOMPSON MD DATE OF OPERATION: 05/05/2016 SURGEON: Dr. Brice Thompson. PREOPERATIVE DIAGNOSIS: Persistent colorectal anastomotic fistula. POSTOPERATIVE DIAGNOSIS: Persistent colorectal anastomotic fistula. PROCEDURE PERFORMED: 1. Diverting loop ileostomy. 2. Appendectomy. SPECIMENS: Appendix. ANESTHESIA: General. COMPLICATIONS: None. Case was clean contaminated. OPERATIVE COURSE: After consent was obtained, the patient was taken to the operating room and placed in supine position on the operating table. Next, general anesthesia was given via her previous staining tracheostomy. Next, a timeout was taken to confirm the correct patient and procedure. The abdomen was then prepped and draped in typical sterile fashion. Local anesthetic was injected in the right lower quadrant just above and medially ASIS. A transverse incision was made with a 15-blade scalpel. Dissection continued down to the level of the external oblique fascia using electrocautery. The external oblique fascia was opened with a 15-blade scalpel. The rectus muscles were gently spread with a Nona clamp. The peritoneum was grabbed and incised with Metzenbaum scissors. Adhesions were loosely swept away. The cecum was immediately identified. The cecum was mobilized. The appendix was located in the anterior position. At this time, I decided to perform the procedure and appendectomy would be relevant. Appendectomy was performed. A mesenteric window was created at the base of the appendix. Nona clamp was placed across the base of the appendix. Appendix was transected with Metzenbaum scissors. Several ____ placed across the mesoappendix. The mesoappendix was transected with Metzenbaum scissors. The mesoappendix and the appendiceal stump were all tied up with 2-0 silk suture. The mucosa was then bovied and the appendiceal stump was imbricated into the cecum with 3-0 Vicryl suture. The appendix was sent off for permanent pathology. Next, with the cecum in placed, the terminal ileum was identified. Lysis of adhesions was performed freeing up approximately 15-20 cm of terminal ileum. At this time, a loop ileostomy was created to the right lower quadrant incision. It was secured to the skin in a standard Nilda fashion using 3-0 Vicryl suture. A colostomy appliance was placed. At the end of the case, all needle and instrument counts were correct. No complications occurred. The patient was transferred to the PACU in stable condition. TRANSINT:[id number] Voice Confirmation ID: [id number] DOCUMENT ID: [id number] OPERATIVE REPORT [id number] SARAH GARY,BRICE Martinez MD at 0808 CC: [id number] DICTATION DATE: 05/05/16 1431 SUPERVISOR ESTIMATOR AND DRAFTER: 05/05/16 2232 ADM IN [place] [id number] [place] [address]
[2016-05-06 08:39] VITALS: BP 132/63
--- NOTE | 2016-05-06 09:27 | NUR ---
LYING IN BED,WITHOUT DISTRESS.ISOLATION MAINTAINED.CALL LIGHT IN REACH
[2016-05-06 09:41] LABS: BASOPHILS 0.2 % (0.0-2.0); EOSINOPHILS 0 % (0-7); HEMATOCRIT 38.1 % (36.0-48.0); HEMOGLOBIN 12.1 g/dL (12-16); IMMATURE GRANULOCYTES 0.3 % (0-5); LYMPHOCYTES 8.3 % (15-50); MCH 29.7 pg (26.0-34.0); MCHC 31.8 g/dL (31.0-37.0); MCV 93.4 fL (80.0-100.0); MEAN PLATELET VOLUME 9.9 fL (7.4-10.4); MONOCYTES 9.2 % (2-11); PLATELET COUNT 285 10x3/uL (130-400); RBC 4.08 10x6/uL (4.00-5.40); RDW 15.2 % (11.5-14.5)
[2016-05-06 09:59] LABS: ALBUMIN 2.5 g/dL (3.4-5.0); ALKALINE PHOSPHATASE 81 U/L (46-116); ALT (SGPT) 38 U/L (10-68); BILIRUBIN - TOTAL 0.39 mg/dL (0.2-1.3); CALC OSMOLALITY 270 mosm/kg (275-300); CALCIUM 8.7 mg/dL (8.5-10.1); CARBON DIOXIDE 28.4 mmol/L (21.0-32.0); CHLORIDE - SERUM 99 mmol/L (98-107); CREATININE - SERUM 0.5 mg/dL (0.6-1.3); GLUCOSE 134 mg/dL (74-106); POTASSIUM - SERUM 4.5 mmol/L (3.5-5.1); PROTEIN - SERUM 7.5 g/dL (6.4-8.2); SODIUM 135 mmol/L (136-145); UREA NITROGEN 10 mg/dL (7-18); eGFR NON AFRICAN AMERICAN > 90 mL/min (90-120)
[2016-05-06 10:05] LABS: WBC 15.7 10x3/uL (4.8-10.8)
--- NOTE | 2016-05-06 11:03 | NUR ---
Patient Name: SARAH GARY Admission Status: Elective Accout number: [id number] Admission Date: 05-04-2016 : 1960 Admission Diagnosis: Attending: JERO Current LOS: 2 Anticipated DC Date: 05-07-2016 Planned Disposition: Home with Home Health Primary Insurance: ERNESTINA Discharge Planning Comments: CM MET WITH PATIENT REGARDING D/C NEEDS AND PLANS. PATIENT STATED SHE WILL GO HOME WITH HER SPOUSE AT DISCHARGE. PATIENT STATED THERE ARE NO STEPS OR STAIRS AT HER HOME. PATIENTS PCP IS DR. RAMIREZ AND PHARMACY IS [facility] [address]. PATIENT SIGNED THE NIDA FORM FOR [facility]. PATIENT HAS A NEBULIZER, WALKER, AND IS GETTING A SHOWER CHAIR AT HOME. PATIENT HAS NO OTHER NEEDS AT THIS TIME. CM WILL CONTINUE TO FOLLOW PATIENT WITH D/C NEEDS AND PLANS. PCP DR. [facility] [address] [phone] RAMON PROCTOR (SPOUSE) [phone] Transportation Worker: Cindy Bergeron Is the patient Alert and Oriented? Yes 0 * How many steps to enter\exit or inside your home? 0 0 * PCP DR. RAMIREZ 0 * [facility]acy [facility] [address] 0 * Preadmission Environment Home with Family 0 * ADLs Independent 0 * Equipment Nebulizer Walker 0 * List name and contact numbers for known caregivers / representatives who currently or will assist patient after discharge: RAMON PROCTOR (SPOUSE) [phone] * Community resources currently utilized None 0 * Additional services required to return to the preadmission environment? Yes 0 * Can the patient safely return to the preadmission environment? Yes 0 * Has this patient been hospitalized within the prior 30 days at any hospital? Yes 0 Grand Total: 0
[2016-05-06 11:43] VITALS: BP 129/70
[2016-05-06 17:04] VITALS: BP 125/66
--- NOTE | 2016-05-06 17:15 | NUR ---
PMV TRIAL ON PATIENT LASTED APPROXIMATELY 3MINUTES BEFORE THE PATIENT COMPLAINED THAT SHE WAS UNABLE TO BREATH.
[2016-05-06 19:00] VITALS: BP 126/64
--- NOTE | 2016-05-06 19:00 | NUR ---
PATIENT SLEEPING ON 1ST STEP OVERLAY. HOB 45 DEGREES. RR EVEN AND UNLABORED. O2 @ 9L VIA TRACH COLLAR. 0 S/S OF DISTRESS. RIGHT PICC PATENT WITH NO REDNESS OR SWELLING.ILEOSTOMY DRAINING SMALL AMOUNT OF BLOODY LIQUID. BILI DRAIN TO RLQ WITH DRESSING CDI. TELEMETRY ON. SCD'S TO BLE. SRX2. BED LOW. CALL LIGHT WITHIN REACH.
--- NOTE | 2016-05-06 22:30 | NUR ---
ASSESSMENT COMPLETE. NIGHTTIME MEDS GIVEN. ATIVAN GIVEN FOR ANXIETY AND OXY IR GIVEN FOR PAIN OF A 08/18. WILL REASSESS.
[2016-05-07] VITALS (15 sets, daily range): BP systolic 102–137; BP diastolic 55–75; Ht 167.6 cm; Wt 84.1 kg
[2016-05-07 04:00] LABS: BASOPHILS 0.2 % (0.0-2.0); EOSINOPHILS 1.1 % (0-7); HEMATOCRIT 34.2 % (36.0-48.0); HEMOGLOBIN 11.2 g/dL (12-16); IMMATURE GRANULOCYTES 0.2 % (0-5); LYMPHOCYTES 10.6 % (15-50); MCH 30.1 pg (26.0-34.0); MCHC 32.7 g/dL (31.0-37.0); MCV 91.9 fL (80.0-100.0); MEAN PLATELET VOLUME 9.6 fL (7.4-10.4); MONOCYTES 8.2 % (2-11); NEUTROPHILS 79.7 % (40-80); PLATELET COUNT 243 10x3/uL (130-400); RBC 3.72 10x6/uL (4.00-5.40); RDW 14.8 % (11.5-14.5)
--- NOTE | 2016-05-07 04:00 | NUR ---
PATIENT SLEEPING WITH NO DISTRESS NOTED. CALL LIGHT WITHIN REACH.
[2016-05-07 04:11] LABS: ALBUMIN 2.2 g/dL (3.4-5.0); ALKALINE PHOSPHATASE 74 U/L (46-116); ALT (SGPT) 31 U/L (10-68); BILIRUBIN - TOTAL 0.41 mg/dL (0.2-1.3); CALCIUM 8.9 mg/dL (8.5-10.1); CARBON DIOXIDE 30.1 mmol/L (21.0-32.0); CHLORIDE - SERUM 97 mmol/L (98-107); CREATININE - SERUM 0.6 mg/dL (0.6-1.3); PROTEIN - SERUM 7.7 g/dL (6.4-8.2); SODIUM 132 mmol/L (136-145); UREA NITROGEN 8 mg/dL (7-18); eGFR NON AFRICAN AMERICAN > 90 mL/min (90-120)
[2016-05-07 04:21] LABS: CALC OSMOLALITY 264 mosm/kg (275-300); GLUCOSE 128 mg/dL (74-106)
--- NOTE | 2016-05-07 08:00 | NUR ---
PT REQUESTED TO BE SUCTION IN TRACH, STATES SHES HAVING A DIFFICULT TIME BREATH, SUCTIONED, DIDN'T HELP, RESPITORY WENT TO ASSESS HER, INCREASED HER TRACH COLOR TO 80% 12L, O2 SAT 90%, PATITO VALENZUELA WENT TO ASSESS, DR SAUCEDO CALLED
--- NOTE | 2016-05-07 08:28 | NUR ---
CALLED MONITORS DRU STATED PATIENT'S HEART RATE IS 140 RHYTHM SINUS TACH. ADMINISTERED LOPRESSOR 5MG IVP. PATIENT STATED "HOW ARE YOU GOING TO GET THIS STUFF OUT OF MY LUNGS?" THE RESPIRATORY THERAPIST JUST LEFT THE ROOM. BIANCA CAPUTO CAME IN TO ASSESS PATIENT. NOTIFIED MARYAM SHIELDS, PATIENT'S NURSE OF WHAT PATIENT SAID. SHE STATED "YEAH I KNOW I AM GOING TO CALL ."
--- NOTE | 2016-05-07 08:45 | NUR ---
ASKED TO CHECK ON PATIENT BY WILLIAM FRANCISCO. PATIENT C/O DYSPNEA . O2 @ 80 % VIA TRACH COLLAR. SATURATION 93% . LUNGS WITH COURSE CRACKLES AND RONCHI BILAT. DEEP SUCTION VIA STERILE TECHNIQUE FROM TRACH WITH THICK YELLOW SECRETIONS AND WHAT APPEARS TO BE FOOD PARTICLES. LUNGS WITH LESS CRACKLES/RONCHI PAST SUCTIONING, O2 SAT 95 % ON 80% TRACH COLLAR. DR. YUDI CHI.
--- NOTE | 2016-05-07 10:40 | NUR ---
PT ARRIVED TO ICU FROM FLOOR ACCOMPANIED BY RN. PT IS ALERT AND ORIENTED. PT HAS TRACH W/ TRACH COLLAR. PT C/O SOB AT THIS TIME. PT ATTACHED TO ALL ICU MONITORS, SAT 89%. MD AT BEDSIDE. FAN BROUGHT TO ROOM PER PT REQUEST.
--- NOTE | 2016-05-07 13:02 | NUR ---
CM REASSESSMENT NOTE: ANNALISA SPOKE WITH [employer] [facility] AND PATIENT IS OUT OF NETWORK. KELSEY WAS PATIENTS NEXT CHOICE AND KELSEY CALLED AND STATED WHEN THEY CALLED PATIENTS TO TELL HIM THERE WOULD BE 40% OUT OF POCKET PAY HE LAUGHED AND STATED THEY WOULD NOT GET PAID THAT THEY HAD NO MONEY. THEREFORE, KELSEY (SERENE) STATED THEY WOULD NOT TAKE HER. ANNALISA CALLED [employer] AND SHE IS CHECKING ON PATIENTS INSURANCE AND WILL CALL ANNALISA WITH HER FINDINGS.
--- NOTE | 2016-05-07 19:30 | NUR ---
ASSESSMENT COMPLETE. S1S2. MECHANICAL VENTILATION; TRACH. RR CRACKLES BILATERALLY IN UPPER LOBES; DIMINISHED BILATERALLY IN LOWER LOBES. OCCASIONAL PRODUCTIVE COUGH; CLEAR. WEAKNESS NOTED TO EXTREMITIES. RADIAL AND PEDAL PULSES PALPATED. PT NPO. MARK IN PLACE. RIGHT UPPER ARM PICC LINE; PATENT; DRESSING AND BIO PATCH IN PLACE. SWAB CAPS IN USE. NS INFUSING AT 75. PERRLA.
--- NOTE | 2016-05-07 23:30 | NUR ---
REASSESSMENT COMPLETE. PT ALERT AND ORIENTED. ABLE TO ANSWER QUESTIONS BY NODDING AND ABLE TO MOUTH WORDS. DENIES PAIN. WILL CONTINUE TO MONITOR.
--- NOTE | 2016-05-07 23:45 | NUR ---
PT DENIES ANY FURTHER NEEDS AT THIS TIME. VSS. NO DISTRESS NOTED. WILL CONTINUE TO MONITOR.
[2016-05-08] VITALS (24 sets, daily range): BP systolic 104–137; BP diastolic 60–87
--- NOTE | 2016-05-08 01:15 | NUR ---
PT RESTING; EYES CLOSED. VSS. NO DISTRESS NOTED. WILL CONTINUE TO MONITOR.
--- NOTE | 2016-05-08 03:10 | NUR ---
REASSESSMENT COMPLETE. NO CHANGES FROM PREVIOUS ASSESSMENT. SEE FLOW SHEET FOR FURTHER DETAILS. VSS. WILL CONTINUE TO MONTIOR.
[2016-05-08 03:59] LABS: BASOPHILS 0.2 % (0.0-2.0); EOSINOPHILS 0.9 % (0-7); HEMATOCRIT 29.7 % (36.0-48.0); HEMOGLOBIN 9.7 g/dL (12-16); IMMATURE GRANULOCYTES 0.2 % (0-5); LYMPHOCYTES 7.9 % (15-50); MCH 29.7 pg (26.0-34.0); MCHC 32.7 g/dL (31.0-37.0); MCV 90.8 fL (80.0-100.0); MEAN PLATELET VOLUME 9.9 fL (7.4-10.4); NEUTROPHILS 83.8 % (40-80); PLATELET COUNT 219 10x3/uL (130-400); RBC 3.27 10x6/uL (4.00-5.40); RDW 14.7 % (11.5-14.5); WBC 12.8 10x3/uL (4.8-10.8)
[2016-05-08 04:16] LABS: ALBUMIN 1.9 g/dL (3.4-5.0); ALKALINE PHOSPHATASE 71 U/L (46-116); BILIRUBIN - TOTAL 0.42 mg/dL (0.2-1.3); CALCIUM 8.3 mg/dL (8.5-10.1); CHLORIDE - SERUM 96 mmol/L (98-107); CREATININE - SERUM 0.5 mg/dL (0.6-1.3); MAGNESIUM - SERUM 1.4 mg/dL (1.8-2.4); PHOSPHOROUS 2.9 mg/dL (2.5-4.9); POTASSIUM - SERUM 3.5 mmol/L (3.5-5.1); PROTEIN - SERUM 6.8 g/dL (6.4-8.2); SODIUM 130 mmol/L (136-145); UREA NITROGEN 8 mg/dL (7-18); eGFR NON AFRICAN AMERICAN > 90 mL/min (90-120)
[2016-05-08 04:20] LABS: ALT (SGPT) 22 U/L (10-68); CALC OSMOLALITY 274 mosm/kg (275-300); GLUCOSE 384 mg/dL (74-106)
--- NOTE | 2016-05-08 04:20 | NUR ---
I/O COLLECTED. MARK EMPTIED.
--- NOTE | 2016-05-08 05:30 | NUR ---
CHANGED ILEOSTOMY BAGS; GREEN LEAKAGE.
--- NOTE | 2016-05-08 06:04 | NUR ---
FAMILY; AT BEDSIDE. UPDATE GIVEN.
--- NOTE | 2016-05-08 12:23 | NUR ---
0700 PT AWAKE ALERT AND ORIENTED. PT REMAINS ON VENT WITH NO SEDATION NEEDED. PT ABLE TO OBEY COMMANDS AND ANSWER QUESTIONS WITH HEAD AND HAND GESTURES. SINUS TACHYCARDIA NOTED ON MONITOR. LUNG SOUNDS COURSE/CRACKLES BILAT. ABLE TO MOVE EXTREMITIES. PICC LINE PATENT DRY AND INTACT. VITAL SIGNS STABLE. WILL CONTINUE TO MONITOR.
--- NOTE | 2016-05-08 12:27 | NUR ---
0900 PT WILL REPEAT BRONCHOSCOPY TODAY AND IS AWARE OF PROCEDURE. REPOSITIONED FOR COMFORT AND ORAL CARE PERFORMED.
--- NOTE | 2016-05-08 12:28 | NUR ---
1100 BRONCHOSCOPY PERFORMED BY SUKHDEEP BLACKMON GIVEN BEFORE PROCEDURE. PT TOLERATED WELL AND MAINTAINED STABLE O2 SAT. WILL CONTINUE TO MONITOR PT.
--- NOTE | 2016-05-08 13:26 | NUR ---
1315 PT STARTED ON ON TRACH COLLAR AT 70% PER RT. WILL CONTINUE TO MONITOR AND ADJUST O2 NEEDED. NO SIGNS OF DISTRESS AT THIS TIME.
--- NOTE | 2016-05-08 14:20 | NUR ---
1400 PT FAILED TRACH COLLAR AND O2 SAT WAS DROPPING TO 88%. PT BACK ON VENT AND STABLE. WILL CONTINUE T0 MONITOR. RESTING AT THIS TIME.
[2016-05-08 14:23] LABS: FUNGUS STAIN Final report (())
--- NOTE | 2016-05-08 15:06 | NUR ---
1500 ROM PERFORMED BY PHYSICAL THERAPY. PT TOLERATED WITHOUT COMPLAINTS. NO CHANGES IN STATUS. WILL CONTINUE TO MONITOR
[2016-05-08 16:14] LABS: ACID FAST SMEAR Negative (()); AFB SPECIMEN PROCESSING Concentration (())
--- NOTE | 2016-05-08 18:39 | NUR ---
1700 NO CHANGES FROM PREVIOUS ASSESSMENT. PT GIVEN SWABS FOR DRY MOUTH. VITAL SIGNS STABLE. WILL CONTINUE TO MONITOR. FAMILY AT BEDSIDE.
--- NOTE | 2016-05-08 19:00 | NUR ---
REPORT REC'D. ASSUMED PATIENT CARE. ASSESSMENT COMPLETED PER FLOW SHEETS. PT ON VENT VIA TRACH, UNLABORED AWAKE, ALERT X4, DENIES ANY DISCOMFORT. ST ON CM. LUNG SOUNDS CRACKLES TO ULB WITH DIMINISHED TO LLB. O2 SAT 96%. PPP. CALL LIGHT IN REACH. WILL CONT TO MONITOR.
--- NOTE | 2016-05-08 21:00 | NUR ---
FAMILY AT BEDSIDE. QUESTIONS ANSWERED AND UPDATED. PT REQUESTED MED FOR ANXIETY. ATIVAN GIVEN PER ORDER. REPOSITIONED FOR COMFORT. VSS. CPOC.
--- NOTE | 2016-05-08 23:00 | NUR ---
REASSESSMENT COMPLETED PER FLOW SHEETS. NO ACUTE SIGNS OF DISTRESS AT THIS TIME. PT RESTING QUIETLY. NO NEEDS VOICES. VSS. WILL CONT TO MONITOR.
[2016-05-09] VITALS (23 sets, daily range): BP systolic 113–145; BP diastolic 52–80
--- NOTE | 2016-05-09 01:00 | NUR ---
PT RESTING QUIETLY WITHOUT DISTRESS ON VENT. VSS. REPOSITIONED FOR COMFORT, PILLOWS IN USE FOR SUPPORT. MOUTH CARE PROVIDED PER VAP. CPOC.
--- NOTE | 2016-05-09 03:00 | NUR ---
REASSESSMENT COMPLETED PER FLOW SHEETS. PT RESTING ON VENT WITHOUT DISTRESS. VSS. NO NEEDS VOICES. REPOSITIONED FOR COMFORT. CPOC.
--- NOTE | 2016-05-09 05:00 | NUR ---
BEDBATH GIVEN. LINEN AND GOWN CHANGED. SKIN CARE PROVIDED. STOMA RING AND BAG CHANGED. REDNESS NOTED AROUND STOMA. PT JS WELL. REPOSITIONED FOR COMFORT. CALL LIGHT IN REACH. CPOC.
[2016-05-09 05:01] LABS: BASOPHILS 0.2 % (0.0-2.0); EOSINOPHILS 0.6 % (0-7); HEMATOCRIT 27.9 % (36.0-48.0); HEMOGLOBIN 8.9 g/dL (12-16); IMMATURE GRANULOCYTES 0.3 % (0-5); LYMPHOCYTES 12.5 % (15-50); MCH 28.8 pg (26.0-34.0); MCHC 31.9 g/dL (31.0-37.0); MCV 90.3 fL (80.0-100.0); MONOCYTES 9.3 % (2-11); NEUTROPHILS 77.1 % (40-80); PLATELET COUNT 248 10x3/uL (130-400); RBC 3.09 10x6/uL (4.00-5.40); RDW 14.7 % (11.5-14.5); WBC 10.3 10x3/uL (4.8-10.8)
[2016-05-09 05:09] LABS: ALBUMIN 1.8 g/dL (3.4-5.0); ALKALINE PHOSPHATASE 78 U/L (46-116); ALT (SGPT) 22 U/L (10-68); CALC OSMOLALITY 260 mosm/kg (275-300); CALCIUM 8.5 mg/dL (8.5-10.1); CARBON DIOXIDE 28.8 mmol/L (21.0-32.0); CHLORIDE - SERUM 97 mmol/L (98-107); CREATININE - SERUM 0.5 mg/dL (0.6-1.3); POTASSIUM - SERUM 3.6 mmol/L (3.5-5.1); PROTEIN - SERUM 6.8 g/dL (6.4-8.2); SODIUM 131 mmol/L (136-145); UREA NITROGEN 7 mg/dL (7-18); eGFR NON AFRICAN AMERICAN > 90 mL/min (90-120)
[2016-05-09 05:11] LABS: GLUCOSE 107 mg/dL (74-106)
--- NOTE | 2016-05-09 07:00 | NUR ---
REC'D REPORT AND RESUMED CARE, VENTILATION TO TRACH AND SECURED, O2 SAT 98% ON 50% FIO2, SLEEPING WITH NO SIGNS OF DISTRESS, AROUSED TO VERBAL STIMULI, VSS, FOLLOWS COMMANDS, ASSESSMENT COMPLETE PER FLOWSHEET, REPOSITIONED UP AND TO BACK WITH HEELS FLOATED, CALL LIGHT IN MYRA
--- NOTE | 2016-05-09 08:30 | NUR ---
DR RAMIREZ AT BEDSIDE, NEW ORDERS GIVEN
--- NOTE | 2016-05-09 09:00 | NUR ---
SPOUSE AT BEDSIDE, STATUS UPDATED, VOICES NO NEEDS AT THIS TIME
--- NOTE | 2016-05-09 09:47 | NUR ---
Nutrition follow-up: Pt has clear liquid diet ordered; however, pt NPO until evaluated by Dr. Oviedo per nursing. labs reviewed s/p ileostomy With trach collar, on vent Wt: 148# If diet unable to advance past clear liquids pt will need nutrition support started within [address] RDN following.
--- NOTE | 2016-05-09 10:12 | NUR ---
AM MEDS GIVEN PER PROTOCAL
--- NOTE | 2016-05-09 11:00 | NUR ---
CHANGED TO TRACH COLLAR ON VENT AT 36% BY RT, ORAL CARE AND SUCTION OF THICK YELLOW SECRETIONS FROM TRACH COMPLETED, ASSESSMENT COMPLETE, NO OTHER CHANGES FROM PREVIOUS,
--- NOTE | 2016-05-09 12:00 | NUR ---
SPOUSE AT BEDSIDE, STATUS UPDATED, VOICES NO NEEDS AT THIS TIME
--- NOTE | 2016-05-09 13:20 | NUR ---
CONITNUES ON TRACH COLLAR AT 36%, VSS, ORAL CARE AND SUCTION COMPLETED, NO OTHER NEEDS AT THIS TIME
--- NOTE | 2016-05-09 15:00 | NUR ---
ASSESSMENT COMPLETED PER FLOWSHEET, AAO, VSS, DENIES HARRIET, NO ACUTE CHANGE FROM PREVIOUS, REPOSITIONED TO RIGHT SIDE, SPOUSE AT BEDSIDE, STATUS UPDATED, VOICES NO NEEDS AT THIS TIME,
--- NOTE | 2016-05-09 15:15 | NUR ---
PLACED BACK ON VENT IN SIMV MODE WITH 40 % FIO2, VSS NO SIGNS OF DISTRESS
--- NOTE | 2016-05-09 18:15 | NUR ---
SPOUSE AT BEDSIDE, STATUS UPDATED, PATIENT AAO, VSS, NO SIGNS OF DISTRESS, NO NEEDS AT THIS TIME, CALL LIGHT IN REACH
--- NOTE | 2016-05-09 19:10 | NUR ---
DOBHOFF DROPPED PER DR THOMPSON, ORDERS RECEIVED, RADIOLOGY NOTIFIED OF STAT X-RAY ORDER.
--- NOTE | 2016-05-09 19:20 | NUR ---
COMPLETE BATH AND LINEN CHANGE DONE, ILEOSTOMY APPLIANCE REPLACED AFTER BARRIER WIPE APPLIED AND SKIN CARE DUE TO LEAKAGE. PT TOLERATED WITHOUT DIFFICULTY, POSITIONED FOR COMFORT SUPPORTED WITH PILLOWS.
--- NOTE | 2016-05-09 20:55 | NUR ---
PULMOCARE INITIATED PER MD ORDER, WILL MONITOR.
[2016-05-09 21:09] LABS: HEMATOCRIT 28.4 % (36.0-48.0); HEMOGLOBIN 9.3 g/dL (12-16)
--- NOTE | 2016-05-09 23:30 | NUR ---
REASSESSMENT PER FLOWSHEET, NO ACUTE CHANGES NOTED, ORAL CARE AND SUCTIONING PROVIDED, REPOSITIONED FOR COMFORT.
[2016-05-10] VITALS (24 sets, daily range): BP systolic 103–138; BP diastolic 52–76
--- NOTE | 2016-05-10 00:54 | NUR ---
ICE CHIPS PROVIDED PER REQUEST, PT DENIES ANY OTHER NEEDS, CALL LIGHT IN REACH, VSS.
--- NOTE | 2016-05-10 03:30 | NUR ---
REASSESSMENT PER FLOWSHEET, ICE CHIPS PROVIDED PER PT REQUEST, POSITIONED FOR COMFORT, ORAL CARE AND SUCTIONING PROVIDED. VSS
[2016-05-10 04:08] LABS: BASOPHILS 0.2 % (0.0-2.0); EOSINOPHILS 1.4 % (0-7); HEMATOCRIT 27.6 % (36.0-48.0); HEMOGLOBIN 8.8 g/dL (12-16); IMMATURE GRANULOCYTES 0.5 % (0-5); LYMPHOCYTES 13.5 % (15-50); MCH 28.8 pg (26.0-34.0); MCHC 31.9 g/dL (31.0-37.0); MCV 90.2 fL (80.0-100.0); MEAN PLATELET VOLUME 9.8 fL (7.4-10.4); MONOCYTES 11.7 % (2-11); NEUTROPHILS 72.7 % (40-80); PLATELET COUNT 223 10x3/uL (130-400); RBC 3.06 10x6/uL (4.00-5.40); RDW 14.6 % (11.5-14.5); WBC 8.3 10x3/uL (4.8-10.8)
[2016-05-10 04:39] LABS: ALBUMIN 1.8 g/dL (3.4-5.0); ALKALINE PHOSPHATASE 94 U/L (46-116); ALT (SGPT) 29 U/L (10-68); BILIRUBIN - TOTAL 0.31 mg/dL (0.2-1.3); CALC OSMOLALITY 268 mosm/kg (275-300); CALCIUM 8.3 mg/dL (8.5-10.1); CARBON DIOXIDE 25.6 mmol/L (21.0-32.0); CHLORIDE - SERUM 102 mmol/L (98-107); CREATININE - SERUM 0.5 mg/dL (0.6-1.3); GLUCOSE 120 mg/dL (74-106); POTASSIUM - SERUM 3.4 mmol/L (3.5-5.1); PROTEIN - SERUM 7.2 g/dL (6.4-8.2); SODIUM 135 mmol/L (136-145); UREA NITROGEN 7 mg/dL (7-18); eGFR NON AFRICAN AMERICAN > 90 mL/min (90-120)
--- NOTE | 2016-05-10 05:01 | NUR ---
BLOOD CULTURES DRAWN PER ORDER FOR ELEVATED TEMP, PT DENIES ANY NEEDS, CALL LIGHT IN REACH.
--- NOTE | 2016-05-10 11:00 | NUR ---
NO CHANGE NOTED
--- NOTE | 2016-05-10 15:00 | NUR ---
NO CHANGE NOTED
--- NOTE | 2016-05-10 19:13 | NUR ---
PT FAMILY CALLED FOR UPDATE, PASSWORD PROVIDED, UPDATE GIVEN.
--- NOTE | 2016-05-10 20:42 | NUR ---
PT C/O ANXIETY, PRN ATIVAN 2 MG ADMINISTERED PER MD ORDER VIA SIVP. WILL MONITOR FOR DESIRED EFFECT.
--- NOTE | 2016-05-10 23:30 | NUR ---
REASSESSMENT PER FLOWSHEET, NO ACUTE CHANGES NOTED AT THIS TIME. PT POSITIONED FOR COMFORT, ORAL CARE AND SUCTIONING PROVIDED, DENIES ANY OTHER NEEDS, VSS.
[2016-05-11] VITALS (24 sets, daily range): BP systolic 99–138; BP diastolic 53–76
--- NOTE | 2016-05-11 01:30 | NUR ---
PT REPOSITIONED FOR COMFORT, ORAL CARE PROVIDED, CALL LIGHT IN REACH, PT DENIES ANY NEEDS AT THIS TIME.
--- NOTE | 2016-05-11 03:30 | NUR ---
REASSESSMENT PER FLOWSHEET, NO ACUTE CHANGES NOTED AT THIS TIME. ORAL CARE AND SUCTIONING COMPLETED, REPOSITIONED FOR COMFORT, PT DENIES ANY NEEDS, CALL LIGHT IN REACH, VSS.
[2016-05-11 04:11] LABS: BASOPHILS 0.3 % (0.0-2.0); EOSINOPHILS 2.6 % (0-7); HEMATOCRIT 25.9 % (36.0-48.0); HEMOGLOBIN 8.2 g/dL (12-16); IMMATURE GRANULOCYTES 0.5 % (0-5); LYMPHOCYTES 14.2 % (15-50); MCH 28.9 pg (26.0-34.0); MCHC 31.7 g/dL (31.0-37.0); MCV 91.2 fL (80.0-100.0); MEAN PLATELET VOLUME 9.6 fL (7.4-10.4); MONOCYTES 10.9 % (2-11); NEUTROPHILS 71.5 % (40-80); PLATELET COUNT 230 10x3/uL (130-400); RBC 2.84 10x6/uL (4.00-5.40); RDW 14.3 % (11.5-14.5); WBC 6.6 10x3/uL (4.8-10.8)
[2016-05-11 04:29] LABS: ALBUMIN 1.7 g/dL (3.4-5.0); ALKALINE PHOSPHATASE 90 U/L (46-116); ALT (SGPT) 25 U/L (10-68); BILIRUBIN - TOTAL 0.25 mg/dL (0.2-1.3); CALC OSMOLALITY 270 mosm/kg (275-300); CALCIUM 8.3 mg/dL (8.5-10.1); CARBON DIOXIDE 24.9 mmol/L (21.0-32.0); CHLORIDE - SERUM 104 mmol/L (98-107); CREATININE - SERUM 0.5 mg/dL (0.6-1.3); GLUCOSE 121 mg/dL (74-106); POTASSIUM - SERUM 3.6 mmol/L (3.5-5.1); PROTEIN - SERUM 6.7 g/dL (6.4-8.2); SODIUM 136 mmol/L (136-145); UREA NITROGEN 6 mg/dL (7-18); eGFR NON AFRICAN AMERICAN > 90 mL/min (90-120)
--- NOTE | 2016-05-11 05:27 | NUR ---
AM LABS REVIEWED, NOTHING NOTED TO TREAT PER ELECTROLYTE PROTOCOL.
--- NOTE | 2016-05-11 19:30 | NUR ---
RESUMED CARE OF PT, ASSESSMENT PER FLOWSHEET. ICE CHIPS PROVIDED PER PT REQUEST, HR SR AT A RATE OF 98, PPP, SKIN ASSESSMENT PER FLOWSHEET, CALL LIGHT IN REACH, BED LOW, SUCTIONING AND ORAL CARE PROVIDED, VSS.
--- NOTE | 2016-05-11 21:05 | NUR ---
NO VISITORS PRESENT AT THIS TIME, PT DENIES ANY NEEDS, ORAL CARE PROVIDED, REPOSITIONED FOR COMFORT.
--- NOTE | 2016-05-11 23:30 | NUR ---
REASSESSMENT PER FLOWSHEET, NO ACUTE CHANGES NOTED AT THIS TIME. REPOSITIONED FOR COMFORT, ORAL CARE AND SUCTIONING COMPLETED, PT TOLERATING TRACH COLLAR WITHOUT DIFFICULTY, VSS.
[2016-05-12] VITALS (24 sets, daily range): BP systolic 106–147; BP diastolic 50–79
--- NOTE | 2016-05-12 01:10 | NUR ---
PT RESTING IN BED WITH EYES CLOSED, VSS, CONT POC.
--- NOTE | 2016-05-12 03:30 | NUR ---
REASSESSMENT PER FLOWSHEET, NO ACUTE CHANGES NOTED AT THIS TIME. ORAL CARE AND SUCTIONING DONE, POSITIONED FOR COMFORT, VSS.
[2016-05-12 05:23] LABS: BASOPHILS 0.2 % (0.0-2.0); EOSINOPHILS 0 % (0-7); IMMATURE GRANULOCYTES 0.5 % (0-5); MCH 29.2 pg (26.0-34.0); MCHC 32.2 g/dL (31.0-37.0); MCV 90.5 fL (80.0-100.0); MEAN PLATELET VOLUME 10.3 fL (7.4-10.4); MONOCYTES 11.8 % (2-11); NEUTROPHILS 72.5 % (40-80); PLATELET COUNT 239 10x3/uL (130-400); WBC 5.7 10x3/uL (4.8-10.8)
[2016-05-12 05:32] LABS: CALC OSMOLALITY 274 mosm/kg (275-300); CALCIUM 8.7 mg/dL (8.5-10.1); CARBON DIOXIDE 27.2 mmol/L (21.0-32.0); CHLORIDE - SERUM 102 mmol/L (98-107); CREATININE - SERUM 0.4 mg/dL (0.6-1.3); GLUCOSE 112 mg/dL (74-106); HEMATOCRIT 36.3 % (36.0-48.0); HEMOGLOBIN 11.7 g/dL (12-16); POTASSIUM - SERUM 3.5 mmol/L (3.5-5.1); RBC 4.01 10x6/uL (4.00-5.40); SODIUM 138 mmol/L (136-145); eGFR NON AFRICAN AMERICAN > 90 mL/min (90-120)
[2016-05-12 05:33] LABS: UREA NITROGEN 8 mg/dL (7-18)
--- NOTE | 2016-05-12 05:44 | NUR ---
AM LABS REVIEWED, NOTHING TO TREAT PER ELECTROLYTE PROTOCOL
--- NOTE | 2016-05-12 09:00 | NUR ---
Nutrition follow-up: Pt intubated, sedated Pulmocare started @ 20 ml/hr Labs reviewed Wt: 178# Recommend advancing Pulmocare to goal rate of 50 ml/hr RDN following.
[2016-05-12 10:21] LABS: BASOPHILS 0.5 % (0.0-2.0); EOSINOPHILS 2.7 % (0-7); IMMATURE GRANULOCYTES 0.8 % (0-5); LYMPHOCYTES 16.3 % (15-50); MCH 29.7 pg (26.0-34.0); MCHC 32.4 g/dL (31.0-37.0); MCV 91.6 fL (80.0-100.0); MEAN PLATELET VOLUME 9.8 fL (7.4-10.4); MONOCYTES 8.7 % (2-11); PLATELET COUNT 260 10x3/uL (130-400); RDW 14.3 % (11.5-14.5); WBC 6.6 10x3/uL (4.8-10.8)
[2016-05-12 10:56] LABS: HEMATOCRIT 26.2 % (36.0-48.0); HEMOGLOBIN 8.5 g/dL (12-16); RBC 2.86 10x6/uL (4.00-5.40)
--- NOTE | 2016-05-12 14:51 | NUR ---
0700 PT AWAKE ALERT AND ORIENTED X4. ABLE TO OBEY COMMANDS. DENIES PAIN. NORMAL SINUS ON MONITOR. PT ON TRACH COLLAR AT 10L AT THIS TIME WITH STABLE O2 SAT. PT ABLE TO MOVE IN BED WITH ASSISTANCE. VERBALIZES NEEDS. VITAL SIGNS STABLE. WILL CONTINUE TO MONITOR.
--- NOTE | 2016-05-12 16:29 | NUR ---
1100 PT REPOSITIONED IN BED. ORAL CARE PERFORMED. NO FURTHER CHANGES.
--- NOTE | 2016-05-12 16:29 | NUR ---
0900 PT REMAINS STABLE ON TRACH COLLAR. VITAL SIGNS STABLE. WILL CONTINUE TO MONITOR
--- NOTE | 2016-05-12 16:30 | NUR ---
1300 SWALLOW EVAL COMPLETE. STANISLAV WILL MAKE RECOMMENDATIONS BASED ON EVAL. PT PASSED. UPDATE GIVEN TO FAMILY.
--- NOTE | 2016-05-12 16:31 | NUR ---
1500 RIGHT LOWER ABDOMEN DRAIN PULLED BY IR. GAUZE AND TEGADERM DRESSING INTACT. PT TOLERATED WELL. ONE TIME DOSE OF MORPHINE GIVEN PRIOR TO PULLING OF DRAIN. VITAL SIGNS STABLE. LTACH CONSULT PUT IN.
--- NOTE | 2016-05-12 18:09 | NUR ---
1700 PT STATUS UNCHANGED FROM PREVIOUS ASSESSMENT. VITAL SIGNS STABLE. WILL CONTINUE TO MONITOR.
--- NOTE | 2016-05-12 19:17 | NUR ---
REPORT RECIEVED. ASSESSMENT COMPLETE PER FLOW SHEET. REFER FOR FINDINGS. VSS. C/O OF PAIN 9/10 GENERALIZED BODY. REPOSIITONED ON R SIDE. WILL RETURN WITH MEDICATIONS.
--- NOTE | 2016-05-12 21:50 | NUR ---
NO FAMILY AT THIS TIME. PT SLEEPING COMFORTABLY. VSS WILL COTINUE TO MONITOR.
--- NOTE | 2016-05-12 23:28 | NUR ---
REASSESSMENT COMPLETE PER FLOW SHEET. VSS. NO NEW CHAGNES AT THIS TIME. SLEEPING COMFORTABLY. WILL CONTINUE TO MONITOR.
[2016-05-13] VITALS (19 sets, daily range): BP systolic 108–146; BP diastolic 53–86
--- NOTE | 2016-05-13 03:24 | NUR ---
REASSESSMENT COMPLETE PER FLOW SHEET. VSS. NO NEW CHANGES. WILL CONTINUE TO MONITOR.
[2016-05-13 04:08] LABS: BASOPHILS 0.1 % (0.0-2.0); EOSINOPHILS 2.5 % (0-7); HEMATOCRIT 28.6 % (36.0-48.0); HEMOGLOBIN 9.2 g/dL (12-16); IMMATURE GRANULOCYTES 0.7 % (0-5); LYMPHOCYTES 15.7 % (15-50); MCH 29.1 pg (26.0-34.0); MCHC 32.2 g/dL (31.0-37.0); MCV 90.5 fL (80.0-100.0); MEAN PLATELET VOLUME 9.7 fL (7.4-10.4); MONOCYTES 9.9 % (2-11); NEUTROPHILS 71.1 % (40-80); PLATELET COUNT 285 10x3/uL (130-400); RBC 3.16 10x6/uL (4.00-5.40); RDW 14.2 % (11.5-14.5)
[2016-05-13 04:19] LABS: ALBUMIN 1.9 g/dL (3.4-5.0); ALKALINE PHOSPHATASE 94 U/L (46-116); ALT (SGPT) 25 U/L (10-68); BILIRUBIN - TOTAL 0.24 mg/dL (0.2-1.3); CALC OSMOLALITY 271 mosm/kg (275-300); CALCIUM 8.7 mg/dL (8.5-10.1); CHLORIDE - SERUM 101 mmol/L (98-107); CREATININE - SERUM 0.6 mg/dL (0.6-1.3); GLUCOSE 130 mg/dL (74-106); POTASSIUM - SERUM 3.6 mmol/L (3.5-5.1); PROTEIN - SERUM 7.1 g/dL (6.4-8.2); SODIUM 136 mmol/L (136-145); UREA NITROGEN 7 mg/dL (7-18); eGFR NON AFRICAN AMERICAN > 90 mL/min (90-120)
[2016-05-13 04:24] LABS: WBC 8.7 10x3/uL (4.8-10.8)
--- NOTE | 2016-05-13 07:55 | NUR ---
0700 PT AWAKE ALERT AND ORIENTED X4. DENIES PAIN AT THIS TIME. ABLE TO FOLLOW COMMANDS WITH NO DEFICITS. NORMAL SINUS ON MONITOR. FINE CRACKLES NOTED IN LUNGS BILAT. BOWEL SOUNDS X4. TRACH SUCTION PERFORMED. PT ABLE TO PERFORM ACTIVE ROM X4. VITAL SIGNS STABLE. WILL CONTINUE TO MONITOR
--- NOTE | 2016-05-13 09:45 | NUR ---
0900 STANISLAV HEARN WITH SPEECH AT BEDSIDE WITH RN PERFORMING TEACHING TO PT ON IMPORTANCE OF CUFF DEFLATION AND PACI VALVE WHEN EATING. PT VERBALIZED UNDERSTANDING. VITAL SIGNS STABLE
--- NOTE | 2016-05-13 09:52 | NUR ---
NUTRITION MONITORING & EVAL SPOKE WITH DR. THOMPSON RE: TUBE FEED RATE, PO INTAKE. WILL CONTINUE PULMOCARE CONTINUOUS @ 30 CC/HR. CURRENT DIET PER SPEECH REC'S. RD FOLLOWING
--- NOTE | 2016-05-13 10:34 | NUR ---
Patient Name: SARAH GARY Encounter No: [id number] : 1960 Primary Insurance: ERNESTINA Anticipated DC Date: 05-07-2016 Planned Disposition: [facility] External Planned Provider: GLORIA RIVAS DCP follow-up note: CM RECEIVED ORDER FOR LTACH EVALUATION. CM MET WITH PT IN ROOM AND DISCUSSED LTACH OPTIONS. PT IN AGREEMENT WITH EVALUATION FOR LTACH, WANTS TO STAY IN [place] AND WILL NOT CONSIDER GOING TO [email or web address]. PT HAS BEEN TO [facility] IN THE PAST AND WOULD LIKE TO BE EVALUATED BY THEM. CM LEFT [facility] INFORMATION AND CM CONTACT INFORMATION. CM CALLED [facility], , WAS ADVISED THAT RN SCREENER STERLING IS OFF AND TO SEND REFERRAL TO [facility] WHO WILL EVALUATE PT FOR [facility] ADMISSION. CM FAXED REFERRAL TO [phone]. CM RECEIVED CALL FROM [facility] WHO REPORTS ONLY RECEIVING PARTS OF REFERRAL AND ASKED FOR REFAX TO [phone]. CM REFAXED REFERRAL ASKED. CM WAITING ADMISSION SCREENING, INSURANCE AUTHORIZATION AND ADMISSION DETERMINATION FOR [facility]. William Howard, CASE MANAGEMENT
--- NOTE | 2016-05-13 13:59 | NUR ---
1300 PT ASLEEP AT THIS TIME WITH NO CHANGES IN STATUS. WILL CONTINUE TO MONITOR. VITAL SIGNS STABLE
--- NOTE | 2016-05-13 15:47 | NUR ---
1500 ORAL SUCTION PERFORMED. PT TOLERATED WELL. VITAL SIGNS STABLE.
--- NOTE | 2016-05-13 17:45 | NUR ---
1700 ORAL CARE PERFORMED, DEEP TRACH SUCTION. PT SITTING UP EATING DINNER INDEPENDENTLY. VITAL SIGNS STABLE. WILL CONTINUE TO MONITOR
--- NOTE | 2016-05-13 19:49 | NUR ---
REPORT RECIEVED. ASSESSMENT COMPLETE PER FLOW SHEET. VSS. NO NEW CHNAGES. DENIES NEEDS OR PAIN. RESTING COMFORTABLY. WILL CONTINUE TO MONITOR.
--- NOTE | 2016-05-13 21:18 | NUR ---
REPORT GIVEN. TRSF TO 2237.
[2016-05-14] VITALS: BP 124/52
[2016-05-14 04:00] VITALS: BP 111/50
--- NOTE | 2016-05-14 04:35 | NUR ---
PATIENT RESTING IN BED WITH EYES CLOSED. BED IN LOWEST POSITION AND CALL LIGHT WITHIN REACH.
[2016-05-14 06:15] LABS: BASOPHILS 0.2 % (0.0-2.0); EOSINOPHILS 3.8 % (0-7); HEMATOCRIT 26.1 % (36.0-48.0); HEMOGLOBIN 8.4 g/dL (12-16); IMMATURE GRANULOCYTES 1.3 % (0-5); LYMPHOCYTES 19.1 % (15-50); MCH 29.5 pg (26.0-34.0); MCHC 32.2 g/dL (31.0-37.0); MCV 91.6 fL (80.0-100.0); MONOCYTES 12.1 % (2-11); NEUTROPHILS 63.5 % (40-80); PLATELET COUNT 271 10x3/uL (130-400); RBC 2.85 10x6/uL (4.00-5.40); RDW 14.3 % (11.5-14.5)
[2016-05-14 06:19] LABS: WBC 6.4 10x3/uL (4.8-10.8)
[2016-05-14 06:43] LABS: CALC OSMOLALITY 297 mosm/kg (275-300); CALCIUM 7.7 mg/dL (8.5-10.1); CARBON DIOXIDE 25.2 mmol/L (21.0-32.0); CHLORIDE - SERUM 107 mmol/L (98-107); CREATININE - SERUM 0.6 mg/dL (0.6-1.3); MAGNESIUM - SERUM 1.5 mg/dL (1.8-2.4); POTASSIUM - SERUM 3.2 mmol/L (3.5-5.1); SODIUM 140 mmol/L (136-145); UREA NITROGEN 6 mg/dL (7-18); eGFR NON AFRICAN AMERICAN > 90 mL/min (90-120)
[2016-05-14 06:55] LABS: GLUCOSE 479 mg/dL (74-106)
--- NOTE | 2016-05-14 08:00 | NUR ---
RESIDUAL CHECK WAS NEGATIVE. TF INCREASED TO 40 CC HOUR VIA PUMP.
--- NOTE | 2016-05-14 08:52 | NUR ---
AWAKE AND ALERT. ORIENTED X3. NO C/O AT THIS TIME. LUNGS HAVE CRACKLES AND WHEEZES THROUGHOUT LUNG JOHNSON. NO COUGH NOTED. SKIN IS INTACT WITHOUT REDNESS. ILEOSTOMY IS PATENT WITH DARK BROWN STOOL. LEAKING AT THIS TIME, WILL CHANGES SHORTLY. SUCTIONED PER RT FOR COMFORT. REPOSITIONED IN BED FOR COMFORT TO EAT. PICC TO RIGHT UPPER ARM IS PATENT WITHOUT REDNESS AT INSERTION SITE. MARK PATENT WITH CLEAR YELLOW URINE.
[2016-05-14 08:59] VITALS: BP 120/64
--- NOTE | 2016-05-14 09:30 | NUR ---
UP AT SIDE OF BED WITH PT. STAGE 2 TO RIGHT BUTTOCK NOTED. NO DRAINAGE FROM SAME. DENIES DISCOMFORT AT THIS TIME.
--- NOTE | 2016-05-14 12:15 | NUR ---
REFUSED TO TAKE COUGH SYRUP AT THIS TIME. WANTS TO TAKE IT AFTER LUNCH. WAS SERVED PUREED LUNCH TRAY WHICH SHE REFUSED. NEW [facility] SOFT TRAY ORDERED.
[2016-05-14 13:09] VITALS: BP 103/58
[2016-05-14 13:15] LABS: FUNGUS MYCOLOGY CULTURE Preliminary report (()); FUNGUS STAIN RESULT 1 None seen (())
--- NOTE | 2016-05-14 13:36 | NUR ---
WOUND CARE: PT HAS ILEOSTOMY (RLQ) MEASURING 2-1/4". CLEANSED SKIN WELL AND PATTED DRY. APPLIED CAVILON SKIN BARRIER AND PLACED NEW APPLIANCE (2 PIECE). PT TOLERATED WELL. PERISTOMAL SKIN IS DRY AND INTACT.
--- NOTE | 2016-05-14 15:36 | NUR ---
RESIDUAL CHECKS WERE NEGATIVE. TF INCREASED TO GOAL RATE OF 50.
[2016-05-14 17:30] VITALS: BP 148/62
--- NOTE | 2016-05-14 18:34 | NUR ---
BROUGHT FOOD IN FROM HOME. ATE WELL. NO CHANGES NOTED. DENIES NEEDS.
[2016-05-14 19:00] VITALS: BP 128/47
--- NOTE | 2016-05-14 21:21 | NUR ---
AWAKE,ALERT,NO COMPLAITNS VOICED. DOBHOFF INTACT WITH PULMOCARE INFUSING AT 50 CC/HR. IV INFUSING TO RIGHT FOREARM WIHTOUT REDNESS OR EDEMA NOTED.MARK PATENT AND DRAINING CL YELLOW URINE. CL IN REACH.
--- NOTE | 2016-05-15 01:54 | NUR ---
EYES CLOSED RESP EVEN AND UNLABORED.NO DISTRESS NOTED. CL IN REACH.
[2016-05-15 04:00] VITALS: BP 121/52
[2016-05-15 04:54] LABS: BASOPHILS 0.3 % (0.0-2.0); EOSINOPHILS 3.6 % (0-7); HEMATOCRIT 29.8 % (36.0-48.0); HEMOGLOBIN 9.6 g/dL (12-16); IMMATURE GRANULOCYTES 1.5 % (0-5); LYMPHOCYTES 18.3 % (15-50); MCH 29.4 pg (26.0-34.0); MCHC 32.2 g/dL (31.0-37.0); MCV 91.1 fL (80.0-100.0); MEAN PLATELET VOLUME 10.1 fL (7.4-10.4); MONOCYTES 10.2 % (2-11); NEUTROPHILS 66.1 % (40-80); PLATELET COUNT 309 10x3/uL (130-400); RBC 3.27 10x6/uL (4.00-5.40); RDW 14.2 % (11.5-14.5); WBC 7.5 10x3/uL (4.8-10.8)
[2016-05-15 04:55] LABS: CALCIUM 8.9 mg/dL (8.5-10.1); CARBON DIOXIDE 28.5 mmol/L (21.0-32.0); CHLORIDE - SERUM 101 mmol/L (98-107); CREATININE - SERUM 0.5 mg/dL (0.6-1.3); MAGNESIUM - SERUM 1.8 mg/dL (1.8-2.4); POTASSIUM - SERUM 3.6 mmol/L (3.5-5.1); SODIUM 136 mmol/L (136-145); eGFR NON AFRICAN AMERICAN > 90 mL/min (90-120)
[2016-05-15 05:05] LABS: CALC OSMOLALITY 270 mosm/kg (275-300); GLUCOSE 119 mg/dL (74-106); UREA NITROGEN 8 mg/dL (7-18)
--- NOTE | 2016-05-15 05:28 | NUR ---
NO CHANGE IN ASSESSMENT. CL IN REACH.
[2016-05-15 08:00] VITALS: BP 108/55
--- NOTE | 2016-05-15 08:08 | NUR ---
AWAKE AND ALERT. ORIENTED X3. NO C/O AT THIS TIME. LUNGS ARE CLEAR BUT DIMINISHED THROUGHOUT, OCCASSIONALLY PRODUCTIVE COUGH NOTED. SKIN IS INTACT WITHOUT REDNESS EXCEPT STAGE 2 TO RIGHT BUTTOCK WHICH HAS NO DRAINAGE AT THIS TIME. ILEOSTOMY IS PATENT WITH LIGHT BROWN STOOL. STOMA IS PINK AND VIABLE. MARK PATENT WITH CLEAR YELLOW URINE. RIGHT PICC PATENT WITHOUT REDNESS AT INSERTION SITE. DENIES NEEDS AT THIS TIME.
--- NOTE | 2016-05-15 10:00 | NUR ---
REQUESTED TO BE SUCTIONED AT THIS TIME. DENIED SINCE LESS THAN 30 MINUTES PREVIOUS SUCTION. PASSEMUIR VALVE REMOVED AND ENCOURAGED TO COUGH. LARGE THICK PLUG OF SPUTUM UP. VALVE REPLACED AND PATIENT REPORTS BREATHING MUCH EASIER.
[2016-05-15 12:00] VITALS: BP 124/54
--- NOTE | 2016-05-15 13:00 | NUR ---
ATE ABOUT HALF OF LUNCH. DENIES NEEDS. REQUESTED AND SUCTIONED PER RN. LARGE MUCOUS PLUGS REMOVED. NO FURTHER NEEDS NOTED.
--- NOTE | 2016-05-15 14:30 | NUR ---
SUCTIONED PER RT. [facility] PER RT WELL. RED ANGRY RASH NOTED TO [facility]. VERY PAINFUL PER PATIENT. DR. RAMIREZ'S OFFICE NOTIFIED OF SAME. AWAITING ORDERS.
[2016-05-15 16:00] VITALS: BP 122/54
[2016-05-15 19:00] VITALS: BP 135/67
--- NOTE | 2016-05-15 19:23 | NUR ---
SUCTIONED ONCE AGAIN PER STAFF. DENIES NEEDS. ATE ABOUT ONE QUARTER OF SUPPER. NO CHANGES NOTED.
--- NOTE | 2016-05-15 19:57 | NUR ---
PATIENT RESTING IN BED. ALERT AND ORIENTED. NO SIGNS OF DISTRESS NOTED. RESPIRATIONS EVEN AND UNLABORED. SHIFT ASSESSMENT COMPLETED. DENIES ANY NEEDS AT THIS TIME. BED LOW. CALL LIGHT IN REACH.
[2016-05-16] VITALS: BP 115/63; BP 131/60
[2016-05-16 05:46] LABS: BASOPHILS 0.2 % (0.0-2.0); EOSINOPHILS 2.4 % (0-7); HEMATOCRIT 28.4 % (36.0-48.0); HEMOGLOBIN 9.1 g/dL (12-16); IMMATURE GRANULOCYTES 1.4 % (0-5); MCH 29.1 pg (26.0-34.0); MCV 90.7 fL (80.0-100.0); MEAN PLATELET VOLUME 9.9 fL (7.4-10.4); MONOCYTES 9.3 % (2-11); NEUTROPHILS 68.7 % (40-80); PLATELET COUNT 315 10x3/uL (130-400); RBC 3.13 10x6/uL (4.00-5.40); RDW 14.2 % (11.5-14.5); WBC 9.2 10x3/uL (4.8-10.8)
[2016-05-16 06:18] LABS: CALC OSMOLALITY 271 mosm/kg (275-300); CALCIUM 8.9 mg/dL (8.5-10.1); CARBON DIOXIDE 28.8 mmol/L (21.0-32.0); CHLORIDE - SERUM 100 mmol/L (98-107); CREATININE - SERUM 0.5 mg/dL (0.6-1.3); GLUCOSE 122 mg/dL (74-106); MAGNESIUM - SERUM 1.7 mg/dL (1.8-2.4); POTASSIUM - SERUM 3.9 mmol/L (3.5-5.1); SODIUM 136 mmol/L (136-145); UREA NITROGEN 10 mg/dL (7-18); eGFR NON AFRICAN AMERICAN > 90 mL/min (90-120)
--- NOTE | 2016-05-16 07:59 | NUR ---
AWAKE AND ALERT. ORIENTED X3. NO C/O AT THIS TIME. LUNGS HAVE CRACKLES AND WHEEZES THROUGHOUT BUT IMPROVED FROM YESTERDAY. SKIN IS INTACT EXCEPT STAGE 2 TO RIGHT BUTTOCK AND REDNESS NOTED TO STANLEY AREA. DR. RAMIREZ AWARE OF SAME, NEW ORDERS FOR CALMOSEPTINE IN PLACE. RIGHT PICC PATENT WITHOUT REDNESS AT INSERTION SITE. MARK PATENT WITH CLEAR YELLOW URINE. DOBHOFF TO LEFT NARE IS PATENT WITH PULMOCARE AT 50CC AN HOUR VIA PUMP. REPOSITIONED IN BED FOR COMFORT.
[2016-05-16 08:20] VITALS: BP 114/60
--- NOTE | 2016-05-16 10:17 | NUR ---
CM REASSESSMENT NOTE: PATIENT HAS BEEN ACCEPTED TO [facility] AND WILL DISCHARGE THERE TODAY BY AMBULANCE
[2016-05-16] MEDS ORDERED: LOPRESSOR25 MG PO (10:26)
[2016-05-16] MEDS ORDERED: XOPENEX 0.0.63 MG/3 UPD (10:26)
[2016-05-16] MEDS ORDERED: ACETAMINOPHEN500 M1 PO (10:27)
[2016-05-16] MEDS ORDERED: CALMOSEPTINE OI71 GM TOPICAL (10:28)
[2016-05-16] MEDS ORDERED: NYSTATIN15 GM TOPICAL (10:28)
--- NOTE | 2016-05-16 10:30 | NUR ---
RESTING QUIETLY IN BED. STANLEY CARE PER STAFF CALMOSEPTINE APPLIED TO REDDENED AREA
[2016-05-16 12:14] VITALS: BP 121/50
--- NOTE | 2016-05-16 12:30 | NUR ---
REPORT CALLED TO ZOYA VALENZUELA AT [facility]. ALL QUESTIONS ANSWERED.
--- NOTE | 2016-05-16 13:25 | NUR ---
DISCHARGED TO [facility] VIA AMBULANCE. AT BEDSIDE AT TIME OF TRANSFER. DOBHOFF FLUSHED AND CLAMPED. PICC FLUSHED AND CLAMPED. GIVEN DEEP SUCTION PRIOR TO TRANSFER.
[2016-05-20 16:13] LABS: FUNGUS CULTURE RESULT 1 Candida albicans (())
== END 2016-05-16 13:25 | disposition short-term general hospital (02) | DRG 329 ==
LOC: D.MS 13:50 → D.ICU 15:25 → D.MS 15:25 → D.ICU 05-07 10:25 → D.MS 05-13 22:05
PROVIDERS: Emergency Medicine; Family Medicine; Internal Medicine Pulmonary Disease; Surgery; ADMIT Family Medicine
PROC: 0D1B0Z4 Bypass Ileum to Cutaneous, Open Approach (ICD-10-PCS; principal; 2016-05-05 11:15)
PROC: 0DTJ0ZZ Resection of Appendix, Open Approach (ICD-10-PCS; 2016-05-05 11:15)
PROC: 0BBJ8ZX Excision of Left Lower Lung Lobe, Via Natural or Artificial Opening Endoscopic, Diagnostic (ICD-10-PCS; 2016-05-07)
PROC: 0BB98ZX Excision of Lingula Bronchus, Via Natural or Artificial Opening Endoscopic, Diagnostic (ICD-10-PCS; 2016-05-07)
PROC: 0BB68ZX Excision of Right Lower Lobe Bronchus, Via Natural or Artificial Opening Endoscopic, Diagnostic (ICD-10-PCS; 2016-05-07)
PROC: 0BBF8ZX Excision of Right Lower Lung Lobe, Via Natural or Artificial Opening Endoscopic, Diagnostic (ICD-10-PCS; 2016-05-08)
PROC: 0BB28ZX Excision of Carina, Via Natural or Artificial Opening Endoscopic, Diagnostic (ICD-10-PCS; 2016-05-08)
PROC: 0BB98ZX Excision of Lingula Bronchus, Via Natural or Artificial Opening Endoscopic, Diagnostic (ICD-10-PCS; 2016-05-08)
PROC: 0BB88ZX Excision of Left Upper Lobe Bronchus, Via Natural or Artificial Opening Endoscopic, Diagnostic (ICD-10-PCS; 2016-05-08)
PROC: 0BB18ZX Excision of Trachea, Via Natural or Artificial Opening Endoscopic, Diagnostic (ICD-10-PCS; 2016-05-08)
PROC: 0BH17EZ Insertion of Endotracheal Airway into Trachea, Via Natural or Artificial Opening (ICD-10-PCS; 2016-05-08)
PROC: 5A1955Z Respiratory Ventilation, Greater than 96 Consecutive Hours (ICD-10-PCS; 2016-05-08)
DX: K63.2 Fistula of intestine (principal); J96.21 Acute and chronic respiratory failure with hypoxia; I50.22 Chronic systolic (congestive) heart failure; J96.11 Chronic respiratory failure with hypoxia; G72.81 Critical illness myopathy; T17.590A Other foreign object in bronchus causing asphyxiation, initial encounter; T17.500A Unspecified foreign body in bronchus causing asphyxiation, initial encounter; B37.89 Other sites of candidiasis; Z93.0 Tracheostomy status; D50.9 Iron deficiency anemia, unspecified; E88.09 Other disorders of plasma-protein metabolism, not elsewhere classified; F17.200 Nicotine dependence, unspecified, uncomplicated; X58.XXXA Exposure to other specified factors, initial encounter; J44.9 Chronic obstructive pulmonary disease, unspecified

== ENCOUNTER 2016-08-08 09:48 | Day surgery (SDC) | payer OTHER ==
[~2016-08-08] VITALS: Ht 167.6 cm; Wt 67.6 kg
[~2016-08-08 09:48] MED LIST changes: +ACETAMINOPHEN500 M1 PO; +CALMOSEPTINE OI71 GM TOPICAL; +LOPRESSOR25 MG PO; +NYSTATIN15 GM TOPICAL; +XOPENEX 0.0.63 MG/3 UPD
[2016-08-08 11:01] LABS: BASOPHILS 0.3 % (0-2); EOSINOPHILS 3.3 % (0-7); HEMATOCRIT 38.7 % (36.0-48.0); HEMOGLOBIN 13.3 g/dL (12-16); IMMATURE GRANULOCYTES 0.6 % (0-5); LYMPHOCYTES 19.8 % (15-50); MCH 33.6 pg (26.0-34.0); MCHC 34.4 g/dL (31.0-37.0); MCV 97.7 fL (80.0-100.0); MEAN PLATELET VOLUME 10.2 fL (7.4-10.4); MONOCYTES 7.8 % (2-11); NEUTROPHILS 68.2 % (40-80); RBC 3.96 10x6/uL (4.00-5.40); RDW 13.5 % (11.5-14.5)
[2016-08-08 11:03] LABS: PLATELET COUNT 164 10x3/uL (130-400)
[2016-08-08 11:30] LABS: CALC OSMOLALITY 269 mosm/kg (275-300); CALCIUM 8.7 mg/dL (8.5-10.1); CARBON DIOXIDE 28.2 mmol/L (21.0-32.0); CHLORIDE - SERUM 100 mmol/L (98-107); CREATININE - SERUM 0.6 mg/dL (0.6-1.3); GLUCOSE 112 mg/dL (74-106); POTASSIUM - SERUM 3.6 mmol/L (3.5-5.1); SODIUM 136 mmol/L (136-145); UREA NITROGEN 4 mg/dL (7-18); eGFR NON AFRICAN AMERICAN > 90 mL/min (90-120)
[2016-08-08 11:45] VITALS: BP 129/54; Ht 167.6 cm; Wt 67.6 kg
[2016-08-08] MEDS ORDERED: METOPROLOL TART50 MG PO (12:09)
[2016-08-08] MEDS ORDERED: PROTONIX40 MG PO (12:13)
[2016-08-08] MEDS ORDERED: PACERONE200 MG PO (12:14)
--- NOTE | 2016-08-08 16:21 | NUR ---
ABDOMINAL BINDER APPLIED IN OR. COLOSTOMY BAG INTACT.
--- NOTE | 2016-08-08 17:31 | NUR ---
1700 IV DC WITH CATHER TIP INTACT
== END 2016-08-08 17:20 | disposition home or self-care (01) ==
LOC: D.OPS 09:48
PROVIDERS: Anesthesiology
DX: K94.19 Other complications of enterostomy (principal); Z01.812 Encounter for preprocedural laboratory examination

== ENCOUNTER → 2016-09-29 07:56 | Outpatient (CLI) | payer OTHER ==
[2016-08-08 11:45] VITALS: BMI 24.1
[~2016-09-29 07:56] MED LIST changes: +PACERONE200 MG PO
== END | disposition home or self-care (01) ==
LOC: D.RAD 07:56
DX: K94.19 Other complications of enterostomy (principal)

== ENCOUNTER 2016-10-01 08:15 | Inpatient (IN) | payer OTHER ==
[~2016-10-01] VITALS: Ht 167.6 cm; Wt 52.7 kg
[2016-10-14] MEDS ORDERED: BREO ELLIPTA 11 EACH INH (09:23)
[2016-10-16 11:03] VITALS: Ht 167.6 cm; Wt 52.7 kg
[2016-10-29] MEDS ORDERED: GUAIFENESI100 MG/5 M NG (15:04)
[2016-10-29] MEDS ORDERED: SOLU-MEDRO40 MG/1 M1 PO (15:06)
[2016-10-29] MEDS ORDERED: OXYCODONE HCL5 MG PO (15:06)
[2016-10-29 15:35] VITALS: BP 109/43
== END 2016-10-29 17:41 | disposition home or self-care (01) | DRG 329 ==
LOC: D.ICU 10-15 05:16 → D.SDCHOLD 10-15 05:16 → D.MS 10-15 05:16 → D.SDCHOLD 10-15 09:00 → D.MS 10-15 15:05 → D.ICU 10-19 13:51 → D.M2 10-27 21:12
PROVIDERS: ADMIT Surgery
PROC: 0DBB0ZZ Excision of Ileum, Open Approach (ICD-10-PCS; principal; 2016-10-15 11:30)
PROC: 0BH17EZ Insertion of Endotracheal Airway into Trachea, Via Natural or Artificial Opening (ICD-10-PCS; 2016-10-19)
PROC: 5A1955Z Respiratory Ventilation, Greater than 96 Consecutive Hours (ICD-10-PCS; 2016-10-19)
PROC: 0BB68ZX Excision of Right Lower Lobe Bronchus, Via Natural or Artificial Opening Endoscopic, Diagnostic (ICD-10-PCS; 2016-10-24)
PROC: 0BB58ZX Excision of Right Middle Lobe Bronchus, Via Natural or Artificial Opening Endoscopic, Diagnostic (ICD-10-PCS; 2016-10-24)
PROC: 0BB88ZX Excision of Left Upper Lobe Bronchus, Via Natural or Artificial Opening Endoscopic, Diagnostic (ICD-10-PCS; 2016-10-24)
PROC: 0BBB8ZX Excision of Left Lower Lobe Bronchus, Via Natural or Artificial Opening Endoscopic, Diagnostic (ICD-10-PCS; 2016-10-24)
PROC: 0BB98ZX Excision of Lingula Bronchus, Via Natural or Artificial Opening Endoscopic, Diagnostic (ICD-10-PCS; 2016-10-24)
PROC: 0BB48ZX Excision of Right Upper Lobe Bronchus, Via Natural or Artificial Opening Endoscopic, Diagnostic (ICD-10-PCS; 2016-10-24)
DX: Z43.2 Encounter for attention to ileostomy (principal); J96.01 Acute respiratory failure with hypoxia; I21.4 Non-ST elevation (NSTEMI) myocardial infarction; J15.6 Pneumonia due to other Gram-negative bacteria; K56.7 Ileus, unspecified; E87.2 Acidosis; J44.1 Chronic obstructive pulmonary disease with (acute) exacerbation; J98.11 Atelectasis; T17.590A Other foreign object in bronchus causing asphyxiation, initial encounter; E87.6 Hypokalemia; E88.09 Other disorders of plasma-protein metabolism, not elsewhere classified; I35.1 Nonrheumatic aortic (valve) insufficiency; I11.9 Hypertensive heart disease without heart failure; F17.200 Nicotine dependence, unspecified, uncomplicated; R53.81 Other malaise

== ENCOUNTER → 2016-12-05 11:39 | Outpatient (CLI) | payer OTHER ==
[2016-10-16 11:03] VITALS: BMI 24.3
[~2016-12-05 11:39] MED LIST changes: +GUAIFENESI100 MG/5 M NG; +OXYCODONE HCL5 MG PO; +SOLU-MEDRO40 MG/1 M1 PO
== END | disposition home or self-care (01) ==
LOC: D.RAD 11:39
DX: M54.9 Dorsalgia, unspecified (principal)

== ENCOUNTER → 2017-04-16 12:52 | Outpatient (CLI) | payer OTHER ==
[2016-10-16 11:03] VITALS: BMI 24.3
== END | disposition home or self-care (01) ==
LOC: D.RT 12:52
DX: Z02.71 Encounter for disability determination (principal)

== ENCOUNTER → 2019-11-23 13:41 | Outpatient (CLI) | payer MEDICARE ==
[2016-10-16 11:03] VITALS: BMI 24.3
[2019-11-23 14:11] LABS: BASOPHILS 0.2 % (0-2); EOSINOPHILS 2.5 % (0-7); HEMATOCRIT 40.3 % (36.0-48.0); HEMOGLOBIN 13.1 g/dL (12-16); IMMATURE GRANULOCYTES 0.1 % (0-5); LYMPHOCYTES 14.8 % (15-50); MCH 31.6 pg (26.0-34.0); MCHC 32.5 g/dL (31.0-37.0); MCV 97.1 fL (80.0-100.0); MEAN PLATELET VOLUME 9.7 fL (7.4-10.4); NEUTROPHILS 71.4 % (40-80); RBC 4.15 10x6/uL (4.00-5.40); RDW 13.6 % (11.5-14.5); WBC 10.6 10x3/uL (4.8-10.8)
[2019-11-23 14:13] LABS: PLATELET COUNT 193 10x3/uL (130-400)
== END | disposition home or self-care (01) ==
LOC: D.LAB 13:41
PROVIDERS: ATTEND Internal Medicine Pulmonary Disease
DX: Z11.59 Encounter for screening for other viral diseases (principal)

== ENCOUNTER → 2019-11-25 12:59 | Outpatient (CLI) | payer MEDICARE ==
[2016-10-16 11:03] VITALS: BMI 24.3
== END | disposition home or self-care (01) ==
LOC: D.RT 12:59
PROVIDERS: ATTEND Internal Medicine Pulmonary Disease
DX: J45.909 Unspecified asthma, uncomplicated (principal); Z11.59 Encounter for screening for other viral diseases; J44.9 Chronic obstructive pulmonary disease, unspecified